=== PATIENT | male | born 1945 | race Caucasian/White ===

== ENCOUNTER 2017-04-23 13:50 | Inpatient (IN) | payer MEDICARE, MEDICAID ==
[~2017-04-23] VITALS: Ht 172.7 cm; Wt 94.1 kg
[2017-04-23] VITALS (17 sets, daily range): BP systolic 73–143; BP diastolic 29–83
[2017-04-23] MEDS ORDERED: Famotidine 20 MG/ 2ML VIAL IVP ONE (14:00)
--- NOTE | 2017-04-23 14:04 | Emergency Room Report ---
History of Present Illness General Chief Complaint: Gastrointestinal Bleed Source: EMS Present Illness HPI Patient is a 72-year-old male who presented after having increased hematemesis. Patient reported having increased epigastric pain. He was noted to be vomiting blood while at his dialysis unit. Patient is brought in by EMS after being noted be hypotensive. He was given a fluid challenge with some slight improvement in his blood pressure. Patient been vomiting bright red blood. Patient had prior history of end-stage renal disease and had undergone dialysis today. Allergies: Coded Allergies: No Known Allergies (Verified Allergy, Unknown, 02/08/07) Patient History Past Medical History: see triage record Reviewed Nursing Documentation: PMH: Agreed, PSxH: Agreed Nursing Documentation-PMH Past Medical History: No History, Except For Hx Cardiac Problems: Yes Hx Diabetes: Yes Hx Cancer: No - BPH, DVT Hx Neurological Problems: No - GOUT Hx Cerebrovascular Accident: No - GI BLEED Review of Systems All Other Systems: negative except mentioned in HPI Physical Exam Vital Signs Date Time Temp Pulse Resp B/P Pulse Ox O2 Delivery O2 Flow Rate FiO2 04/23/17 13:34 98.4 102 20 88/48 100 Room Air Sp02 EP Interpretation: reviewed, normal General Appearance: normal inspection, alert, mild distress Head: atraumatic ENT: normal ENT inspection, hearing grossly normal, normal voice Neck: normal inspection, full range of motion, supple, no bony tend Respiratory: normal inspection, lungs clear, normal breath sounds, no respiratory distress, no retraction, no wheezing Cardiovascular #1: regular rate, rhythm, no edema Gastrointestinal: normal inspection, normal bowel sounds, soft, no guarding, no hernia, tenderness - epigastric Genitourinary: no CVA tenderness Musculoskeletal: normal inspection, back normal, normal range of motion Neurologic: normal inspection, alert, oriented x3, responsive, medical technologist prn III-XII nml as tested, speech normal Psychiatric: normal inspection, judgement/insight normal, mood/affect normal Skin: normal color, no rash, pallor Procedures Intubation Intubation : Consent: Emergent Time of Intubation: 15:13 Tube Size (cm): 7.5 Medications: Etomidate, Rocuronium Breath Sounds after Intubation: equal Intubation Complications: no complications Post Intubation Xray: Yes Attempts: One Patient Tolerated: Well Complications: None Medical Decision Making Diagnostic Impression: Primary Impression: Gastrointestinal hemorrhage ER Course Patient presented for hematemesis. Differential diagnoses included was not limited to ulcer disease, variceal bleeding, coagulopathy, anemia among others.Because of complexity of patient's case laboratory testing and imaging studies were ordered.Laboratory testing showed markedly anemia. Patient typed and cross cross for 4 units of blood. Patient was given IV fluids. Dr. Back was contacted for GI consult. The patient started on a Sandostatin drip and consented for blood. Patient was intubated for airway protection after laryngoscopy x1 Labs Test 04/23/17 13:55 White Blood Count 5.9 K/UL (4.8-10.8) Red Blood Count 2.09 M/UL (4.70-6.10) Hemoglobin 5.8 G/DL (14.2-18.0) Hematocrit 19.2 % (42.0-52.0) Mean Corpuscular Volume 92 FL (80-99) Mean Corpuscular Hemoglobin 27.5 PG (27.0-31.0) Mean Corpuscular Hemoglobin Concent 30.0 G/DL (32.0-36.0) Red Cell Distribution Width 15.7 % (11.6-14.8) Platelet Count 145 K/UL (150-450) Mean Platelet Volume 5.3 FL (6.5-10.1) Neutrophils (%) (Auto) % (45.0-75.0) Lymphocytes (%) (Auto) % (20.0-45.0) Monocytes (%) (Auto) % (1.0-10.0) Eosinophils (%) (Auto) % (0.0-3.0) Basophils (%) (Auto) % (0.0-2.0) Prothrombin Time 10.7 SEC (9.30-11.50) Prothromb Time International Ratio 1.0 (0.9-1.1) Activated Partial Thromboplast Time 29 SEC (23-33) Sodium Level 139 mEQ/L (135-145) Potassium Level 3.6 mEQ/L (3.4-4.9) Chloride Level 99 mEQ/L (98-107) Carbon Dioxide Level 30 mEQ/L (20-30) Anion Gap 10 (5-15) Blood Urea Nitrogen 30 mg/dL (7-23) Creatinine 3.9 mg/dL (0.7-1.2) Estimat Glomerular Filtration Rate 15.4 mL/min (>60) Glucose Level 105 mg/dL (74-106) Calcium Level 8.0 mg/dL (8.6-10.2) Total Bilirubin 0.3 mg/dL (0.0-1.2) Aspartate Amino Transf (AST/SGOT) 10 U/L (5-40) Alanine Aminotransferase (ALT/SGPT) 5 U/L (3-41) Alkaline Phosphatase 118 U/L (40-129) Troponin I < 0.30 ng/mL (<=0.30) Total Protein 5.3 g/dL (6.6-8.7) Albumin 2.7 g/dL (3.5-5.2) Globulin 2.6 g/dL Albumin/Globulin Ratio 1.0 (1.0-2.7) Lipase 27 U/L (< 60) EKG Diagnostic Results Rate: normal - 99 Rhythm: NSR ST Segments: other - prolonged qt 505 Last Vital Signs Date Time Temp Pulse Resp B/P Pulse Ox O2 Delivery O2 Flow Rate FiO2 04/23/17 13:57 98.4 100 27 88/48 97 Room Air Status: unchanged Disposition: ADMITTED INPATIENT Condition: Critical Daniel De Leon Apr 23, 2017 14:04
[2017-04-23 14:32] LABS: MEAN CORPUSCULAR HEMOGLOBIN 27.5 PG (27.0-31.0); MEAN CORPUSCULAR VOLUME 92 FL (80-99); MEAN PLATELET VOLUME 5.3 FL (6.5-10.1); PLATELET COUNT 145 K/UL (150-450); RED BLOOD COUNT 2.09 M/UL (4.70-6.10); RED CELL DISTRIBUTION WIDTH 15.7 % (11.6-14.8); WHITE BLOOD COUNT 5.9 K/UL (4.8-10.8)
[2017-04-23 14:40] LABS: PROTHROMBIN TIME 10.7 SEC (9.30-11.50)
[2017-04-23 14:47] LABS: TROPONIN I < 0.30 ng/mL (<=0.30)
[2017-04-23 14:49] LABS: CREATININE 3.9 mg/dL (0.7-1.2); GLOMERULAR FILTRATION RATE 15.4 mL/min (>60); POTASSIUM 3.6 mEQ/L (3.4-4.9); TOTAL PROTEIN 5.3 g/dL (6.6-8.7)
[2017-04-23] MEDS ORDERED: SandoSTATIN 50mcg Inj IVP ONE (15:00)
[2017-04-23] MEDS ORDERED: Nitroglycerin Subl 0.4mg tab (Bottle Of 25) SL PRN (15:15)
[2017-04-23] MEDS ORDERED: Miralax 17gm pkt ORAL PRN (15:15)
[2017-04-23] MEDS ORDERED: Mylanta II UD 30ml ORAL PRN (15:15)
[2017-04-23] MEDS: Octreotide Acetate 500 MCG in Sodium Chloride 499 ML IV SCH (15:36)
[2017-04-23] MEDS ORDERED: Pantoprazole 80 MG in NS 250 ML IV ONE (16:00)
[2017-04-23] MEDS ORDERED: Phytonadione 10 MG in D5W 55 ML IVPB ONE (16:00)
[2017-04-23] MEDS ORDERED: Premarin Inj IV ONE (16:00)
[2017-04-23 16:10] LABS: EOSINOPHILS % (MANUAL) 1 % (0-3); LYMPHOCYTES % (MANUAL) 14 % (20-45); NEUTROPHILS % (MANUAL) 82 % (45-75); TOTAL CELLS COUNTED 100
[2017-04-23 16:12] LABS: BAND NEUTROPHILS % (MANUAL) 0 % (0-8); BASOPHILS % (MANUAL) 0 % (0-2); PLATELET ESTIMATE DECREASED; PLATELET MORPHOLOGY NORMAL
[2017-04-23 16:13] LABS: ANISOCYTOSIS 2+; HYPOCHROMASIA 2+; MICROCYTES 2+; POLYCHROMASIA 1+
[2017-04-23] MEDS ORDERED: ALLOPURINOL100 M1 ORAL (16:15)
[2017-04-23] MEDS ORDERED: triamcinolone cream (17:19)
[2017-04-23] MEDS ORDERED: AURYXIA210 MG PO (17:19)
[2017-04-23] MEDS ORDERED: HYDROXYZINE HCL10 M1 PO (17:19)
[2017-04-23] MEDS ORDERED: GABAPENTIN100 MG ORAL (17:19)
[2017-04-23] MEDS ORDERED: SIMETHICONE80 MG ORAL (17:19)
[2017-04-23] MEDS ORDERED: BENADRYL25 MG ORAL (17:19)
[2017-04-23] MEDS ORDERED: RENVELA0.8 GM ORAL (17:19)
[2017-04-23] MEDS ORDERED: BISACODYL5 MG ORAL (17:19)
[2017-04-23] MEDS ORDERED: MIRALAX17 G2 ORAL (17:19)
[2017-04-23] MEDS ORDERED: SENSIPAR30 MG ORAL (17:19)
[2017-04-23] MEDS ORDERED: combivent PO (17:19)
[2017-04-23] MEDS ORDERED: PANTOPRAZOLE SO40 MG ORAL (17:19)
[2017-04-23] MEDS ORDERED: LANTUS SOL100 UNIT/1 SUBQ (17:19)
[2017-04-23] MEDS ORDERED: ATORVASTATIN CA40 MG ORAL (17:19)
[2017-04-23] MEDS ORDERED: NASONEX17 GM NASAL (17:19)
[2017-04-23] MEDS ORDERED: PROSCAR5 MG ORAL (17:19)
[2017-04-23] MEDS ORDERED: METOLAZONE5 MG PO (17:19)
[2017-04-23] MEDS ORDERED: MIDODRINE HCL10 MG ORAL (17:19)
[2017-04-23] MEDS ORDERED: TAMSULOSIN HCL0.4 MG ORAL (17:19)
[2017-04-23] MEDS ORDERED: COLCRYS0.6 M1 PO (17:19)
[2017-04-23] MEDS ORDERED: DOK250 M1 PO (17:19)
[2017-04-23] MEDS ORDERED: HUMALOG KW200 UNIT/1 SQ (17:19)
[2017-04-23] MEDS ORDERED: CLOPIDOGREL75 MG ORAL (17:19)
[2017-04-23] MEDS ORDERED: TRIAZOLAM0.25 MG PO (17:19)
[2017-04-23] MEDS ORDERED: ASPIRIN EC81 MG ORAL (17:19)
[2017-04-23] MEDS ORDERED: NORCO 5-325 TA1 EACH ORAL (17:19)
[2017-04-23] MEDS ORDERED: PLAVIX75 MG ORAL (17:19)
[2017-04-23] MEDS ORDERED: KLONOPIN0.5 MG ORAL (17:19)
--- NOTE | 2017-04-23 18:28 | GI Initial Consult Note ---
Joellen Parker NSkylarPSkylar 04/23/17 1827: History of Present Illness General Date patient seen: Apr 23, 2017 Time patient seen: 18:20 Reason for Hospitalization: Gastrointestinal Bleed Referring physician: FORD VELAZCO Reason for Consultation: GI BLEED Present Illness HPI Patient is a 72-year-old male who presented after having increased hematemesis. Patient reported having increased epigastric pain. He was noted to be vomiting blood while at his dialysis unit. Patient is brought in by EMS after being noted be hypotensive. He was given a fluid challenge with some slight improvement in his blood pressure. Patient been vomiting bright red blood. Patient had prior history of end-stage renal disease and had undergone dialysis today. GI Consult. HPI as noted above. GI consulted for UGIB requiring blood transfusion in ER. Pt seen in ICU, alert with active bleeding noted. He presents today with anemia low Hgb 5.8 requiring 4 units of blood and hypoalbuminemia. Unknown history of endoscopic procedures. Unremarkable lipase. Home Meds Reported Medications Metolazone (METOLAZONE) 5 Mg Tablet, 10 MG PO Q non dialysis days, TAB 04/23/17 Triazolam* (HALCION*) 0.25 Mg Tablet, 0.25 MG PO DAILY, TAB 04/23/17 Insulin Glargine (LANTUS) 100 Unit/1 Ml Insuln.pen, 8 UNITS SUBQ every am, #1 EA 0 Refills 04/23/17 [triamcinolone cream] No Conflict Check 04/23/17 Hydroxyzine Hcl (HYDROXYZINE HCL) 10 Mg Tablet, 10 MG PO QHS, TAB 04/23/17 Tamsulosin Hcl (TAMSULOSIN HCL*) 0.4 Mg Cap.er.24h, 0.4 MG ORAL DAILY, CAP 04/23/17 Simethicone* (SIMETHICONE*) 80 Mg Tab.chew, 80 MG ORAL Q8H Y for GAS PAIN, #20 TAB 0 Refills 04/23/17 Insulin Lispro (Humalog Kwikpen) 200 Unit/1 Ml Insuln.pen, 2-10 UNIT SQ 4 times per day, EA 04/23/17 Cinacalcet* (SENSIPAR*) 30 Mg Tablet, 60 MG ORAL DAILY, TAB 04/23/17 Gabapentin* (GABAPENTIN*) 100 Mg Capsule, 100 MG ORAL QHS Y for For Pain, CAP 04/23/17 Sevelamer Carbonate* (RENVELA*) 0.8 Gm Powd.pack, 800 MG ORAL THREE TIMES A DAY , PACK 04/23/17 Finasteride* (PROSCAR*) 5 Mg Tablet, 5 MG ORAL DAILY, #30 TAB 0 Refills 04/23/17 Clopidogrel Bisulfate* (PLAVIX*) 75 Mg Tablet, 75 MG ORAL DAILY, TAB 04/23/17 Bisacodyl* (DULCOLAX*) 5 Mg Tablet.dr, 20 MG ORAL ONCE Y for Constipation, #4 TAB 0 Refills 04/23/17 Pantoprazole* (PANTOPRAZOLE*) 40 Mg Tablet.dr, 40 MG ORAL DAILY, TAB 04/23/17 Docusate Sodium (DOK) 250 Mg Capsule, 250 MG PO BID, CAP 04/23/17 Diphenhydramine Hcl* (BENADRYL*) 25 Mg Capsule, 50 MG ORAL Q6H Y for insoma, CAP 04/23/17 Colchicine (COLCRYS) 0.6 Mg Tablet, 0.3 MG PO DAILY, TAB 04/23/17 [combivent] No Conflict Check, 2 PUFFS PO Q6HR Y for Shortness of Breath 04/23/17 Ferric Citrate (Auryxia) 210 Mg Tablet, 1 GM PO THREE TIMES A DAY, TAB 04/23/17 Clopidogrel* (CLOPIDOGREL*) 75 Mg Tablet, 75 MG ORAL DAILY, TAB 04/23/17 Hydrocodone Bit/Acetaminophen 5-325* (NORCO 5-325*) 1 Each Tablet, 1 TAB ORAL Q6H Y for For Pain, #10 TAB 0 Refills 04/23/17 Clonazepam* (KLONOPIN*) 0.5 Mg Tablet, 0.25 MG ORAL BID, #15 TAB 0 Refills 04/23/17 Mometasone Furoate (NASONEX) 17 Gm [place].pump, 2 SPRAYS NASAL DAILY, GM 0 Refills 04/23/17 Atorvastatin Calcium* (ATORVASTATIN CALCIUM*) 40 Mg Tablet, 80 MG ORAL BEDTIME, TAB 04/23/17 Polyethylene Glycol 3350* (MIRALAX*) 17 Gm Powd.pack, 17 GM ORAL DAILY, PACKET 04/23/17 Aspirin Ec* (ASPIRIN EC*) 81 Mg Tablet.dr, 81 MG ORAL DAILY, TAB 04/23/17 Midodrine* (PROAMATINE*) 10 Mg Tablet, 10 MG ORAL 30 min before dialys, TAB 04/23/17 Allopurinol* (ALLOPURINOL*) 100 Mg Tablet, 100 MG ORAL DAILY, TAB 04/23/17 Med list reviewed/reconciled: Yes Allergies: Coded Allergies: No Known Allergies (Verified , 02/08/07) Patient History Limited by: medical condition History Provided By: Medical Record PMH Narrative Past Medical History: No History, Except For Hx Cardiac Problems: Yes Hx Diabetes: Yes Hx Cancer: No - BPH, DVT Hx Neurological Problems: No - GOUT Hx Cerebrovascular Accident: No - GI BLEED Social History: Reports: alcohol use - unknown, Denies: drug use, other, smoking Review of Systems All Other Systems: limited Physical Exam Vital Signs Date Time Temp Pulse Resp B/P Pulse Ox O2 Delivery O2 Flow Rate FiO2 04/23/17 13:34 98.4 102 20 88/48 100 Room Air 04/23/17 15:15 50 Sp02 EP Interpretation: reviewed Labs Laboratory Tests Test 04/23/17 13:55 White Blood Count 5.9 K/UL (4.8-10.8) Red Blood Count 2.09 M/UL (4.70-6.10) L Hemoglobin 5.8 G/DL (14.2-18.0) *L Hematocrit 19.2 % (42.0-52.0) L Mean Corpuscular Volume 92 FL (80-99) Mean Corpuscular Hemoglobin 27.5 PG (27.0-31.0) Mean Corpuscular Hemoglobin Concent 30.0 G/DL (32.0-36.0) L Red Cell Distribution Width 15.7 % (11.6-14.8) H Platelet Count 145 K/UL (150-450) L Mean Platelet Volume 5.3 FL (6.5-10.1) L Neutrophils (%) (Auto) % (45.0-75.0) Lymphocytes (%) (Auto) % (20.0-45.0) Monocytes (%) (Auto) % (1.0-10.0) Eosinophils (%) (Auto) % (0.0-3.0) Basophils (%) (Auto) % (0.0-2.0) Differential Total Cells Counted 100 Neutrophils % (Manual) 82 % (45-75) H Lymphocytes % (Manual) 14 % (20-45) L Monocytes % (Manual) 3 % (1-10) Eosinophils % (Manual) 1 % (0-3) Basophils % (Manual) 0 % (0-2) Band Neutrophils 0 % (0-8) Platelet Estimate Decreased L Platelet Morphology Normal Polychromasia 1+ Hypochromasia 2+ Anisocytosis 2+ Microcytosis 2+ Prothrombin Time 10.7 SEC (9.30-11.50) Prothromb Time International Ratio 1.0 (0.9-1.1) Activated Partial Thromboplast Time 29 SEC (23-33) Sodium Level 139 mEQ/L (135-145) Potassium Level 3.6 mEQ/L (3.4-4.9) Chloride Level 99 mEQ/L (98-107) Carbon Dioxide Level 30 mEQ/L (20-30) Anion Gap 10 (5-15) Blood Urea Nitrogen 30 mg/dL (7-23) H Creatinine 3.9 mg/dL (0.7-1.2) H Estimat Glomerular Filtration Rate 15.4 mL/min (>60) Glucose Level 105 mg/dL (74-106) Calcium Level 8.0 mg/dL (8.6-10.2) L Total Bilirubin 0.3 mg/dL (0.0-1.2) Aspartate Amino Transf (AST/SGOT) 10 U/L (5-40) Alanine Aminotransferase (ALT/SGPT) 5 U/L (3-41) Alkaline Phosphatase 118 U/L (40-129) Troponin I < 0.30 ng/mL (<=0.30) Total Protein 5.3 g/dL (6.6-8.7) L Albumin 2.7 g/dL (3.5-5.2) L Globulin 2.6 g/dL Albumin/Globulin Ratio 1.0 (1.0-2.7) Lipase 27 U/L (< 60) General Appearance: well appearing, no apparent distress, alert Head: normocephalic EENT: PERRL/EOMI, normal ENT inspection Neck: supple Respiratory: normal breath sounds, other - intubated Cardiovascular: normal rate Gastrointestinal: soft Rectal: deferred Lymphatic: normal inspection, no adenopathy Current Medications Current Medications Medications (Trade) Dose Ordered Sig/[place] Route PRN Reason Start Time Stop Time Status Last Admin Dose Admin Acetaminophen (Tylenol) 650 mg Q4H PRN ORAL fever 04/23/17 15:15 05/23/17 15:14 Al Hydroxide/Mg Hydroxide (Mylanta II) 30 ml Q6H PRN ORAL dyspepsia 04/23/17 15:15 05/23/17 15:14 Dextrose STAT PRN IV Hypoglycemia 04/23/17 15:15 05/23/17 15:14 Dextrose/Sodium Chloride 1,000 ml @ 100 mls/hr Q10H IV 04/23/17 15:01 05/23/17 15:00 Diphenhydramine HCl (Benadryl) 25 mg Q6H PRN ORAL Itching/Pruritis 04/23/17 15:15 05/23/17 15:14 Dopamine HCl/ Dextrose 250 ml @ 0 mls/hr Q24H IV 04/23/17 15:15 05/23/17 15:14 Lorazepam (Ativan 2mg/ml 1ml) 2 mg Q2H PRN IV For Anxiety 04/23/17 16:45 04/30/17 16:44 Morphine Sulfate (Morphine Sulfate) 2 mg Q4H PRN IVP severe Pain (Pain Scale 7-10) 04/23/17 15:15 04/30/17 15:14 Nitroglycerin (Ntg) 0.4 mg Q5M X 3 DOSES PRN SL Prn Chest Pain 04/23/17 15:15 05/23/17 15:14 Octreotide Acetate 500 mcg/ Sodium Chloride 500 ml @ 50 mls/hr Q10H IV 04/23/17 15:00 05/23/17 14:59 04/23/17 15:36 Ondansetron HCl (Zofran) 4 mg Q6H PRN IVP Nausea & Vomiting 04/23/17 15:15 05/23/17 15:14 Pantoprazole/ Sodium Chloride (Protonix/Sodium Chloride) 250 ml @ 25 mls/hr Q10H ONCE IV 04/23/17 16:00 04/24/17 01:59 Polyethylene Glycol (Miralax) 17 gm HSPRN PRN ORAL Constipation 04/23/17 15:15 05/23/17 15:14 Propofol (Diprivan) 100 ml @ 0 mls/hr Q24H IV 04/23/17 15:15 04/25/17 15:14 GI: Plan Problems: (1) Gastrointestinal hemorrhage Plan EGD scheduled tomorrow. - strict NPO + IVFs begin ppi gtt monitor H&H, transfuse prn Hgb <7.0. fu labs Discussed with Dr. Sher. Thank you for referring this patient. [email or web address] 04/25/17 0749: History of Present Illness General Reason for Hospitalization: Gastrointestinal Bleed Present Illness Home Meds Reported Medications Metolazone (METOLAZONE) 5 Mg Tablet, 10 MG PO Q non dialysis days, TAB 04/23/17 Triazolam* (HALCION*) 0.25 Mg Tablet, 0.25 MG PO DAILY, TAB 04/23/17 Insulin Glargine (LANTUS) 100 Unit/1 Ml Insuln.pen, 8 UNITS SUBQ every am, #1 EA 0 Refills 04/23/17 [triamcinolone cream] No Conflict Check 04/23/17 Hydroxyzine Hcl (HYDROXYZINE HCL) 10 Mg Tablet, 10 MG PO QHS, TAB 04/23/17 Tamsulosin Hcl (TAMSULOSIN HCL*) 0.4 Mg Cap.er.24h, 0.4 MG ORAL DAILY, CAP 04/23/17 Simethicone* (SIMETHICONE*) 80 Mg Tab.chew, 80 MG ORAL Q8H Y for GAS PAIN, #20 TAB 0 Refills 04/23/17 Insulin Lispro (Humalog Kwikpen) 200 Unit/1 Ml Insuln.pen, 2-10 UNIT SQ 4 times per day, EA 04/23/17 Cinacalcet* (SENSIPAR*) 30 Mg Tablet, 60 MG ORAL DAILY, TAB 04/23/17 Gabapentin* (GABAPENTIN*) 100 Mg Capsule, 100 MG ORAL QHS Y for For Pain, CAP 04/23/17 Sevelamer Carbonate* (RENVELA*) 0.8 Gm Powd.pack, 800 MG ORAL THREE TIMES A DAY , PACK 04/23/17 Finasteride* (PROSCAR*) 5 Mg Tablet, 5 MG ORAL DAILY, #30 TAB 0 Refills 04/23/17 Clopidogrel Bisulfate* (PLAVIX*) 75 Mg Tablet, 75 MG ORAL DAILY, TAB 04/23/17 Bisacodyl* (DULCOLAX*) 5 Mg Tablet.dr, 20 MG ORAL ONCE Y for Constipation, #4 TAB 0 Refills 04/23/17 Pantoprazole* (PANTOPRAZOLE*) 40 Mg Tablet.dr, 40 MG ORAL DAILY, TAB 04/23/17 Docusate Sodium (DOK) 250 Mg Capsule, 250 MG PO BID, CAP 04/23/17 Diphenhydramine Hcl* (BENADRYL*) 25 Mg Capsule, 50 MG ORAL Q6H Y for insoma, CAP 04/23/17 Colchicine (COLCRYS) 0.6 Mg Tablet, 0.3 MG PO DAILY, TAB 04/23/17 [combivent] No Conflict Check, 2 PUFFS PO Q6HR Y for Shortness of Breath 04/23/17 Ferric Citrate (Auryxia) 210 Mg Tablet, 1 GM PO THREE TIMES A DAY, TAB 04/23/17 Clopidogrel* (CLOPIDOGREL*) 75 Mg Tablet, 75 MG ORAL DAILY, TAB 04/23/17 Hydrocodone Bit/Acetaminophen 5-325* (NORCO 5-325*) 1 Each Tablet, 1 TAB ORAL Q6H Y for For Pain, #10 TAB 0 Refills 04/23/17 Clonazepam* (KLONOPIN*) 0.5 Mg Tablet, 0.25 MG ORAL BID, #15 TAB 0 Refills 04/23/17 Mometasone Furoate (NASONEX) 17 Gm [place].pump, 2 SPRAYS NASAL DAILY, GM 0 Refills 04/23/17 Atorvastatin Calcium* (ATORVASTATIN CALCIUM*) 40 Mg Tablet, 80 MG ORAL BEDTIME, TAB 04/23/17 Polyethylene Glycol 3350* (MIRALAX*) 17 Gm Powd.pack, 17 GM ORAL DAILY, PACKET 04/23/17 Aspirin Ec* (ASPIRIN EC*) 81 Mg Tablet.dr, 81 MG ORAL DAILY, TAB 04/23/17 Midodrine* (PROAMATINE*) 10 Mg Tablet, 10 MG ORAL 30 min before dialys, TAB 04/23/17 Allopurinol* (ALLOPURINOL*) 100 Mg Tablet, 100 MG ORAL DAILY, TAB 04/23/17 Allergies: Coded Allergies: No Known Allergies (Verified , 02/08/07) GI: Plan Plan The patient was seen and examined at bedside and all new and available data was reviewed in the patients chart. I agree with the above findings, impression and plan. (Patient seen earlier today. Signature stamp does not reflect patient encounter time.). -Jina Payton MDh Luis Escamilla Apr 23, 2017 18:27 MADYSON SHER Apr 25, 2017 07:49
--- NOTE | 2017-04-23 18:49 | History and Physical ---
History of Present Illness General Date patient seen: Apr 23, 2017 Reason for Hospitalization: Gastrointestinal Bleed Present Illness HPI 72-year-old male with hx of ESRF, DM, Gout, BPH, COPD who presented after having hematemesis, epigastric pain, vomiting blood while at his dialysis unit. Patient is brought in by EMS after being noted be hypotensive. He was given a fluid challenge with some slight improvement in his blood pressure. Patient been vomiting bright red blood. He was in respiratory failure in ER and was intubated and cross match was done. He is transferring to ICU. Pt is currently sedated and can't give any history. Allergies: Coded Allergies: No Known Allergies (Verified , 02/08/07) Medication History Scheduled Allopurinol* (Allopurinol*), 100 MG ORAL DAILY, (Reported) Aspirin Ec* (Aspirin Ec*), 81 MG ORAL DAILY, (Reported) Atorvastatin Calcium* (Atorvastatin Calcium*), 80 MG ORAL BEDTIME, (Reported) Cinacalcet* (Sensipar*), 60 MG ORAL DAILY, (Reported) Clonazepam* (Klonopin*), 0.25 MG ORAL BID, (Reported) Clopidogrel Bisulfate* (Plavix*), 75 MG ORAL DAILY, (Reported) Clopidogrel* (Clopidogrel*), 75 MG ORAL DAILY, (Reported) Colchicine (Colcrys), 0.3 MG PO DAILY, (Reported) Docusate Sodium (Dok), 250 MG PO BID, (Reported) Ferric Citrate (Auryxia), 1 GM PO THREE TIMES A DAY, (Reported) Finasteride* (Proscar*), 5 MG ORAL DAILY, (Reported) Hydroxyzine Hcl (Hydroxyzine Hcl), 10 MG PO QHS, (Reported) Insulin Glargine (Lantus), 8 UNITS SUBQ every am, (Reported) Insulin Lispro (Humalog Kwikpen), 2-10 UNIT SQ 4 times per day, (Reported) Metolazone (Metolazone), 10 MG PO Q non dialysis days, (Reported) Midodrine* (Proamatine*), 10 MG ORAL 30 min before dialys, (Reported) Mometasone Furoate (Nasonex), 2 SPRAYS NASAL DAILY, (Reported) Pantoprazole* (Pantoprazole*), 40 MG ORAL DAILY, (Reported) Polyethylene Glycol 3350* (Miralax*), 17 GM ORAL DAILY, (Reported) Sevelamer Carbonate* (Renvela*), 800 MG ORAL THREE TIMES A DAY, (Reported) Tamsulosin Hcl (Tamsulosin Hcl*), 0.4 MG ORAL DAILY, (Reported) Triazolam* (Halcion*), 0.25 MG PO DAILY, (Reported) Scheduled PRN Bisacodyl* (Dulcolax*), 20 MG ORAL ONCE PRN for Constipation, (Reported) Diphenhydramine Hcl* (Benadryl*), 50 MG ORAL Q6H PRN for insoma, (Reported) Gabapentin* (Gabapentin*), 100 MG ORAL QHS PRN for For Pain, (Reported) Hydrocodone Bit/Acetaminophen 5-325* ([place] 5-325*), 1 TAB ORAL Q6H PRN for For Pain, (Reported) Simethicone* (Simethicone*), 80 MG ORAL Q8H PRN for GAS PAIN, (Reported) [combivent], 2 PUFFS PO Q6HR PRN for Shortness of Breath, (Reported) Miscellaneous Medications [triamcinolone cream], (Reported) Patient History Healthcare decision maker Resuscitation status Full Code Advanced Directive on File No Past Medical/Surgical History Past Medical/Surgical History: (1) Gout (2) Diabetes mellitus (3) Benign prostate hyperplasia (4) COPD (chronic obstructive pulmonary disease) (5) ESRF (end stage renal failure) Review of Systems All Other Systems: negative except mentioned in HPI Physical Exam General Appearance: WD/WN Lines, tubes and drains: peripheral HEENT: normocephalic, atraumatic Neck: non-tender, normal alignment Respiratory/Chest: chest wall non-tender, lungs clear Cardiovascular/Chest: normal peripheral pulses, normal rate Abdomen: normal bowel sounds, non tender Genitourinary/Rectal: normal genital exam, normal rectal exam Extremities: normal range of motion, non-tender Skin Exam: normal pigmentation 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: 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 II-XII grossly normal Last 24 Hour Vital Signs Date Time Temp Pulse Resp B/P Pulse Ox O2 Delivery O2 Flow Rate FiO2 04/23/17 18:00 88 18 89/48 100 Mechanical Ventilator 50 04/23/17 17:29 89 30 50 04/23/17 17:00 102 19 109/46 100 Mechanical Ventilator 50 04/23/17 16:05 98 28 100/61 100 Mechanical Ventilator 04/23/17 16:00 97 04/23/17 16:00 50 04/23/17 16:00 97.5 94 19 129/83 100 Mechanical Ventilator 50 04/23/17 15:15 88 20 Mechanical Ventilator 50 04/23/17 15:15 88 20 50 04/23/17 13:57 98.4 100 27 88/48 97 Room Air 04/23/17 13:34 98.4 102 20 88/48 100 Room Air Laboratory Tests Test 04/23/17 13:55 White Blood Count 5.9 K/UL (4.8-10.8) Red Blood Count 2.09 M/UL (4.70-6.10) L Hemoglobin 5.8 G/DL (14.2-18.0) *L Hematocrit 19.2 % (42.0-52.0) L Mean Corpuscular Volume 92 FL (80-99) Mean Corpuscular Hemoglobin 27.5 PG (27.0-31.0) Mean Corpuscular Hemoglobin Concent 30.0 G/DL (32.0-36.0) L Red Cell Distribution Width 15.7 % (11.6-14.8) H Platelet Count 145 K/UL (150-450) L Mean Platelet Volume 5.3 FL (6.5-10.1) L Neutrophils (%) (Auto) % (45.0-75.0) Lymphocytes (%) (Auto) % (20.0-45.0) Monocytes (%) (Auto) % (1.0-10.0) Eosinophils (%) (Auto) % (0.0-3.0) Basophils (%) (Auto) % (0.0-2.0) Differential Total Cells Counted 100 Neutrophils % (Manual) 82 % (45-75) H Lymphocytes % (Manual) 14 % (20-45) L Monocytes % (Manual) 3 % (1-10) Eosinophils % (Manual) 1 % (0-3) Basophils % (Manual) 0 % (0-2) Band Neutrophils 0 % (0-8) Platelet Estimate Decreased L Platelet Morphology Normal Polychromasia 1+ Hypochromasia 2+ Anisocytosis 2+ Microcytosis 2+ Prothrombin Time 10.7 SEC (9.30-11.50) Prothromb Time International Ratio 1.0 (0.9-1.1) Activated Partial Thromboplast Time 29 SEC (23-33) Sodium Level 139 mEQ/L (135-145) Potassium Level 3.6 mEQ/L (3.4-4.9) Chloride Level 99 mEQ/L (98-107) Carbon Dioxide Level 30 mEQ/L (20-30) Anion Gap 10 (5-15) Blood Urea Nitrogen 30 mg/dL (7-23) H Creatinine 3.9 mg/dL (0.7-1.2) H Estimat Glomerular Filtration Rate 15.4 mL/min (>60) Glucose Level 105 mg/dL (74-106) Calcium Level 8.0 mg/dL (8.6-10.2) L Total Bilirubin 0.3 mg/dL (0.0-1.2) Aspartate Amino Transf (AST/SGOT) 10 U/L (5-40) Alanine Aminotransferase (ALT/SGPT) 5 U/L (3-41) Alkaline Phosphatase 118 U/L (40-129) Troponin I < 0.30 ng/mL (<=0.30) Total Protein 5.3 g/dL (6.6-8.7) L Albumin 2.7 g/dL (3.5-5.2) L Globulin 2.6 g/dL Albumin/Globulin Ratio 1.0 (1.0-2.7) Lipase 27 U/L (< 60) Height (Feet): 5 Height (Inches): 10.00 Weight (Pounds): 180 Medications Current Medications Medications (Trade) Dose Ordered Sig/[place] Route PRN Reason Start Time Stop Time Status Last Admin Dose Admin Acetaminophen (Tylenol) 650 mg Q4H PRN ORAL fever 04/23/17 15:15 05/23/17 15:14 Al Hydroxide/Mg Hydroxide (Mylanta II) 30 ml Q6H PRN ORAL dyspepsia 04/23/17 15:15 05/23/17 15:14 Dextrose STAT PRN IV Hypoglycemia 04/23/17 15:15 05/23/17 15:14 Dextrose/Sodium Chloride 1,000 ml @ 100 mls/hr Q10H IV 04/23/17 15:01 05/23/17 15:00 Diphenhydramine HCl (Benadryl) 25 mg Q6H PRN ORAL Itching/Pruritis 04/23/17 15:15 05/23/17 15:14 Dopamine HCl/ Dextrose 250 ml @ 0 mls/hr Q24H IV 04/23/17 15:15 05/23/17 15:14 Lorazepam (Ativan 2mg/ml 1ml) 2 mg Q2H PRN IV For Anxiety 04/23/17 16:45 04/30/17 16:44 Morphine Sulfate (Morphine Sulfate) 2 mg Q4H PRN IVP severe Pain (Pain Scale 7-10) 04/23/17 15:15 04/30/17 15:14 Nitroglycerin (Ntg) 0.4 mg Q5M X 3 DOSES PRN SL Prn Chest Pain 04/23/17 15:15 05/23/17 15:14 Octreotide Acetate 500 mcg/ Sodium Chloride 500 ml @ 50 mls/hr Q10H IV 04/23/17 15:00 05/23/17 14:59 04/23/17 15:36 Ondansetron HCl (Zofran) 4 mg Q6H PRN IVP Nausea & Vomiting 04/23/17 15:15 05/23/17 15:14 Pantoprazole/ Sodium Chloride (Protonix/Sodium Chloride) 250 ml @ 25 mls/hr Q10H ONCE IV 04/23/17 16:00 04/24/17 01:59 04/23/17 17:00 Polyethylene Glycol (Miralax) 17 gm HSPRN PRN ORAL Constipation 04/23/17 15:15 05/23/17 15:14 Propofol (Diprivan) 100 ml @ 0 mls/hr Q24H IV 04/23/17 15:15 04/25/17 15:14 Assessment/Plan Problem List: (1) Hemorrhagic shock SNOMED: 051741 (2) Acute respiratory failure ICD Codes: J96.00 - Acute respiratory failure, unspecified whether with hypoxia or hypercapnia SNOMED: 84250856 (3) Aspiration pneumonia ICD Codes: J69.0 - Pneumonitis due to inhalation of food and vomit SNOMED: 941851447 (4) ESRF (end stage renal failure) ICD Codes: N18.6 - End stage renal disease SNOMED: 22481068 (5) Gout ICD Codes: M10.9 - Gout, unspecified SNOMED: 05855769 (6) Diabetes mellitus ICD Codes: E11.9 - Type 2 diabetes mellitus without complications SNOMED: 18964842 (7) Gastrointestinal hemorrhage ICD Codes: K92.2 - Gastrointestinal hemorrhage, unspecified SNOMED: 35801303 (8) COPD (chronic obstructive pulmonary disease) ICD Codes: J44.9 - Chronic obstructive pulmonary disease, unspecified SNOMED: 01971127 Respiratory: adjust tidal volume, monitor respiratory rate, adjust FIO2, CXR Cardiac: continue pressors Renal: F/U I&O, keep IV fluid, check electrolytes Infectious Disease: check cultures Gastrointestinal: continue feedings/current rate Endocrine: monitor blood sugar, check TSH Neurologic: PRN Ativan Affect: PRN ativan Prophylaxis: Protonix, SCDs Disposition: keep in ICU Notes Reviewed: GI Discussed with: nurses, consultants, bottle caser FORD FANG Apr 23, 2017 18:49
[2017-04-23] MEDS: LORazepam Inj 2mg/ml 1ml IV PRN (19:24)
[2017-04-23] MEDS: D5NS 1,000 ML IV SCH (19:27)
[2017-04-23] MEDS ORDERED: Pantoprazole Inj IVP SCH (21:00)
[2017-04-23 21:39] LABS: MEAN CORPUSCULAR HEMOGLOBIN 29.6 PG (27.0-31.0); MEAN CORPUSCULAR HGB CONC 32.9 G/DL (32.0-36.0); MEAN CORPUSCULAR VOLUME 90 FL (80-99); MEAN PLATELET VOLUME 4.7 FL (6.5-10.1); PLATELET COUNT 127 K/UL (150-450); RED BLOOD COUNT 2.17 M/UL (4.70-6.10); RED CELL DISTRIBUTION WIDTH 14.4 % (11.6-14.8); WHITE BLOOD COUNT 5.3 K/UL (4.8-10.8)
[2017-04-23] MEDS: DOPamine 400mg/250ml 250 ML IV SCH (22:40)
[2017-04-23 23:11] LABS: ANISOCYTOSIS 2+; BASOPHILS % (MANUAL) 1 % (0-2); EOSINOPHILS % (MANUAL) 2 % (0-3); HYPOCHROMASIA 2+; LYMPHOCYTES % (MANUAL) 20 % (20-45); MICROCYTES 2+; NEUTROPHILS % (MANUAL) 72 % (45-75); POLYCHROMASIA 1+; TOTAL CELLS COUNTED 100
[2017-04-23 23:12] LABS: BAND NEUTROPHILS % (MANUAL) 0 % (0-8); PLATELET ESTIMATE DECREASED; PLATELET MORPHOLOGY NORMAL
[2017-04-23] MEDS: Morphine Sulfate 2mg/ml Inj IVP PRN (23:31)
[2017-04-24] VITALS (41 sets, daily range): BP systolic 72–125; BP diastolic 39–66
[2017-04-24] MEDS ORDERED: Levophed 4mg/4mL Inj IV ONE (00:09)
[2017-04-24] MEDS: Octreotide Acetate 500 MCG in Sodium Chloride 499 ML IV SCH ×3 (00:16→10:52)
--- NOTE | 2017-04-24 01:02 | Wound Care Consultation ---
Wound Assessment Wound Assessment #1: Wound Present on Admission: Yes New Wound: No Status Change of Wound: No Wound Location Body Site Modif: mid Wound Location Body Site: sacral - , left and right buttocks Wound Type: rash Yang Test: Does not Yang Wound Length: 9.0 Wound Width: 9.0 Percent of Wound [place]/Red: 100 Wound Drainage Amount: None Wound Drainage Odor: None/Absent Tissue Surrounding Wound: Erythemic Wound General Appearance: Reddened Wound Assessment #2: Wound Present on Admission: Yes New Wound: No Status Change of Wound: No Wound Location Body Site Modif: left, right, lower Wound Location Body Site: leg Wound Type: other - dryness with flaky skin Wound Drainage Amount: None Wound Drainage Odor: None/Absent Tissue Surrounding Wound: Intact Wound General Appearance: Asymptomatic Wound Comment #1 Sacral, Left and right buttocks rash non Blanchable redness. #2 Let and right lower legs with dry flaky skin Recommendation -Local wound care per protocol Rash on perineal area with Lotrimin cream -Local wound care per protocol for dryness on both lower leg with A&D ointment -Keep clean and dry -Turn and reposition -Optimize nutrition -Offload both heels -Heel protector on both heels -Low air loss SPR mattress -Assess and f/u accordingly for any changes JONI CHENG RN Apr 24, 2017 01:02
[2017-04-24] MEDS: LORazepam Inj 2mg/ml 1ml IV PRN ×4 (04:14→22:51)
[2017-04-24] MEDS: Morphine Sulfate 2mg/ml Inj IVP PRN (05:33)
[2017-04-24 05:40] LABS: MEAN CORPUSCULAR HEMOGLOBIN 31.2 PG (27.0-31.0); MEAN CORPUSCULAR HGB CONC 33.9 G/DL (32.0-36.0); MEAN CORPUSCULAR VOLUME 92 FL (80-99); MEAN PLATELET VOLUME 5.3 FL (6.5-10.1); PLATELET COUNT 148 K/UL (150-450); RED CELL DISTRIBUTION WIDTH 14.5 % (11.6-14.8); WHITE BLOOD COUNT 8.2 K/UL (4.8-10.8)
[2017-04-24 05:51] LABS: PROTHROMBIN TIME 10.8 SEC (9.30-11.50)
[2017-04-24 06:13] LABS: CALCIUM 7.9 mg/dL (8.6-10.2); CREATININE 4.5 mg/dL (0.7-1.2); MAGNESIUM 2.1 mg/dL (1.7-2.5); PHOSPHORUS 4.6 mg/dL (2.5-4.8); POTASSIUM 3.9 mEQ/L (3.4-4.9); TOTAL PROTEIN 4.6 g/dL (6.6-8.7)
[2017-04-24] MEDS: D5NS 1,000 ML IV SCH ×3 (06:36→12:56)
--- NOTE | 2017-04-24 06:53 | Emergency Room Report ---
History of Present Illness General Chief Complaint: Gastrointestinal Bleed Source: Medical Record Present Illness Allergies: Coded Allergies: No Known Allergies (Verified , 02/08/07) Nursing Documentation-PMH Past Medical History: No History, Except For Hx Cardiac Problems: Yes Hx Diabetes: Yes Hx Cancer: No - BPH, DVT Hx Neurological Problems: No - GOUT Hx Cerebrovascular Accident: No - GI BLEED Physical Exam Vital Signs Date Time Temp Pulse Resp B/P Pulse Ox O2 Delivery O2 Flow Rate FiO2 04/23/17 13:34 98.4 102 20 88/48 100 Room Air 04/23/17 15:15 50 Procedures Central Line Central Line : Consent: Emergent Central Line Lumen: triple Maximal Sterile Barrier Tech: yes cap, yes mask, yes sterile gown, yes sterile gloves, yes large sterile sheet, yes hand hygiene, yes chlorhexidine prep Central Line Postion: femoral (R) Anesthesia: Lidocaine Complications: none Central Line Post Position: sutured, good blood return Attempts: One Patient Tolerated: Well Complications: None Medical Decision Making Diagnostic Impression: Primary Impression: Gastrointestinal hemorrhage ER Course patient received multiple units of blood, is currently on low dose levophed but remains hypotensive. R femoral central line placed without complication. Last Vital Signs Date Time Temp Pulse Resp B/P Pulse Ox O2 Delivery O2 Flow Rate FiO2 04/24/17 06:30 87 27 118/61 100 Mechanical Ventilator 50 04/24/17 04:30 98.7 Status: improved Disposition: ADMITTED INPATIENT Condition: Critical Referrals: NOT CHOSEN WILLY/,REFERRING (PCP) TIGRE QUEVEDO M.D. Apr 24, 2017 06:53
[2017-04-24] MEDS: Pantoprazole 80 MG in NS 250 ML IV SCH ×3 (07:44→23:01)
[2017-04-24 07:52] LABS: BAND NEUTROPHILS % (MANUAL) 0 % (0-8); BASOPHILS % (MANUAL) 0 % (0-2); EOSINOPHILS % (MANUAL) 3 % (0-3); HYPOCHROMASIA 3+; LYMPHOCYTES % (MANUAL) 22 % (20-45); NEUTROPHILS % (MANUAL) 71 % (45-75); PLATELET ESTIMATE DECREASED; SPHEROCYTES 2+; TOTAL CELLS COUNTED 100
[2017-04-24 07:53] LABS: ANISOCYTOSIS 1+; PLATELET MORPHOLOGY NORMAL
[2017-04-24] MEDS: Vitamin A&D Oint 2oz Tube TOPIC SCH ×2 (08:50→21:20)
--- NOTE | 2017-04-24 09:31 | Pulmonolgy Critical Care Note ---
Critical Care - Asmt/Plan Problems: (1) Acute respiratory failure (2) Hemorrhagic shock (3) Aspiration pneumonia (4) ESRF (end stage renal failure) (5) Benign prostate hyperplasia (6) Gout (7) Diabetes mellitus (8) COPD (chronic obstructive pulmonary disease) Respiratory: monitor respiratory rate, adjust FIO2, CXR Cardiac: continue pressors Renal: F/U I&O, keep IV fluid, check electrolytes Infectious Disease: check cultures, continue antibiotics Gastrointestinal: hold feedings Endocrine: monitor blood sugar, continue sliding scale insulin Hematologic: transfuse if hgb<8.5 Neurologic: PRN Ativan, PRN Morphine, keep patient comfortable Affect: PRN ativan Prophylaxis: Protonix Disposition: keep in ICU Discussed with: nurses, consultants, caser inhealth program manager - Objective Last 24 Hour Vital Signs Date Time Temp Pulse Resp B/P Pulse Ox O2 Delivery O2 Flow Rate FiO2 04/24/17 09:00 78 26 116/65 100 Mechanical Ventilator 50 04/24/17 08:30 79 26 117/64 100 Mechanical Ventilator 50 04/24/17 08:00 98.6 81 27 115/59 100 Mechanical Ventilator 50 04/24/17 07:45 50 04/24/17 07:30 86 26 114/62 100 Mechanical Ventilator 50 04/24/17 07:26 83 31 50 04/24/17 07:00 85 27 113/66 100 Mechanical Ventilator 50 04/24/17 06:30 87 27 118/61 100 Mechanical Ventilator 50 04/24/17 06:00 86 26 115/62 100 Mechanical Ventilator 50 04/24/17 06:00 115/62 04/24/17 05:30 88 23 109/61 100 Mechanical Ventilator 50 04/24/17 05:00 108/63 04/24/17 05:00 70 17 108/63 100 Mechanical Ventilator 50 04/24/17 04:58 68 16 50 04/24/17 04:30 98.7 65 17 94/52 100 Mechanical Ventilator 50 04/24/17 04:00 50 04/24/17 04:00 94/52 04/24/17 04:00 78 22 100/54 100 Mechanical Ventilator 50 04/24/17 04:00 65 04/24/17 03:30 72 18 84/48 100 Mechanical Ventilator 50 04/24/17 03:00 72 22 84/48 100 Mechanical Ventilator 50 7/18/17 03:00 83/45 7/18/17 02:56 89 21 50 7/18/17 02:30 87 22 83/45 100 Mechanical Ventilator 50 7/18/17 02:00 79/45 7/18/17 02:00 83 21 81/51 100 Mechanical Ventilator 50 7/18/17 01:30 101 22 91/48 100 Mechanical Ventilator 50 7/18/17 01:00 108 21 125/64 100 Mechanical Ventilator 50 7/18/17 01:00 125/64 7/18/17 00:54 119 22 50 7/18/17 00:30 87 20 95/47 100 Mechanical Ventilator 50 7/18/17 00:13 77/43 7/18/17 00:00 85 7/18/17 00:00 98.8 85 18 75/43 100 Mechanical Ventilator 50 7/18/17 00:00 50 7/17/17 23:45 91 20 108/51 100 Mechanical Ventilator 50 7/17/17 23:30 100 20 124/61 100 Mechanical Ventilator 50 7/17/17 23:15 93 20 108/51 100 Mechanical Ventilator 50 7/17/17 23:02 117 23 50 7/17/17 23:00 99 20 117/54 100 Mechanical Ventilator 50 7/17/17 22:45 123 20 124/61 100 Mechanical Ventilator 50 7/17/17 22:40 81/45 7/17/17 22:30 121 20 117/54 100 Mechanical Ventilator 50 7/17/17 22:15 98 20 73/44 100 Mechanical Ventilator 50 7/17/17 22:00 98 20 81/49 100 Mechanical Ventilator 50 7/17/17 21:07 91 22 50 7/17/17 21:00 90 20 88/49 100 Mechanical Ventilator 50 7/17/17 20:00 98.6 88 16 116/29 100 Mechanical Ventilator 50 7/17/17 20:00 50 7/17/17 20:00 88 7/17/17 19:00 89 18 96/51 100 Mechanical Ventilator 50 7/17/17 18:51 90 34 50 7/17/17 18:00 88 18 89/48 100 Mechanical Ventilator 50 7/17/17 17:29 89 30 50 7/17/17 17:00 102 19 109/46 100 Mechanical Ventilator 50 7/17/17 16:05 98 28 100/61 100 Mechanical Ventilator 7/17/17 16:00 97 04/23/17 16:00 97.5 98 29 100/61 100 Mechanical Ventilator 50 04/23/17 16:00 50 04/23/17 16:00 97.5 94 19 129/83 100 Mechanical Ventilator 50 04/23/17 15:30 113 20 143/75 100 Mechanical Ventilator 50 04/23/17 15:15 88 20 Mechanical Ventilator 50 04/23/17 15:15 88 20 50 04/23/17 15:00 99 14 87/44 95 Room Air 04/23/17 13:57 98.4 100 27 88/48 97 Room Air 04/23/17 13:34 98.4 102 20 88/48 100 Room Air Status: awake Condition: critical HEENT: atraumatic, normocephalic Neck: full ROM Lungs: clear Heart: HR/BP stable, HR/BP unstable Abdomen: non-tender Extremities: no C/C/E, edema Decubiti: location Critical Care - Subjective ROS Limited/Unobtainable: Yes ICU Day: 2 Intubation Day: 2 Condition: critical EKG Rhythm: Sinus Rhythm FI02: 50 Vent Support Breath Rate: 16 Vent Support Mode: AC Vent Tidal Volume: 500 Sputum Amount: Small PEEP: 5.0 PIP: 20 Fluids: D5 NS 100 cc/hour Drips: dopamin I&O: Intake and Output 04/23/17 04/24/17 19:00 07:00 Intake Total 450 ml 3537.50 ml Output Total 300 ml 100 ml Balance 150 ml 3437.50 ml Intake Oral 0 ml 0 ml IV Total 200 ml 2937.50 ml Blood Product 250 ml 600 ml Output Urine Total 0 ml Emesis 300 ml 100 ml CXR: RLL infiltrate/ atelectasis ET-Tube: 7.5 ET Position: 24 Labs: Laboratory Tests Test 04/23/17 13:55 04/23/17 21:15 04/24/17 04:45 White Blood Count 5.9 K/UL (4.8-10.8) 5.3 K/UL (4.8-10.8) 8.2 K/UL (4.8-10.8) # Red Blood Count 2.09 M/UL (4.70-6.10) L 2.17 M/UL (4.70-6.10) L 2.40 M/UL (4.70-6.10) L Hemoglobin 5.8 G/DL (14.2-18.0) *L 6.4 G/DL (14.2-18.0) *L 7.5 G/DL (14.2-18.0) L Hematocrit 19.2 % (42.0-52.0) L 19.5 % (42.0-52.0) L 22.0 % (42.0-52.0) L Mean Corpuscular Volume 92 FL (80-99) 90 FL (80-99) 92 FL (80-99) Mean Corpuscular Hemoglobin 27.5 PG (27.0-31.0) 29.6 PG (27.0-31.0) 31.2 PG (27.0-31.0) H Mean Corpuscular Hemoglobin Concent 30.0 G/DL (32.0-36.0) L 32.9 G/DL (32.0-36.0) 33.9 G/DL (32.0-36.0) Red Cell Distribution Width 15.7 % (11.6-14.8) H 14.4 % (11.6-14.8) 14.5 % (11.6-14.8) Platelet Count 145 K/UL (150-450) L 127 K/UL (150-450) L 148 K/UL (150-450) L Mean Platelet Volume 5.3 FL (6.5-10.1) L 4.7 FL (6.5-10.1) L 5.3 FL (6.5-10.1) L Neutrophils (%) (Auto) % (45.0-75.0) % (45.0-75.0) % (45.0-75.0) Lymphocytes (%) (Auto) % (20.0-45.0) % (20.0-45.0) % (20.0-45.0) Monocytes (%) (Auto) % (1.0-10.0) % (1.0-10.0) % (1.0-10.0) Eosinophils (%) (Auto) % (0.0-3.0) % (0.0-3.0) % (0.0-3.0) Basophils (%) (Auto) % (0.0-2.0) % (0.0-2.0) % (0.0-2.0) Differential Total Cells Counted 100 100 100 Neutrophils % (Manual) 82 % (45-75) H 72 % (45-75) 71 % (45-75) Lymphocytes % (Manual) 14 % (20-45) L 20 % (20-45) 22 % (20-45) Monocytes % (Manual) 3 % (1-10) 5 % (1-10) 4 % (1-10) Eosinophils % (Manual) 1 % (0-3) 2 % (0-3) 3 % (0-3) Basophils % (Manual) 0 % (0-2) 1 % (0-2) 0 % (0-2) Band Neutrophils 0 % (0-8) 0 % (0-8) 0 % (0-8) Platelet Estimate Decreased L Decreased L Decreased L Platelet Morphology Normal Normal Normal Polychromasia 1+ 1+ Hypochromasia 2+ 2+ 3+ Anisocytosis 2+ 2+ 1+ Microcytosis 2+ 2+ Prothrombin Time 10.7 SEC (9.30-11.50) 10.8 SEC (9.30-11.50) Prothromb Time International Ratio 1.0 (0.9-1.1) 1.0 (0.9-1.1) Activated Partial Thromboplast Time 29 SEC (23-33) 32 SEC (23-33) Sodium Level 139 mEQ/L (135-145) 141 mEQ/L (135-145) Potassium Level 3.6 mEQ/L (3.4-4.9) 3.9 mEQ/L (3.4-4.9) Chloride Level 99 mEQ/L (98-107) 102 mEQ/L (98-107) Carbon Dioxide Level 30 mEQ/L (20-30) 25 mEQ/L (20-30) Anion Gap 10 (5-15) 14 (5-15) Blood Urea Nitrogen 30 mg/dL (7-23) H 39 mg/dL (7-23) H Creatinine 3.9 mg/dL (0.7-1.2) H 4.5 mg/dL (0.7-1.2) H Estimat Glomerular Filtration Rate 15.4 mL/min (>60) 13.0 mL/min (>60) Glucose Level 105 mg/dL (74-106) 196 mg/dL (74-106) H Calcium Level 8.0 mg/dL (8.6-10.2) L 7.9 mg/dL (8.6-10.2) L Total Bilirubin 0.3 mg/dL (0.0-1.2) 0.6 mg/dL (0.0-1.2) Aspartate Amino Transf (AST/SGOT) 10 U/L (5-40) 8 U/L (5-40) Alanine Aminotransferase (ALT/SGPT) 5 U/L (3-41) 5 U/L (3-41) Alkaline Phosphatase 118 U/L (40-129) 93 U/L (40-129) Troponin I < 0.30 ng/mL (<=0.30) Total Protein 5.3 g/dL (6.6-8.7) L 4.6 g/dL (6.6-8.7) L Albumin 2.7 g/dL (3.5-5.2) L 2.4 g/dL (3.5-5.2) L Globulin 2.6 g/dL 2.2 g/dL Albumin/Globulin Ratio 1.0 (1.0-2.7) 1.0 (1.0-2.7) Lipase 27 U/L (< 60) Spherocytes 2+ Phosphorus Level 4.6 mg/dL (2.5-4.8) Magnesium Level 2.1 mg/dL (1.7-2.5) Amylase Level 34 U/L (10-110) FORD FANG Apr 24, 2017 09:31
[2017-04-24] MEDS ORDERED: Premarin Inj IV ONE (09:45)
[2017-04-24 09:48] LABS: ABG BASE EXCESS 0.7; ABG PCO2 40.3 mmHg (35.0-45.0)
[2017-04-24] MEDS ORDERED: ESTROGENS CONJUGATED IV ONE (11:00)
[2017-04-24] MEDS ORDERED: D5W IV ONE (11:00)
[2017-04-24 12:17] LABS: OTHERS PATHOLOGIST COMMENT
--- NOTE | 2017-04-24 12:20 | Consultation ---
Consult Note Consult Note asked to eval for dialysis management Patient is a 72-year-old male who presented after having increased hematemesis. Patient reported having increased epigastric pain. He was noted to be vomiting blood while at his dialysis unit. Patient is brought in by EMS after being noted be hypotensive. He was given a fluid challenge with some slight improvement in his blood pressure. Patient been vomiting bright red blood. Patient had prior history of end-stage renal disease and had undergone dialysis today. Past Medical History: ESRD and s/p failed kidney transplant CAD BPH DM DVT h/o GOUT GI BLEED h/o Cataract surgery admitted with GI bleed- Currently in ICU , on Vent- been transfused , on Drips Has right arm fistula no history can be obtained from patient Assessment/Plan ESRD Resp Failure acute- Low BP, Shock Acute GI bleed Plan; Hemodynamic support- Per GI HD as needed monitor renal parameters and H&H Per orders discussed with JT BURCH Apr 24, 2017 12:20
--- NOTE | 2017-04-24 12:54 | Diagnostic Imaging Report ---
Indication: Dyspnea Comparison: 02/15/2007 A single view chest radiograph was obtained. Findings: Endotracheal tube is in good position several centimeters above the dany. Confluent dense opacification of the lower aspect of the right hemithorax noted. Heart is probably enlarged slightly. Bones are osteopenic. The left lung appears relatively clear. Surgical clips are noted in the upper abdomen. There is a right subclavian stent extending into the SVC. Impression: Dense right basilar opacification. Considerations include elevation of the right hemidiaphragm versus subpulmonic effusion with atelectasis or consolidative airspace disease within the right lower lobe. Cardiomegaly Endotracheal tube in good position Prior abdominal surgery
--- NOTE | 2017-04-24 13:32 | Pre-Procedure Note/Attestation ---
Pre-Procedure Note/Attestation Complete Prior to Procedure Planned Procedure: not applicable Procedure Narrative: egd Indications for Procedure Pre-Operative Diagnosis: gib Attestation I attest that I discussed the nature of the procedure; its benefits; risks and complications; and alternatives (and the risks and benefits of such alternatives ), prior to the procedure, with the patient (or the patient's legal enrollment eligibility representative). I attest that, if there was a reasonable possibility of needing a blood transfusion, the patient (or the patient's legal enrollment eligibility representative) was given the [facility] standardized written summary, pursuant to the Rudy Octavia Blood Safety Act ([place] Health and Safety Code # 1645, as amended). I attest that I re-evaluated the patient just prior to the surgery and that there has been no change in the patient's H&P, except as documented below: MADYSON SHER Apr 24, 2017 13:32
--- NOTE | 2017-04-24 13:33 | Diagnostic Imaging Report ---
Indication:pleural effusion Technique: Grayscale and duplex Doppler imaging of the chest performed. Comparison: None Findings: There is a moderate size right pleural effusion. The effusion appears complex with septations present. There is no pleural effusion on the left. Impression: Complex right pleural effusion
--- NOTE | 2017-04-24 13:43 | Consultation ---
Consult Note Consult Note ID DIC # [id number] MOHINDER BRADY M.D. Apr 24, 2017 13:43
[2017-04-24] MEDS ORDERED: NS 550ML IV ONE (13:50)
[2017-04-24] MEDS ORDERED: Lidocaine 1% MPF 10mg/ml 5ml ONE (14:00)
[2017-04-24] MEDS ORDERED: Propofol 10mg/ml 20ml IV ONE (14:00)
--- NOTE | 2017-04-24 14:09 | Endoscopy Procedure Note ---
Endoscopy Procedure Note Indication for Procedure: gib Procedures Performed: EGD Operative Findings/Diagnosis: gastric ulcer Specimen: yes Pt Tolerated Procedure Well: Yes Estimated Blood Loss: none Anesthesiologist: nunu Anesthesia: MAC Implant(s) used?: No 50 yrs or older w/o bx or poly: Not Applicable 10yrs. F/U not recommended: Not Applicable MADYSON SHER Apr 24, 2017 14:09
[2017-04-24] MEDS: DOPamine 400mg/250ml 250 ML IV SCH (15:15)
[2017-04-24] MEDS ORDERED: Vancomycin 1500mg IVPB ONE (16:30)
[2017-04-24] MEDS: Piperacillin/Tazobactam 2.25 GM in D5W 55 ML IVPB SCH ×2 (17:36→22:56)
[2017-04-24 19:09] LABS: BASOPHILS % (AUTO) 0.7 % (0.0-2.0); EOSINOPHILS % (AUTO) 2.5 % (0.0-3.0); LYMPHOCYTES % (AUTO) 15.2 % (20.0-45.0); MEAN CORPUSCULAR HEMOGLOBIN 30.1 PG (27.0-31.0); MEAN CORPUSCULAR HGB CONC 33.9 G/DL (32.0-36.0); MEAN CORPUSCULAR VOLUME 89 FL (80-99); MEAN PLATELET VOLUME 4.8 FL (6.5-10.1); MONOCYTES % (AUTO) 7.1 % (1.0-10.0); NEUTROPHILS % (AUTO) 74.6 % (45.0-75.0); PLATELET COUNT 134 K/UL (150-450); RED BLOOD COUNT 2.89 M/UL (4.70-6.10); RED CELL DISTRIBUTION WIDTH 14.7 % (11.6-14.8); WHITE BLOOD COUNT 8.3 K/UL (4.8-10.8)
[2017-04-25] VITALS (26 sets, daily range): BP systolic 72–115; BP diastolic 44–71
[2017-04-25] MEDS: LORazepam Inj 2mg/ml 1ml IV PRN ×3 (02:36→14:36)
[2017-04-25 05:48] LABS: BASOPHILS % (AUTO) 0.3 % (0.0-2.0); EOSINOPHILS % (AUTO) 4.8 % (0.0-3.0); LYMPHOCYTES % (AUTO) 11.3 % (20.0-45.0); MEAN CORPUSCULAR HEMOGLOBIN 30.3 PG (27.0-31.0); MEAN CORPUSCULAR HGB CONC 33.8 G/DL (32.0-36.0); MEAN CORPUSCULAR VOLUME 89 FL (80-99); MEAN PLATELET VOLUME 5.3 FL (6.5-10.1); NEUTROPHILS % (AUTO) 78.5 % (45.0-75.0); PLATELET COUNT 114 K/UL (150-450); RED BLOOD COUNT 2.72 M/UL (4.70-6.10); RED CELL DISTRIBUTION WIDTH 15.1 % (11.6-14.8)
[2017-04-25 06:12] LABS: ALBUMIN/GLOBULIN RATIO 0.8 (1.0-2.7); CALCIUM 8.6 mg/dL (8.6-10.2); CREATININE 5.1 mg/dL (0.7-1.2); GLOMERULAR FILTRATION RATE 11.3 mL/min (>60); PHOSPHORUS 5.1 mg/dL (2.5-4.8); POTASSIUM 4.2 mEQ/L (3.4-4.9); TOTAL PROTEIN 5.3 g/dL (6.6-8.7)
[2017-04-25] MEDS: Piperacillin/Tazobactam 2.25 GM in D5W 55 ML IVPB SCH ×3 (06:21→21:36)
[2017-04-25 06:57] LABS: CHOLESTEROL 96 mg/dL (< 200); CRP QUANT 4.1 mg/dL (< 0.5); HEMOLYSIS 2; LDL CHOLESTEROL (CALC.) 55 mg/dL (60-99); URIC ACID 5.8 mg/dL (3.0-7.5)
[2017-04-25 06:59] LABS: THYROID STIMULATING HORMONE 0.756 uIU/mL (0.300-4.500)
[2017-04-25 07:36] LABS: ABG ALLEN TEST POSITIVE; ABG BASE EXCESS -2.7; ABG PCO2 31.4 mmHg (35.0-45.0)
--- NOTE | 2017-04-25 07:48 | Diagnostic Imaging Report ---
APPROVED REPORT CPT Code: 19325 Present Symptoms Lower Extremity Pain: Bilateral Lower Extremity Edema: Bilateral Shortness of breath Comments: Hx gout, diabetes, cardiac disease. RIGHT LEG: Venous imaging reveals recanalized chronic thrombus in the superficial and popliteal femoral veins. The remainder of the deep venous system is within normal limits. There is no evidence of thrombus in the common femoral or calf veins. The greater saphenous vein is also within normal limits. Doppler indicates normal spontaneous flow within these segments. LEFT LEG: Venous imaging reveals recanalized chronic thrombus in the superficial femoral and popliteal veins. Collateral vein noted anterior to the superficial femoral artery. The remainder of the deep venous system is within normal limits. There is no evidence of thrombus in the common femoral, or calf veins. The greater saphenous vein is also within normal limits. Doppler indicates normal spontaneous flow within these segments. There is no evidence of acute deep vein thrombosis. There is no evidence of acute deep vein thrombosis.
[2017-04-25] MEDS: D5NS 1,000 ML IV SCH (09:09)
[2017-04-25] MEDS: Vitamin A&D Oint 2oz Tube TOPIC SCH ×2 (09:09→21:03)
[2017-04-25] MEDS ORDERED: NS 275ml ONE ×4 (10:16→10:47)
[2017-04-25] MEDS ORDERED: Tubing Blood Filter IV ONE ×2 (10:39→10:47)
[2017-04-25] MEDS ORDERED: D5NS 1000ml IV ONE ×2 (10:39→10:47)
[2017-04-25] MEDS ORDERED: D5W 275ml ONE (10:39)
--- NOTE | 2017-04-25 10:45 | Pulmonolgy Critical Care Note ---
Critical Care - Asmt/Plan Problems: (1) Acute respiratory failure (2) Hemorrhagic shock (3) Aspiration pneumonia (4) ESRF (end stage renal failure) (5) Benign prostate hyperplasia (6) Gout (7) Diabetes mellitus (8) COPD (chronic obstructive pulmonary disease) Assessment/Plan: s/ banding Respiratory: monitor respiratory rate, adjust FIO2, CXR, weaning trial Cardiac: continue to monitor HR/BP Renal: F/U I&O, keep IV fluid, check electrolytes Infectious Disease: check cultures, continue antibiotics Gastrointestinal: hold feedings Endocrine: monitor blood sugar, check HgA1C Hematologic: monitor H/H, transfuse if hgb<8.5 Neurologic: PRN Ativan, PRN Morphine Affect: PRN ativan Prophylaxis: Protonix, SCDs 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, 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, 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, consultants, case consultantmanager physical - Objective Last 24 Hour Vital Signs Date Time Temp Pulse Resp B/P Pulse Ox O2 Delivery O2 Flow Rate FiO2 04/25/17 10:00 77 18 100/70 99 Mechanical Ventilator 50 04/25/17 09:00 77 19 101/61 100 Mechanical Ventilator 50 04/25/17 08:48 61 16 50 04/25/17 08:00 50 04/25/17 08:00 97.8 62 18 83/48 100 Mechanical Ventilator 50 04/25/17 07:07 67 16 50 04/25/17 07:00 75 20 102/60 100 Mechanical Ventilator 50 04/25/17 06:00 71 17 101/61 100 Mechanical Ventilator 50 04/25/17 05:00 76 16 107/65 100 Mechanical Ventilator 50 04/25/17 04:52 73 20 50 04/25/17 04:00 65 04/25/17 04:00 50 04/25/17 04:00 98.3 76 17 112/57 100 Mechanical Ventilator 50 04/25/17 03:30 80 24 50 04/25/17 03:00 78 18 99/61 100 Mechanical Ventilator 50 04/25/17 02:00 71 18 98/55 100 Mechanical Ventilator 50 04/25/17 01:30 74 21 50 04/25/17 01:00 74 18 90/52 100 Mechanical Ventilator 50 04/25/17 00:00 50 04/25/17 00:00 70 04/25/17 00:00 98.4 82 19 95/65 100 Mechanical Ventilator 50 7/18/17 23:30 83 23 50 7/18/17 23:15 105/60 7/18/17 23:00 82 19 108/65 100 Mechanical Ventilator 50 7/18/17 22:00 78 16 100/56 100 Mechanical Ventilator 50 7/18/17 21:11 72 16 50 7/18/17 21:00 75 16 90/48 100 Mechanical Ventilator 50 7/18/17 20:00 98.0 76 16 104/60 100 Mechanical Ventilator 50 7/18/17 20:00 50 7/18/17 20:00 82 7/18/17 19:17 71 17 50 7/18/17 19:00 75 18 97/48 100 Mechanical Ventilator 50 7/18/17 18:00 74 18 117/62 100 Mechanical Ventilator 50 7/18/17 18:00 117/72 7/18/17 17:30 74 18 105/63 100 Mechanical Ventilator 50 7/18/17 17:00 73 18 105/61 100 Mechanical Ventilator 50 7/18/17 17:00 108/58 7/18/17 16:44 71 19 50 7/18/17 16:30 71 22 109/63 100 Mechanical Ventilator 50 7/18/17 16:00 50 7/18/17 16:00 70 7/18/17 16:00 97.9 69 22 118/62 100 Mechanical Ventilator 50 7/18/17 16:00 118/62 7/18/17 15:30 73 22 119/62 100 Mechanical Ventilator 50 7/18/17 15:15 117/61 7/18/17 15:00 107/58 7/18/17 15:00 70 22 117/61 100 Mechanical Ventilator 50 7/18/17 14:44 62 16 50 7/18/17 14:30 70 22 122/63 100 Mechanical Ventilator 50 7/18/17 14:00 103/58 7/18/17 14:00 68 22 117/64 100 Mechanical Ventilator 50 7/18/17 13:30 62 16 99/58 100 Mechanical Ventilator 50 7/18/17 13:00 61 22 109/56 100 Mechanical Ventilator 50 7/18/17 13:00 94/54 7/18/17 12:43 68 19 50 7/18/17 12:30 66 22 110/59 100 Mechanical Ventilator 50 7/18/17 12:00 58 7/18/17 12:00 50 04/24/17 12:00 71/44 04/24/17 12:00 97.9 59 27 100/62 100 Mechanical Ventilator 50 04/24/17 11:30 72 22 72/39 100 Mechanical Ventilator 50 04/24/17 11:10 76 19 50 04/24/17 11:00 74 22 103/53 100 Mechanical Ventilator 50 04/24/17 11:00 103/53 04/24/17 11:00 50 Status: awake Condition: critical HEENT: atraumatic Neck: full ROM Lungs: clear Heart: HR/BP stable Abdomen: soft, non-tender, active bowel sounds, feeding tube Extremities: no C/C/E, edema Micro: Microbiology Date/Time Source Procedure Growth Status 04/24/17 13:43 Sputum Gram Stain Pending Resulted 04/24/17 13:43 Sputum Culture - Preliminary Gram Negative Bacillus 1 Resulted 04/23/17 16:06 Nasal Nares MRSA Culture - Final NO METHICILLIN RESISTANT STAPH AUREUS... Complete 04/23/17 16:06 Rectum VRE Culture - Final Enterococcus Faecalis - Vre Complete Critical Care - Subjective ROS Limited/Unobtainable: Yes ICU Day: 3 Intubation Day: 3 Condition: critical EKG Rhythm: Sinus Rhythm FI02: 50 Vent Support Breath Rate: 16 Vent Support Mode: AC Vent Tidal Volume: 700 Sputum Amount: Small PEEP: 5.0 PIP: 43 I&O: Intake and Output 04/24/17 04/25/17 19:00 07:00 Intake Total 2088.75 ml 535 ml Balance 2088.75 ml 535 ml Intake Oral 0 ml 0 ml IV Total 1568.75 ml 535 ml Blood Product 520 ml # Bowel Movements 2 CXR: unchanged ET-Tube: 7.5 ET Position: 25 Labs: Laboratory Tests Test 04/24/17 18:30 04/25/17 04:35 04/25/17 07:30 White Blood Count 8.3 K/UL (4.8-10.8) 6.0 K/UL (4.8-10.8) Red Blood Count 2.89 M/UL (4.70-6.10) L 2.72 M/UL (4.70-6.10) L Hemoglobin 8.7 G/DL (14.2-18.0) L 8.2 G/DL (14.2-18.0) L Hematocrit 25.7 % (42.0-52.0) L 24.3 % (42.0-52.0) L Mean Corpuscular Volume 89 FL (80-99) 89 FL (80-99) Mean Corpuscular Hemoglobin 30.1 PG (27.0-31.0) 30.3 PG (27.0-31.0) Mean Corpuscular Hemoglobin Concent 33.9 G/DL (32.0-36.0) 33.8 G/DL (32.0-36.0) Red Cell Distribution Width 14.7 % (11.6-14.8) 15.1 % (11.6-14.8) H Platelet Count 134 K/UL (150-450) L 114 K/UL (150-450) L Mean Platelet Volume 4.8 FL (6.5-10.1) L 5.3 FL (6.5-10.1) L Neutrophils (%) (Auto) 74.6 % (45.0-75.0) 78.5 % (45.0-75.0) H Lymphocytes (%) (Auto) 15.2 % (20.0-45.0) L 11.3 % (20.0-45.0) L Monocytes (%) (Auto) 7.1 % (1.0-10.0) 5.0 % (1.0-10.0) Eosinophils (%) (Auto) 2.5 % (0.0-3.0) 4.8 % (0.0-3.0) H Basophils (%) (Auto) 0.7 % (0.0-2.0) 0.3 % (0.0-2.0) Sodium Level 141 mEQ/L (135-145) Potassium Level 4.2 mEQ/L (3.4-4.9) Chloride Level 101 mEQ/L (98-107) Carbon Dioxide Level 21 mEQ/L (20-30) Anion Gap 19 (5-15) H Blood Urea Nitrogen 63 mg/dL (7-23) H Creatinine 5.1 mg/dL (0.7-1.2) H Estimat Glomerular Filtration Rate 11.3 mL/min (>60) Glucose Level 136 mg/dL (74-106) H Hemoglobin A1c 4.8 % (< 6.0) Lactic Acid Level 0.70 mmol/L (0.66-2.22) Uric Acid 5.8 mg/dL (3.0-7.5) Calcium Level 8.6 mg/dL (8.6-10.2) Phosphorus Level 5.1 mg/dL (2.5-4.8) H Magnesium Level 2.0 mg/dL (1.7-2.5) Total Bilirubin 0.6 mg/dL (0.0-1.2) Gamma Glutamyl Transpeptidase 46 U/L (8-61) Aspartate Amino Transf (AST/SGOT) 9 U/L (5-40) Alanine Aminotransferase (ALT/SGPT) 5 U/L (3-41) Alkaline Phosphatase 164 U/L (40-129) H Total Creatine Kinase 43 U/L (38-174) C-Reactive Protein, Quantitative 4.1 mg/dL (< 0.5) H Pro-B-Type Natriuretic Peptide 95043 pg/mL (0-125) H Total Protein 5.3 g/dL (6.6-8.7) L Albumin 2.5 g/dL (3.5-5.2) L Globulin 2.8 g/dL Albumin/Globulin Ratio 0.8 (1.0-2.7) L Triglycerides Level 83 mg/dL (< 150) Cholesterol Level 96 mg/dL (< 200) LDL Cholesterol 55 mg/dL (60-99) L HDL Cholesterol 24 mg/dL (> 60) Cholesterol/HDL Ratio 4.0 (3.3-4.4) Vitamin B12 Level 384 pg/mL (211-946) Folate Pending Thyroid Stimulating Hormone (TSH) 0.756 uIU/mL (0.300-4.500) Arterial Blood pH 7.440 (7.350-7.450) Arterial Blood Partial Pressure CO2 31.4 mmHg (35.0-45.0) L Arterial Blood Partial Pressure O2 73.9 mmHg (75.0-100.0) L Arterial Blood HCO3 20.9 mmol/L (22.0-26.0) L Arterial Blood Oxygen Saturation 93.9 % (92.0-98.0) Arterial Blood Base Excess -2.7 Flex Test Positive FORD FANG Apr 25, 2017 10:45
[2017-04-25] MEDS ORDERED: Tubing IV Secondary IV ONE (10:47)
--- NOTE | 2017-04-25 12:09 | General Progress Note ---
Assessment/Plan Status: stable Assessment/Plan ESRD Resp Failure acute- Low BP, Shock Acute GI bleed Plan; Hemodynamic support- Per GI HD as needed, scheduled for 04/26 monitor renal parameters and H&H Per orders discussed with RN Subjective ROS Limited/Unobtainable: Yes Allergies: Coded Allergies: No Known Allergies (Verified , 02/08/07) Objective Last 24 Hour Vital Signs Date Time Temp Pulse Resp B/P Pulse Ox O2 Delivery O2 Flow Rate FiO2 04/25/17 11:11 62 16 50 04/25/17 11:08 100 04/25/17 11:00 63 18 81/53 99 Mechanical Ventilator 40 04/25/17 10:53 67 16 50 04/25/17 10:00 77 18 100/70 99 Mechanical Ventilator 50 04/25/17 09:00 77 19 101/61 100 Mechanical Ventilator 50 04/25/17 08:48 61 16 50 04/25/17 08:00 50 04/25/17 08:00 73 04/25/17 08:00 97.8 62 18 83/48 100 Mechanical Ventilator 50 04/25/17 07:07 67 16 50 04/25/17 07:00 75 20 102/60 100 Mechanical Ventilator 50 04/25/17 06:00 71 17 101/61 100 Mechanical Ventilator 50 04/25/17 05:00 76 16 107/65 100 Mechanical Ventilator 50 04/25/17 04:52 73 20 50 04/25/17 04:00 65 04/25/17 04:00 50 04/25/17 04:00 98.3 76 17 112/57 100 Mechanical Ventilator 50 04/25/17 03:30 80 24 50 04/25/17 03:00 78 18 99/61 100 Mechanical Ventilator 50 04/25/17 02:00 71 18 98/55 100 Mechanical Ventilator 50 04/25/17 01:30 74 21 50 04/25/17 01:00 74 18 90/52 100 Mechanical Ventilator 50 04/25/17 00:00 50 04/25/17 00:00 70 04/25/17 00:00 98.4 82 19 95/65 100 Mechanical Ventilator 50 04/24/17 23:30 83 23 50 04/24/17 23:15 105/60 04/24/17 23:00 82 19 108/65 100 Mechanical Ventilator 50 04/24/17 22:00 78 16 100/56 100 Mechanical Ventilator 50 7/18/17 21:11 72 16 50 7/18/17 21:00 75 16 90/48 100 Mechanical Ventilator 50 7/18/17 20:00 98.0 76 16 104/60 100 Mechanical Ventilator 50 7/18/17 20:00 50 7/18/17 20:00 82 7/18/17 19:17 71 17 50 7/18/17 19:00 75 18 97/48 100 Mechanical Ventilator 50 7/18/17 18:00 74 18 117/62 100 Mechanical Ventilator 50 7/18/17 18:00 117/72 7/18/17 17:30 74 18 105/63 100 Mechanical Ventilator 50 7/18/17 17:00 73 18 105/61 100 Mechanical Ventilator 50 7/18/17 17:00 108/58 7/18/17 16:44 71 19 50 7/18/17 16:30 71 22 109/63 100 Mechanical Ventilator 50 7/18/17 16:00 50 7/18/17 16:00 70 7/18/17 16:00 97.9 69 22 118/62 100 Mechanical Ventilator 50 7/18/17 16:00 118/62 7/18/17 15:30 73 22 119/62 100 Mechanical Ventilator 50 7/18/17 15:15 117/61 7/18/17 15:00 107/58 7/18/17 15:00 70 22 117/61 100 Mechanical Ventilator 50 7/18/17 14:44 62 16 50 7/18/17 14:30 70 22 122/63 100 Mechanical Ventilator 50 7/18/17 14:00 103/58 7/18/17 14:00 68 22 117/64 100 Mechanical Ventilator 50 7/18/17 13:30 62 16 99/58 100 Mechanical Ventilator 50 7/18/17 13:00 61 22 109/56 100 Mechanical Ventilator 50 7/18/17 13:00 94/54 718/17 12:43 68 19 50 7/18/17 12:30 66 22 110/59 100 Mechanical Ventilator 50 Intake and Output 04/24/17 04/25/17 19:00 07:00 Intake Total 2088.75 ml 535 ml Balance 2088.75 ml 535 ml Intake Oral 0 ml 0 ml IV Total 1568.75 ml 535 ml Blood Product 520 ml # Bowel Movements 2 Laboratory Tests 04/24/17 18:30: White Blood Count 8.3, Red Blood Count 2.89L, Hemoglobin 8.7L, Hematocrit 25.7L , Mean Corpuscular Volume 89, Mean Corpuscular Hemoglobin 30.1, Mean Corpuscular Hemoglobin Concent 33.9, Red Cell Distribution Width 14.7, Platelet Count 134L, Mean Platelet Volume 4.8L, Neutrophils (%) (Auto) 74.6, Lymphocytes (%) (Auto) 15.2L, Monocytes (%) (Auto) 7.1, Eosinophils (%) (Auto) 2.5, Basophils (%) (Auto) 0.7 04/25/17 04:35: White Blood Count 6.0, Red Blood Count 2.72L, Hemoglobin 8.2L, Hematocrit 24.3L , Mean Corpuscular Volume 89, Mean Corpuscular Hemoglobin 30.3, Mean Corpuscular Hemoglobin Concent 33.8, Red Cell Distribution Width 15.1H, Platelet Count 114L, Mean Platelet Volume 5.3L, Neutrophils (%) (Auto) 78.5H, Lymphocytes (%) (Auto) 11.3L, Monocytes (%) (Auto) 5.0, Eosinophils (%) (Auto) 4.8H, Basophils (%) (Auto) 0.3, Sodium Level 141, Potassium Level 4.2, Chloride Level 101, Carbon Dioxide Level 21, Anion Gap 19H, Blood Urea Nitrogen 63H, Creatinine 5.1H, Estimat Glomerular Filtration Rate 11.3, Glucose Level 136H, Hemoglobin A1c 4.8, Lactic Acid Level 0.70, Uric Acid 5.8, Calcium Level 8.6, Phosphorus Level 5.1H, Magnesium Level 2.0, Total Bilirubin 0.6, Gamma Glutamyl Transpeptidase 46, Aspartate Amino Transf (AST/SGOT) 9, Alanine Aminotransferase (ALT/SGPT) 5, Alkaline Phosphatase 164H, Total Creatine Kinase 43, C-Reactive Protein, Quantitative 4.1H, Pro-B-Type Natriuretic Peptide 19371C , Total Protein 5.3L, Albumin 2.5L, Globulin 2.8, Albumin/Globulin Ratio 0.8L, Triglycerides Level 83, Cholesterol Level 96, LDL Cholesterol 55L, HDL Cholesterol 24, Cholesterol/HDL Ratio 4.0, Vitamin B12 Level 384, Folate [ Pending], Thyroid Stimulating Hormone (TSH) 0.756 04/25/17 07:30: Arterial Blood pH 7.440, Arterial Blood Partial Pressure CO2 31.4L, Arterial Blood Partial Pressure O2 73.9L, Arterial Blood HCO3 20.9L, Arterial Blood Oxygen Saturation 93.9, Arterial Blood Base Excess -2.7, Flex Test Positive Height (Feet): 5 Height (Inches): 10.00 Weight (Pounds): 202 General Appearance: other - on vent Neck: limited range of motion Cardiovascular: normal rate Respiratory/Chest: decreased breath sounds Abdomen: distended JT MILLS Apr 25, 2017 12:09
[2017-04-25] MEDS: Pantoprazole 80 MG in NS 250 ML IV SCH ×3 (12:34→20:56)
--- NOTE | 2017-04-25 12:45 | Procedure Note ---
DATE OF PROCEDURE: 04/24/2017 SURGEON: Cruzito Back M.D. PROCEDURE: Upper endoscopy with biopsy. ANESTHESIOLOGIST: Dr. Silva. INSTRUMENT: Olympus adult flexible upper endoscope. INDICATION: Upper gastrointestinal bleeding. REASON FOR PROCEDURE: The procedure, risks, benefits, and possible consequences, including hemorrhage, aspiration, perforation and infection, and alternative treatments, were explained to the patient/legal guardian by Dr. Cruzito Back and the patient/legal guardian understood and accepted these risks. DESCRIPTION OF PROCEDURE: After informed consent was obtained and the patient was adequately sedated, the Olympus upper endoscope was advanced from mouth into the stomach. The patient had partial antrectomy with possible Billroth II anastomosis. There was a big anastomotic ulceration. There was some blood clots in the stomach, which was easily flushed. There was not active bleeding at this time. There was no visible vessel. No adherent clot. There was some inflammatory changes around the edges of the ulcer and oozing blood, but nothing actively bleeding at this time requiring hemostasis. Random biopsy from the body was obtained to rule out H. pylori infection. At this time, the scope was retrieved and procedure was terminated. SUMMARY OF FINDINGS: Billroth II anastomosis with a large ulceration at the anastomotic area without any adherent clot or visible vessel. RECOMMENDATIONS: 1. Follow biopsy results. 2. Continue keeping the patient NPO. 3. Continue on Protonix. 4. Monitor hemoglobin and hematocrit and transfuse to keep hemoglobin above 7. We will follow. I want to thank, Dr. Augustine, for this kind referral. Cruzito Back M.D. DR: MUSA JOB#: [id number] CC: Cruzito Back M.D.; Fax#: [phone]
--- NOTE | 2017-04-25 12:45 | Consultation ---
DATE OF CONSULTATION: INFECTIOUS DISEASE CONSULTATION CONSULTING PHYSICIAN: Remigio Bragg M.D. REFERRING PHYSICIAN: Pedro Augustine M.D. REASON FOR CONSULTATION: Evaluation of the patient for septic shock and antibiotic management. HISTORY OF PRESENT ILLNESS: The patient is a 72-year-old male with multiple medical problems as listed below who was [facility] after the patient had hematemesis, was found to be hypotensive, requiring pressors and was transferred to ICU. The patient also required blood transfusion and the patient is scheduled for having upper endoscopy. The patient has been started on IV antibiotics. Infectious Disease consultation has been requested for further evaluation of the patient's antibiotic management. PAST MEDICAL HISTORY: 1. History of gout. 2. History of GI bleed in the past. 3. History of diabetes. 4. History of BPH. 5. History of DVT. 6. History of end-stage renal disease on hemodialysis. MEDICATIONS: The patient is currently off of antibiotics. ALLERGIES: No known drug allergies. REVIEW OF SYSTEMS: Unobtainable. PHYSICAL EXAMINATION: VITAL SIGNS: Temperature 97.9 degrees, blood pressure 100/68, pulse 69, and respiratory rate 18. HEENT: Mild pale conjunctivae. No icterus. NECK: No lymphadenopathy. CHEST: Coarse breath sounds. HEART: S1 and S2. ABDOMEN: Soft. EXTREMITIES: No cyanosis. NEUROLOGIC: Obtunded. LABORATORY AND DIAGNOSTIC DATA: White blood cell 8.2, hemoglobin 7.5 and platelet 148,000. Urinalysis unremarkable. BUN 39 and creatinine 4.5. ALT, AST and alkaline phosphatase unremarkable. Ultrasound of the chest shows right pleural effusion . Chest x-ray showed dense right basilar opacification. ASSESSMENT: The patient is a 72-year-old male with multiple medical problems who has 1. Possible aspiration pneumonia. 2. Loculated pleural effusion, possible empyema. 3. Hypotension, most likely due to hypovolemic shock, however, underlying sepsis is the consideration. 4. Rule out bacteremia. PLAN: 1. We will start the patient on IV vancomycin and Zosyn. 2. Monitor CBC. 3. Monitor BMP. 4. We will send blood and sputum culture. 5. We will follow Pulmonary recommendation regarding respiratory failure and need for drainage of the pleural effusion. 6. Monitor chest x-ray. 7. We will follow EGD report. 8. Based on the patient's clinical course and labs, we will do further recommendation. Thank you, Dr. Augustine, for allowing me to participate in the care of this patient. I will follow this patient with you during this hospitalization. Remigio Bragg M.D. DR: CATHY JOB#: [id number] CC:
--- NOTE | 2017-04-25 13:19 | GI Progress Note ---
Assessment/Plan Problems: (1) Hemorrhagic shock SNOMED: 813864 (2) Diabetes mellitus ICD Codes: E11.9 - Type 2 diabetes mellitus without complications SNOMED: 25419342 (3) Gastrointestinal hemorrhage ICD Codes: K92.2 - Gastrointestinal hemorrhage, unspecified SNOMED: 10169419 (4) Sepsis ICD Codes: A41.9 - Sepsis, unspecified organism SNOMED: 17739106 (5) Acute respiratory failure ICD Codes: J96.00 - Acute respiratory failure, unspecified whether with hypoxia or hypercapnia SNOMED: 63572900 Status: unchanged Status Narrative Discussed with Dr. Back. Assessment/Plan SUMMARY OF FINDINGS: Billroth II anastomosis with a large ulceration at the anastomotic area without any adherent clot or visible vessel. RECOMMENDATIONS: 1. Follow biopsy results. 2. Continue keeping the patient NPO. 3. Continue on Protonix. 4. Monitor hemoglobin and hematocrit and transfuse to keep hemoglobin above 7. We will follow. Subjective Subjective limited Objective Last 24 Hour Vital Signs Date Time Temp Pulse Resp B/P Pulse Ox O2 Delivery O2 Flow Rate FiO2 04/25/17 12:38 92/51 04/25/17 12:34 59 16 40 04/25/17 12:30 97.9 61 16 72/44 100 Mechanical Ventilator 50 04/25/17 11:11 62 16 50 04/25/17 11:08 100 04/25/17 11:00 63 18 81/53 99 Mechanical Ventilator 40 04/25/17 10:53 67 16 50 04/25/17 10:00 77 18 100/70 99 Mechanical Ventilator 50 04/25/17 09:00 77 19 101/61 100 Mechanical Ventilator 50 04/25/17 08:48 61 16 50 04/25/17 08:00 50 04/25/17 08:00 73 04/25/17 08:00 97.8 62 18 83/48 100 Mechanical Ventilator 50 04/25/17 07:07 67 16 50 04/25/17 07:00 75 20 102/60 100 Mechanical Ventilator 50 04/25/17 06:00 71 17 101/61 100 Mechanical Ventilator 50 04/25/17 05:00 76 16 107/65 100 Mechanical Ventilator 50 04/25/17 04:52 73 20 50 04/25/17 04:00 65 04/25/17 04:00 50 04/25/17 04:00 98.3 76 17 112/57 100 Mechanical Ventilator 50 7/19/17 03:30 80 24 50 7/19/17 03:00 78 18 99/61 100 Mechanical Ventilator 50 7/19/17 02:00 71 18 98/55 100 Mechanical Ventilator 50 7/19/17 01:30 74 21 50 7/19/17 01:00 74 18 90/52 100 Mechanical Ventilator 50 7/19/17 00:00 50 7/19/17 00:00 70 7/19/17 00:00 98.4 82 19 95/65 100 Mechanical Ventilator 50 7/18/17 23:30 83 23 50 7/18/17 23:15 105/60 7/18/17 23:00 82 19 108/65 100 Mechanical Ventilator 50 7/18/17 22:00 78 16 100/56 100 Mechanical Ventilator 50 7/18/17 21:11 72 16 50 7/18/17 21:00 75 16 90/48 100 Mechanical Ventilator 50 7/18/17 20:00 98.0 76 16 104/60 100 Mechanical Ventilator 50 7/18/17 20:00 50 7/18/17 20:00 82 7/18/17 19:17 71 17 50 7/18/17 19:00 75 18 97/48 100 Mechanical Ventilator 50 7/18/17 18:00 74 18 117/62 100 Mechanical Ventilator 50 7/18/17 18:00 117/72 7/18/17 17:30 74 18 105/63 100 Mechanical Ventilator 50 7/18/17 17:00 73 18 105/61 100 Mechanical Ventilator 50 7/18/17 17:00 108/58 7/18/17 16:44 71 19 50 7/18/17 16:30 71 22 109/63 100 Mechanical Ventilator 50 7/18/17 16:00 50 7/18/17 16:00 70 7/18/17 16:00 97.9 69 22 118/62 100 Mechanical Ventilator 50 7/18/17 16:00 118/62 7/18/17 15:30 73 22 119/62 100 Mechanical Ventilator 50 7/18/17 15:15 117/61 7/18/17 15:00 107/58 7/18/17 15:00 70 22 117/61 100 Mechanical Ventilator 50 7/18/17 14:44 62 16 50 7/18/17 14:30 70 22 122/63 100 Mechanical Ventilator 50 04/24/17 14:00 103/58 04/24/17 14:00 68 22 117/64 100 Mechanical Ventilator 50 04/24/17 13:30 62 16 99/58 100 Mechanical Ventilator 50 Intake and Output 04/24/17 04/25/17 19:00 07:00 Intake Total 2088.75 ml 535 ml Balance 2088.75 ml 535 ml Intake Oral 0 ml 0 ml IV Total 1568.75 ml 535 ml Blood Product 520 ml # Bowel Movements 2 Laboratory Tests Test 04/24/17 18:30 04/25/17 04:35 04/25/17 07:30 White Blood Count 8.3 K/UL (4.8-10.8) 6.0 K/UL (4.8-10.8) Red Blood Count 2.89 M/UL (4.70-6.10) L 2.72 M/UL (4.70-6.10) L Hemoglobin 8.7 G/DL (14.2-18.0) L 8.2 G/DL (14.2-18.0) L Hematocrit 25.7 % (42.0-52.0) L 24.3 % (42.0-52.0) L Mean Corpuscular Volume 89 FL (80-99) 89 FL (80-99) Mean Corpuscular Hemoglobin 30.1 PG (27.0-31.0) 30.3 PG (27.0-31.0) Mean Corpuscular Hemoglobin Concent 33.9 G/DL (32.0-36.0) 33.8 G/DL (32.0-36.0) Red Cell Distribution Width 14.7 % (11.6-14.8) 15.1 % (11.6-14.8) H Platelet Count 134 K/UL (150-450) L 114 K/UL (150-450) L Mean Platelet Volume 4.8 FL (6.5-10.1) L 5.3 FL (6.5-10.1) L Neutrophils (%) (Auto) 74.6 % (45.0-75.0) 78.5 % (45.0-75.0) H Lymphocytes (%) (Auto) 15.2 % (20.0-45.0) L 11.3 % (20.0-45.0) L Monocytes (%) (Auto) 7.1 % (1.0-10.0) 5.0 % (1.0-10.0) Eosinophils (%) (Auto) 2.5 % (0.0-3.0) 4.8 % (0.0-3.0) H Basophils (%) (Auto) 0.7 % (0.0-2.0) 0.3 % (0.0-2.0) Sodium Level 141 mEQ/L (135-145) Potassium Level 4.2 mEQ/L (3.4-4.9) Chloride Level 101 mEQ/L (98-107) Carbon Dioxide Level 21 mEQ/L (20-30) Anion Gap 19 (5-15) H Blood Urea Nitrogen 63 mg/dL (7-23) H Creatinine 5.1 mg/dL (0.7-1.2) H Estimat Glomerular Filtration Rate 11.3 mL/min (>60) Glucose Level 136 mg/dL (74-106) H Hemoglobin A1c 4.8 % (< 6.0) Lactic Acid Level 0.70 mmol/L (0.66-2.22) Uric Acid 5.8 mg/dL (3.0-7.5) Calcium Level 8.6 mg/dL (8.6-10.2) Phosphorus Level 5.1 mg/dL (2.5-4.8) H Magnesium Level 2.0 mg/dL (1.7-2.5) Total Bilirubin 0.6 mg/dL (0.0-1.2) Gamma Glutamyl Transpeptidase 46 U/L (8-61) Aspartate Amino Transf (AST/SGOT) 9 U/L (5-40) Alanine Aminotransferase (ALT/SGPT) 5 U/L (3-41) Alkaline Phosphatase 164 U/L (40-129) H Total Creatine Kinase 43 U/L (38-174) C-Reactive Protein, Quantitative 4.1 mg/dL (< 0.5) H Pro-B-Type Natriuretic Peptide 55011 pg/mL (0-125) H Total Protein 5.3 g/dL (6.6-8.7) L Albumin 2.5 g/dL (3.5-5.2) L Globulin 2.8 g/dL Albumin/Globulin Ratio 0.8 (1.0-2.7) L Triglycerides Level 83 mg/dL (< 150) Cholesterol Level 96 mg/dL (< 200) LDL Cholesterol 55 mg/dL (60-99) L HDL Cholesterol 24 mg/dL (> 60) Cholesterol/HDL Ratio 4.0 (3.3-4.4) Vitamin B12 Level 384 pg/mL (211-946) Folate Pending Thyroid Stimulating Hormone (TSH) 0.756 uIU/mL (0.300-4.500) Arterial Blood pH 7.440 (7.350-7.450) Arterial Blood Partial Pressure CO2 31.4 mmHg (35.0-45.0) L Arterial Blood Partial Pressure O2 73.9 mmHg (75.0-100.0) L Arterial Blood HCO3 20.9 mmol/L (22.0-26.0) L Arterial Blood Oxygen Saturation 93.9 % (92.0-98.0) Arterial Blood Base Excess -2.7 Flex Test Positive Microbiology Date/Time Source Procedure Growth Status 04/24/17 13:43 Sputum Gram Stain Pending Resulted 04/24/17 13:43 Sputum Culture - Preliminary Gram Negative Bacillus 1 Resulted Height (Feet): 5 Height (Inches): 10.00 Weight (Pounds): 202 General Appearance: no apparent distress, alert Cardiovascular: normal rate Respiratory/Chest: other - [facility] Joellen Ruth N.PSkylar Apr 25, 2017 13:18
--- NOTE | 2017-04-25 13:32 | Diagnostic Imaging Report ---
Indication: DYSPNEA Technique: One view of the chest Comparison: 04/24/2017 Findings: There is persistent elevation right hemidiaphragm. There is extensive right lung consolidation and atelectasis. The left lung and pleural space remain clear. Endotracheal tube remains. Right subclavian venous stent remains. Right arm venous stent is again demonstrated. Findings are unchanged Impression: Unchanged, over one day, findings as above.
[2017-04-25] MEDS: DOPamine 400mg/250ml 250 ML IV SCH (15:15)
--- NOTE | 2017-04-25 16:50 | Cardiology Report ---
APPROVED REPORT EKG Measurement Heart [id number] [place] 140P77 [id number] Sinus tachycardia with premature atrial complexes Left axis deviation Abnormal ECG
--- NOTE | 2017-04-25 17:53 | Infectious Diseases Prog Note ---
Assessment/Plan Assessment/Plan A: MENT: The patient is a 72-year-old male with m Possible aspiration pneumonia. Scx: GNR Chest x-ray showed dense right basilar opacification Loculated pleural effusion, possible empyema US : complex right pleural effusion Hypotension, most likely due to hypovolemic shock, however, underlying sepsis is the consideration Rule out bacteremia. GI Bleed : EGD : Billroth II anastomosis with a large ulceration at the anastomotic area without any adherent clot or visible vessel.04/24 History of gout History of GI bleed in the past History of diabetes History of BPH History of DVT History of end-stage renal disease on hemodialysis PLAN: Cont patient on IV vancomycin and Zosyn s# 2 Monitor CBC. Monitor BMP. monitor blood and sputum culture. will follow Pulmonary recommendation regarding respiratory failure and need for drainage of the pleural effusion. Monitor chest x-ray. Subjective Allergies: Coded Allergies: No Known Allergies (Verified , 02/08/07) Objective Vital Signs Last 24 Hour Vital Signs Date Time Temp Pulse Resp B/P Pulse Ox O2 Delivery O2 Flow Rate FiO2 04/25/17 17:00 67 17 79/56 100 Mechanical Ventilator 50 04/25/17 16:46 67 18 40 04/25/17 16:00 62 04/25/17 16:00 97.7 62 16 92/58 100 Mechanical Ventilator 50 04/25/17 15:00 63 17 77/47 100 Mechanical Ventilator 50 04/25/17 14:48 69 14 40 04/25/17 14:00 64 16 104/60 Mechanical Ventilator 100 04/25/17 13:00 59 16 115/66 100 Mechanical Ventilator 40 04/25/17 12:38 92/51 04/25/17 12:34 59 16 40 04/25/17 12:30 97.9 61 16 72/44 100 Mechanical Ventilator 50 04/25/17 12:00 97.9 61 16 72/44 100 Mechanical Ventilator 50 04/25/17 12:00 61 04/25/17 11:11 62 16 50 04/25/17 11:08 100 04/25/17 11:00 63 18 81/53 99 Mechanical Ventilator 40 04/25/17 11:00 50 04/25/17 10:53 67 16 50 04/25/17 10:00 77 18 100/70 99 Mechanical Ventilator 50 04/25/17 09:00 77 19 101/61 100 Mechanical Ventilator 50 04/25/17 08:48 61 16 50 719/17 08:00 50 17 08:00 73 7 08:00 97.8 62 18 83/48 100 Mechanical Ventilator 50 17 07:07 67 16 50 719/17 07:00 75 20 102/60 100 Mechanical Ventilator 50 04/25/17 06:00 71 17 101/61 100 Mechanical Ventilator 50 04/25/17 05:00 76 16 107/65 100 Mechanical Ventilator 50 04/25/17 04:52 73 20 50 7 04:00 65 04/25/17 04:00 50 04/25/17 04:00 98.3 76 17 112/57 100 Mechanical Ventilator 50 04/25/17 03:30 80 24 50 04/25/17 03:00 78 18 99/61 100 Mechanical Ventilator 50 04/25/17 02:00 71 18 98/55 100 Mechanical Ventilator 50 04/25/17 01:30 74 21 50 04/25/17 01:00 74 18 90/52 100 Mechanical Ventilator 50 04/25/17 00:00 50 04/25/17 00:00 70 04/25/17 00:00 98.4 82 19 95/65 100 Mechanical Ventilator 50 17 23:30 83 23 50 718/17 23:15 105/60 17 23:00 82 19 108/65 100 Mechanical Ventilator 50 1817 22:00 78 16 100/56 100 Mechanical Ventilator 50 17 21:11 72 16 50 718/17 21:00 75 16 90/48 100 Mechanical Ventilator 50 17 20:00 98.0 76 16 104/60 100 Mechanical Ventilator 50 18/17 20:00 50 718/17 20:00 82 718/17 19:17 71 17 50 718/17 19:00 75 18 97/48 100 Mechanical Ventilator 50 04/24/17 18:00 74 18 117/62 100 Mechanical Ventilator 50 04/24/17 18:00 117/72 Height (Feet): 5 Height (Inches): 10.00 Weight (Pounds): 202 Microbiology Date/Time Source Procedure Growth Status 04/24/17 13:43 Sputum Gram Stain - Final Resulted 04/24/17 13:43 Sputum Culture - Preliminary Gram Negative Bacillus 1 Resulted 04/23/17 16:06 Nasal Nares MRSA Culture - Final NO METHICILLIN RESISTANT STAPH AUREUS... Complete 04/23/17 16:06 Rectum VRE Culture - Final Enterococcus Faecalis - Vre Complete Laboratory Tests Test 04/24/17 18:30 04/25/17 04:35 04/25/17 07:30 White Blood Count 8.3 K/UL (4.8-10.8) 6.0 K/UL (4.8-10.8) Red Blood Count 2.89 M/UL (4.70-6.10) L 2.72 M/UL (4.70-6.10) L Hemoglobin 8.7 G/DL (14.2-18.0) L 8.2 G/DL (14.2-18.0) L Hematocrit 25.7 % (42.0-52.0) L 24.3 % (42.0-52.0) L Mean Corpuscular Volume 89 FL (80-99) 89 FL (80-99) Mean Corpuscular Hemoglobin 30.1 PG (27.0-31.0) 30.3 PG (27.0-31.0) Mean Corpuscular Hemoglobin Concent 33.9 G/DL (32.0-36.0) 33.8 G/DL (32.0-36.0) Red Cell Distribution Width 14.7 % (11.6-14.8) 15.1 % (11.6-14.8) H Platelet Count 134 K/UL (150-450) L 114 K/UL (150-450) L Mean Platelet Volume 4.8 FL (6.5-10.1) L 5.3 FL (6.5-10.1) L Neutrophils (%) (Auto) 74.6 % (45.0-75.0) 78.5 % (45.0-75.0) H Lymphocytes (%) (Auto) 15.2 % (20.0-45.0) L 11.3 % (20.0-45.0) L Monocytes (%) (Auto) 7.1 % (1.0-10.0) 5.0 % (1.0-10.0) Eosinophils (%) (Auto) 2.5 % (0.0-3.0) 4.8 % (0.0-3.0) H Basophils (%) (Auto) 0.7 % (0.0-2.0) 0.3 % (0.0-2.0) Sodium Level 141 mEQ/L (135-145) Potassium Level 4.2 mEQ/L (3.4-4.9) Chloride Level 101 mEQ/L (98-107) Carbon Dioxide Level 21 mEQ/L (20-30) Anion Gap 19 (5-15) H Blood Urea Nitrogen 63 mg/dL (7-23) H Creatinine 5.1 mg/dL (0.7-1.2) H Estimat Glomerular Filtration Rate 11.3 mL/min (>60) Glucose Level 136 mg/dL (74-106) H Hemoglobin A1c 4.8 % (< 6.0) Lactic Acid Level 0.70 mmol/L (0.66-2.22) Uric Acid 5.8 mg/dL (3.0-7.5) Calcium Level 8.6 mg/dL (8.6-10.2) Phosphorus Level 5.1 mg/dL (2.5-4.8) H Magnesium Level 2.0 mg/dL (1.7-2.5) Total Bilirubin 0.6 mg/dL (0.0-1.2) Gamma Glutamyl Transpeptidase 46 U/L (8-61) Aspartate Amino Transf (AST/SGOT) 9 U/L (5-40) Alanine Aminotransferase (ALT/SGPT) 5 U/L (3-41) Alkaline Phosphatase 164 U/L (40-129) H Total Creatine Kinase 43 U/L (38-174) C-Reactive Protein, Quantitative 4.1 mg/dL (< 0.5) H Pro-B-Type Natriuretic Peptide 21974 pg/mL (0-125) H Total Protein 5.3 g/dL (6.6-8.7) L Albumin 2.5 g/dL (3.5-5.2) L Globulin 2.8 g/dL Albumin/Globulin Ratio 0.8 (1.0-2.7) L Triglycerides Level 83 mg/dL (< 150) Cholesterol Level 96 mg/dL (< 200) LDL Cholesterol 55 mg/dL (60-99) L HDL Cholesterol 24 mg/dL (> 60) Cholesterol/HDL Ratio 4.0 (3.3-4.4) Vitamin B12 Level 384 pg/mL (211-946) Folate Pending Thyroid Stimulating Hormone (TSH) 0.756 uIU/mL (0.300-4.500) Arterial Blood pH 7.440 (7.350-7.450) Arterial Blood Partial Pressure CO2 31.4 mmHg (35.0-45.0) L Arterial Blood Partial Pressure O2 73.9 mmHg (75.0-100.0) L Arterial Blood HCO3 20.9 mmol/L (22.0-26.0) L Arterial Blood Oxygen Saturation 93.9 % (92.0-98.0) Arterial Blood Base Excess -2.7 Flex Test Positive Current Medications Medications (Trade) Dose Ordered Sig/[place] Route PRN Reason Start Time Stop Time Status Last Admin Dose Admin Acetaminophen (Tylenol) 650 mg Q4H PRN ORAL fever 04/23/17 15:15 05/23/17 15:14 Clotrimazole (Lotrimin) 1 applic EVERY 12 HOURS TOPIC 04/24/17 09:00 05/24/17 08:59 04/25/17 09:09 Dextrose STAT PRN IV Hypoglycemia 04/23/17 15:15 05/23/17 15:14 Dextrose/Sodium Chloride (D5ns) 1,000 ml @ 50 mls/hr Q20H IV 04/24/17 13:00 05/24/17 12:59 04/25/17 09:09 Diphenhydramine HCl (Benadryl) 25 mg Q6H PRN ORAL Itching/Pruritis 04/23/17 15:15 05/23/17 15:14 Dopamine HCl/ Dextrose (DOPamine 400mg/ 250ml) 250 ml @ 0 mls/hr Q24H IV 04/23/17 15:15 05/23/17 15:14 04/23/17 22:40 Lorazepam 2 mg 2 mg Q2H PRN IV For Anxiety 04/23/17 16:45 04/30/17 16:44 04/25/17 14:36 Morphine Sulfate (Morphine Sulfate) 2 mg Q4H PRN IVP severe Pain (Pain Scale 7-10) 04/23/17 15:15 04/30/17 15:14 04/24/17 05:33 Nitroglycerin (Ntg) 0.4 mg Q5M X 3 DOSES PRN SL Prn Chest Pain 04/23/17 15:15 05/23/17 15:14 Norepinephrine Bitartrate/ Dextrose (Levophed/D5W) 250 ml @ 0 mls/hr Q24H IV 04/23/17 23:15 05/23/17 23:14 04/24/17 00:13 Ondansetron HCl (Zofran) 4 mg Q6H PRN IVP Nausea & Vomiting 04/23/17 15:15 05/23/17 15:14 Pantoprazole 80 mg/Sodium Chloride 250 ml @ 25 mls/hr Q10H IV 04/24/17 08:30 05/24/17 08:29 04/25/17 12:34 Piperacillin Sod/ Tazobactam Sod/ Dextrose (Zosyn/D5W) 55 ml @ 110 mls/hr Q8HR IVPB 04/24/17 15:30 04/29/17 15:29 04/25/17 14:35 Polyethylene Glycol (Miralax) 17 gm HSPRN PRN ORAL Constipation 04/23/17 15:15 05/23/17 15:14 Vancomycin HCl 1 ea 1 ea DAILY PRN MISC Per rx protocol 04/24/17 13:45 05/24/17 13:44 Vitamin A/Vitamin D 1 applic 1 applic EVERY 12 HOURS TOPIC 04/24/17 09:00 05/24/17 08:59 04/25/17 09:09 MOHINDER BRADY M.D. Apr 25, 2017 17:53
[2017-04-25] MEDS: Lidocaine 1% Plain 30 ml INJ SCH (19:30)
[2017-04-25] MEDS: Heparin 2000 units/Ns 1000ml INJ SCH (19:30)
[2017-04-25] MEDS: Morphine Sulfate 2mg/ml Inj IVP PRN (21:36)
[2017-04-26] VITALS (36 sets, daily range): BP systolic 80–134; BP diastolic 43–71
[2017-04-26] MEDS: LORazepam Inj 2mg/ml 1ml IV PRN (01:34)
[2017-04-26] MEDS: D5NS 1,000 ML IV SCH (04:19)
[2017-04-26] MEDS: Heparin 2000 units/Ns 1000ml INJ SCH (07:36)
[2017-04-26] MEDS: DOPamine 400mg/250ml 250 ML IV SCH (07:37)
[2017-04-26] MEDS: Lidocaine 1% Plain 30 ml INJ SCH (07:37)
[2017-04-26] MEDS: Piperacillin/Tazobactam 2.25 GM in D5W 55 ML IVPB SCH ×3 (07:40→22:03)
[2017-04-26] MEDS: Pantoprazole 80 MG in NS 250 ML IV SCH ×2 (07:41→20:45)
[2017-04-26] MEDS: Vitamin A&D Oint 2oz Tube TOPIC SCH ×2 (08:36→20:47)
[2017-04-26] MEDS ORDERED: Dyna-Hex 2% Top Sol 8oz TOPIC SCH (09:00)
[2017-04-26 09:29] LABS: ABG BASE EXCESS -4.9
[2017-04-26 09:30] LABS: BASOPHILS % (AUTO) 0.5 % (0.0-2.0); EOSINOPHILS % (AUTO) 8.5 % (0.0-3.0); LYMPHOCYTES % (AUTO) 12.8 % (20.0-45.0); MEAN CORPUSCULAR HEMOGLOBIN 28.7 PG (27.0-31.0); MEAN CORPUSCULAR HGB CONC 31.7 G/DL (32.0-36.0); MEAN CORPUSCULAR VOLUME 91 FL (80-99); MEAN PLATELET VOLUME 5.1 FL (6.5-10.1); MONOCYTES % (AUTO) 5.3 % (1.0-10.0); PLATELET COUNT 112 K/UL (150-450); RED BLOOD COUNT 2.97 M/UL (4.70-6.10); RED CELL DISTRIBUTION WIDTH 15.2 % (11.6-14.8); WHITE BLOOD COUNT 5.3 K/UL (4.8-10.8)
[2017-04-26 09:33] LABS: PROTHROMBIN TIME 10.4 SEC (9.30-11.50)
[2017-04-26 09:34] LABS: POTASSIUM 4.3 mEQ/L (3.4-4.9)
[2017-04-26 09:35] LABS: CALCIUM 8.2 mg/dL (8.6-10.2); GLOMERULAR FILTRATION RATE 9.3 mL/min (>60); MAGNESIUM 2.2 mg/dL (1.7-2.5); PHOSPHORUS 6.5 mg/dL (2.5-4.8)
[2017-04-26 09:36] LABS: CRP QUANT 3.9 mg/dL (< 0.5); URIC ACID 7.1 mg/dL (3.0-7.5)
--- NOTE | 2017-04-26 10:15 | Diagnostic Imaging Report ---
Indication: DYSPNEA Technique: One view of the chest Comparison: 04/25/2017 Findings: There is persistent opacification of most of the right hemithorax. There is extensive consolidation of the residual aerated on the right. The left lung and pleural space remain clear. Endotracheal tube remains. Right subclavian venous stent and right arm venous stent are again demonstrated Impression: Persistent opacification of most of the right hemithorax. Likely combination of volume loss, pleural fluid, and dense consolidation. There is also considerable consolidation of the residual aerated right lung. Findings are unchanged over one day Other stable findings as described
--- NOTE | 2017-04-26 10:29 | Pulmonolgy Critical Care Note ---
Critical Care - Asmt/Plan Problems: (1) Acute respiratory failure (2) Hemorrhagic shock (3) Aspiration pneumonia (4) ESRF (end stage renal failure) (5) Benign prostate hyperplasia (6) Gout (7) Diabetes mellitus (8) COPD (chronic obstructive pulmonary disease) Assessment/Plan: s/ banding Respiratory: monitor respiratory rate, adjust FIO2 Cardiac: continue to monitor HR/BP Renal: F/U I&O, keep IV fluid, check electrolytes Infectious Disease: check cultures Gastrointestinal: hold feedings, abdominal imaging Endocrine: monitor blood sugar Hematologic: monitor H/H Neurologic: PRN Ativan Affect: PRN ativan Prophylaxis: Protonix Time Spent (Minutes): 40 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, 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, 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 Critical Care - Objective Last 24 Hour Vital Signs Date Time Temp Pulse Resp B/P Pulse Ox O2 Delivery O2 Flow Rate FiO2 04/26/17 10:06 86/45 04/26/17 08:32 100 04/26/17 08:32 57 13 40 04/26/17 07:37 109/61 04/26/17 07:37 109/61 04/26/17 07:09 68 21 40 04/26/17 07:00 70 18 109/61 100 Mechanical Ventilator 50 04/26/17 06:00 59 18 100/50 100 Mechanical Ventilator 50 04/26/17 05:26 76 25 40 04/26/17 05:00 69 18 95/50 100 Mechanical Ventilator 50 04/26/17 04:00 98.0 64 18 115/62 100 Mechanical Ventilator 50 04/26/17 04:00 64 04/26/17 04:00 40 04/26/17 03:21 67 26 40 04/26/17 03:00 63 16 107/68 100 Mechanical Ventilator 50 04/26/17 02:00 63 16 107/68 100 Mechanical Ventilator 50 04/26/17 01:10 66 22 40 04/26/17 01:00 70 16 100/52 100 Mechanical Ventilator 50 04/26/17 00:00 97.8 68 16 90/52 100 Mechanical Ventilator 50 04/26/17 00:00 67 04/26/17 00:00 40 04/25/17 23:29 70 35 40 04/25/17 23:15 100/67 04/25/17 23:00 66 16 89/52 100 Mechanical Ventilator 50 04/25/17 22:00 65 16 97/67 100 Mechanical Ventilator 50 04/25/17 21:29 65 12 40 04/25/17 21:00 66 18 81/46 100 Mechanical Ventilator 50 04/25/17 20:09 64 18 86/52 100 Mechanical Ventilator 50 04/25/17 20:00 72 04/25/17 20:00 97.5 69 22 99/71 100 Mechanical Ventilator 40 04/25/17 20:00 40 04/25/17 18:59 64 12 40 04/25/17 18:00 64 18 86/52 100 Mechanical Ventilator 50 04/25/17 18:00 69 17 86/52 100 Mechanical Ventilator 50 04/25/17 17:00 67 17 79/56 100 Mechanical Ventilator 50 04/25/17 16:46 67 18 40 04/25/17 16:00 62 04/25/17 16:00 97.7 62 16 92/58 100 Mechanical Ventilator 50 04/25/17 15:00 63 17 77/47 100 Mechanical Ventilator 50 04/25/17 14:48 69 14 40 04/25/17 14:00 64 16 104/60 Mechanical Ventilator 100 04/25/17 13:00 59 16 115/66 100 Mechanical Ventilator 40 04/25/17 12:38 92/51 04/25/17 12:34 59 16 40 04/25/17 12:30 97.9 61 16 72/44 100 Mechanical Ventilator 50 04/25/17 12:00 97.9 61 16 72/44 100 Mechanical Ventilator 50 04/25/17 12:00 61 04/25/17 11:11 62 16 50 04/25/17 11:08 100 04/25/17 11:00 63 18 81/53 99 Mechanical Ventilator 40 04/25/17 11:00 50 04/25/17 10:53 67 16 50 Status: awake Condition: critical HEENT: atraumatic Lungs: chest wall tender Heart: HR/BP stable, HR/BP unstable Abdomen: soft, non-tender, active bowel sounds Extremities: no C/C/E, edema Decubiti: location Micro: Microbiology Date/Time Source Procedure Growth Status 04/24/17 15:50 Blood Blood Culture - Preliminary NO GROWTH AFTER 24 HOURS Resulted 04/24/17 15:50 Blood Blood Culture - Preliminary NO GROWTH AFTER 24 HOURS Resulted 04/24/17 13:43 Sputum Gram Stain - Final Complete 04/24/17 13:43 Sputum Culture - Final Serratia Marcescens Complete 04/23/17 16:06 Nasal Nares MRSA Culture - Final NO METHICILLIN RESISTANT STAPH AUREUS... Complete 04/23/17 16:06 Rectum VRE Culture - Final Enterococcus Faecalis - Vre Complete Critical Care - Subjective ROS Limited/Unobtainable: No ICU Day: 3 Condition: critical EKG Rhythm: Sinus Rhythm FI02: 40 Vent Support Breath Rate: 12 Vent Support Mode: IMV/SIMV Vent Tidal Volume: 700 Sputum Amount: Scant PEEP: 5.0 PIP: 38 I&O: Intake and Output 04/25/17 04/26/17 19:00 07:00 Intake Total 1430 ml 775 ml Output Total 0 ml 0 ml Balance 1430 ml 775 ml Intake Oral 0 ml 0 ml IV Total 830 ml 775 ml Other 600 ml Output Urine Total 0 ml 0 ml # Bowel Movements 1 2 CXR: extensive R effusion , loculated ET-Tube: 7.5 ET Position: 25 Labs: Laboratory Tests Test 04/26/17 09:00 04/26/17 09:18 White Blood Count 5.3 K/UL (4.8-10.8) Red Blood Count 2.97 M/UL (4.70-6.10) L Hemoglobin 8.5 G/DL (14.2-18.0) L Hematocrit 26.9 % (42.0-52.0) L Mean Corpuscular Volume 91 FL (80-99) Mean Corpuscular Hemoglobin 28.7 PG (27.0-31.0) Mean Corpuscular Hemoglobin Concent 31.7 G/DL (32.0-36.0) L Red Cell Distribution Width 15.2 % (11.6-14.8) H Platelet Count 112 K/UL (150-450) L Mean Platelet Volume 5.1 FL (6.5-10.1) L Neutrophils (%) (Auto) 73.0 % (45.0-75.0) Lymphocytes (%) (Auto) 12.8 % (20.0-45.0) L Monocytes (%) (Auto) 5.3 % (1.0-10.0) Eosinophils (%) (Auto) 8.5 % (0.0-3.0) H Basophils (%) (Auto) 0.5 % (0.0-2.0) Prothrombin Time 10.4 SEC (9.30-11.50) Prothromb Time International Ratio 1.0 (0.9-1.1) Activated Partial Thromboplast Time 29 SEC (23-33) Sodium Level 141 mEQ/L (135-145) Potassium Level 4.3 mEQ/L (3.4-4.9) Chloride Level 106 mEQ/L (98-107) Carbon Dioxide Level 21 mEQ/L (20-30) Anion Gap 14 (5-15) Blood Urea Nitrogen 74 mg/dL (7-23) H Creatinine 6.0 mg/dL (0.7-1.2) H Estimat Glomerular Filtration Rate 9.3 mL/min (>60) Glucose Level 127 mg/dL (74-106) H Uric Acid 7.1 mg/dL (3.0-7.5) Calcium Level 8.2 mg/dL (8.6-10.2) L Phosphorus Level 6.5 mg/dL (2.5-4.8) H Magnesium Level 2.2 mg/dL (1.7-2.5) Total Bilirubin 0.5 mg/dL (0.0-1.2) Aspartate Amino Transf (AST/SGOT) 11 U/L (5-40) Alanine Aminotransferase (ALT/SGPT) 5 U/L (3-41) Alkaline Phosphatase 185 U/L (40-129) H C-Reactive Protein, Quantitative 3.9 mg/dL (< 0.5) H Pro-B-Type Natriuretic Peptide 87393 pg/mL (0-125) H Total Protein 5.0 g/dL (6.6-8.7) L Albumin 2.5 g/dL (3.5-5.2) L Globulin 2.5 g/dL Albumin/Globulin Ratio 1.0 (1.0-2.7) Arterial Blood pH 7.400 (7.350-7.450) Arterial Blood Partial Pressure CO2 32.0 mmHg (35.0-45.0) L Arterial Blood Partial Pressure O2 149.0 mmHg (75.0-100.0) H Arterial Blood HCO3 19.2 mmol/L (22.0-26.0) L Arterial Blood Oxygen Saturation 98.0 % (92.0-98.0) Arterial Blood Base Excess -4.9 Flex Test FORD FANG Apr 26, 2017 10:29
[2017-04-26] MEDS ORDERED: D5NS 1000ml IV ONE (11:34)
[2017-04-26] MEDS ORDERED: NS 275ml ONE (11:34)
--- NOTE | 2017-04-26 12:34 | Infectious Diseases Prog Note ---
Assessment/Plan Assessment/Plan A: The patient is a 72-year-old male with m Possible aspiration pneumonia. Scx: serratia Chest x-ray : opacification of most of the right hemithorax. Loculated pleural effusion, possible empyema US : complex right pleural effusion Hypotension, most likely due to hypovolemic shock, however, underlying sepsis is the consideration Rule out bacteremia. GI Bleed : EGD : Billroth II anastomosis with a large ulceration at the anastomotic area without any adherent clot or visible vessel.04/24 History of gout History of GI bleed in the past History of diabetes History of BPH History of DVT History of end-stage renal disease on hemodialysis PLAN: Cont patient on IV vancomycin and Zosyn s# 3 Monitor CBC. Monitor BMP. monitor blood and sputum culture. will follow Pulmonary recommendation regarding respiratory failure and need for drainage of the pleural effusion. Monitor chest x-ray ThSx possible VATS pressors tapering Subjective Allergies: Coded Allergies: No Known Allergies (Verified , 02/08/07) Subjective on vent Objective Vital Signs Last 24 Hour Vital Signs Date Time Temp Pulse Resp B/P Pulse Ox O2 Delivery O2 Flow Rate FiO2 04/26/17 12:00 98.0 68 20 133/71 100 Mechanical Ventilator 50 04/26/17 12:00 115/61 04/26/17 12:00 40 04/26/17 12:00 68 04/26/17 11:00 91/45 04/26/17 10:45 67 20 115/50 100 Mechanical Ventilator 50 04/26/17 10:30 71 20 120/61 100 Mechanical Ventilator 50 04/26/17 10:15 61 20 117/65 100 Mechanical Ventilator 50 04/26/17 10:06 86/45 04/26/17 10:00 64 19 99/49 100 Mechanical Ventilator 50 04/26/17 09:00 59 20 89/46 100 Mechanical Ventilator 50 04/26/17 08:32 100 04/26/17 08:32 57 13 40 04/26/17 08:00 64 04/26/17 08:00 98.1 67 18 109/61 100 Mechanical Ventilator 50 04/26/17 07:37 109/61 04/26/17 07:37 109/61 04/26/17 07:09 68 21 40 04/26/17 07:00 70 18 109/61 100 Mechanical Ventilator 50 04/26/17 06:00 59 18 100/50 100 Mechanical Ventilator 50 720/17 05:26 76 25 40 7/20/17 05:00 69 18 95/50 100 Mechanical Ventilator 50 720/17 04:00 98.0 64 18 115/62 100 Mechanical Ventilator 50 720/17 04:00 64 7/20/17 04:00 40 720/17 03:21 67 26 40 720/17 03:00 63 16 107/68 100 Mechanical Ventilator 50 717 02:00 63 16 107/68 100 Mechanical Ventilator 50 720/17 01:10 66 22 40 7/20/17 01:00 70 16 100/52 100 Mechanical Ventilator 50 720/17 00:00 97.8 68 16 90/52 100 Mechanical Ventilator 50 7 00:00 67 04/26/17 00:00 40 17 23:29 70 35 40 7/17 23:15 100/67 717 23:00 66 16 89/52 100 Mechanical Ventilator 50 04/25/17 22:00 65 16 97/67 100 Mechanical Ventilator 50 7/17 21:29 65 12 40 7/17 21:00 66 18 81/46 100 Mechanical Ventilator 50 7/17 20:09 64 18 86/52 100 Mechanical Ventilator 50 7/17 20:00 72 7/17 20:00 97.5 69 22 99/71 100 Mechanical Ventilator 40 719/17 20:00 40 7/17 18:59 64 12 40 7/17 18:00 64 18 86/52 100 Mechanical Ventilator 50 717 18:00 69 17 86/52 100 Mechanical Ventilator 50 7/17 17:00 67 17 79/56 100 Mechanical Ventilator 50 7/17 16:46 67 18 40 7/19/17 16:00 62 7/17 16:00 97.7 62 16 92/58 100 Mechanical Ventilator 50 7/17 15:00 63 17 77/47 100 Mechanical Ventilator 50 7/17 14:48 69 14 40 7/19/17 14:00 64 16 104/60 Mechanical Ventilator 100 7/17 13:00 59 16 115/66 100 Mechanical Ventilator 40 717 12:38 92/51 7//17 12:34 59 16 40 Height (Feet): 5 Height (Inches): 10.00 Weight (Pounds): 200 HEENT: anicteric Respiratory/Chest: no accessory muscle use Cardiovascular: regularly irregular, no gallop/murmur Abdomen: non distended Microbiology Date/Time Source Procedure Growth Status 04/24/17 15:50 Blood Blood Culture - Preliminary NO GROWTH AFTER 24 HOURS Resulted 04/24/17 15:50 Blood Blood Culture - Preliminary NO GROWTH AFTER 24 HOURS Resulted 04/24/17 13:43 Sputum Gram Stain - Final Complete 04/24/17 13:43 Sputum Culture - Final Serratia Marcescens Complete 04/23/17 16:06 Nasal Nares MRSA Culture - Final NO METHICILLIN RESISTANT STAPH AUREUS... Complete 04/23/17 16:06 Rectum VRE Culture - Final Enterococcus Faecalis - Vre Complete Laboratory Tests Test 04/26/17 09:00 04/26/17 09:18 White Blood Count 5.3 K/UL (4.8-10.8) Red Blood Count 2.97 M/UL (4.70-6.10) L Hemoglobin 8.5 G/DL (14.2-18.0) L Hematocrit 26.9 % (42.0-52.0) L Mean Corpuscular Volume 91 FL (80-99) Mean Corpuscular Hemoglobin 28.7 PG (27.0-31.0) Mean Corpuscular Hemoglobin Concent 31.7 G/DL (32.0-36.0) L Red Cell Distribution Width 15.2 % (11.6-14.8) H Platelet Count 112 K/UL (150-450) L Mean Platelet Volume 5.1 FL (6.5-10.1) L Neutrophils (%) (Auto) 73.0 % (45.0-75.0) Lymphocytes (%) (Auto) 12.8 % (20.0-45.0) L Monocytes (%) (Auto) 5.3 % (1.0-10.0) Eosinophils (%) (Auto) 8.5 % (0.0-3.0) H Basophils (%) (Auto) 0.5 % (0.0-2.0) Prothrombin Time 10.4 SEC (9.30-11.50) Prothromb Time International Ratio 1.0 (0.9-1.1) Activated Partial Thromboplast Time 29 SEC (23-33) Sodium Level 141 mEQ/L (135-145) Potassium Level 4.3 mEQ/L (3.4-4.9) Chloride Level 106 mEQ/L (98-107) Carbon Dioxide Level 21 mEQ/L (20-30) Anion Gap 14 (5-15) Blood Urea Nitrogen 74 mg/dL (7-23) H Creatinine 6.0 mg/dL (0.7-1.2) H Estimat Glomerular Filtration Rate 9.3 mL/min (>60) Glucose Level 127 mg/dL (74-106) H Uric Acid 7.1 mg/dL (3.0-7.5) Calcium Level 8.2 mg/dL (8.6-10.2) L Phosphorus Level 6.5 mg/dL (2.5-4.8) H Magnesium Level 2.2 mg/dL (1.7-2.5) Total Bilirubin 0.5 mg/dL (0.0-1.2) Aspartate Amino Transf (AST/SGOT) 11 U/L (5-40) Alanine Aminotransferase (ALT/SGPT) 5 U/L (3-41) Alkaline Phosphatase 185 U/L (40-129) H C-Reactive Protein, Quantitative 3.9 mg/dL (< 0.5) H Pro-B-Type Natriuretic Peptide 97591 pg/mL (0-125) H Total Protein 5.0 g/dL (6.6-8.7) L Albumin 2.5 g/dL (3.5-5.2) L Globulin 2.5 g/dL Albumin/Globulin Ratio 1.0 (1.0-2.7) Arterial Blood pH 7.400 (7.350-7.450) Arterial Blood Partial Pressure CO2 32.0 mmHg (35.0-45.0) L Arterial Blood Partial Pressure O2 149.0 mmHg (75.0-100.0) H Arterial Blood HCO3 19.2 mmol/L (22.0-26.0) L Arterial Blood Oxygen Saturation 98.0 % (92.0-98.0) Arterial Blood Base Excess -4.9 Flex Test Current Medications Medications (Trade) Dose Ordered Sig/[place] Route PRN Reason Start Time Stop Time Status Last Admin Dose Admin Acetaminophen (Tylenol) 650 mg Q4H PRN ORAL fever 04/23/17 15:15 05/23/17 15:14 Chlorhexidine Gluconate (Basilia-Hex 2%) 1 applic QHS TOPIC 04/26/17 21:00 05/26/17 20:59 Clotrimazole (Lotrimin) 1 applic EVERY 12 HOURS TOPIC 04/24/17 09:00 05/24/17 08:59 04/26/17 08:36 Dextrose STAT PRN IV Hypoglycemia 04/23/17 15:15 05/23/17 15:14 Dextrose/Sodium Chloride (D5ns) 1,000 ml @ 50 mls/hr Q20H IV 04/24/17 13:00 05/24/17 12:59 04/26/17 04:19 Diphenhydramine HCl (Benadryl) 25 mg Q6H PRN ORAL Itching/Pruritis 04/23/17 15:15 05/23/17 15:14 Dopamine HCl/ Dextrose (DOPamine 400mg/ 250ml) 250 ml @ 0 mls/hr Q24H IV 04/23/17 15:15 05/23/17 15:14 04/23/17 22:40 Heparin Sodium/ Sodium Chloride (Heparin 2000 units/Ns 1000ml premix) 2,000 unit ONCE INJ 04/25/17 19:30 04/26/17 23:59 Lidocaine HCl (Xylocaine 1% 30ml) 30 ml ONCE INJ 04/25/17 19:30 04/26/17 23:59 Lorazepam 2 mg 2 mg Q2H PRN IV For Anxiety 04/23/17 16:45 04/30/17 16:44 04/26/17 01:34 Morphine Sulfate (Morphine Sulfate) 2 mg Q4H PRN IVP severe Pain (Pain Scale 7-10) 04/23/17 15:15 04/30/17 15:14 04/25/17 21:36 Nitroglycerin (Ntg) 0.4 mg Q5M X 3 DOSES PRN SL Prn Chest Pain 04/23/17 15:15 05/23/17 15:14 Norepinephrine Bitartrate/ Dextrose (Levophed/D5W) 250 ml @ 0 mls/hr Q24H IV 04/23/17 23:15 05/23/17 23:14 04/26/17 10:06 Ondansetron HCl (Zofran) 4 mg Q6H PRN IVP Nausea & Vomiting 04/23/17 15:15 05/23/17 15:14 Pantoprazole 80 mg/Sodium Chloride 250 ml @ 25 mls/hr Q10H IV 04/24/17 08:30 05/24/17 08:29 04/26/17 07:41 Piperacillin Sod/ Tazobactam Sod/ Dextrose (Zosyn/D5W) 55 ml @ 110 mls/hr Q8HR IVPB 04/24/17 15:30 04/29/17 15:29 04/26/17 07:40 Polyethylene Glycol (Miralax) 17 gm HSPRN PRN ORAL Constipation 04/23/17 15:15 05/23/17 15:14 Vancomycin HCl 1 ea 1 ea DAILY PRN MISC Per rx protocol 04/24/17 13:45 05/24/17 13:44 Vitamin A/Vitamin D 1 applic 1 applic EVERY 12 HOURS TOPIC 04/24/17 09:00 05/24/17 08:59 04/26/17 08:36 MOHINDER BRADY M.D. Apr 26, 2017 12:34
--- NOTE | 2017-04-26 15:28 | GI Progress Note ---
Assessment/Plan Problems: (1) Hemorrhagic shock SNOMED: 202735 (2) Diabetes mellitus ICD Codes: E11.9 - Type 2 diabetes mellitus without complications SNOMED: 35982233 (3) Gastrointestinal hemorrhage ICD Codes: K92.2 - Gastrointestinal hemorrhage, unspecified SNOMED: 32028681 (4) Sepsis ICD Codes: A41.9 - Sepsis, unspecified organism SNOMED: 93559265 (5) Acute respiratory failure ICD Codes: J96.00 - Acute respiratory failure, unspecified whether with hypoxia or hypercapnia SNOMED: 95363343 Status: stable Status Narrative Discussed with Dr. Back. Assessment/Plan SUMMARY OF FINDINGS: Billroth II anastomosis with a large ulceration at the anastomotic area without any adherent clot or visible vessel. RECOMMENDATIONS: 1. Follow biopsy results. 2. Start TFs per dietary 3. Continue on Protonix. 4. Monitor hemoglobin and hematocrit and transfuse to keep hemoglobin above 7. We will follow. This patient is cleared from GI for scheduled VATS. Subjective Subjective limited Objective Last 24 Hour Vital Signs Date Time Temp Pulse Resp B/P Pulse Ox O2 Delivery O2 Flow Rate FiO2 04/26/17 15:00 61 20 131/61 100 Mechanical Ventilator 50 04/26/17 14:00 63 20 134/61 100 Mechanical Ventilator 50 04/26/17 13:00 85/48 04/26/17 13:00 57 20 123/52 100 Mechanical Ventilator 50 04/26/17 13:00 59 19 40 04/26/17 12:45 60 20 95/48 100 Mechanical Ventilator 50 04/26/17 12:30 58 20 85/45 100 Mechanical Ventilator 50 04/26/17 12:15 57 20 88/48 100 Mechanical Ventilator 50 04/26/17 12:00 98.0 68 20 133/71 100 Mechanical Ventilator 50 04/26/17 12:00 115/61 04/26/17 12:00 40 04/26/17 12:00 68 04/26/17 11:55 Mechanical Ventilator 40 04/26/17 11:17 84 12 40 04/26/17 11:00 61 20 115/50 100 Mechanical Ventilator 50 04/26/17 11:00 91/45 04/26/17 10:45 67 20 115/50 100 Mechanical Ventilator 50 04/26/17 10:30 71 20 120/61 100 Mechanical Ventilator 50 7/20/17 10:15 61 20 117/65 100 Mechanical Ventilator 50 7/20/ 10:06 86/45 7/20/ 10:00 64 19 99/49 100 Mechanical Ventilator 50 720/ 09:00 59 20 89/46 100 Mechanical Ventilator 50 720/ 08:32 100 7/20/17 08:32 57 13 40 7/20/17 08:00 64 7/20 08:00 98.1 67 18 109/61 100 Mechanical Ventilator 50 720 07:37 109/61 720 07:37 109/61 720/ 07:09 68 21 40 7/20/ 07:00 70 18 109/61 100 Mechanical Ventilator 50 720/ 06:00 59 18 100/50 100 Mechanical Ventilator 50 7 05:26 76 25 40 720/ 05:00 69 18 95/50 100 Mechanical Ventilator 50 720/ 04:00 98.0 64 18 115/62 100 Mechanical Ventilator 50 7 04:00 64 04/26/17 04:00 40 04/26/17 03:21 67 26 40 720/ 03:00 63 16 107/68 100 Mechanical Ventilator 50 7 02:00 63 16 107/68 100 Mechanical Ventilator 50 04/26/17 01:10 66 22 40 720/ 01:00 70 16 100/52 100 Mechanical Ventilator 50 720/17 00:00 97.8 68 16 90/52 100 Mechanical Ventilator 50 720/17 00:00 67 04/26/17 00:00 40 7/ 23:29 70 35 40 7/ 23:15 100/67 7/17 23:00 66 16 89/52 100 Mechanical Ventilator 50 7/17 22:00 65 16 97/67 100 Mechanical Ventilator 50 7/17 21:29 65 12 40 7/19/17 21:00 66 18 81/46 100 Mechanical Ventilator 50 7/17 20:09 64 18 86/52 100 Mechanical Ventilator 50 7/19/17 20:00 72 7/19/17 20:00 97.5 69 22 99/71 100 Mechanical Ventilator 40 7/19/17 20:00 40 7/17 18:59 64 12 40 7// 18:00 64 18 86/52 100 Mechanical Ventilator 50 04/25/17 18:00 69 17 86/52 100 Mechanical Ventilator 50 04/25/17 17:00 67 17 79/56 100 Mechanical Ventilator 50 04/25/17 16:46 67 18 40 04/25/17 16:00 62 04/25/17 16:00 97.7 62 16 92/58 100 Mechanical Ventilator 50 Intake and Output 04/25/17 04/26/17 19:00 07:00 Intake Total 1430 ml 775 ml Output Total 0 ml 0 ml Balance 1430 ml 775 ml Intake Oral 0 ml 0 ml IV Total 830 ml 775 ml Other 600 ml Output Urine Total 0 ml 0 ml # Bowel Movements 1 2 Laboratory Tests Test 04/26/17 09:00 04/26/17 09:18 White Blood Count 5.3 K/UL (4.8-10.8) Red Blood Count 2.97 M/UL (4.70-6.10) L Hemoglobin 8.5 G/DL (14.2-18.0) L Hematocrit 26.9 % (42.0-52.0) L Mean Corpuscular Volume 91 FL (80-99) Mean Corpuscular Hemoglobin 28.7 PG (27.0-31.0) Mean Corpuscular Hemoglobin Concent 31.7 G/DL (32.0-36.0) L Red Cell Distribution Width 15.2 % (11.6-14.8) H Platelet Count 112 K/UL (150-450) L Mean Platelet Volume 5.1 FL (6.5-10.1) L Neutrophils (%) (Auto) 73.0 % (45.0-75.0) Lymphocytes (%) (Auto) 12.8 % (20.0-45.0) L Monocytes (%) (Auto) 5.3 % (1.0-10.0) Eosinophils (%) (Auto) 8.5 % (0.0-3.0) H Basophils (%) (Auto) 0.5 % (0.0-2.0) Prothrombin Time 10.4 SEC (9.30-11.50) Prothromb Time International Ratio 1.0 (0.9-1.1) Activated Partial Thromboplast Time 29 SEC (23-33) Sodium Level 141 mEQ/L (135-145) Potassium Level 4.3 mEQ/L (3.4-4.9) Chloride Level 106 mEQ/L (98-107) Carbon Dioxide Level 21 mEQ/L (20-30) Anion Gap 14 (5-15) Blood Urea Nitrogen 74 mg/dL (7-23) H Creatinine 6.0 mg/dL (0.7-1.2) H Estimat Glomerular Filtration Rate 9.3 mL/min (>60) Glucose Level 127 mg/dL (74-106) H Uric Acid 7.1 mg/dL (3.0-7.5) Calcium Level 8.2 mg/dL (8.6-10.2) L Phosphorus Level 6.5 mg/dL (2.5-4.8) H Magnesium Level 2.2 mg/dL (1.7-2.5) Total Bilirubin 0.5 mg/dL (0.0-1.2) Aspartate Amino Transf (AST/SGOT) 11 U/L (5-40) Alanine Aminotransferase (ALT/SGPT) 5 U/L (3-41) Alkaline Phosphatase 185 U/L (40-129) H C-Reactive Protein, Quantitative 3.9 mg/dL (< 0.5) H Pro-B-Type Natriuretic Peptide 15232 pg/mL (0-125) H Total Protein 5.0 g/dL (6.6-8.7) L Albumin 2.5 g/dL (3.5-5.2) L Globulin 2.5 g/dL Albumin/Globulin Ratio 1.0 (1.0-2.7) Arterial Blood pH 7.400 (7.350-7.450) Arterial Blood Partial Pressure CO2 32.0 mmHg (35.0-45.0) L Arterial Blood Partial Pressure O2 149.0 mmHg (75.0-100.0) H Arterial Blood HCO3 19.2 mmol/L (22.0-26.0) L Arterial Blood Oxygen Saturation 98.0 % (92.0-98.0) Arterial Blood Base Excess -4.9 Flex Test Height (Feet): 5 Height (Inches): 10.00 Weight (Pounds): 200 General Appearance: no apparent distress, alert Cardiovascular: normal rate Respiratory/Chest: other - mech vent Abdominal Exam: soft Joellen Parker N.P. Apr 26, 2017 15:28
--- NOTE | 2017-04-26 16:07 | General Progress Note ---
Assessment/Plan Status: stable - from renal stand Assessment/Plan ESRD Resp Failure acute- Low BP, Shock Acute GI bleed Plan; Hemodynamic support- Per GI HD as needed, scheduled for 04/26- currently in process monitor renal parameters and H&H Per orders DC IV discussed with RN Subjective ROS Limited/Unobtainable: No Allergies: Coded Allergies: No Known Allergies (Verified , 02/08/07) Objective Last 24 Hour Vital Signs Date Time Temp Pulse Resp B/P Pulse Ox O2 Delivery O2 Flow Rate FiO2 04/26/17 15:00 61 20 131/61 100 Mechanical Ventilator 50 04/26/17 14:00 63 20 134/61 100 Mechanical Ventilator 50 04/26/17 13:00 85/48 04/26/17 13:00 57 20 123/52 100 Mechanical Ventilator 50 04/26/17 13:00 59 19 40 04/26/17 12:45 60 20 95/48 100 Mechanical Ventilator 50 04/26/17 12:30 58 20 85/45 100 Mechanical Ventilator 50 04/26/17 12:15 57 20 88/48 100 Mechanical Ventilator 50 04/26/17 12:00 98.0 68 20 133/71 100 Mechanical Ventilator 50 04/26/17 12:00 115/61 04/26/17 12:00 40 04/26/17 12:00 68 04/26/17 11:55 Mechanical Ventilator 40 04/26/17 11:17 84 12 40 04/26/17 11:00 61 20 115/50 100 Mechanical Ventilator 50 04/26/17 11:00 91/45 04/26/17 10:45 67 20 115/50 100 Mechanical Ventilator 50 04/26/17 10:30 71 20 120/61 100 Mechanical Ventilator 50 04/26/17 10:15 61 20 117/65 100 Mechanical Ventilator 50 04/26/17 10:06 86/45 04/26/17 10:00 64 19 99/49 100 Mechanical Ventilator 50 04/26/17 09:00 59 20 89/46 100 Mechanical Ventilator 50 04/26/17 08:32 100 04/26/17 08:32 57 13 40 04/26/17 08:00 64 04/26/17 08:00 98.1 67 18 109/61 100 Mechanical Ventilator 50 04/26/17 07:37 109/61 04/26/17 07:37 109/61 04/26/17 07:09 68 21 40 04/26/17 07:00 70 18 109/61 100 Mechanical Ventilator 50 04/26/17 06:00 59 18 100/50 100 Mechanical Ventilator 50 04/26/17 05:26 76 25 40 7 05:00 69 18 95/50 100 Mechanical Ventilator 50 04/26/17 04:00 98.0 64 18 115/62 100 Mechanical Ventilator 50 04/26/17 04:00 64 04/26/17 04:00 40 04/26/17 03:21 67 26 40 04/26/17 03:00 63 16 107/68 100 Mechanical Ventilator 50 04/26/17 02:00 63 16 107/68 100 Mechanical Ventilator 50 04/26/17 01:10 66 22 40 04/26/17 01:00 70 16 100/52 100 Mechanical Ventilator 50 04/26/17 00:00 97.8 68 16 90/52 100 Mechanical Ventilator 50 04/26/17 00:00 67 04/26/17 00:00 40 04/25/17 23:29 70 35 40 04/25/17 23:15 100/67 04/25/17 23:00 66 16 89/52 100 Mechanical Ventilator 50 04/25/17 22:00 65 16 97/67 100 Mechanical Ventilator 50 04/25/17 21:29 65 12 40 04/25/17 21:00 66 18 81/46 100 Mechanical Ventilator 50 04/25/17 20:09 64 18 86/52 100 Mechanical Ventilator 50 04/25/17 20:00 72 04/25/17 20:00 97.5 69 22 99/71 100 Mechanical Ventilator 40 04/25/17 20:00 40 04/25/17 18:59 64 12 40 04/25/17 18:00 64 18 86/52 100 Mechanical Ventilator 50 04/25/17 18:00 69 17 86/52 100 Mechanical Ventilator 50 04/25/17 17:00 67 17 79/56 100 Mechanical Ventilator 50 04/25/17 16:46 67 18 40 Intake and Output 04/25/17 04/26/17 19:00 07:00 Intake Total 1430 ml 775 ml Output Total 0 ml 0 ml Balance 1430 ml 775 ml Intake Oral 0 ml 0 ml IV Total 830 ml 775 ml Other 600 ml Output Urine Total 0 ml 0 ml # Bowel Movements 1 2 Laboratory Tests 04/26/17 09:00: White Blood Count 5.3, Red Blood Count 2.97L, Hemoglobin 8.5L, Hematocrit 26.9L , Mean Corpuscular Volume 91, Mean Corpuscular Hemoglobin 28.7, Mean Corpuscular Hemoglobin Concent 31.7L, Red Cell Distribution Width 15.2H, Platelet Count 112L, Mean Platelet Volume 5.1L, Neutrophils (%) (Auto) 73.0, Lymphocytes (%) (Auto) 12.8L, Monocytes (%) (Auto) 5.3, Eosinophils (%) (Auto) 8.5H, Basophils (%) (Auto) 0.5, Prothrombin Time 10.4, Prothromb Time International Ratio 1.0, Activated Partial Thromboplast Time 29, Sodium Level 141, Potassium Level 4.3, Chloride Level 106, Carbon Dioxide Level 21, Anion Gap 14, Blood Urea Nitrogen 74H, Creatinine 6.0H, Estimat Glomerular Filtration Rate 9.3, Glucose Level 127H, Uric Acid 7.1, Calcium Level 8.2L, Phosphorus Level 6.5H, Magnesium Level 2.2, Total Bilirubin 0.5, Aspartate Amino Transf ( AST/SGOT) 11, Alanine Aminotransferase (ALT/SGPT) 5, Alkaline Phosphatase 185H, C-Reactive Protein, Quantitative 3.9H, Pro-B-Type Natriuretic Peptide 25138C, Total Protein 5.0L, Albumin 2.5L, Globulin 2.5, Albumin/Globulin Ratio 1.0 04/26/17 09:18: Arterial Blood pH 7.400, Arterial Blood Partial Pressure CO2 32.0L, Arterial Blood Partial Pressure O2 149.0H, Arterial Blood HCO3 19.2L, Arterial Blood Oxygen Saturation 98.0, Arterial Blood Base Excess -4.9, Flex Test Height (Feet): 5 Height (Inches): 10.00 Weight (Pounds): 200 General Appearance: no apparent distress Objective PE not changed JT MILLS Apr 26, 2017 16:07
--- NOTE | 2017-04-26 16:46 | Diagnostic Imaging Report ---
Indication: Needs central IV access Technique: Procedure performed at bedside. Procedural timeout performed. Ultrasound confirms patent compressible right internal jugular vein. Total sterile technique, including sterile probe cover and sterile gel, sterile gloves, hand hygiene, hat, mask, sterile gown, large sterile drape, and preparation with 2% chlorhexidine utilized.Local anesthesia with 1% lidocaine. Under real-time ultrasound guidance, puncture right internal jugular vein using 18-gauge needle, passage 0.035 guidewire, over which was passed serial dilators and then a right transjugular central venous catheter. Completion chest radiograph obtained, demonstrating catheter tip position at the mid superior vena cava. Impression: Successful placement of right jugular central venous catheter, as described.
[2017-04-26] MEDS ORDERED: Vancomycin 1250mg/D5W 250ml IVPB ONE (20:00)
[2017-04-26] MEDS: Dyna-Hex 2% Top Sol 8oz TOPIC SCH (20:48)
[2017-04-26 21:09] LABS: MEAN CORPUSCULAR HEMOGLOBIN 29.9 PG (27.0-31.0); MEAN CORPUSCULAR HGB CONC 33.3 G/DL (32.0-36.0); MEAN CORPUSCULAR VOLUME 90 FL (80-99); MEAN PLATELET VOLUME 4.7 FL (6.5-10.1); PLATELET COUNT 90 K/UL (150-450); RED BLOOD COUNT 2.81 M/UL (4.70-6.10); RED CELL DISTRIBUTION WIDTH 14.7 % (11.6-14.8); WHITE BLOOD COUNT 5.7 K/UL (4.8-10.8)
[2017-04-26 21:19] LABS: BASOPHILS % (AUTO) 0.4 % (0.0-2.0); EOSINOPHILS % (AUTO) 6.3 % (0.0-3.0); LYMPHOCYTES % (AUTO) 13.3 % (20.0-45.0); MONOCYTES % (AUTO) 7.9 % (1.0-10.0); NEUTROPHILS % (AUTO) 72.1 % (45.0-75.0)
[2017-04-26] MEDS ORDERED: Zemuron 50mg/5ml Inj IV ONE (22:43)
[2017-04-26] MEDS ORDERED: Etomidate 40mg/20ml Inj IV ONE (22:43)
[2017-04-27] VITALS (48 sets, daily range): BP systolic 89–133; BP diastolic 48–67
[2017-04-27 05:10] LABS: BASOPHILS % (AUTO) 0.3 % (0.0-2.0); EOSINOPHILS % (AUTO) 8.5 % (0.0-3.0); LYMPHOCYTES % (AUTO) 13.3 % (20.0-45.0); MEAN CORPUSCULAR HEMOGLOBIN 30.6 PG (27.0-31.0); MEAN CORPUSCULAR HGB CONC 33.9 G/DL (32.0-36.0); MEAN CORPUSCULAR VOLUME 90 FL (80-99); MEAN PLATELET VOLUME 5.2 FL (6.5-10.1); MONOCYTES % (AUTO) 7.3 % (1.0-10.0); NEUTROPHILS % (AUTO) 70.6 % (45.0-75.0); PLATELET COUNT 123 K/UL (150-450); RED BLOOD COUNT 2.95 M/UL (4.70-6.10); RED CELL DISTRIBUTION WIDTH 15.3 % (11.6-14.8)
[2017-04-27] MEDS: Piperacillin/Tazobactam 2.25 GM in D5W 55 ML IVPB SCH ×3 (05:58→22:02)
[2017-04-27] MEDS: Pantoprazole 80 MG in NS 250 ML IV SCH ×2 (05:59→15:59)
[2017-04-27 06:10] LABS: CRP QUANT 4.8 mg/dL (< 0.5); URIC ACID 5.2 mg/dL (3.0-7.5)
[2017-04-27 06:34] LABS: ALBUMIN/GLOBULIN RATIO 1.1 (1.0-2.7); CREATININE 4.7 mg/dL (0.7-1.2); GLOMERULAR FILTRATION RATE 12.4 mL/min (>60); PHOSPHORUS 5.2 mg/dL (2.5-4.8); POTASSIUM 3.8 mEQ/L (3.4-4.9); TOTAL PROTEIN 4.5 g/dL (6.6-8.7)
[2017-04-27 08:45] LABS: ABG ALLEN TEST POSITIVE; ABG BASE EXCESS 2.5; ABG PCO2 39.1 mmHg (35.0-45.0)
[2017-04-27] MEDS: Vitamin A&D Oint 2oz Tube TOPIC SCH ×2 (09:10→20:56)
--- NOTE | 2017-04-27 11:09 | Pulmonolgy Critical Care Note ---
Critical Care - Asmt/Plan Problems: (1) Acute respiratory failure (2) Hemorrhagic shock (3) Aspiration pneumonia (4) ESRF (end stage renal failure) (5) Benign prostate hyperplasia (6) Gout (7) Diabetes mellitus (8) COPD (chronic obstructive pulmonary disease) Assessment/Plan: s/ banding Respiratory: monitor respiratory rate, other - will have thoracoscopy on sunday Cardiac: continue pressors Renal: F/U I&O, keep IV fluid, increase IV fluid Infectious Disease: check cultures, continue antibiotics Gastrointestinal: continue feedings/current rate, hold feedings Endocrine: monitor blood sugar, continue sliding scale insulin Hematologic: monitor H/H, transfuse if hgb<8.5 Neurologic: PRN Ativan, keep patient comfortable Time Spent (Minutes): 40 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, 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, 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, consultants, case management assistantassociate program manager - Objective Last 24 Hour Vital Signs Date Time Temp Pulse Resp B/P Pulse Ox O2 Delivery O2 Flow Rate FiO2 04/27/17 10:30 57 15 108/56 100 Mechanical Ventilator 40 04/27/17 10:00 57 16 120/53 100 Mechanical Ventilator 40 04/27/17 09:30 56 16 120/60 100 Mechanical Ventilator 40 04/27/17 09:20 40 04/27/17 09:15 57 13 30 04/27/17 09:15 100 04/27/17 09:00 58 14 106/56 100 Mechanical Ventilator 40 04/27/17 09:00 40 04/27/17 08:30 58 14 106/56 100 Mechanical Ventilator 40 04/27/17 08:00 40 04/27/17 08:00 57 04/27/17 08:00 98.0 58 13 109/67 100 Mechanical Ventilator 40 04/27/17 07:30 61 16 115/58 100 Mechanical Ventilator 40 04/27/17 07:00 111/60 04/27/17 07:00 58 13 111/60 100 Mechanical Ventilator 40 04/27/17 06:33 61 18 50 04/27/17 06:30 59 12 89/52 100 Mechanical Ventilator 40 04/27/17 06:00 59 12 106/57 100 Mechanical Ventilator 40 04/27/17 05:59 90/49 04/27/17 05:30 58 14 93/52 100 Mechanical Ventilator 40 04/27/17 05:22 55 13 50 04/27/17 05:00 59 19 93/52 100 Mechanical Ventilator 40 04/27/17 05:00 93/52 04/27/17 04:30 58 19 102/60 100 Mechanical Ventilator 40 04/27/17 04:00 60 04/27/17 04:00 98.2 59 14 102/60 100 Mechanical Ventilator 40 04/27/17 04:00 40 04/27/17 04:00 102/60 04/27/17 03:30 62 19 109/58 100 Mechanical Ventilator 40 04/27/17 03:28 62 12 50 04/27/17 03:00 96/53 04/27/17 03:00 59 12 96/53 100 Mechanical Ventilator 40 04/27/17 02:30 58 12 90/49 100 Mechanical Ventilator 40 04/27/17 02:00 58 12 96/51 100 Mechanical Ventilator 40 04/27/17 02:00 96/51 04/27/17 01:30 63 16 109/57 100 Mechanical Ventilator 40 04/27/17 01:00 64 18 112/55 100 Mechanical Ventilator 40 04/27/17 01:00 109/57 04/27/17 00:38 56 12 50 04/27/17 00:30 58 12 90/51 100 Mechanical Ventilator 40 04/27/17 00:00 109/57 04/27/17 00:00 59 04/27/17 00:00 98.5 59 12 90/48 100 Mechanical Ventilator 40 04/27/17 00:00 40 04/26/17 23:30 58 12 91/51 100 Mechanical Ventilator 40 04/26/17 23:10 67 21 50 04/26/17 23:00 100/56 04/26/17 23:00 64 17 100/56 100 Mechanical Ventilator 40 04/26/17 22:30 58 12 95/56 100 Mechanical Ventilator 40 04/26/17 22:00 58 12 98/52 100 Mechanical Ventilator 40 04/26/17 22:00 90/51 04/26/17 21:45 57 12 92/52 100 Mechanical Ventilator 40 04/26/17 21:30 60 13 90/51 100 Mechanical Ventilator 40 04/26/17 21:28 64 14 50 04/26/17 21:15 59 13 90/51 100 Mechanical Ventilator 40 04/26/17 21:00 61 12 121/60 100 Mechanical Ventilator 40 04/26/17 20:45 61 12 80/46 100 Mechanical Ventilator 40 7 20:45 79/46 717 20:00 98.7 62 16 86/45 100 Mechanical Ventilator 40 04/26/17 20:00 62 7/ 20:00 40 7 19:00 62 14 50 717 19:00 64 19 100/43 100 Mechanical Ventilator 50 04/26/17 18:55 101/43 7 18:00 120/51 7 18:00 72 19 129/59 100 Mechanical Ventilator 50 04/26/17 17:00 71 20 121/61 100 Mechanical Ventilator 50 04/26/17 16:50 64 16 40 7 16:00 40 04/26/17 16:00 98.3 102 20 128/62 100 Mechanical Ventilator 50 04/26/17 16:00 99/45 7 16:00 65 04/26/17 15:41 65 21 40 04/26/17 15:00 104/53 04/26/17 15:00 61 20 131/61 100 Mechanical Ventilator 50 04/26/17 15:00 Mechanical Ventilator 40 04/26/17 14:00 63 20 134/61 100 Mechanical Ventilator 50 04/26/17 14:00 101/61 04/26/17 13:00 85/48 04/26/17 13:00 57 20 123/52 100 Mechanical Ventilator 50 04/26/17 13:00 59 19 40 04/26/17 12:45 60 20 95/48 100 Mechanical Ventilator 50 04/26/17 12:30 58 20 85/45 100 Mechanical Ventilator 50 04/26/17 12:15 57 20 88/48 100 Mechanical Ventilator 50 04/26/17 12:00 98.0 68 20 133/71 100 Mechanical Ventilator 50 04/26/17 12:00 115/61 7 12:00 40 04/26/17 12:00 68 04/26/17 11:55 Mechanical Ventilator 40 04/26/17 11:17 84 12 40 Status: awake Condition: critical HEENT: atraumatic Neck: full ROM Lungs: clear Heart: HR/BP stable Abdomen: soft, non-tender, active bowel sounds Extremities: no C/C/E, edema Decubiti: location Micro: Microbiology Date/Time Source Procedure Growth Status 7/18/17 15:50 Blood Blood Culture - Preliminary NO GROWTH AFTER 48 HOURS Resulted 04/24/17 15:50 Blood Blood Culture - Preliminary NO GROWTH AFTER 48 HOURS Resulted 04/24/17 13:43 Sputum Gram Stain - Final Complete 04/24/17 13:43 Sputum Culture - Final Serratia Marcescens Complete Critical Care - Subjective ROS Limited/Unobtainable: Yes - 4 ICU Day: 4 Intubation Day: 4 EKG Rhythm: Sinus Bradycardia FI02: 40 Vent Support Breath Rate: 6 Vent Support Mode: IMV/SIMV Vent Tidal Volume: 700 Sputum Amount: Scant PEEP: 5.0 PIP: 38 Tube Feeding Amount: 35 I&O: Intake and Output 04/26/17 04/27/17 19:00 07:00 Intake Total 918.70 ml 822.50 ml Output Total 1130 ml 100 ml Balance -211.30 ml 722.50 ml Intake Oral 0 ml 0 ml Free Water 60 ml 60 ml IV Total 858.70 ml 472.50 ml Tube Feeding 290 ml Output Urine Total 0 ml 0 ml Stool Total 100 ml Peritoneal Dialysis UF 1130 ml # Bowel Movements 3 1 CXR: unchanged ET-Tube: 7.5 ET Position: 24 Labs: Laboratory Tests Test 04/26/17 17:50 04/26/17 20:53 04/27/17 04:30 04/27/17 08:30 Random Vancomycin Level 9.7 ug/mL White Blood Count 5.7 K/UL (4.8-10.8) 7.0 K/UL (4.8-10.8) Red Blood Count 2.81 M/UL (4.70-6.10) L 2.95 M/UL (4.70-6.10) L Hemoglobin 8.4 G/DL (14.2-18.0) L 9.0 G/DL (14.2-18.0) L Hematocrit 25.2 % (42.0-52.0) L 26.7 % (42.0-52.0) L Mean Corpuscular Volume 90 FL (80-99) 90 FL (80-99) Mean Corpuscular Hemoglobin 29.9 PG (27.0-31.0) 30.6 PG (27.0-31.0) Mean Corpuscular Hemoglobin Concent 33.3 G/DL (32.0-36.0) 33.9 G/DL (32.0-36.0) Red Cell Distribution Width 14.7 % (11.6-14.8) 15.3 % (11.6-14.8) H Platelet Count 90 K/UL (150-450) L 123 K/UL (150-450) L Mean Platelet Volume 4.7 FL (6.5-10.1) L 5.2 FL (6.5-10.1) L Neutrophils (%) (Auto) 72.1 % (45.0-75.0) 70.6 % (45.0-75.0) Lymphocytes (%) (Auto) 13.3 % (20.0-45.0) L 13.3 % (20.0-45.0) L Monocytes (%) (Auto) 7.9 % (1.0-10.0) 7.3 % (1.0-10.0) Eosinophils (%) (Auto) 6.3 % (0.0-3.0) H 8.5 % (0.0-3.0) H Basophils (%) (Auto) 0.4 % (0.0-2.0) 0.3 % (0.0-2.0) Sodium Level 137 mEQ/L (135-145) Potassium Level 3.8 mEQ/L (3.4-4.9) Chloride Level 99 mEQ/L (98-107) Carbon Dioxide Level 26 mEQ/L (20-30) Anion Gap 12 (5-15) Blood Urea Nitrogen 51 mg/dL (7-23) H Creatinine 4.7 mg/dL (0.7-1.2) H Estimat Glomerular Filtration Rate 12.4 mL/min (>60) Glucose Level 149 mg/dL (74-106) H Uric Acid 5.2 mg/dL (3.0-7.5) Calcium Level 8.0 mg/dL (8.6-10.2) L Phosphorus Level 5.2 mg/dL (2.5-4.8) H Magnesium Level 2.0 mg/dL (1.7-2.5) Total Bilirubin 0.5 mg/dL (0.0-1.2) Aspartate Amino Transf (AST/SGOT) 9 U/L (5-40) Alanine Aminotransferase (ALT/SGPT) 5 U/L (3-41) Alkaline Phosphatase 182 U/L (40-129) H C-Reactive Protein, Quantitative 4.8 mg/dL (< 0.5) H Pro-B-Type Natriuretic Peptide 86109 pg/mL (0-125) H Total Protein 4.5 g/dL (6.6-8.7) L Albumin 2.4 g/dL (3.5-5.2) L Globulin 2.1 g/dL Albumin/Globulin Ratio 1.1 (1.0-2.7) Arterial Blood pH 7.451 (7.350-7.450) Arterial Blood Partial Pressure CO2 39.1 mmHg (35.0-45.0) Arterial Blood Partial Pressure O2 152.5 mmHg (75.0-100.0) H Arterial Blood HCO3 26.6 mmol/L (22.0-26.0) H Arterial Blood Oxygen Saturation 98.0 % (92.0-98.0) Arterial Blood Base Excess 2.5 Flex Test Positive FORD FANG Apr 27, 2017 11:09
--- NOTE | 2017-04-27 11:53 | GI Progress Note ---
Assessment/Plan Problems: (1) Hemorrhagic shock SNOMED: 097037 (2) Diabetes mellitus ICD Codes: E11.9 - Type 2 diabetes mellitus without complications SNOMED: 76388446 (3) Gastrointestinal hemorrhage ICD Codes: K92.2 - Gastrointestinal hemorrhage, unspecified SNOMED: 84095118 (4) Sepsis ICD Codes: A41.9 - Sepsis, unspecified organism SNOMED: 07932453 (5) Acute respiratory failure ICD Codes: J96.00 - Acute respiratory failure, unspecified whether with hypoxia or hypercapnia SNOMED: 04648508 Status: unchanged Status Narrative Discussed with Dr. Back. Assessment/Plan SUMMARY OF FINDINGS: Billroth II anastomosis with a large ulceration at the anastomotic area without any adherent clot or visible vessel. RECOMMENDATIONS: 1. Follow biopsy results. 2. Start TFs per dietary 3. Continue on Protonix. 4. Monitor hemoglobin and hematocrit and transfuse to keep hemoglobin above 7. We will follow. This patient is cleared from GI for scheduled VATS Sunday. Subjective Subjective limited Objective Last 24 Hour Vital Signs Date Time Temp Pulse Resp B/P Pulse Ox O2 Delivery O2 Flow Rate FiO2 04/27/17 11:30 53 15 108/55 100 Mechanical Ventilator 40 04/27/17 11:10 58 15 30 04/27/17 11:00 56 15 103/56 100 Mechanical Ventilator 40 04/27/17 10:30 57 15 108/56 100 Mechanical Ventilator 40 04/27/17 10:00 57 16 120/53 100 Mechanical Ventilator 40 04/27/17 09:30 56 16 120/60 100 Mechanical Ventilator 40 04/27/17 09:20 40 04/27/17 09:15 57 13 30 04/27/17 09:15 100 04/27/17 09:00 58 14 106/56 100 Mechanical Ventilator 40 04/27/17 09:00 40 04/27/17 08:30 58 14 106/56 100 Mechanical Ventilator 40 04/27/17 08:00 40 04/27/17 08:00 57 04/27/17 08:00 98.0 58 13 109/67 100 Mechanical Ventilator 40 04/27/17 07:30 61 16 115/58 100 Mechanical Ventilator 40 04/27/17 07:00 111/60 04/27/17 07:00 58 13 111/60 100 Mechanical Ventilator 40 04/27/17 06:33 61 18 50 04/27/17 06:30 59 12 89/52 100 Mechanical Ventilator 40 04/27/17 06:00 59 12 106/57 100 Mechanical Ventilator 40 04/27/17 05:59 90/49 04/27/17 05:30 58 14 93/52 100 Mechanical Ventilator 40 04/27/17 05:22 55 13 50 04/27/17 05:00 59 19 93/52 100 Mechanical Ventilator 40 04/27/17 05:00 93/52 04/27/17 04:30 58 19 102/60 100 Mechanical Ventilator 40 04/27/17 04:00 60 04/27/17 04:00 98.2 59 14 102/60 100 Mechanical Ventilator 40 04/27/17 04:00 40 04/27/17 04:00 102/60 04/27/17 03:30 62 19 109/58 100 Mechanical Ventilator 40 04/27/17 03:28 62 12 50 04/27/17 03:00 96/53 04/27/17 03:00 59 12 96/53 100 Mechanical Ventilator 40 04/27/17 02:30 58 12 90/49 100 Mechanical Ventilator 40 04/27/17 02:00 58 12 96/51 100 Mechanical Ventilator 40 04/27/17 02:00 96/51 04/27/17 01:30 63 16 109/57 100 Mechanical Ventilator 40 04/27/17 01:00 64 18 112/55 100 Mechanical Ventilator 40 04/27/17 01:00 109/57 04/27/17 00:38 56 12 50 04/27/17 00:30 58 12 90/51 100 Mechanical Ventilator 40 04/27/17 00:00 109/57 04/27/17 00:00 59 04/27/17 00:00 98.5 59 12 90/48 100 Mechanical Ventilator 40 04/27/17 00:00 40 04/26/17 23:30 58 12 91/51 100 Mechanical Ventilator 40 04/26/17 23:10 67 21 50 04/26/17 23:00 100/56 04/26/17 23:00 64 17 100/56 100 Mechanical Ventilator 40 04/26/17 22:30 58 12 95/56 100 Mechanical Ventilator 40 04/26/17 22:00 58 12 98/52 100 Mechanical Ventilator 40 04/26/17 22:00 90/51 04/26/17 21:45 57 12 92/52 100 Mechanical Ventilator 40 7/20/17 21:30 60 13 90/51 100 Mechanical Ventilator 40 7/20/17 21:28 64 14 50 7/20/17 21:15 59 13 90/51 100 Mechanical Ventilator 40 7/20/17 21:00 61 12 121/60 100 Mechanical Ventilator 40 7/20/17 20:45 61 12 80/46 100 Mechanical Ventilator 40 7/20/17 20:45 79/46 7/20/17 20:00 98.7 62 16 86/45 100 Mechanical Ventilator 40 7/20/17 20:00 62 7/20/17 20:00 40 7/20/17 19:00 62 14 50 7/20/17 19:00 64 19 100/43 100 Mechanical Ventilator 50 7/20/17 18:55 101/43 7/20/17 18:00 120/51 7/20/17 18:00 72 19 129/59 100 Mechanical Ventilator 50 7/20/17 17:00 71 20 121/61 100 Mechanical Ventilator 50 7/20/17 16:50 64 16 40 7/20/17 16:00 40 7/20/17 16:00 98.3 102 20 128/62 100 Mechanical Ventilator 50 7/20/17 16:00 99/45 7/20/17 16:00 65 7/20/17 15:41 65 21 40 7/20/17 15:00 104/53 7/20/17 15:00 61 20 131/61 100 Mechanical Ventilator 50 7/20/17 15:00 Mechanical Ventilator 40 7/20/17 14:00 63 20 134/61 100 Mechanical Ventilator 50 7/20/17 14:00 101/61 7/20/17 13:00 85/48 7/20/17 13:00 57 20 123/52 100 Mechanical Ventilator 50 7/20/17 13:00 59 19 40 7/20/17 12:45 60 20 95/48 100 Mechanical Ventilator 50 7/20/17 12:30 58 20 85/45 100 Mechanical Ventilator 50 7/20/17 12:15 57 20 88/48 100 Mechanical Ventilator 50 7/20/17 12:00 98.0 68 20 133/71 100 Mechanical Ventilator 50 7/20/17 12:00 115/61 7/20/17 12:00 40 7/20/17 12:00 68 7/20/17 11:55 Mechanical Ventilator 40 Intake and Output 04/26/17 04/27/17 19:00 07:00 Intake Total 918.70 ml 822.50 ml Output Total 1130 ml 100 ml Balance -211.30 ml 722.50 ml Intake Oral 0 ml 0 ml Free Water 60 ml 60 ml IV Total 858.70 ml 472.50 ml Tube Feeding 290 ml Output Urine Total 0 ml 0 ml Stool Total 100 ml Peritoneal Dialysis UF 1130 ml # Bowel Movements 3 1 Laboratory Tests Test 04/26/17 17:50 04/26/17 20:53 04/27/17 04:30 04/27/17 08:30 Random Vancomycin Level 9.7 ug/mL White Blood Count 5.7 K/UL (4.8-10.8) 7.0 K/UL (4.8-10.8) Red Blood Count 2.81 M/UL (4.70-6.10) L 2.95 M/UL (4.70-6.10) L Hemoglobin 8.4 G/DL (14.2-18.0) L 9.0 G/DL (14.2-18.0) L Hematocrit 25.2 % (42.0-52.0) L 26.7 % (42.0-52.0) L Mean Corpuscular Volume 90 FL (80-99) 90 FL (80-99) Mean Corpuscular Hemoglobin 29.9 PG (27.0-31.0) 30.6 PG (27.0-31.0) Mean Corpuscular Hemoglobin Concent 33.3 G/DL (32.0-36.0) 33.9 G/DL (32.0-36.0) Red Cell Distribution Width 14.7 % (11.6-14.8) 15.3 % (11.6-14.8) H Platelet Count 90 K/UL (150-450) L 123 K/UL (150-450) L Mean Platelet Volume 4.7 FL (6.5-10.1) L 5.2 FL (6.5-10.1) L Neutrophils (%) (Auto) 72.1 % (45.0-75.0) 70.6 % (45.0-75.0) Lymphocytes (%) (Auto) 13.3 % (20.0-45.0) L 13.3 % (20.0-45.0) L Monocytes (%) (Auto) 7.9 % (1.0-10.0) 7.3 % (1.0-10.0) Eosinophils (%) (Auto) 6.3 % (0.0-3.0) H 8.5 % (0.0-3.0) H Basophils (%) (Auto) 0.4 % (0.0-2.0) 0.3 % (0.0-2.0) Sodium Level 137 mEQ/L (135-145) Potassium Level 3.8 mEQ/L (3.4-4.9) Chloride Level 99 mEQ/L (98-107) Carbon Dioxide Level 26 mEQ/L (20-30) Anion Gap 12 (5-15) Blood Urea Nitrogen 51 mg/dL (7-23) H Creatinine 4.7 mg/dL (0.7-1.2) H Estimat Glomerular Filtration Rate 12.4 mL/min (>60) Glucose Level 149 mg/dL (74-106) H Uric Acid 5.2 mg/dL (3.0-7.5) Calcium Level 8.0 mg/dL (8.6-10.2) L Phosphorus Level 5.2 mg/dL (2.5-4.8) H Magnesium Level 2.0 mg/dL (1.7-2.5) Total Bilirubin 0.5 mg/dL (0.0-1.2) Aspartate Amino Transf (AST/SGOT) 9 U/L (5-40) Alanine Aminotransferase (ALT/SGPT) 5 U/L (3-41) Alkaline Phosphatase 182 U/L (40-129) H C-Reactive Protein, Quantitative 4.8 mg/dL (< 0.5) H Pro-B-Type Natriuretic Peptide 25542 pg/mL (0-125) H Total Protein 4.5 g/dL (6.6-8.7) L Albumin 2.4 g/dL (3.5-5.2) L Globulin 2.1 g/dL Albumin/Globulin Ratio 1.1 (1.0-2.7) Arterial Blood pH 7.451 (7.350-7.450) Arterial Blood Partial Pressure CO2 39.1 mmHg (35.0-45.0) Arterial Blood Partial Pressure O2 152.5 mmHg (75.0-100.0) H Arterial Blood HCO3 26.6 mmol/L (22.0-26.0) H Arterial Blood Oxygen Saturation 98.0 % (92.0-98.0) Arterial Blood Base Excess 2.5 Flex Test Positive Height (Feet): 5 Height (Inches): 10.00 Weight (Pounds): 200 General Appearance: no apparent distress Cardiovascular: normal rate Abdominal Exam: other - FRANKYT Joellen Parker NVanessa Apr 27, 2017 11:53
--- NOTE | 2017-04-27 12:10 | Diagnostic Imaging Report ---
Indication: Chest pain Technique: Continuous helical transaxial imaging of the chest was obtained from the thoracic inlet to the upper abdomen. No intravenous contrast was administered. Coronal 2-D reformats were also obtained. Total Dose length Product (DLP): [address] Dose Index Volume (CTDIvol): 28 mGy Comparison: none Findings: There is an endotracheal tube present. This terminates above the dany. There is a moderate size right basilar pleural effusion. The effusion is probably complex given there is some thickening of the pleura. There is a moderate consolidation involving the right lower lobe and a portion of the right upper lobe middle lobe. Overall there is volume loss indicating there is a component of atelectasis. The heart and mediastinum slightly shifted toward the right. There is a small left pleural effusion noted. Aorta is moderately calcified as are coronary arteries. The heart is enlarged. There is an NG tube which is in good position. Extensive vascular calcifications involving the splenic artery are also demonstrated as well as portions of the celiac artery. There is extensive artifact obscuring portions of the lower chest and abdomen. There is chest wall edema noted. There is a right subclavian venous stent extending into the SVC. There is a right jugular catheter noted. The tip is in the SVC in good position. Note that part of the catheter traverses the stent. Highly recommend that at the time of catheter removal, this procedure be done under fluoroscopy as there is a risk of dislodging the stent. Impression: Right jugular catheter traversing a right subclavian vein/SVC stent. Highly recommend that when the catheter is removed, the procedure be done under fluoroscopy so that the stent is not dislodged. Complex right basal pleural effusion moderate in size. Associated atelectasis of portions of the right lung. Superimposed pneumonia not excluded. Small left pleural effusion Extensive atherosclerotic vascular disease Endotracheal tube and NG tube in good position. Chest wall edema nonspecific The CT scanner at [facility] is accredited by the [employer] and the scans are performed using dose optimization techniques as appropriate to a performed exam including Automatic Exposure control.
--- NOTE | 2017-04-27 12:38 | Diagnostic Imaging Report ---
Indication: Nasogastric tube Comparison: None Single view of the abdomen obtained . The film is incomplete and only shows the left side of the upper abdomen NG tube is in good position within the stomach. Surgical clips noted in the abdomen. IVC filter noted. Impression: Limited study showing good position of NG tube
--- NOTE | 2017-04-27 14:36 | General Progress Note ---
Assessment/Plan Status: stable - from renal stand, other - remains intubated Status Narrative stable from renal stand Assessment/Plan ESRD Resp Failure acute- Low BP, Shock Acute GI bleed Plan; Hemodynamic support- Per GI HD scheduled for 04/26- and again 04/28 and 04/30 monitor renal parameters and H&H Per orders DC IV Due VATs on Sunday discussed with RN Subjective ROS Limited/Unobtainable: Yes Allergies: Coded Allergies: No Known Allergies (Verified , 02/08/07) Objective Last 24 Hour Vital Signs Date Time Temp Pulse Resp B/P Pulse Ox O2 Delivery O2 Flow Rate FiO2 04/27/17 13:30 56 12 95/56 100 Mechanical Ventilator 40 04/27/17 13:00 54 12 109/62 100 Mechanical Ventilator 40 04/27/17 12:32 63 14 30 04/27/17 12:30 57 15 117/61 100 Mechanical Ventilator 40 04/27/17 12:00 55 04/27/17 12:00 97.9 53 15 113/58 100 Mechanical Ventilator 40 04/27/17 11:30 53 15 108/55 100 Mechanical Ventilator 40 04/27/17 11:10 58 15 30 04/27/17 11:00 56 15 103/56 100 Mechanical Ventilator 40 04/27/17 10:30 57 15 108/56 100 Mechanical Ventilator 40 04/27/17 10:00 57 16 120/53 100 Mechanical Ventilator 40 04/27/17 09:30 56 16 120/60 100 Mechanical Ventilator 40 04/27/17 09:20 40 04/27/17 09:15 57 13 30 04/27/17 09:15 100 04/27/17 09:00 58 14 106/56 100 Mechanical Ventilator 40 04/27/17 09:00 40 04/27/17 08:30 58 14 106/56 100 Mechanical Ventilator 40 04/27/17 08:00 40 04/27/17 08:00 57 04/27/17 08:00 98.0 58 13 109/67 100 Mechanical Ventilator 40 04/27/17 07:30 61 16 115/58 100 Mechanical Ventilator 40 04/27/17 07:00 111/60 04/27/17 07:00 58 13 111/60 100 Mechanical Ventilator 40 04/27/17 06:33 61 18 50 04/27/17 06:30 59 12 89/52 100 Mechanical Ventilator 40 04/27/17 06:00 59 12 106/57 100 Mechanical Ventilator 40 04/27/17 05:59 90/49 04/27/17 05:30 58 14 93/52 100 Mechanical Ventilator 40 04/27/17 05:22 55 13 50 04/27/17 05:00 59 19 93/52 100 Mechanical Ventilator 40 04/27/17 05:00 93/52 04/27/17 04:30 58 19 102/60 100 Mechanical Ventilator 40 04/27/17 04:00 60 04/27/17 04:00 98.2 59 14 102/60 100 Mechanical Ventilator 40 04/27/17 04:00 40 04/27/17 04:00 102/60 04/27/17 03:30 62 19 109/58 100 Mechanical Ventilator 40 04/27/17 03:28 62 12 50 04/27/17 03:00 96/53 04/27/17 03:00 59 12 96/53 100 Mechanical Ventilator 40 04/27/17 02:30 58 12 90/49 100 Mechanical Ventilator 40 04/27/17 02:00 58 12 96/51 100 Mechanical Ventilator 40 04/27/17 02:00 96/51 04/27/17 01:30 63 16 109/57 100 Mechanical Ventilator 40 04/27/17 01:00 64 18 112/55 100 Mechanical Ventilator 40 04/27/17 01:00 109/57 04/27/17 00:38 56 12 50 04/27/17 00:30 58 12 90/51 100 Mechanical Ventilator 40 04/27/17 00:00 109/57 04/27/17 00:00 59 04/27/17 00:00 98.5 59 12 90/48 100 Mechanical Ventilator 40 04/27/17 00:00 40 04/26/17 23:30 58 12 91/51 100 Mechanical Ventilator 40 04/26/17 23:10 67 21 50 04/26/17 23:00 100/56 04/26/17 23:00 64 17 100/56 100 Mechanical Ventilator 40 04/26/17 22:30 58 12 95/56 100 Mechanical Ventilator 40 04/26/17 22:00 58 12 98/52 100 Mechanical Ventilator 40 04/26/17 22:00 90/51 04/26/17 21:45 57 12 92/52 100 Mechanical Ventilator 40 04/26/17 21:30 60 13 90/51 100 Mechanical Ventilator 40 04/26/17 21:28 64 14 50 04/26/17 21:15 59 13 90/51 100 Mechanical Ventilator 40 04/26/17 21:00 61 12 121/60 100 Mechanical Ventilator 40 04/26/17 20:45 61 12 80/46 100 Mechanical Ventilator 40 04/26/17 20:45 79/46 04/26/17 20:00 98.7 62 16 86/45 100 Mechanical Ventilator 40 04/26/17 20:00 62 04/26/17 20:00 40 04/26/17 19:00 62 14 50 04/26/17 19:00 64 19 100/43 100 Mechanical Ventilator 50 04/26/17 18:55 101/43 04/26/17 18:00 120/51 04/26/17 18:00 72 19 129/59 100 Mechanical Ventilator 50 04/26/17 17:00 71 20 121/61 100 Mechanical Ventilator 50 04/26/17 16:50 64 16 40 04/26/17 16:00 40 04/26/17 16:00 98.3 102 20 128/62 100 Mechanical Ventilator 50 04/26/17 16:00 99/45 04/26/17 16:00 65 04/26/17 15:41 65 21 40 04/26/17 15:00 104/53 04/26/17 15:00 61 20 131/61 100 Mechanical Ventilator 50 04/26/17 15:00 Mechanical Ventilator 40 Intake and Output 04/26/17 04/27/17 19:00 07:00 Intake Total 918.70 ml 822.50 ml Output Total 1130 ml 100 ml Balance -211.30 ml 722.50 ml Intake Oral 0 ml 0 ml Free Water 60 ml 60 ml IV Total 858.70 ml 472.50 ml Tube Feeding 290 ml Output Urine Total 0 ml 0 ml Stool Total 100 ml Peritoneal Dialysis UF 1130 ml # Bowel Movements 3 1 Laboratory Tests 04/26/17 17:50: Random Vancomycin Level 9.7 04/26/17 20:53: White Blood Count 5.7, Red Blood Count 2.81L, Hemoglobin 8.4L, Hematocrit 25.2L , Mean Corpuscular Volume 90, Mean Corpuscular Hemoglobin 29.9, Mean Corpuscular Hemoglobin Concent 33.3, Red Cell Distribution Width 14.7, Platelet Count 90L, Mean Platelet Volume 4.7L, Neutrophils (%) (Auto) 72.1, Lymphocytes ( %) (Auto) 13.3L, Monocytes (%) (Auto) 7.9, Eosinophils (%) (Auto) 6.3H, Basophils (%) (Auto) 0.4 04/27/17 04:30: White Blood Count 7.0, Red Blood Count 2.95L, Hemoglobin 9.0L, Hematocrit 26.7L , Mean Corpuscular Volume 90, Mean Corpuscular Hemoglobin 30.6, Mean Corpuscular Hemoglobin Concent 33.9, Red Cell Distribution Width 15.3H, Platelet Count 123L, Mean Platelet Volume 5.2L, Neutrophils (%) (Auto) 70.6, Lymphocytes (%) (Auto) 13.3L, Monocytes (%) (Auto) 7.3, Eosinophils (%) (Auto) 8.5H, Basophils (%) (Auto) 0.3, Sodium Level 137, Potassium Level 3.8, Chloride Level 99, Carbon Dioxide Level 26, Anion Gap 12, Blood Urea Nitrogen 51H, Creatinine 4.7H, Estimat Glomerular Filtration Rate 12.4, Glucose Level 149H, Uric Acid 5.2, Calcium Level 8.0L, Phosphorus Level 5.2H, Magnesium Level 2.0, Total Bilirubin 0.5, Aspartate Amino Transf (AST/SGOT) 9, Alanine Aminotransferase (ALT/SGPT) 5, Alkaline Phosphatase 182H, C-Reactive Protein, Quantitative 4.8H, Pro-B-Type Natriuretic Peptide 46497H, Total Protein 4.5L, Albumin 2.4L, Globulin 2.1, Albumin/Globulin Ratio 1.1 04/27/17 08:30: Arterial Blood pH 7.451H, Arterial Blood Partial Pressure CO2 39.1, Arterial Blood Partial Pressure O2 152.5H, Arterial Blood HCO3 26.6H, Arterial Blood Oxygen Saturation 98.0, Arterial Blood Base Excess 2.5, Flex Test Positive Height (Feet): 5 Height (Inches): 10.00 Weight (Pounds): 200 General Appearance: no apparent distress EENT: other - intubated Objective PE not changed JT MILLS Apr 27, 2017 14:36
[2017-04-27] MEDS: DOPamine 400mg/250ml 250 ML IV SCH (16:01)
[2017-04-27] MEDS: Morphine Sulfate 2mg/ml Inj IVP PRN ×2 (19:47→23:48)
[2017-04-27] MEDS: Dyna-Hex 2% Top Sol 8oz TOPIC SCH (20:56)
[2017-04-27] MEDS ORDERED: NS 275ml ONE (22:52)
[2017-04-27] MEDS ORDERED: Tubing IV Secondary IV ONE (22:52)
[2017-04-28] VITALS (48 sets, daily range): BP systolic 92–122; BP diastolic 46–65
[2017-04-28] MEDS: Pantoprazole 80 MG in NS 250 ML IV SCH (01:00)
[2017-04-28] MEDS: Morphine Sulfate 2mg/ml Inj IVP PRN ×3 (05:10→21:41)
[2017-04-28] MEDS: Piperacillin/Tazobactam 2.25 GM in D5W 55 ML IVPB SCH ×3 (05:57→21:42)
[2017-04-28 06:44] LABS: BASOPHILS % (AUTO) 0.6 % (0.0-2.0); EOSINOPHILS % (AUTO) 8.6 % (0.0-3.0); LYMPHOCYTES % (AUTO) 15.6 % (20.0-45.0); MEAN CORPUSCULAR HEMOGLOBIN 29.9 PG (27.0-31.0); MEAN CORPUSCULAR HGB CONC 33.1 G/DL (32.0-36.0); MEAN CORPUSCULAR VOLUME 90 FL (80-99); MEAN PLATELET VOLUME 6.2 FL (6.5-10.1); MONOCYTES % (AUTO) 8.4 % (1.0-10.0); NEUTROPHILS % (AUTO) 66.8 % (45.0-75.0); PLATELET COUNT 103 K/UL (150-450); RED CELL DISTRIBUTION WIDTH 15.6 % (11.6-14.8); WHITE BLOOD COUNT 6.6 K/UL (4.8-10.8)
[2017-04-28 06:55] LABS: ALBUMIN/GLOBULIN RATIO 0.7 (1.0-2.7); CALCIUM 8.4 mg/dL (8.6-10.2); CREATININE 5.5 mg/dL (0.7-1.2); GLOMERULAR FILTRATION RATE 10.3 mL/min (>60); MAGNESIUM 2.4 mg/dL (1.7-2.5); PHOSPHORUS 5.6 mg/dL (2.5-4.8); POTASSIUM 4.3 mEQ/L (3.4-4.9); TOTAL PROTEIN 5.2 g/dL (6.6-8.7)
--- NOTE | 2017-04-28 08:55 | General Progress Note ---
Assessment/Plan Problem List: (1) History of [place] II operation ICD Codes: Z98.0 - Intestinal bypass and anastomosis status SNOMED: 376060439 (2) Respiratory failure ICD Codes: J96.90 - Respiratory failure, unspecified, unspecified whether with hypoxia or hypercapnia SNOMED: 478853127 (3) ESRF (end stage renal failure) ICD Codes: N18.6 - End stage renal disease SNOMED: 09935019 (4) Diabetes mellitus ICD Codes: E11.9 - Type 2 diabetes mellitus without complications SNOMED: 87944933 (5) Gastrointestinal hemorrhage ICD Codes: K92.2 - Gastrointestinal hemorrhage, unspecified SNOMED: 15564825 (6) anastemosis ulcer Assessment/Plan stable H&H change protonix to BID NGTF pend VAST on Sunday Subjective ROS Limited/Unobtainable: No Allergies: Coded Allergies: No Known Allergies (Verified , 02/08/07) Objective Last 24 Hour Vital Signs Date Time Temp Pulse Resp B/P Pulse Ox O2 Delivery O2 Flow Rate FiO2 04/28/17 08:30 63 14 105/56 100 Mechanical Ventilator 40 04/28/17 08:00 72 04/28/17 08:00 97.9 64 12 103/57 100 Mechanical Ventilator 40 04/28/17 08:00 103/57 04/28/17 08:00 40 04/28/17 07:30 74 14 104/57 100 Mechanical Ventilator 40 04/28/17 07:26 67 12 40 04/28/17 07:00 108/58 04/28/17 07:00 69 12 108/58 100 Mechanical Ventilator 40 04/28/17 06:30 67 12 111/60 100 Mechanical Ventilator 40 04/28/17 06:00 68 12 103/59 100 Mechanical Ventilator 40 04/28/17 05:57 103/59 04/28/17 05:34 72 18 40 04/28/17 05:30 70 13 103/59 100 Mechanical Ventilator 40 04/28/17 05:00 71 13 120/65 100 Mechanical Ventilator 40 04/28/17 05:00 120/65 04/28/17 04:30 68 13 110/53 100 Mechanical Ventilator 40 04/28/17 04:00 40 04/28/17 04:00 64 04/28/17 04:00 97.8 64 13 100/53 100 Mechanical Ventilator 40 04/28/17 04:00 100/53 04/28/17 03:30 64 13 100/53 100 Mechanical Ventilator 40 04/28/17 03:00 66 14 95/46 100 Mechanical Ventilator 40 04/28/17 03:00 95/46 04/28/17 02:59 67 12 40 04/28/17 02:30 68 12 108/52 100 Mechanical Ventilator 40 04/28/17 02:00 106/54 04/28/17 02:00 66 14 106/54 100 Mechanical Ventilator 40 04/28/17 01:30 67 13 104/51 100 Mechanical Ventilator 40 04/28/17 01:06 67 15 40 04/28/17 01:00 67 13 103/55 100 Mechanical Ventilator 40 04/28/17 01:00 103/55 04/28/17 00:30 68 13 103/55 100 Mechanical Ventilator 40 04/28/17 00:00 68 04/28/17 00:00 92/52 04/28/17 00:00 97.5 66 12 92/52 100 Mechanical Ventilator 40 04/28/17 00:00 40 04/27/17 23:30 68 13 95/53 100 Mechanical Ventilator 40 04/27/17 23:15 92/50 04/27/17 23:04 68 13 40 04/27/17 23:00 69 13 92/50 100 Mechanical Ventilator 40 04/27/17 23:00 92/50 04/27/17 22:30 69 13 95/59 100 Mechanical Ventilator 40 04/27/17 22:00 69 14 99/55 100 Mechanical Ventilator 40 04/27/17 22:00 95/59 04/27/17 21:30 69 12 98/60 100 Mechanical Ventilator 40 04/27/17 21:00 97/53 04/27/17 21:00 67 12 97/53 100 Mechanical Ventilator 40 04/27/17 20:52 65 15 40 04/27/17 20:30 69 14 96/53 100 Mechanical Ventilator 40 04/27/17 20:00 40 04/27/17 20:00 90/51 04/27/17 20:00 97.8 69 12 90/51 100 Mechanical Ventilator 40 04/27/17 20:00 70 04/27/17 19:30 72 14 93/52 100 Mechanical Ventilator 40 04/27/17 19:00 93/52 04/27/17 19:00 70 14 92/51 100 Mechanical Ventilator 40 04/27/17 18:52 68 13 40 04/27/17 18:30 70 14 100/51 100 Mechanical Ventilator 40 04/27/17 18:00 71 14 97/52 100 Mechanical Ventilator 40 04/27/17 18:00 102/51 04/27/17 17:30 72 14 102/51 100 Mechanical Ventilator 40 04/27/17 17:00 81 14 128/61 100 Mechanical Ventilator 40 04/27/17 17:00 128/61 04/27/17 16:34 68 17 30 04/27/17 16:30 89 15 133/57 100 Mechanical Ventilator 40 04/27/17 16:01 108/57 04/27/17 16:00 84 04/27/17 16:00 98.0 64 14 93/49 100 Mechanical Ventilator 40 04/27/17 16:00 40 04/27/17 15:30 54 12 104/60 100 Mechanical Ventilator 40 04/27/17 15:07 58 15 30 04/27/17 15:00 58 12 104/60 100 Mechanical Ventilator 40 04/27/17 15:00 104/60 04/27/17 14:30 53 12 97/53 100 Mechanical Ventilator 40 04/27/17 14:00 55 12 98/54 100 Mechanical Ventilator 40 04/27/17 14:00 98/54 04/27/17 13:30 56 12 95/56 100 Mechanical Ventilator 40 04/27/17 13:00 54 12 109/62 100 Mechanical Ventilator 40 04/27/17 13:00 97/52 04/27/17 12:32 63 14 30 04/27/17 12:30 57 15 117/61 100 Mechanical Ventilator 40 04/27/17 12:00 40 04/27/17 12:00 55 04/27/17 12:00 113/58 04/27/17 12:00 97.9 53 15 113/58 100 Mechanical Ventilator 40 04/27/17 11:30 53 15 108/55 100 Mechanical Ventilator 40 04/27/17 11:10 58 15 30 04/27/17 11:00 56 15 103/56 100 Mechanical Ventilator 40 04/27/17 11:00 106/53 04/27/17 10:30 57 15 108/56 100 Mechanical Ventilator 40 04/27/17 10:00 57 16 120/53 100 Mechanical Ventilator 40 04/27/17 10:00 104/53 04/27/17 09:30 56 16 120/60 100 Mechanical Ventilator 40 04/27/17 09:20 40 04/27/17 09:15 57 13 30 04/27/17 09:15 100 04/27/17 09:00 58 14 106/56 100 Mechanical Ventilator 40 04/27/17 09:00 40 04/27/17 09:00 120/60 Intake and Output 04/27/17 04/28/17 19:00 07:00 Intake Total 1126.179 ml 1120.220 ml Output Total 0 ml Balance 1126.179 ml 1120.220 ml Free Water 120 ml 60 ml IV Total 506.179 ml 520.220 ml Tube Feeding 500 ml 540 ml Output Urine Total 0 ml # Bowel Movements 3 Laboratory Tests 04/28/17 04:25: White Blood Count 6.6, Red Blood Count 3.10L, Hemoglobin 9.3L, Hematocrit 28.0L , Mean Corpuscular Volume 90, Mean Corpuscular Hemoglobin 29.9, Mean Corpuscular Hemoglobin Concent 33.1, Red Cell Distribution Width 15.6H, Platelet Count 103L, Mean Platelet Volume 6.2L, Neutrophils (%) (Auto) 66.8, Lymphocytes (%) (Auto) 15.6L, Monocytes (%) (Auto) 8.4, Eosinophils (%) (Auto) 8.6H, Basophils (%) (Auto) 0.6, Sodium Level 140, Potassium Level 4.3, Chloride Level 100, Carbon Dioxide Level 25, Anion Gap 15, Blood Urea Nitrogen 64H, Creatinine 5.5H, Estimat Glomerular Filtration Rate 10.3, Glucose Level 134H, Calcium Level 8.4L, Phosphorus Level 5.6H, Magnesium Level 2.4, Total Bilirubin 0.5, Aspartate Amino Transf (AST/SGOT) 9, Alanine Aminotransferase (ALT/SGPT) 5 , Alkaline Phosphatase 184H, Total Protein 5.2L, Albumin 2.3L, Globulin 2.9, Albumin/Globulin Ratio 0.7L Height (Feet): 5 Height (Inches): 10.00 Weight (Pounds): 200 General Appearance: lethargic EENT: normal ENT inspection Neck: supple Cardiovascular: normal rate Respiratory/Chest: decreased breath sounds Abdomen: normal bowel sounds, non tender, soft Extremities: non-tender VOSOGHI,MADYSON Apr 28, 2017 08:55
--- NOTE | 2017-04-28 09:25 | Diagnostic Imaging Report ---
Indication: DYSPNEA Technique: XRAY CHEST 1 V. Comparison: 04/27/2017 Findings: The cardiomediastinal silhouette is unchanged. No new infiltrates are identified. Opacification of the right mid and lower lung is again identified. Endotracheal tube and right jugular catheters remain in place. Impression: No significant change from prior examination.
[2017-04-28 09:34] LABS: ABG ALLEN TEST POSITIVE; ABG BASE EXCESS 0.2
[2017-04-28] MEDS: Vitamin A&D Oint 2oz Tube TOPIC SCH ×2 (09:50→20:52)
[2017-04-28] MEDS: Pantoprazole Inj IVP SCH ×2 (09:50→20:52)
--- NOTE | 2017-04-28 11:57 | Nephrology Progress Note ---
Assessment/Plan Problem List: (1) ESRF (end stage renal failure) (2) Aspiration pneumonia (3) Sepsis (4) Respiratory failure (5) Diabetes mellitus (6) Gout Plan HD today with more UF Vats on Sunday Discussed with RN and family Subjective Subjective Pt was seen in ICU Intubated Awake and alert Objective Objective Last 24 Hour Vital Signs Date Time Temp Pulse Resp B/P Pulse Ox O2 Delivery O2 Flow Rate FiO2 04/28/17 11:00 88 13 108/53 100 Mechanical Ventilator 40 04/28/17 10:43 66 13 40 04/28/17 10:30 66 13 104/57 100 Mechanical Ventilator 40 04/28/17 10:00 68 13 101/55 100 Mechanical Ventilator 40 04/28/17 09:30 69 13 100/58 100 Mechanical Ventilator 40 04/28/17 09:09 63 12 40 04/28/17 09:00 69 14 100/55 100 Mechanical Ventilator 40 04/28/17 08:30 63 14 105/56 100 Mechanical Ventilator 40 04/28/17 08:00 72 04/28/17 08:00 97.9 64 12 103/57 100 Mechanical Ventilator 40 04/28/17 08:00 103/57 04/28/17 08:00 40 04/28/17 07:30 74 14 104/57 100 Mechanical Ventilator 40 04/28/17 07:26 67 12 40 04/28/17 07:00 108/58 04/28/17 07:00 69 12 108/58 100 Mechanical Ventilator 40 04/28/17 06:30 67 12 111/60 100 Mechanical Ventilator 40 04/28/17 06:00 68 12 103/59 100 Mechanical Ventilator 40 04/28/17 05:57 103/59 04/28/17 05:34 72 18 40 04/28/17 05:30 70 13 103/59 100 Mechanical Ventilator 40 04/28/17 05:00 71 13 120/65 100 Mechanical Ventilator 40 04/28/17 05:00 120/65 04/28/17 04:30 68 13 110/53 100 Mechanical Ventilator 40 04/28/17 04:00 40 04/28/17 04:00 64 04/28/17 04:00 97.8 64 13 100/53 100 Mechanical Ventilator 40 04/28/17 04:00 100/53 04/28/17 03:30 64 13 100/53 100 Mechanical Ventilator 40 04/28/17 03:00 66 14 95/46 100 Mechanical Ventilator 40 04/28/17 03:00 95/46 04/28/17 02:59 67 12 40 04/28/17 02:30 68 12 108/52 100 Mechanical Ventilator 40 04/28/17 02:00 106/54 04/28/17 02:00 66 14 106/54 100 Mechanical Ventilator 40 04/28/17 01:30 67 13 104/51 100 Mechanical Ventilator 40 04/28/17 01:06 67 15 40 04/28/17 01:00 67 13 103/55 100 Mechanical Ventilator 40 04/28/17 01:00 103/55 04/28/17 00:30 68 13 103/55 100 Mechanical Ventilator 40 04/28/17 00:00 68 04/28/17 00:00 92/52 04/28/17 00:00 97.5 66 12 92/52 100 Mechanical Ventilator 40 04/28/17 00:00 40 04/27/17 23:30 68 13 95/53 100 Mechanical Ventilator 40 04/27/17 23:15 92/50 04/27/17 23:04 68 13 40 04/27/17 23:00 69 13 92/50 100 Mechanical Ventilator 40 04/27/17 23:00 92/50 04/27/17 22:30 69 13 95/59 100 Mechanical Ventilator 40 04/27/17 22:00 69 14 99/55 100 Mechanical Ventilator 40 04/27/17 22:00 95/59 04/27/17 21:30 69 12 98/60 100 Mechanical Ventilator 40 04/27/17 21:00 97/53 04/27/17 21:00 67 12 97/53 100 Mechanical Ventilator 40 04/27/17 20:52 65 15 40 04/27/17 20:30 69 14 96/53 100 Mechanical Ventilator 40 04/27/17 20:00 40 04/27/17 20:00 90/51 04/27/17 20:00 97.8 69 12 90/51 100 Mechanical Ventilator 40 04/27/17 20:00 70 04/27/17 19:30 72 14 93/52 100 Mechanical Ventilator 40 04/27/17 19:00 93/52 04/27/17 19:00 70 14 92/51 100 Mechanical Ventilator 40 04/27/17 18:52 68 13 40 04/27/17 18:30 70 14 100/51 100 Mechanical Ventilator 40 04/27/17 18:00 71 14 97/52 100 Mechanical Ventilator 40 04/27/17 18:00 102/51 04/27/17 17:30 72 14 102/51 100 Mechanical Ventilator 40 04/27/17 17:00 81 14 128/61 100 Mechanical Ventilator 40 04/27/17 17:00 128/61 04/27/17 16:34 68 17 30 04/27/17 16:30 89 15 133/57 100 Mechanical Ventilator 40 04/27/17 16:01 108/57 04/27/17 16:00 84 04/27/17 16:00 98.0 64 14 93/49 100 Mechanical Ventilator 40 04/27/17 16:00 40 04/27/17 15:30 54 12 104/60 100 Mechanical Ventilator 40 04/27/17 15:07 58 15 30 04/27/17 15:00 58 12 104/60 100 Mechanical Ventilator 40 04/27/17 15:00 104/60 04/27/17 14:30 53 12 97/53 100 Mechanical Ventilator 40 04/27/17 14:00 55 12 98/54 100 Mechanical Ventilator 40 04/27/17 14:00 98/54 04/27/17 13:30 56 12 95/56 100 Mechanical Ventilator 40 04/27/17 13:00 54 12 109/62 100 Mechanical Ventilator 40 04/27/17 13:00 97/52 04/27/17 12:32 63 14 30 04/27/17 12:30 57 15 117/61 100 Mechanical Ventilator 40 04/27/17 12:00 40 04/27/17 12:00 55 04/27/17 12:00 113/58 04/27/17 12:00 97.9 53 15 113/58 100 Mechanical Ventilator 40 Intake and Output 04/27/17 04/28/17 19:00 07:00 Intake Total 1126.179 ml 1120.220 ml Output Total 0 ml Balance 1126.179 ml 1120.220 ml Free Water 120 ml 60 ml IV Total 506.179 ml 520.220 ml Tube Feeding 500 ml 540 ml Output Urine Total 0 ml # Bowel Movements 3 Laboratory Tests 04/28/17 04:25: White Blood Count 6.6, Red Blood Count 3.10L, Hemoglobin 9.3L, Hematocrit 28.0L , Mean Corpuscular Volume 90, Mean Corpuscular Hemoglobin 29.9, Mean Corpuscular Hemoglobin Concent 33.1, Red Cell Distribution Width 15.6H, Platelet Count 103L, Mean Platelet Volume 6.2L, Neutrophils (%) (Auto) 66.8, Lymphocytes (%) (Auto) 15.6L, Monocytes (%) (Auto) 8.4, Eosinophils (%) (Auto) 8.6H, Basophils (%) (Auto) 0.6, Sodium Level 140, Potassium Level 4.3, Chloride Level 100, Carbon Dioxide Level 25, Anion Gap 15, Blood Urea Nitrogen 64H, Creatinine 5.5H, Estimat Glomerular Filtration Rate 10.3, Glucose Level 134H, Calcium Level 8.4L, Phosphorus Level 5.6H, Magnesium Level 2.4, Total Bilirubin 0.5, Aspartate Amino Transf (AST/SGOT) 9, Alanine Aminotransferase (ALT/SGPT) 5 , Alkaline Phosphatase 184H, Total Protein 5.2L, Albumin 2.3L, Globulin 2.9, Albumin/Globulin Ratio 0.7L 04/28/17 09:09: Arterial Blood pH 7.430, Arterial Blood Partial Pressure CO2 38.0, Arterial Blood Partial Pressure O2 148.0H, Arterial Blood HCO3 24.4, Arterial Blood Oxygen Saturation 98.0, Arterial Blood Base Excess 0.2, Flex Test Positive Height (Feet): 5 Height (Inches): 10.00 Weight (Pounds): 200 Cardiovascular: normal rate Respiratory/Chest: rhonchi - bilaterally Extremities: moderate edema HANG HODGE Apr 28, 2017 11:57
[2017-04-28] MEDS ORDERED: Simethicone Drops 80mg/1.2ml ORAL PRN (12:30)
[2017-04-28] MEDS: DOPamine 400mg/250ml 250 ML IV SCH (15:04)
--- NOTE | 2017-04-28 16:02 | Pulmonolgy Critical Care Note ---
Critical Care - Asmt/Plan Problems: (1) Acute respiratory failure (2) Hemorrhagic shock (3) Aspiration pneumonia (4) ESRF (end stage renal failure) (5) Benign prostate hyperplasia (6) Gout (7) Diabetes mellitus (8) COPD (chronic obstructive pulmonary disease) Assessment/Plan: s/ banding Respiratory: adjust tidal volume, monitor respiratory rate Cardiac: start pressors Renal: F/U I&O, check electrolytes Infectious Disease: continue antibiotics Gastrointestinal: continue feedings/current rate Endocrine: monitor blood sugar, check HgA1C, continue sliding scale insulin Hematologic: transfuse if hgb<8.5 Neurologic: PRN Ativan, keep patient comfortable Prophylaxis: Protonix, Heparin Notes Reviewed: cardio, 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, consultants, 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 - Objective Last 24 Hour Vital Signs Date Time Temp Pulse Resp B/P Pulse Ox O2 Delivery O2 Flow Rate FiO2 04/28/17 15:30 69 16 114/60 100 Mechanical Ventilator 40 04/28/17 15:04 110/60 04/28/17 15:00 70 16 110/60 100 Mechanical Ventilator 40 04/28/17 15:00 114/60 04/28/17 14:58 75 19 40 04/28/17 14:30 77 16 109/59 100 Mechanical Ventilator 40 04/28/17 14:24 97.8 04/28/17 14:00 111/58 04/28/17 14:00 72 16 104/62 100 Mechanical Ventilator 40 04/28/17 13:30 70 15 106/57 100 Mechanical Ventilator 40 04/28/17 13:00 71 17 107/57 100 Mechanical Ventilator 40 04/28/17 13:00 107/57 04/28/17 12:46 66 14 40 04/28/17 12:38 66 14 40 04/28/17 12:30 69 17 108/61 100 Mechanical Ventilator 40 04/28/17 12:00 40 04/28/17 12:00 119/58 04/28/17 12:00 71 04/28/17 12:00 97.8 71 14 119/58 100 Mechanical Ventilator 40 04/28/17 11:30 71 17 116/65 100 Mechanical Ventilator 40 04/28/17 11:00 88 13 108/53 100 Mechanical Ventilator 40 04/28/17 10:43 66 13 40 04/28/17 10:30 66 13 104/57 100 Mechanical Ventilator 40 04/28/17 10:00 104/57 04/28/17 10:00 68 13 101/55 100 Mechanical Ventilator 40 04/28/17 09:30 69 13 100/58 100 Mechanical Ventilator 40 04/28/17 09:09 63 12 40 04/28/17 09:00 69 14 100/55 100 Mechanical Ventilator 40 04/28/17 09:00 100/58 04/28/17 08:30 63 14 105/56 100 Mechanical Ventilator 40 04/28/17 08:00 72 04/28/17 08:00 97.9 64 12 103/57 100 Mechanical Ventilator 40 04/28/17 08:00 103/57 04/28/17 08:00 40 04/28/17 07:30 74 14 104/57 100 Mechanical Ventilator 40 04/28/17 07:26 67 12 40 04/28/17 07:00 108/58 04/28/17 07:00 69 12 108/58 100 Mechanical Ventilator 40 04/28/17 06:30 67 12 111/60 100 Mechanical Ventilator 40 04/28/17 06:00 68 12 103/59 100 Mechanical Ventilator 40 04/28/17 05:57 103/59 04/28/17 05:34 72 18 40 04/28/17 05:30 70 13 103/59 100 Mechanical Ventilator 40 04/28/17 05:00 71 13 120/65 100 Mechanical Ventilator 40 04/28/17 05:00 120/65 04/28/17 04:30 68 13 110/53 100 Mechanical Ventilator 40 04/28/17 04:00 40 04/28/17 04:00 64 04/28/17 04:00 97.8 64 13 100/53 100 Mechanical Ventilator 40 04/28/17 04:00 100/53 04/28/17 03:30 64 13 100/53 100 Mechanical Ventilator 40 04/28/17 03:00 66 14 95/46 100 Mechanical Ventilator 40 04/28/17 03:00 95/46 04/28/17 02:59 67 12 40 04/28/17 02:30 68 12 108/52 100 Mechanical Ventilator 40 04/28/17 02:00 106/54 04/28/17 02:00 66 14 106/54 100 Mechanical Ventilator 40 04/28/17 01:30 67 13 104/51 100 Mechanical Ventilator 40 04/28/17 01:06 67 15 40 7/22/17 01:00 67 13 103/55 100 Mechanical Ventilator 40 04/28/17 01:00 103/55 04/28/17 00:30 68 13 103/55 100 Mechanical Ventilator 40 04/28/17 00:00 68 04/28/17 00:00 92/52 04/28/17 00:00 97.5 66 12 92/52 100 Mechanical Ventilator 40 04/28/17 00:00 40 04/27/17 23:30 68 13 95/53 100 Mechanical Ventilator 40 04/27/17 23:15 92/50 04/27/17 23:04 68 13 40 04/27/17 23:00 69 13 92/50 100 Mechanical Ventilator 40 04/27/17 23:00 92/50 04/27/17 22:30 69 13 95/59 100 Mechanical Ventilator 40 04/27/17 22:00 69 14 99/55 100 Mechanical Ventilator 40 04/27/17 22:00 95/59 04/27/17 21:30 69 12 98/60 100 Mechanical Ventilator 40 04/27/17 21:00 97/53 04/27/17 21:00 67 12 97/53 100 Mechanical Ventilator 40 04/27/17 20:52 65 15 40 04/27/17 20:30 69 14 96/53 100 Mechanical Ventilator 40 04/27/17 20:00 40 04/27/17 20:00 90/51 04/27/17 20:00 97.8 69 12 90/51 100 Mechanical Ventilator 40 04/27/17 20:00 70 04/27/17 19:30 72 14 93/52 100 Mechanical Ventilator 40 04/27/17 19:00 93/52 04/27/17 19:00 70 14 92/51 100 Mechanical Ventilator 40 04/27/17 18:52 68 13 40 04/27/17 18:30 70 14 100/51 100 Mechanical Ventilator 40 04/27/17 18:00 71 14 97/52 100 Mechanical Ventilator 40 04/27/17 18:00 102/51 04/27/17 17:30 72 14 102/51 100 Mechanical Ventilator 40 04/27/17 17:00 81 14 128/61 100 Mechanical Ventilator 40 04/27/17 17:00 128/61 04/27/17 16:34 68 17 30 04/27/17 16:30 89 15 133/57 100 Mechanical Ventilator 40 04/27/17 16:01 108/57 Status: sedated Condition: grave HEENT: atraumatic Lungs: clear, chest wall tender Heart: HR/BP stable Abdomen: soft, active bowel sounds Extremities: no C/C/E Decubiti: location Critical Care - Subjective ROS Limited/Unobtainable: No Condition: critical EKG Rhythm: Sinus Rhythm FI02: 40 Vent Support Breath Rate: 12 Vent Support Mode: AC Vent Tidal Volume: 700 Sputum Amount: Scant PEEP: 5.0 PIP: 27 Tube Feeding Amount: 45 I&O: Intake and Output 04/27/17 04/28/17 19:00 07:00 Intake Total 1126.179 ml 1120.220 ml Output Total 0 ml Balance 1126.179 ml 1120.220 ml Free Water 120 ml 60 ml IV Total 506.179 ml 520.220 ml Tube Feeding 500 ml 540 ml Output Urine Total 0 ml # Bowel Movements 3 CXR: no new changes, ET in good position ET-Tube: 7.5 ET Position: 25 Labs: Laboratory Tests Test 04/28/17 04:25 04/28/17 09:09 White Blood Count 6.6 K/UL (4.8-10.8) Red Blood Count 3.10 M/UL (4.70-6.10) L Hemoglobin 9.3 G/DL (14.2-18.0) L Hematocrit 28.0 % (42.0-52.0) L Mean Corpuscular Volume 90 FL (80-99) Mean Corpuscular Hemoglobin 29.9 PG (27.0-31.0) Mean Corpuscular Hemoglobin Concent 33.1 G/DL (32.0-36.0) Red Cell Distribution Width 15.6 % (11.6-14.8) H Platelet Count 103 K/UL (150-450) L Mean Platelet Volume 6.2 FL (6.5-10.1) L Neutrophils (%) (Auto) 66.8 % (45.0-75.0) Lymphocytes (%) (Auto) 15.6 % (20.0-45.0) L Monocytes (%) (Auto) 8.4 % (1.0-10.0) Eosinophils (%) (Auto) 8.6 % (0.0-3.0) H Basophils (%) (Auto) 0.6 % (0.0-2.0) Sodium Level 140 mEQ/L (135-145) Potassium Level 4.3 mEQ/L (3.4-4.9) Chloride Level 100 mEQ/L (98-107) Carbon Dioxide Level 25 mEQ/L (20-30) Anion Gap 15 (5-15) Blood Urea Nitrogen 64 mg/dL (7-23) H Creatinine 5.5 mg/dL (0.7-1.2) H Estimat Glomerular Filtration Rate 10.3 mL/min (>60) Glucose Level 134 mg/dL (74-106) H Calcium Level 8.4 mg/dL (8.6-10.2) L Phosphorus Level 5.6 mg/dL (2.5-4.8) H Magnesium Level 2.4 mg/dL (1.7-2.5) Total Bilirubin 0.5 mg/dL (0.0-1.2) Aspartate Amino Transf (AST/SGOT) 9 U/L (5-40) Alanine Aminotransferase (ALT/SGPT) 5 U/L (3-41) Alkaline Phosphatase 184 U/L (40-129) H Total Protein 5.2 g/dL (6.6-8.7) L Albumin 2.3 g/dL (3.5-5.2) L Globulin 2.9 g/dL Albumin/Globulin Ratio 0.7 (1.0-2.7) L Arterial Blood pH 7.430 (7.350-7.450) Arterial Blood Partial Pressure CO2 38.0 mmHg (35.0-45.0) Arterial Blood Partial Pressure O2 148.0 mmHg (75.0-100.0) H Arterial Blood HCO3 24.4 mmol/L (22.0-26.0) Arterial Blood Oxygen Saturation 98.0 % (92.0-98.0) Arterial Blood Base Excess 0.2 Flex Test Positive FORD FANG Apr 28, 2017 16:02
[2017-04-28] MEDS ORDERED: NS 275ml ONE (16:24)
--- NOTE | 2017-04-28 17:05 | Infectious Diseases Prog Note ---
Assessment/Plan Assessment/Plan A: The patient is a 72-year-old male with m Possible aspiration pneumonia. Scx: serratia Chest x-ray : opacification of most of the right hemithorax. Loculated pleural effusion, possible empyema US : complex right pleural effusion Hypotension, most likely due to hypovolemic shock, however, underlying sepsis is the consideration Rule out bacteremia. GI Bleed : EGD : Billroth II anastomosis with a large ulceration at the anastomotic area without any adherent clot or visible vessel.04/24 History of gout History of GI bleed in the past History of diabetes History of BPH History of DVT History of end-stage renal disease on hemodialysis PLAN: Cont patient on IV vancomycin and Zosyn s# 5 Monitor CBC. Monitor BMP. monitor blood and sputum culture. will follow Pulmonary recommendation regarding respiratory failure and need for drainage of the pleural effusion. Monitor chest x-ray VATS on Sunday pressors tapering on HD Subjective Allergies: Coded Allergies: No Known Allergies (Verified , 02/08/07) Subjective on vent Objective Vital Signs Last 24 Hour Vital Signs Date Time Temp Pulse Resp B/P Pulse Ox O2 Delivery O2 Flow Rate FiO2 04/28/17 15:30 69 16 114/60 100 Mechanical Ventilator 40 04/28/17 15:04 110/60 04/28/17 15:00 70 16 110/60 100 Mechanical Ventilator 40 04/28/17 15:00 114/60 04/28/17 14:58 75 19 40 04/28/17 14:30 77 16 109/59 100 Mechanical Ventilator 40 04/28/17 14:24 97.8 04/28/17 14:00 111/58 04/28/17 14:00 72 16 104/62 100 Mechanical Ventilator 40 04/28/17 13:30 70 15 106/57 100 Mechanical Ventilator 40 04/28/17 13:00 71 17 107/57 100 Mechanical Ventilator 40 04/28/17 13:00 107/57 04/28/17 12:46 66 14 40 04/28/17 12:38 66 14 40 04/28/17 12:30 69 17 108/61 100 Mechanical Ventilator 40 04/28/17 12:00 40 04/28/17 12:00 119/58 04/28/17 12:00 71 04/28/17 12:00 97.8 71 14 119/58 100 Mechanical Ventilator 40 04/28/17 11:30 71 17 116/65 100 Mechanical Ventilator 40 04/28/17 11:00 88 13 108/53 100 Mechanical Ventilator 40 04/28/17 10:43 66 13 40 04/28/17 10:30 66 13 104/57 100 Mechanical Ventilator 40 04/28/17 10:00 104/57 04/28/17 10:00 68 13 101/55 100 Mechanical Ventilator 40 04/28/17 09:30 69 13 100/58 100 Mechanical Ventilator 40 04/28/17 09:09 63 12 40 04/28/17 09:00 69 14 100/55 100 Mechanical Ventilator 40 04/28/17 09:00 100/58 04/28/17 08:30 63 14 105/56 100 Mechanical Ventilator 40 04/28/17 08:00 72 04/28/17 08:00 97.9 64 12 103/57 100 Mechanical Ventilator 40 04/28/17 08:00 103/57 04/28/17 08:00 40 04/28/17 07:30 74 14 104/57 100 Mechanical Ventilator 40 04/28/17 07:26 67 12 40 04/28/17 07:00 108/58 04/28/17 07:00 69 12 108/58 100 Mechanical Ventilator 40 04/28/17 06:30 67 12 111/60 100 Mechanical Ventilator 40 04/28/17 06:00 68 12 103/59 100 Mechanical Ventilator 40 04/28/17 05:57 103/59 04/28/17 05:34 72 18 40 04/28/17 05:30 70 13 103/59 100 Mechanical Ventilator 40 04/28/17 05:00 71 13 120/65 100 Mechanical Ventilator 40 04/28/17 05:00 120/65 04/28/17 04:30 68 13 110/53 100 Mechanical Ventilator 40 04/28/17 04:00 40 04/28/17 04:00 64 04/28/17 04:00 97.8 64 13 100/53 100 Mechanical Ventilator 40 04/28/17 04:00 100/53 04/28/17 03:30 64 13 100/53 100 Mechanical Ventilator 40 04/28/17 03:00 66 14 95/46 100 Mechanical Ventilator 40 04/28/17 03:00 95/46 04/28/17 02:59 67 12 40 04/28/17 02:30 68 12 108/52 100 Mechanical Ventilator 40 04/28/17 02:00 106/54 04/28/17 02:00 66 14 106/54 100 Mechanical Ventilator 40 04/28/17 01:30 67 13 104/51 100 Mechanical Ventilator 40 04/28/17 01:06 67 15 40 04/28/17 01:00 67 13 103/55 100 Mechanical Ventilator 40 04/28/17 01:00 103/55 04/28/17 00:30 68 13 103/55 100 Mechanical Ventilator 40 04/28/17 00:00 68 04/28/17 00:00 92/52 04/28/17 00:00 97.5 66 12 92/52 100 Mechanical Ventilator 40 04/28/17 00:00 40 04/27/17 23:30 68 13 95/53 100 Mechanical Ventilator 40 04/27/17 23:15 92/50 04/27/17 23:04 68 13 40 04/27/17 23:00 69 13 92/50 100 Mechanical Ventilator 40 04/27/17 23:00 92/50 04/27/17 22:30 69 13 95/59 100 Mechanical Ventilator 40 04/27/17 22:00 69 14 99/55 100 Mechanical Ventilator 40 04/27/17 22:00 95/59 04/27/17 21:30 69 12 98/60 100 Mechanical Ventilator 40 04/27/17 21:00 97/53 04/27/17 21:00 67 12 97/53 100 Mechanical Ventilator 40 04/27/17 20:52 65 15 40 04/27/17 20:30 69 14 96/53 100 Mechanical Ventilator 40 04/27/17 20:00 40 04/27/17 20:00 90/51 04/27/17 20:00 97.8 69 12 90/51 100 Mechanical Ventilator 40 04/27/17 20:00 70 04/27/ 19:30 72 14 93/52 100 Mechanical Ventilator 40 04/27/17 19:00 93/52 04/27/17 19:00 70 14 92/51 100 Mechanical Ventilator 40 04/27/17 18:52 68 13 40 04/27/17 18:30 70 14 100/51 100 Mechanical Ventilator 40 04/27/17 18:00 71 14 97/52 100 Mechanical Ventilator 40 04/27/17 18:00 102/51 04/27/17 17:30 72 14 102/51 100 Mechanical Ventilator 40 Height (Feet): 5 Height (Inches): 10.00 Weight (Pounds): 200 HEENT: mucous membranes moist Respiratory/Chest: no accessory muscle use Cardiovascular: regular rhythm Abdomen: no organomegaly Laboratory Tests Test 04/28/17 04:25 04/28/17 09:09 White Blood Count 6.6 K/UL (4.8-10.8) Red Blood Count 3.10 M/UL (4.70-6.10) L Hemoglobin 9.3 G/DL (14.2-18.0) L Hematocrit 28.0 % (42.0-52.0) L Mean Corpuscular Volume 90 FL (80-99) Mean Corpuscular Hemoglobin 29.9 PG (27.0-31.0) Mean Corpuscular Hemoglobin Concent 33.1 G/DL (32.0-36.0) Red Cell Distribution Width 15.6 % (11.6-14.8) H Platelet Count 103 K/UL (150-450) L Mean Platelet Volume 6.2 FL (6.5-10.1) L Neutrophils (%) (Auto) 66.8 % (45.0-75.0) Lymphocytes (%) (Auto) 15.6 % (20.0-45.0) L Monocytes (%) (Auto) 8.4 % (1.0-10.0) Eosinophils (%) (Auto) 8.6 % (0.0-3.0) H Basophils (%) (Auto) 0.6 % (0.0-2.0) Sodium Level 140 mEQ/L (135-145) Potassium Level 4.3 mEQ/L (3.4-4.9) Chloride Level 100 mEQ/L (98-107) Carbon Dioxide Level 25 mEQ/L (20-30) Anion Gap 15 (5-15) Blood Urea Nitrogen 64 mg/dL (7-23) H Creatinine 5.5 mg/dL (0.7-1.2) H Estimat Glomerular Filtration Rate 10.3 mL/min (>60) Glucose Level 134 mg/dL (74-106) H Calcium Level 8.4 mg/dL (8.6-10.2) L Phosphorus Level 5.6 mg/dL (2.5-4.8) H Magnesium Level 2.4 mg/dL (1.7-2.5) Total Bilirubin 0.5 mg/dL (0.0-1.2) Aspartate Amino Transf (AST/SGOT) 9 U/L (5-40) Alanine Aminotransferase (ALT/SGPT) 5 U/L (3-41) Alkaline Phosphatase 184 U/L (40-129) H Total Protein 5.2 g/dL (6.6-8.7) L Albumin 2.3 g/dL (3.5-5.2) L Globulin 2.9 g/dL Albumin/Globulin Ratio 0.7 (1.0-2.7) L Arterial Blood pH 7.430 (7.350-7.450) Arterial Blood Partial Pressure CO2 38.0 mmHg (35.0-45.0) Arterial Blood Partial Pressure O2 148.0 mmHg (75.0-100.0) H Arterial Blood HCO3 24.4 mmol/L (22.0-26.0) Arterial Blood Oxygen Saturation 98.0 % (92.0-98.0) Arterial Blood Base Excess 0.2 Flex Test Positive Current Medications Medications (Trade) Dose Ordered Sig/[place] Route PRN Reason Start Time Stop Time Status Last Admin Dose Admin Acetaminophen (Tylenol) 650 mg Q4H PRN ORAL fever 04/23/17 15:15 05/23/17 15:14 Chlorhexidine Gluconate (Basilia-Hex 2%) 1 applic QHS TOPIC 04/26/17 21:00 05/26/17 20:59 04/27/17 20:56 Clotrimazole (Lotrimin) 1 applic EVERY 12 HOURS TOPIC 04/24/17 09:00 05/24/17 08:59 04/28/17 09:50 Dextrose STAT PRN IV Hypoglycemia 04/23/17 15:15 05/23/17 15:14 Diphenhydramine HCl (Benadryl) 25 mg Q6H PRN ORAL Itching/Pruritis 04/23/17 15:15 05/23/17 15:14 04/27/17 20:56 Dopamine HCl/ Dextrose (DOPamine 400mg/ 250ml) 250 ml @ 0 mls/hr Q24H IV 04/23/17 15:15 05/23/17 15:14 04/28/17 15:04 Lorazepam 2 mg 2 mg Q2H PRN IV For Anxiety 04/23/17 16:45 04/30/17 16:44 04/26/17 01:34 Morphine Sulfate (Morphine Sulfate) 2 mg Q4H PRN IVP severe Pain (Pain Scale 7-10) 04/23/17 15:15 04/30/17 15:14 04/28/17 13:54 Nitroglycerin (Ntg) 0.4 mg Q5M X 3 DOSES PRN SL Prn Chest Pain 04/23/17 15:15 05/23/17 15:14 Norepinephrine Bitartrate/ Dextrose (Levophed/D5W) 250 ml @ 0 mls/hr Q24H IV 04/23/17 23:15 05/23/17 23:14 04/26/17 20:45 Ondansetron HCl (Zofran) 4 mg Q6H PRN IVP Nausea & Vomiting 04/23/17 15:15 05/23/17 15:14 Pantoprazole (Protonix) 40 mg EVERY 12 HOURS IVP 04/28/17 09:00 05/28/17 08:59 04/28/17 09:50 Piperacillin Sod/ Tazobactam Sod/ Dextrose (Zosyn/D5W) 55 ml @ 110 mls/hr Q8HR IVPB 04/24/17 15:30 04/29/17 23:59 04/28/17 15:04 Polyethylene Glycol (Miralax) 17 gm HSPRN PRN ORAL Constipation 04/23/17 15:15 05/23/17 15:14 Simethicone (Mylicon) 80 mg EVERY 6 HOURS PRN GT bloated, gas,abdominal discomt 04/28/17 13:15 05/28/17 13:14 Vancomycin HCl 1 ea 1 ea DAILY PRN MISC Per rx protocol 04/24/17 13:45 05/24/17 13:44 Vitamin A/Vitamin D (A & D Oint) 1 applic EVERY 12 HOURS TOPIC 04/24/17 09:00 05/24/17 08:59 04/28/17 09:50 MOHINDER BRADY M.D. Apr 28, 2017 17:05
[2017-04-28] MEDS: Dyna-Hex 2% Top Sol 8oz TOPIC SCH (20:51)
[2017-04-29] VITALS (33 sets, daily range): BP systolic 79–131; BP diastolic 41–72
[2017-04-29] MEDS: Morphine Sulfate 2mg/ml Inj IVP PRN ×2 (04:04→19:36)
[2017-04-29 05:02] LABS: MEAN CORPUSCULAR HEMOGLOBIN 28.9 PG (27.0-31.0); MEAN CORPUSCULAR HGB CONC 32.6 G/DL (32.0-36.0); MEAN CORPUSCULAR VOLUME 88 FL (80-99); MEAN PLATELET VOLUME 5.3 FL (6.5-10.1); PLATELET COUNT 88 K/UL (150-450); RED CELL DISTRIBUTION WIDTH 15.1 % (11.6-14.8); WHITE BLOOD COUNT 7.1 K/UL (4.8-10.8)
[2017-04-29 05:25] LABS: MAGNESIUM 2.2 mg/dL (1.7-2.5); PHOSPHORUS 4.2 mg/dL (2.5-4.8)
[2017-04-29 05:26] LABS: ALBUMIN/GLOBULIN RATIO 0.8 (1.0-2.7); CALCIUM 8.6 mg/dL (8.6-10.2); GLOMERULAR FILTRATION RATE 9.3 mL/min (>60); POTASSIUM 3.7 mEQ/L (3.4-4.9); TOTAL PROTEIN 5.3 g/dL (6.6-8.7)
[2017-04-29] MEDS: Piperacillin/Tazobactam 2.25 GM in D5W 55 ML IVPB SCH ×3 (05:31→22:28)
[2017-04-29] MEDS: LORazepam Inj 2mg/ml 1ml IV PRN (07:20)
[2017-04-29] MEDS: Pantoprazole Inj IVP SCH ×2 (08:14→21:12)
[2017-04-29] MEDS: Vitamin A&D Oint 2oz Tube TOPIC SCH ×2 (08:15→21:12)
--- NOTE | 2017-04-29 08:53 | Infectious Diseases Prog Note ---
Assessment/Plan Assessment/Plan A; Sepsis Pneumonia GI bleeding ESRD on HD DM Respiratory failure Anemia Pleural effusion P: Cont patient on IV vancomycin and Zosyn day # 6 will have VATS tomorrow Subjective ROS Limited/Unobtainable: Yes Neurologic: Reports: confusion, other - on restraint Allergies: Coded Allergies: No Known Allergies (Verified , 02/08/07) Objective Vital Signs Last 24 Hour Vital Signs Date Time Temp Pulse Resp B/P Pulse Ox O2 Delivery O2 Flow Rate FiO2 04/29/17 08:00 70 16 116/65 100 Mechanical Ventilator 40 04/29/17 08:00 40 04/29/17 07:29 93 16 40 04/29/17 07:00 87 16 98/64 100 Mechanical Ventilator 40 04/29/17 06:00 69 16 101/67 100 Mechanical Ventilator 40 04/29/17 05:30 69 16 112/57 100 Mechanical Ventilator 40 04/29/17 05:19 67 16 40 04/29/17 05:00 71 16 120/61 100 Mechanical Ventilator 40 04/29/17 04:30 66 16 110/57 100 Mechanical Ventilator 40 04/29/17 04:00 40 04/29/17 04:00 76 04/29/17 04:00 98.3 67 16 120/62 100 Mechanical Ventilator 40 04/29/17 03:30 73 17 121/62 100 Mechanical Ventilator 40 04/29/17 03:08 75 17 40 04/29/17 03:00 74 17 116/63 100 Mechanical Ventilator 40 04/29/17 02:30 75 18 119/72 100 Mechanical Ventilator 40 04/29/17 02:00 72 17 111/60 100 Mechanical Ventilator 40 04/29/17 01:30 71 17 120/69 100 Mechanical Ventilator 40 04/29/17 01:25 75 25 40 04/29/17 01:00 73 18 126/71 100 Mechanical Ventilator 40 04/29/17 00:30 74 18 120/67 100 Mechanical Ventilator 40 04/29/17 00:00 65 18 117/62 100 Mechanical Ventilator 40 04/29/17 00:00 40 04/29/17 00:00 68 04/28/17 23:30 67 17 114/60 100 Mechanical Ventilator 40 04/28/17 23:24 72 17 40 04/28/17 23:15 113/59 04/28/17 23:00 97.9 67 16 113/59 100 Mechanical Ventilator 40 04/28/17 22:30 69 17 112/54 100 Mechanical Ventilator 40 04/28/17 22:00 68 16 112/54 100 Mechanical Ventilator 40 04/28/17 21:30 70 16 106/52 100 Mechanical Ventilator 40 04/28/17 21:00 69 16 105/56 100 Mechanical Ventilator 40 04/28/17 20:30 69 16 114/59 100 Mechanical Ventilator 40 04/28/17 20:00 40 04/28/17 20:00 67 04/28/17 20:00 68 16 109/57 100 Mechanical Ventilator 40 04/28/17 19:30 98.1 69 16 108/63 100 Mechanical Ventilator 40 04/28/17 19:29 70 18 40 04/28/17 19:13 71 16 40 04/28/17 19:00 69 14 103/48 100 Mechanical Ventilator 40 04/28/17 18:30 72 14 112/54 100 Mechanical Ventilator 40 04/28/17 18:00 72 14 112/52 100 Mechanical Ventilator 40 04/28/17 17:30 71 14 112/53 100 Mechanical Ventilator 40 04/28/17 17:00 72 14 122/63 100 Mechanical Ventilator 40 04/28/17 16:54 70 12 Mechanical Ventilator 40 04/28/17 16:54 70 12 40 04/28/17 16:30 72 12 115/64 100 Mechanical Ventilator 40 04/28/17 16:00 97.9 72 15 119/63 100 Mechanical Ventilator 40 04/28/17 16:00 72 04/28/17 16:00 40 04/28/17 15:30 69 16 114/60 100 Mechanical Ventilator 40 04/28/17 15:04 110/60 04/28/17 15:00 70 16 110/60 100 Mechanical Ventilator 40 04/28/17 15:00 114/60 04/28/17 14:58 75 19 40 04/28/17 14:30 77 16 109/59 100 Mechanical Ventilator 40 04/28/17 14:24 97.8 04/28/17 14:00 111/58 04/28/17 14:00 72 16 104/62 100 Mechanical Ventilator 40 04/28/17 13:30 70 15 106/57 100 Mechanical Ventilator 40 04/28/17 13:00 71 17 107/57 100 Mechanical Ventilator 40 04/28/17 13:00 107/57 04/28/17 12:46 66 14 40 04/28/17 12:38 66 14 40 04/28/17 12:30 69 17 108/61 100 Mechanical Ventilator 40 04/28/17 12:00 40 04/28/17 12:00 119/58 04/28/17 12:00 71 04/28/17 12:00 97.8 71 14 119/58 100 Mechanical Ventilator 40 04/28/17 11:30 71 17 116/65 100 Mechanical Ventilator 40 04/28/17 11:00 88 13 108/53 100 Mechanical Ventilator 40 04/28/17 10:43 66 13 40 04/28/17 10:30 66 13 104/57 100 Mechanical Ventilator 40 04/28/17 10:00 104/57 04/28/17 10:00 68 13 101/55 100 Mechanical Ventilator 40 04/28/17 09:30 69 13 100/58 100 Mechanical Ventilator 40 04/28/17 09:09 63 12 40 04/28/17 09:00 69 14 100/55 100 Mechanical Ventilator 40 04/28/17 09:00 100/58 Height (Feet): 5 Height (Inches): 10.00 Weight (Pounds): 202 HEENT: other - orally intubated Respiratory/Chest: lungs clear, other - on ventilator Cardiovascular: normal rate, other - RIJ central line Abdomen: other - tube feeding Extremities: other - non pitting edema Skin: other Neurologic/Psychiatric: alert, responsive, disoriented Laboratory Tests Test 04/28/17 09:09 04/29/17 04:00 Arterial Blood pH 7.430 (7.350-7.450) Arterial Blood Partial Pressure CO2 38.0 mmHg (35.0-45.0) Arterial Blood Partial Pressure O2 148.0 mmHg (75.0-100.0) H Arterial Blood HCO3 24.4 mmol/L (22.0-26.0) Arterial Blood Oxygen Saturation 98.0 % (92.0-98.0) Arterial Blood Base Excess 0.2 Flex Test Positive White Blood Count 7.1 K/UL (4.8-10.8) Red Blood Count 3.10 M/UL (4.70-6.10) L Hemoglobin 9.0 G/DL (14.2-18.0) L Hematocrit 27.4 % (42.0-52.0) L Mean Corpuscular Volume 88 FL (80-99) Mean Corpuscular Hemoglobin 28.9 PG (27.0-31.0) Mean Corpuscular Hemoglobin Concent 32.6 G/DL (32.0-36.0) Red Cell Distribution Width 15.1 % (11.6-14.8) H Platelet Count 88 K/UL (150-450) L Mean Platelet Volume 5.3 FL (6.5-10.1) L Neutrophils (%) (Auto) % (45.0-75.0) Lymphocytes (%) (Auto) % (20.0-45.0) Monocytes (%) (Auto) % (1.0-10.0) Eosinophils (%) (Auto) % (0.0-3.0) Basophils (%) (Auto) % (0.0-2.0) Sodium Level 137 mEQ/L (135-145) Potassium Level 3.7 mEQ/L (3.4-4.9) Chloride Level 99 mEQ/L (98-107) Carbon Dioxide Level 25 mEQ/L (20-30) Anion Gap 13 (5-15) Blood Urea Nitrogen 72 mg/dL (7-23) H Creatinine 6.0 mg/dL (0.7-1.2) H Estimat Glomerular Filtration Rate 9.3 mL/min (>60) Glucose Level 140 mg/dL (74-106) H Calcium Level 8.6 mg/dL (8.6-10.2) Phosphorus Level 4.2 mg/dL (2.5-4.8) Magnesium Level 2.2 mg/dL (1.7-2.5) Total Bilirubin 0.5 mg/dL (0.0-1.2) Aspartate Amino Transf (AST/SGOT) 10 U/L (5-40) Alanine Aminotransferase (ALT/SGPT) 5 U/L (3-41) Alkaline Phosphatase 186 U/L (40-129) H Total Protein 5.3 g/dL (6.6-8.7) L Albumin 2.4 g/dL (3.5-5.2) L Globulin 2.9 g/dL Albumin/Globulin Ratio 0.8 (1.0-2.7) L Random Vancomycin Level 18.0 ug/mL Current Medications Medications (Trade) Dose Ordered Sig/[place] Route PRN Reason Start Time Stop Time Status Last Admin Dose Admin Acetaminophen (Tylenol) 650 mg Q4H PRN ORAL fever 04/23/17 15:15 05/23/17 15:14 Chlorhexidine Gluconate (Basilia-Hex 2%) 1 applic QHS TOPIC 04/26/17 21:00 05/26/17 20:59 04/28/17 20:51 Clotrimazole (Lotrimin) 1 applic EVERY 12 HOURS TOPIC 04/24/17 09:00 05/24/17 08:59 04/29/17 08:15 Dextrose STAT PRN IV Hypoglycemia 04/23/17 15:15 05/23/17 15:14 Diphenhydramine HCl (Benadryl) 25 mg Q6H PRN ORAL Itching/Pruritis 04/23/17 15:15 05/23/17 15:14 04/27/17 20:56 Dopamine HCl/ Dextrose (DOPamine 400mg/ 250ml) 250 ml @ 0 mls/hr Q24H IV 04/23/17 15:15 05/23/17 15:14 04/28/17 15:04 Lorazepam 2 mg 2 mg Q2H PRN IV For Anxiety 04/23/17 16:45 04/30/17 16:44 04/29/17 07:20 Morphine Sulfate (Morphine Sulfate) 2 mg Q4H PRN IVP severe Pain (Pain Scale 7-10) 04/23/17 15:15 04/30/17 15:14 04/29/17 04:04 Nitroglycerin (Ntg) 0.4 mg Q5M X 3 DOSES PRN SL Prn Chest Pain 04/23/17 15:15 05/23/17 15:14 Norepinephrine Bitartrate/ Dextrose (Levophed/D5W) 250 ml @ 0 mls/hr Q24H IV 04/23/17 23:15 05/23/17 23:14 04/26/17 20:45 Ondansetron HCl (Zofran) 4 mg Q6H PRN IVP Nausea & Vomiting 04/23/17 15:15 05/23/17 15:14 Pantoprazole (Protonix) 40 mg EVERY 12 HOURS IVP 04/28/17 09:00 05/28/17 08:59 04/29/17 08:14 Piperacillin Sod/ Tazobactam Sod/ Dextrose (Zosyn/D5W) 55 ml @ 110 mls/hr Q8HR IVPB 04/24/17 15:30 04/29/17 23:59 04/29/17 05:31 Polyethylene Glycol (Miralax) 17 gm HSPRN PRN ORAL Constipation 04/23/17 15:15 05/23/17 15:14 04/29/17 00:32 Simethicone (Mylicon) 80 mg EVERY 6 HOURS PRN GT bloated, gas,abdominal discomt 04/28/17 13:15 05/28/17 13:14 Vancomycin HCl 1 ea 1 ea DAILY PRN MISC Per rx protocol 04/24/17 13:45 05/24/17 13:44 Vitamin A/Vitamin D (A & D Oint) 1 applic EVERY 12 HOURS TOPIC 04/24/17 09:00 05/24/17 08:59 04/29/17 08:15 GHANSHYAM HODGE Apr 29, 2017 08:53
[2017-04-29 09:00] LABS: ABG BASE EXCESS 0; ABG PCO2 33.9 mmHg (35.0-45.0)
[2017-04-29 09:01] LABS: ABG ALLEN TEST POSITIVE
--- NOTE | 2017-04-29 09:23 | Diagnostic Imaging Report ---
Indication: DYSPNEA Technique: XRAY CHEST 1 V. Comparison: 04/28/2017 Findings: The cardiomediastinal silhouette is unchanged. Opacification of the right mid and lower lung is unchanged. Endotracheal tube and right jugular catheter remain in place. Impression: Table tubes. Opacified right mid and lower lung unchanged. No significant change from prior examination.
--- NOTE | 2017-04-29 10:34 | General Progress Note ---
Assessment/Plan Problem List: (1) History of [place] II operation ICD Codes: Z98.0 - Intestinal bypass and anastomosis status SNOMED: 604302151 (2) Respiratory failure ICD Codes: J96.90 - Respiratory failure, unspecified, unspecified whether with hypoxia or hypercapnia SNOMED: 248619358 (3) ESRF (end stage renal failure) ICD Codes: N18.6 - End stage renal disease SNOMED: 04224179 (4) Diabetes mellitus ICD Codes: E11.9 - Type 2 diabetes mellitus without complications SNOMED: 60297070 (5) Gastrointestinal hemorrhage ICD Codes: K92.2 - Gastrointestinal hemorrhage, unspecified SNOMED: 56385567 (6) anastemosis ulcer Assessment/Plan stable H&H on protonix NGT came out pend VAST on Sunday Subjective ROS Limited/Unobtainable: No Allergies: Coded Allergies: No Known Allergies (Verified , 02/08/07) Objective Last 24 Hour Vital Signs Date Time Temp Pulse Resp B/P Pulse Ox O2 Delivery O2 Flow Rate FiO2 04/29/17 09:25 64 16 40 04/29/17 09:00 64 16 107/61 100 Mechanical Ventilator 40 04/29/17 08:00 97.9 70 16 116/65 100 Mechanical Ventilator 40 04/29/17 08:00 40 04/29/17 08:00 71 04/29/17 07:29 93 16 40 04/29/17 07:00 87 16 98/64 100 Mechanical Ventilator 40 04/29/17 06:00 69 16 101/67 100 Mechanical Ventilator 40 04/29/17 05:30 69 16 112/57 100 Mechanical Ventilator 40 04/29/17 05:19 67 16 40 04/29/17 05:00 71 16 120/61 100 Mechanical Ventilator 40 04/29/17 04:30 66 16 110/57 100 Mechanical Ventilator 40 04/29/17 04:00 40 04/29/17 04:00 76 04/29/17 04:00 98.3 67 16 120/62 100 Mechanical Ventilator 40 04/29/17 03:30 73 17 121/62 100 Mechanical Ventilator 40 04/29/17 03:08 75 17 40 04/29/17 03:00 74 17 116/63 100 Mechanical Ventilator 40 04/29/17 02:30 75 18 119/72 100 Mechanical Ventilator 40 04/29/17 02:00 72 17 111/60 100 Mechanical Ventilator 40 04/29/17 01:30 71 17 120/69 100 Mechanical Ventilator 40 04/29/17 01:25 75 25 40 04/29/17 01:00 73 18 126/71 100 Mechanical Ventilator 40 04/29/17 00:30 74 18 120/67 100 Mechanical Ventilator 40 04/29/17 00:00 65 18 117/62 100 Mechanical Ventilator 40 04/29/17 00:00 40 04/29/17 00:00 68 04/28/17 23:30 67 17 114/60 100 Mechanical Ventilator 40 04/28/17 23:24 72 17 40 04/28/17 23:15 113/59 04/28/17 23:00 97.9 67 16 113/59 100 Mechanical Ventilator 40 04/28/17 22:30 69 17 112/54 100 Mechanical Ventilator 40 04/28/17 22:00 68 16 112/54 100 Mechanical Ventilator 40 04/28/17 21:30 70 16 106/52 100 Mechanical Ventilator 40 04/28/17 21:00 69 16 105/56 100 Mechanical Ventilator 40 04/28/17 20:30 69 16 114/59 100 Mechanical Ventilator 40 04/28/17 20:00 40 04/28/17 20:00 67 04/28/17 20:00 68 16 109/57 100 Mechanical Ventilator 40 04/28/17 19:30 98.1 69 16 108/63 100 Mechanical Ventilator 40 04/28/17 19:29 70 18 40 04/28/17 19:13 71 16 40 04/28/17 19:00 69 14 103/48 100 Mechanical Ventilator 40 04/28/17 18:30 72 14 112/54 100 Mechanical Ventilator 40 04/28/17 18:00 72 14 112/52 100 Mechanical Ventilator 40 04/28/17 17:30 71 14 112/53 100 Mechanical Ventilator 40 17 17:00 72 14 122/63 100 Mechanical Ventilator 40 17 16:54 70 12 Mechanical Ventilator 40 04/28/17 16:54 70 12 40 17 16:30 72 12 115/64 100 Mechanical Ventilator 40 04/28/17 16:00 97.9 72 15 119/63 100 Mechanical Ventilator 40 04/28/17 16:00 72 04/28/17 16:00 40 04/28/17 15:30 69 16 114/60 100 Mechanical Ventilator 40 04/28/17 15:04 110/60 04/28/17 15:00 70 16 110/60 100 Mechanical Ventilator 40 04/28/17 15:00 114/60 04/28/17 14:58 75 19 40 04/28/17 14:30 77 16 109/59 100 Mechanical Ventilator 40 04/28/17 14:24 97.8 04/28/17 14:00 111/58 04/28/17 14:00 72 16 104/62 100 Mechanical Ventilator 40 04/28/17 13:30 70 15 106/57 100 Mechanical Ventilator 40 04/28/17 13:00 71 17 107/57 100 Mechanical Ventilator 40 04/28/17 13:00 107/57 04/28/17 12:46 66 14 40 04/28/17 12:38 66 14 40 04/28/17 12:30 69 17 108/61 100 Mechanical Ventilator 40 04/28/17 12:00 40 04/28/17 12:00 119/58 04/28/17 12:00 71 04/28/17 12:00 97.8 71 14 119/58 100 Mechanical Ventilator 40 04/28/17 11:30 71 17 116/65 100 Mechanical Ventilator 40 04/28/17 11:00 88 13 108/53 100 Mechanical Ventilator 40 04/28/17 10:43 66 13 40 Intake and Output 04/28/17 04/29/17 19:00 07:00 Intake Total 758.480 ml 742.665 ml Output Total 100 ml 350 ml Balance 658.480 ml 392.665 ml Free Water 120 ml IV Total 98.480 ml 82.665 ml Tube Feeding 540 ml 540 ml Other 120 ml Output Urine Total 100 ml 350 ml # Voids 1 1 Laboratory Tests 04/29/17 04:00: White Blood Count 7.1, Red Blood Count 3.10L, Hemoglobin 9.0L, Hematocrit 27.4L , Mean Corpuscular Volume 88, Mean Corpuscular Hemoglobin 28.9, Mean Corpuscular Hemoglobin Concent 32.6, Red Cell Distribution Width 15.1H, Platelet Count 88L, Mean Platelet Volume 5.3L, Neutrophils (%) (Auto) , Lymphocytes (%) (Auto) , Monocytes (%) (Auto) , Eosinophils (%) (Auto) , Basophils (%) (Auto) , Sodium Level 137, Potassium Level 3.7, Chloride Level 99 , Carbon Dioxide Level 25, Anion Gap 13, Blood Urea Nitrogen 72H, Creatinine 6.0H, Estimat Glomerular Filtration Rate 9.3, Glucose Level 140H, Calcium Level 8.6, Phosphorus Level 4.2, Magnesium Level 2.2, Total Bilirubin 0.5, Aspartate Amino Transf (AST/SGOT) 10, Alanine Aminotransferase (ALT/SGPT) 5, Alkaline Phosphatase 186H, Total Protein 5.3L, Albumin 2.4L, Globulin 2.9, Albumin/ Globulin Ratio 0.8L, Random Vancomycin Level 18.0 04/29/17 08:48: Arterial Blood pH 7.460H, Arterial Blood Partial Pressure CO2 33.9L, Arterial Blood Partial Pressure O2 145.6H, Arterial Blood HCO3 23.6, Arterial Blood Oxygen Saturation 98.5H, Arterial Blood Base Excess 0, Flex Test Positive Height (Feet): 5 Height (Inches): 10.00 Weight (Pounds): 202 General Appearance: no apparent distress EENT: normal ENT inspection Neck: supple Cardiovascular: normal rate Respiratory/Chest: decreased breath sounds Abdomen: normal bowel sounds, non tender, soft Extremities: non-tender MADYSON SHER Apr 29, 2017 10:34
[2017-04-29] MEDS ORDERED: NS 275ml ONE (11:10)
--- NOTE | 2017-04-29 11:17 | Nephrology Progress Note ---
Assessment/Plan Problem List: (1) ESRF (end stage renal failure) (2) Aspiration pneumonia (3) Sepsis (4) Respiratory failure (5) Diabetes mellitus (6) Gout Plan HD on 05/01 Vats on Sunday Discussed with RN Vent support Subjective Subjective Pt was seen in ICU Intubated resting Objective Objective Last 24 Hour Vital Signs Date Time Temp Pulse Resp B/P Pulse Ox O2 Delivery O2 Flow Rate FiO2 04/29/17 11:00 63 16 119/70 100 Mechanical Ventilator 40 04/29/17 10:47 58 16 40 04/29/17 10:00 58 16 124/70 100 Mechanical Ventilator 40 04/29/17 09:25 64 16 40 04/29/17 09:00 64 16 107/61 100 Mechanical Ventilator 40 04/29/17 08:00 97.9 70 16 116/65 100 Mechanical Ventilator 40 04/29/17 08:00 40 04/29/17 08:00 71 04/29/17 07:29 93 16 40 04/29/17 07:00 87 16 98/64 100 Mechanical Ventilator 40 04/29/17 06:00 69 16 101/67 100 Mechanical Ventilator 40 04/29/17 05:30 69 16 112/57 100 Mechanical Ventilator 40 04/29/17 05:19 67 16 40 04/29/17 05:00 71 16 120/61 100 Mechanical Ventilator 40 04/29/17 04:30 66 16 110/57 100 Mechanical Ventilator 40 04/29/17 04:00 40 04/29/17 04:00 76 04/29/17 04:00 98.3 67 16 120/62 100 Mechanical Ventilator 40 04/29/17 03:30 73 17 121/62 100 Mechanical Ventilator 40 04/29/17 03:08 75 17 40 04/29/17 03:00 74 17 116/63 100 Mechanical Ventilator 40 04/29/17 02:30 75 18 119/72 100 Mechanical Ventilator 40 04/29/17 02:00 72 17 111/60 100 Mechanical Ventilator 40 04/29/17 01:30 71 17 120/69 100 Mechanical Ventilator 40 04/29/17 01:25 75 25 40 04/29/17 01:00 73 18 126/71 100 Mechanical Ventilator 40 04/29/17 00:30 74 18 120/67 100 Mechanical Ventilator 40 04/29/17 00:00 65 18 117/62 100 Mechanical Ventilator 40 04/29/17 00:00 40 04/29/17 00:00 68 04/28/17 23:30 67 17 114/60 100 Mechanical Ventilator 40 04/28/17 23:24 72 17 40 04/28/17 23:15 113/59 04/28/17 23:00 97.9 67 16 113/59 100 Mechanical Ventilator 40 04/28/17 22:30 69 17 112/54 100 Mechanical Ventilator 40 04/28/17 22:00 68 16 112/54 100 Mechanical Ventilator 40 04/28/17 21:30 70 16 106/52 100 Mechanical Ventilator 40 04/28/17 21:00 69 16 105/56 100 Mechanical Ventilator 40 04/28/17 20:30 69 16 114/59 100 Mechanical Ventilator 40 04/28/17 20:00 40 04/28/17 20:00 67 04/28/17 20:00 68 16 109/57 100 Mechanical Ventilator 40 04/28/17 19:30 98.1 69 16 108/63 100 Mechanical Ventilator 40 04/28/17 19:29 70 18 40 04/28/17 19:13 71 16 40 04/28/17 19:00 69 14 103/48 100 Mechanical Ventilator 40 04/28/17 18:30 72 14 112/54 100 Mechanical Ventilator 40 04/28/17 18:00 72 14 112/52 100 Mechanical Ventilator 40 04/28/17 17:30 71 14 112/53 100 Mechanical Ventilator 40 04/28/17 17:00 72 14 122/63 100 Mechanical Ventilator 40 04/28/17 16:54 70 12 Mechanical Ventilator 40 04/28/17 16:54 70 12 40 04/28/17 16:30 72 12 115/64 100 Mechanical Ventilator 40 04/28/17 16:00 97.9 72 15 119/63 100 Mechanical Ventilator 40 04/28/17 16:00 72 04/28/17 16:00 40 04/28/17 15:30 69 16 114/60 100 Mechanical Ventilator 40 04/28/17 15:04 110/60 04/28/17 15:00 70 16 110/60 100 Mechanical Ventilator 40 04/28/17 15:00 114/60 04/28/17 14:58 75 19 40 04/28/17 14:30 77 16 109/59 100 Mechanical Ventilator 40 04/28/17 14:24 97.8 04/28/17 14:00 111/58 04/28/17 14:00 72 16 104/62 100 Mechanical Ventilator 40 04/28/17 13:30 70 15 106/57 100 Mechanical Ventilator 40 04/28/17 13:00 71 17 107/57 100 Mechanical Ventilator 40 04/28/17 13:00 107/57 04/28/17 12:46 66 14 40 04/28/17 12:38 66 14 40 04/28/17 12:30 69 17 108/61 100 Mechanical Ventilator 40 04/28/17 12:00 40 04/28/17 12:00 119/58 04/28/17 12:00 71 04/28/17 12:00 97.8 71 14 119/58 100 Mechanical Ventilator 40 04/28/17 11:30 71 17 116/65 100 Mechanical Ventilator 40 Intake and Output 04/28/17 04/29/17 19:00 07:00 Intake Total 758.480 ml 742.665 ml Output Total 100 ml 350 ml Balance 658.480 ml 392.665 ml Free Water 120 ml IV Total 98.480 ml 82.665 ml Tube Feeding 540 ml 540 ml Other 120 ml Output Urine Total 100 ml 350 ml # Voids 1 1 Laboratory Tests 04/29/17 04:00: White Blood Count 7.1, Red Blood Count 3.10L, Hemoglobin 9.0L, Hematocrit 27.4L , Mean Corpuscular Volume 88, Mean Corpuscular Hemoglobin 28.9, Mean Corpuscular Hemoglobin Concent 32.6, Red Cell Distribution Width 15.1H, Platelet Count 88L, Mean Platelet Volume 5.3L, Neutrophils (%) (Auto) , Lymphocytes (%) (Auto) , Monocytes (%) (Auto) , Eosinophils (%) (Auto) , Basophils (%) (Auto) , Sodium Level 137, Potassium Level 3.7, Chloride Level 99 , Carbon Dioxide Level 25, Anion Gap 13, Blood Urea Nitrogen 72H, Creatinine 6.0H, Estimat Glomerular Filtration Rate 9.3, Glucose Level 140H, Calcium Level 8.6, Phosphorus Level 4.2, Magnesium Level 2.2, Total Bilirubin 0.5, Aspartate Amino Transf (AST/SGOT) 10, Alanine Aminotransferase (ALT/SGPT) 5, Alkaline Phosphatase 186H, Total Protein 5.3L, Albumin 2.4L, Globulin 2.9, Albumin/ Globulin Ratio 0.8L, Random Vancomycin Level 18.0 04/29/17 08:48: Arterial Blood pH 7.460H, Arterial Blood Partial Pressure CO2 33.9L, Arterial Blood Partial Pressure O2 145.6H, Arterial Blood HCO3 23.6, Arterial Blood Oxygen Saturation 98.5H, Arterial Blood Base Excess 0, Flex Test Positive Height (Feet): 5 Height (Inches): 10.00 Weight (Pounds): 202 Cardiovascular: normal rate Respiratory/Chest: rhonchi - bilaterally Extremities: trace edema HANG HODGE Apr 29, 2017 11:17
--- NOTE | 2017-04-29 12:17 | Pulmonolgy Critical Care Note ---
Critical Care - Asmt/Plan Problems: (1) Acute respiratory failure (2) Hemorrhagic shock (3) Aspiration pneumonia (4) ESRF (end stage renal failure) (5) Benign prostate hyperplasia (6) Gout (7) Diabetes mellitus (8) COPD (chronic obstructive pulmonary disease) Assessment/Plan: s/ banding Respiratory: monitor respiratory rate, adjust FIO2, CXR Cardiac: continue pressors Renal: F/U I&O, keep IV fluid, check electrolytes Infectious Disease: check cultures Gastrointestinal: continue feedings/current rate Endocrine: monitor blood sugar, continue sliding scale insulin Hematologic: monitor H/H, transfuse if hgb<8.5 Neurologic: PRN Ativan, PRN Morphine, keep patient comfortable Affect: PRN ativan Prophylaxis: Protonix Disposition: keep in ICU 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, 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 Discussed with: nurses, consultants, case technicianerp manager - Objective Last 24 Hour Vital Signs Date Time Temp Pulse Resp B/P Pulse Ox O2 Delivery O2 Flow Rate FiO2 04/29/17 12:00 40 04/29/17 11:00 63 16 119/70 100 Mechanical Ventilator 40 04/29/17 10:47 58 16 40 04/29/17 10:00 58 16 124/70 100 Mechanical Ventilator 40 04/29/17 09:25 64 16 40 04/29/17 09:00 64 16 107/61 100 Mechanical Ventilator 40 04/29/17 08:00 97.9 70 16 116/65 100 Mechanical Ventilator 40 04/29/17 08:00 40 04/29/17 08:00 71 04/29/17 07:29 93 16 40 04/29/17 07:00 87 16 98/64 100 Mechanical Ventilator 40 04/29/17 06:00 69 16 101/67 100 Mechanical Ventilator 40 04/29/17 05:30 69 16 112/57 100 Mechanical Ventilator 40 04/29/17 05:19 67 16 40 04/29/17 05:00 71 16 120/61 100 Mechanical Ventilator 40 04/29/17 04:30 66 16 110/57 100 Mechanical Ventilator 40 04/29/17 04:00 40 04/29/17 04:00 76 04/29/17 04:00 98.3 67 16 120/62 100 Mechanical Ventilator 40 04/29/17 03:30 73 17 121/62 100 Mechanical Ventilator 40 04/29/17 03:08 75 17 40 04/29/17 03:00 74 17 116/63 100 Mechanical Ventilator 40 7/17 02:30 75 18 119/72 100 Mechanical Ventilator 40 04/29/17 02:00 72 17 111/60 100 Mechanical Ventilator 40 17 01:30 71 17 120/69 100 Mechanical Ventilator 40 04/29/17 01:25 75 25 40 7/17 01:00 73 18 126/71 100 Mechanical Ventilator 40 04/29/17 00:30 74 18 120/67 100 Mechanical Ventilator 40 04/29/17 00:00 65 18 117/62 100 Mechanical Ventilator 40 04/29/17 00:00 40 04/29/17 00:00 68 04/28/17 23:30 67 17 114/60 100 Mechanical Ventilator 40 04/28/17 23:24 72 17 40 04/28/17 23:15 113/59 04/28/17 23:00 97.9 67 16 113/59 100 Mechanical Ventilator 40 17 22:30 69 17 112/54 100 Mechanical Ventilator 40 04/28/17 22:00 68 16 112/54 100 Mechanical Ventilator 40 04/28/17 21:30 70 16 106/52 100 Mechanical Ventilator 40 04/28/17 21:00 69 16 105/56 100 Mechanical Ventilator 40 04/28/17 20:30 69 16 114/59 100 Mechanical Ventilator 40 04/28/17 20:00 40 04/28/17 20:00 67 04/28/17 20:00 68 16 109/57 100 Mechanical Ventilator 40 04/28/17 19:30 98.1 69 16 108/63 100 Mechanical Ventilator 40 04/28/17 19:29 70 18 40 04/28/17 19:13 71 16 40 17 19:00 69 14 103/48 100 Mechanical Ventilator 40 17 18:30 72 14 112/54 100 Mechanical Ventilator 40 17 18:00 72 14 112/52 100 Mechanical Ventilator 40 17 17:30 71 14 112/53 100 Mechanical Ventilator 40 04/28/17 17:00 72 14 122/63 100 Mechanical Ventilator 40 04/28/17 16:54 70 12 Mechanical Ventilator 40 04/28/17 16:54 70 12 40 04/28/17 16:30 72 12 115/64 100 Mechanical Ventilator 40 7/22/17 16:00 97.9 72 15 119/63 100 Mechanical Ventilator 40 04/28/17 16:00 72 04/28/17 16:00 40 04/28/17 15:30 69 16 114/60 100 Mechanical Ventilator 40 04/28/17 15:04 110/60 04/28/17 15:00 70 16 110/60 100 Mechanical Ventilator 40 04/28/17 15:00 114/60 04/28/17 14:58 75 19 40 04/28/17 14:30 77 16 109/59 100 Mechanical Ventilator 40 04/28/17 14:24 97.8 04/28/17 14:00 111/58 04/28/17 14:00 72 16 104/62 100 Mechanical Ventilator 40 04/28/17 13:30 70 15 106/57 100 Mechanical Ventilator 40 04/28/17 13:00 71 17 107/57 100 Mechanical Ventilator 40 04/28/17 13:00 107/57 04/28/17 12:46 66 14 40 04/28/17 12:38 66 14 40 04/28/17 12:30 69 17 108/61 100 Mechanical Ventilator 40 Status: awake Condition: critical HEENT: atraumatic, normocephalic Lungs: clear Heart: HR/BP stable Abdomen: soft, active bowel sounds Extremities: no C/C/E Decubiti: location Critical Care - Subjective ROS Limited/Unobtainable: No ICU Day: 6 Intubation Day: 6 Condition: critical EKG Rhythm: Sinus Rhythm FI02: 40 Vent Support Breath Rate: 16 Vent Support Mode: AC Vent Tidal Volume: 700 Sputum Amount: Scant PEEP: 5.0 PIP: 33 Tube Feeding Amount: 45 I&O: Intake and Output 04/28/17 04/29/17 19:00 07:00 Intake Total 758.480 ml 742.665 ml Output Total 100 ml 350 ml Balance 658.480 ml 392.665 ml Free Water 120 ml IV Total 98.480 ml 82.665 ml Tube Feeding 540 ml 540 ml Other 120 ml Output Urine Total 100 ml 350 ml # Voids 1 1 CXR: ET ok, no change ET-Tube: 7.5 ET Position: 24 Labs: Laboratory Tests Test 04/29/17 04:00 04/29/17 08:48 White Blood Count 7.1 K/UL (4.8-10.8) Red Blood Count 3.10 M/UL (4.70-6.10) L Hemoglobin 9.0 G/DL (14.2-18.0) L Hematocrit 27.4 % (42.0-52.0) L Mean Corpuscular Volume 88 FL (80-99) Mean Corpuscular Hemoglobin 28.9 PG (27.0-31.0) Mean Corpuscular Hemoglobin Concent 32.6 G/DL (32.0-36.0) Red Cell Distribution Width 15.1 % (11.6-14.8) H Platelet Count 88 K/UL (150-450) L Mean Platelet Volume 5.3 FL (6.5-10.1) L Neutrophils (%) (Auto) % (45.0-75.0) Lymphocytes (%) (Auto) % (20.0-45.0) Monocytes (%) (Auto) % (1.0-10.0) Eosinophils (%) (Auto) % (0.0-3.0) Basophils (%) (Auto) % (0.0-2.0) Sodium Level 137 mEQ/L (135-145) Potassium Level 3.7 mEQ/L (3.4-4.9) Chloride Level 99 mEQ/L (98-107) Carbon Dioxide Level 25 mEQ/L (20-30) Anion Gap 13 (5-15) Blood Urea Nitrogen 72 mg/dL (7-23) H Creatinine 6.0 mg/dL (0.7-1.2) H Estimat Glomerular Filtration Rate 9.3 mL/min (>60) Glucose Level 140 mg/dL (74-106) H Calcium Level 8.6 mg/dL (8.6-10.2) Phosphorus Level 4.2 mg/dL (2.5-4.8) Magnesium Level 2.2 mg/dL (1.7-2.5) Total Bilirubin 0.5 mg/dL (0.0-1.2) Aspartate Amino Transf (AST/SGOT) 10 U/L (5-40) Alanine Aminotransferase (ALT/SGPT) 5 U/L (3-41) Alkaline Phosphatase 186 U/L (40-129) H Total Protein 5.3 g/dL (6.6-8.7) L Albumin 2.4 g/dL (3.5-5.2) L Globulin 2.9 g/dL Albumin/Globulin Ratio 0.8 (1.0-2.7) L Random Vancomycin Level 18.0 ug/mL Arterial Blood pH 7.460 (7.350-7.450) Arterial Blood Partial Pressure CO2 33.9 mmHg (35.0-45.0) L Arterial Blood Partial Pressure O2 145.6 mmHg (75.0-100.0) H Arterial Blood HCO3 23.6 mmol/L (22.0-26.0) Arterial Blood Oxygen Saturation 98.5 % (92.0-98.0) H Arterial Blood Base Excess 0 Flex Test Positive FORD FANG Apr 29, 2017 12:17
[2017-04-29] MEDS: DOPamine 400mg/250ml 250 ML IV SCH (16:33)
[2017-04-29 19:55] LABS: CALCIUM 8.1 mg/dL (8.6-10.2); CREATININE 3.9 mg/dL (0.7-1.2); GLOMERULAR FILTRATION RATE 15.4 mL/min (>60); POTASSIUM 3.3 mEQ/L (3.4-4.9)
[2017-04-29] MEDS ORDERED: Vancomycin 750mg/D5W 275ml IVPB ONE ×2 (20:00)
[2017-04-29] MEDS: Dyna-Hex 2% Top Sol 8oz TOPIC SCH (21:12)
[2017-04-29] MEDS: D5 1/2NS 1,000 ML IV SCH (23:51)
[2017-04-30] VITALS (43 sets, daily range): BP systolic 77–133; BP diastolic 45–88
[2017-04-30] MEDS: DOPamine 400mg/250ml 250 ML IV SCH (00:29)
[2017-04-30] MEDS: LORazepam Inj 2mg/ml 1ml IV PRN ×2 (00:59→14:28)
[2017-04-30 05:18] LABS: BASOPHILS % (AUTO) 0.6 % (0.0-2.0); EOSINOPHILS % (AUTO) 8.2 % (0.0-3.0); LYMPHOCYTES % (AUTO) 18.7 % (20.0-45.0); MEAN CORPUSCULAR HGB CONC 33.8 G/DL (32.0-36.0); MEAN CORPUSCULAR VOLUME 89 FL (80-99); MONOCYTES % (AUTO) 7.9 % (1.0-10.0); NEUTROPHILS % (AUTO) 64.7 % (45.0-75.0); PLATELET COUNT 102 K/UL (150-450); RED CELL DISTRIBUTION WIDTH 15.3 % (11.6-14.8); WHITE BLOOD COUNT 5.9 K/UL (4.8-10.8)
[2017-04-30 05:49] LABS: PROTHROMBIN TIME 10.4 SEC (9.30-11.50)
[2017-04-30 05:56] LABS: ALBUMIN/GLOBULIN RATIO 0.7 (1.0-2.7); CALCIUM 8.1 mg/dL (8.6-10.2); CREATININE 4.5 mg/dL (0.7-1.2); MAGNESIUM 2.1 mg/dL (1.7-2.5); PHOSPHORUS 3.2 mg/dL (2.5-4.8); POTASSIUM 3.3 mEQ/L (3.4-4.9); TOTAL PROTEIN 5.2 g/dL (6.6-8.7)
[2017-04-30] MEDS ORDERED: Amikacin Rx to dose MISC PRN (07:15)
[2017-04-30] MEDS: Vitamin A&D Oint 2oz Tube TOPIC SCH ×2 (08:19→21:00)
[2017-04-30] MEDS: Piperacillin/Tazobactam 2.25 GM in D5W 55 ML IVPB SCH ×3 (08:19→22:38)
[2017-04-30] MEDS: Pantoprazole Inj IVP SCH ×2 (08:20→22:37)
[2017-04-30] MEDS ORDERED: Cefepime 1gm vial ONE (08:42)
[2017-04-30] MEDS ORDERED: Lidocaine 1% 10mg/ml/Epi 0.005mg/ml 30ml vial INJ ONE (08:43)
[2017-04-30] MEDS ORDERED: Bupivacaine w/Epi 0.5% 30ml Vial INJ ONE (08:43)
[2017-04-30] MEDS ORDERED: Bacitracin 50000 Units Vial ONE ×2 (08:43→14:36)
--- NOTE | 2017-04-30 09:13 | Diagnostic Imaging Report ---
Indication: Dyspnea Comparison: 04/26/17 A single view chest radiograph was obtained. Findings: There is consolidation/atelectasis at the right lung base and perihilar region. Right basilar pleural effusion seen by CT is inapparent on the plain film. The heart is enlarged. Tubes and lines are satisfactory position and unchanged. Some degree of interstitial: Edema is not excluded. Impression: Dense right perihilar/basilar consolidation again noted. Mild interstitial edema could be present as well. No significant change.
[2017-04-30] MEDS ORDERED: Amikacin 500 MG in NS 55 ML IV ONE (09:30)
--- NOTE | 2017-04-30 10:36 | Pulmonolgy Critical Care Note ---
Critical Care - Asmt/Plan Problems: (1) Acute respiratory failure (2) Hemorrhagic shock (3) Aspiration pneumonia (4) ESRF (end stage renal failure) (5) Benign prostate hyperplasia (6) Gout (7) Diabetes mellitus (8) COPD (chronic obstructive pulmonary disease) Assessment/Plan: scheduled for thoracoscopy today. Respiratory: monitor respiratory rate Cardiac: continue pressors, continue to monitor HR/BP Renal: F/U I&O Infectious Disease: check cultures Gastrointestinal: continue feedings/current rate Endocrine: monitor blood sugar, check TSH, continue sliding scale insulin Hematologic: monitor H/H, transfuse if hgb<8.5 Neurologic: PRN Ativan, keep patient comfortable Prophylaxis: Protonix, Heparin Notes Reviewed: correspondence section supervisor, cardio, 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, case management specialistgeriatric case manager - Objective Last 24 Hour Vital Signs Date Time Temp Pulse Resp B/P Pulse Ox O2 Delivery O2 Flow Rate FiO2 04/30/17 10:00 72 16 133/64 100 Mechanical Ventilator 40 04/30/17 09:30 69 16 120/64 100 Mechanical Ventilator 40 04/30/17 09:02 67 16 40 04/30/17 09:00 69 16 113/55 100 Mechanical Ventilator 40 04/30/17 08:30 68 18 118/68 100 Mechanical Ventilator 40 04/30/17 08:00 40 04/30/17 08:00 69 04/30/17 08:00 97.3 79 20 115/66 100 Mechanical Ventilator 40 04/30/17 07:06 74 16 40 04/30/17 07:00 74 16 115/66 100 Mechanical Ventilator 40 04/30/17 06:30 70 16 119/61 100 Mechanical Ventilator 40 04/30/17 06:00 70 16 117/57 100 Mechanical Ventilator 40 04/30/17 05:30 72 16 117/61 100 Mechanical Ventilator 40 04/30/17 05:07 88 16 40 04/30/17 05:00 71 16 109/60 100 Mechanical Ventilator 40 04/30/17 04:30 71 16 114/56 100 Mechanical Ventilator 40 04/30/17 04:00 40 04/30/17 04:00 73 04/30/17 04:00 71 16 114/56 100 Mechanical Ventilator 40 04/30/17 03:30 77 16 120/70 100 Mechanical Ventilator 40 04/30/17 03:05 79 16 40 04/30/17 03:00 73 16 119/66 100 Mechanical Ventilator 40 04/30/17 02:30 75 16 119/56 100 Mechanical Ventilator 40 04/30/17 02:00 75 16 115/54 100 Mechanical Ventilator 40 04/30/17 01:30 74 16 115/57 100 Mechanical Ventilator 40 04/30/17 01:02 78 16 40 04/30/17 01:00 80 17 132/50 100 Mechanical Ventilator 40 04/30/17 00:30 65 17 108/61 100 Mechanical Ventilator 40 04/30/17 00:29 86/49 04/30/17 00:00 40 04/30/17 00:00 80 04/30/17 00:00 97.9 62 16 88/49 100 Mechanical Ventilator 40 04/29/17 23:11 99/49 04/29/17 23:00 62 16 93/45 100 Mechanical Ventilator 40 04/29/17 22:55 64 16 40 04/29/17 22:30 66 16 97/50 100 Mechanical Ventilator 40 04/29/17 22:00 66 16 99/49 100 Mechanical Ventilator 40 04/29/17 21:30 66 16 81/44 100 Mechanical Ventilator 40 04/29/17 21:00 63 16 113/52 100 Mechanical Ventilator 40 04/29/17 20:55 65 17 40 04/29/17 20:30 65 17 79/41 100 Mechanical Ventilator 40 04/29/17 20:00 67 04/29/17 20:00 40 04/29/17 20:00 98.3 60 16 85/46 100 Mechanical Ventilator 40 04/29/17 19:06 74 17 40 04/29/17 19:00 63 16 113/52 100 Mechanical Ventilator 40 04/29/17 18:35 Mechanical Ventilator 40 04/29/17 18:00 53 16 105/54 100 Mechanical Ventilator 40 17 17:13 67 16 40 17 17:00 63 16 84/48 100 Mechanical Ventilator 40 17 16:33 85/45 04/29/17 16:00 60 04/29/17 16:00 97.3 74 16 108/55 100 Mechanical Ventilator 40 17 16:00 40 17 15:22 58 16 40 17 15:00 63 16 91/50 100 Mechanical Ventilator 40 04/29/17 14:00 62 16 112/59 100 Mechanical Ventilator 40 04/29/17 13:23 69 17 40 04/29/17 13:00 60 16 100/52 100 Mechanical Ventilator 40 04/29/17 12:00 Mechanical Ventilator 40 04/29/17 12:00 40 04/29/17 12:00 61 04/29/17 12:00 97.4 57 16 131/67 100 Mechanical Ventilator 40 04/29/17 11:00 63 16 119/70 100 Mechanical Ventilator 40 04/29/17 10:47 58 16 40 Status: awake Condition: critical HEENT: atraumatic Neck: full ROM Heart: HR/BP stable Abdomen: soft, non-tender Extremities: no C/C/E, edema Decubiti: location Critical Care - Subjective ROS Limited/Unobtainable: Yes ICU Day: 7 Intubation Day: 7 Condition: critical FI02: 40 Vent Support Breath Rate: 16 Vent Support Mode: AC Vent Tidal Volume: 700 Sputum Amount: Small PEEP: 5.0 PIP: 26 Fluids: d5 1/2 NS Tube Feeding Amount: 0 I&O: Intake and Output 04/29/17 04/30/17 19:00 07:00 Intake Total 225 ml 1016.295 ml Output Total 6700 ml Balance -6475 ml 1016.295 ml IV Total 1016.295 ml Tube Feeding 225 ml 0 ml Hemodialysis UF 6700 ml # Bowel Movements 6 CXR: no change ET-Tube: 7.5 ET Position: 25 Labs: Laboratory Tests Test 04/29/17 19:24 04/30/17 05:00 Sodium Level 140 mEQ/L (135-145) 139 mEQ/L (135-145) Potassium Level 3.3 mEQ/L (3.4-4.9) L 3.3 mEQ/L (3.4-4.9) L Chloride Level 97 mEQ/L (98-107) L 96 mEQ/L (98-107) L Carbon Dioxide Level 30 mEQ/L (20-30) 28 mEQ/L (20-30) Anion Gap 13 (5-15) 15 (5-15) Blood Urea Nitrogen 41 mg/dL (7-23) #H 43 mg/dL (7-23) H Creatinine 3.9 mg/dL (0.7-1.2) H 4.5 mg/dL (0.7-1.2) H Estimat Glomerular Filtration Rate 15.4 mL/min (>60) 13.0 mL/min (>60) Glucose Level 93 mg/dL (74-106) 102 mg/dL (74-106) Calcium Level 8.1 mg/dL (8.6-10.2) L 8.1 mg/dL (8.6-10.2) L White Blood Count 5.9 K/UL (4.8-10.8) Red Blood Count 3.10 M/UL (4.70-6.10) L Hemoglobin 9.3 G/DL (14.2-18.0) L Hematocrit 27.5 % (42.0-52.0) L Mean Corpuscular Volume 89 FL (80-99) Mean Corpuscular Hemoglobin 30.0 PG (27.0-31.0) Mean Corpuscular Hemoglobin Concent 33.8 G/DL (32.0-36.0) Red Cell Distribution Width 15.3 % (11.6-14.8) H Platelet Count 102 K/UL (150-450) L Mean Platelet Volume 6.0 FL (6.5-10.1) L Neutrophils (%) (Auto) 64.7 % (45.0-75.0) Lymphocytes (%) (Auto) 18.7 % (20.0-45.0) L Monocytes (%) (Auto) 7.9 % (1.0-10.0) Eosinophils (%) (Auto) 8.2 % (0.0-3.0) H Basophils (%) (Auto) 0.6 % (0.0-2.0) Prothrombin Time 10.4 SEC (9.30-11.50) Prothromb Time International Ratio 1.0 (0.9-1.1) Activated Partial Thromboplast Time 32 SEC (23-33) Phosphorus Level 3.2 mg/dL (2.5-4.8) Magnesium Level 2.1 mg/dL (1.7-2.5) Total Bilirubin 0.6 mg/dL (0.0-1.2) Aspartate Amino Transf (AST/SGOT) 11 U/L (5-40) Alanine Aminotransferase (ALT/SGPT) 5 U/L (3-41) Alkaline Phosphatase 145 U/L (40-129) H Total Protein 5.2 g/dL (6.6-8.7) L Albumin 2.3 g/dL (3.5-5.2) L Globulin 2.9 g/dL Albumin/Globulin Ratio 0.7 (1.0-2.7) L FORD FANG Apr 30, 2017 10:36
--- NOTE | 2017-04-30 10:50 | Pre-Procedure Note/Attestation ---
Pre-Procedure Note/Attestation Complete Prior to Procedure Planned Procedure: right Procedure Narrative: R exploratory video-assisted thoracoscopic surgery Indications for Procedure Pre-Operative Diagnosis: Right loculated effusion Attestation I attest that I discussed the nature of the procedure; its benefits; risks and complications; and alternatives (and the risks and benefits of such alternatives ), prior to the procedure, with the patient (or the patient's legal personal financial representative). I attest that, if there was a reasonable possibility of needing a blood transfusion, the patient (or the patient's legal personal financial representative) was given the [facility] standardized written summary, pursuant to the Rudy Octavia Blood Safety Act ([place] Health and Safety Code # 1645, as amended). I attest that I re-evaluated the patient just prior to the surgery and that there has been no change in the patient's H&P, except as documented below: KATIE STEINER M.D. Apr 30, 2017 10:50
[2017-04-30] MEDS ORDERED: NS Irrig 1000ml ONE (11:00)
[2017-04-30] MEDS ORDERED: Propofol 10mg/ml 20ml IV ONE (11:00)
[2017-04-30] MEDS ORDERED: Zemuron 50mg/5ml Inj IV ONE (11:00)
[2017-04-30] MEDS ORDERED: LR 1000ml ONE (11:00)
[2017-04-30] MEDS ORDERED: Sterile Water Irrig 1000ml IRRIG ONE (11:00)
[2017-04-30] MEDS ORDERED: NS Irrig 1000ml IRRIG ONE (11:40)
--- NOTE | 2017-04-30 11:51 | Infectious Diseases Prog Note ---
Assessment/Plan Assessment/Plan A: The patient is a 72-year-old male with m Possible aspiration pneumonia. Scx: serratia Chest x-ray : opacification of most of the right hemithorax. Loculated pleural effusion, possible empyema US : complex right pleural effusion Hypotension, most likely due to hypovolemic shock, however, underlying sepsis is the consideration Rule out bacteremia. GI Bleed : EGD : Billroth II anastomosis with a large ulceration at the anastomotic area without any adherent clot or visible vessel.04/24 History of gout History of GI bleed in the past History of diabetes History of BPH History of DVT History of end-stage renal disease on hemodialysis PLAN: Cont patient on IV vancomycin and Zosyn s# 7 / , noted Amikacin d# 1 was added Monitor CBC. Monitor BMP. monitor blood and sputum culture. will follow Pulmonary recommendation regarding respiratory failure and need for drainage of the pleural effusion. Monitor chest x-ray VATS today pressors tapering on HD Subjective Constitutional: Denies: anorexia, chills, drenching sweats, fatigue, fever, no symptoms, other Allergies: Coded Allergies: No Known Allergies (Verified , 02/08/07) Subjective on vent Objective Vital Signs Last 24 Hour Vital Signs Date Time Temp Pulse Resp B/P Pulse Ox O2 Delivery O2 Flow Rate FiO2 04/30/17 11:00 73 18 132/62 100 Mechanical Ventilator 40 04/30/17 10:30 72 17 127/69 100 Mechanical Ventilator 40 04/30/17 10:00 72 16 133/64 100 Mechanical Ventilator 40 04/30/17 09:30 69 16 120/64 100 Mechanical Ventilator 40 04/30/17 09:02 67 16 40 04/30/17 09:00 69 16 113/55 100 Mechanical Ventilator 40 04/30/17 08:30 68 18 118/68 100 Mechanical Ventilator 40 04/30/17 08:00 40 04/30/17 08:00 69 04/30/17 08:00 97.3 79 20 115/66 100 Mechanical Ventilator 40 04/30/17 07:06 74 16 40 04/30/17 07:00 74 16 115/66 100 Mechanical Ventilator 40 04/30/17 06:30 70 16 119/61 100 Mechanical Ventilator 40 04/30/17 06:00 70 16 117/57 100 Mechanical Ventilator 40 04/30/17 05:30 72 16 117/61 100 Mechanical Ventilator 40 04/30/17 05:07 88 16 40 04/30/17 05:00 71 16 109/60 100 Mechanical Ventilator 40 04/30/17 04:30 71 16 114/56 100 Mechanical Ventilator 40 04/30/17 04:00 40 04/30/17 04:00 73 04/30/17 04:00 71 16 114/56 100 Mechanical Ventilator 40 04/30/17 03:30 77 16 120/70 100 Mechanical Ventilator 40 04/30/17 03:05 79 16 40 04/30/17 03:00 73 16 119/66 100 Mechanical Ventilator 40 04/30/17 02:30 75 16 119/56 100 Mechanical Ventilator 40 04/30/17 02:00 75 16 115/54 100 Mechanical Ventilator 40 04/30/17 01:30 74 16 115/57 100 Mechanical Ventilator 40 04/30/17 01:02 78 16 40 04/30/17 01:00 80 17 132/50 100 Mechanical Ventilator 40 04/30/17 00:30 65 17 108/61 100 Mechanical Ventilator 40 04/30/17 00:29 86/49 04/30/17 00:00 40 04/30/17 00:00 80 04/30/17 00:00 97.9 62 16 88/49 100 Mechanical Ventilator 40 04/29/17 23:11 99/49 04/29/17 23:00 62 16 93/45 100 Mechanical Ventilator 40 04/29/17 22:55 64 16 40 04/29/17 22:30 66 16 97/50 100 Mechanical Ventilator 40 04/29/17 22:00 66 16 99/49 100 Mechanical Ventilator 40 04/29/17 21:30 66 16 81/44 100 Mechanical Ventilator 40 04/29/17 21:00 63 16 113/52 100 Mechanical Ventilator 40 04/29/17 20:55 65 17 40 04/29/17 20:30 65 17 79/41 100 Mechanical Ventilator 40 04/29/17 20:00 67 04/29/17 20:00 40 04/29/17 20:00 98.3 60 16 85/46 100 Mechanical Ventilator 40 04/29/17 19:06 74 17 40 04/29/17 19:00 63 16 113/52 100 Mechanical Ventilator 40 04/29/17 18:35 Mechanical Ventilator 40 04/29/17 18:00 53 16 105/54 100 Mechanical Ventilator 40 04/29/17 17:13 67 16 40 04/29/17 17:00 63 16 84/48 100 Mechanical Ventilator 40 04/29/17 16:33 85/45 04/29/17 16:00 60 04/29/17 16:00 97.3 74 16 108/55 100 Mechanical Ventilator 40 04/29/17 16:00 40 04/29/17 15:22 58 16 40 04/29/17 15:00 63 16 91/50 100 Mechanical Ventilator 40 04/29/17 14:00 62 16 112/59 100 Mechanical Ventilator 40 04/29/17 13:23 69 17 40 04/29/17 13:00 60 16 100/52 100 Mechanical Ventilator 40 04/29/17 12:00 Mechanical Ventilator 40 04/29/17 12:00 40 04/29/17 12:00 61 04/29/17 12:00 97.4 57 16 131/67 100 Mechanical Ventilator 40 Height (Feet): 5 Height (Inches): 8.00 Weight (Pounds): 202 HEENT: anicteric Respiratory/Chest: no respiratory distress Cardiovascular: regularly irregular Abdomen: no organomegaly Laboratory Tests Test 04/29/17 19:24 04/30/17 05:00 Sodium Level 140 mEQ/L (135-145) 139 mEQ/L (135-145) Potassium Level 3.3 mEQ/L (3.4-4.9) L 3.3 mEQ/L (3.4-4.9) L Chloride Level 97 mEQ/L (98-107) L 96 mEQ/L (98-107) L Carbon Dioxide Level 30 mEQ/L (20-30) 28 mEQ/L (20-30) Anion Gap 13 (5-15) 15 (5-15) Blood Urea Nitrogen 41 mg/dL (7-23) #H 43 mg/dL (7-23) H Creatinine 3.9 mg/dL (0.7-1.2) H 4.5 mg/dL (0.7-1.2) H Estimat Glomerular Filtration Rate 15.4 mL/min (>60) 13.0 mL/min (>60) Glucose Level 93 mg/dL (74-106) 102 mg/dL (74-106) Calcium Level 8.1 mg/dL (8.6-10.2) L 8.1 mg/dL (8.6-10.2) L White Blood Count 5.9 K/UL (4.8-10.8) Red Blood Count 3.10 M/UL (4.70-6.10) L Hemoglobin 9.3 G/DL (14.2-18.0) L Hematocrit 27.5 % (42.0-52.0) L Mean Corpuscular Volume 89 FL (80-99) Mean Corpuscular Hemoglobin 30.0 PG (27.0-31.0) Mean Corpuscular Hemoglobin Concent 33.8 G/DL (32.0-36.0) Red Cell Distribution Width 15.3 % (11.6-14.8) H Platelet Count 102 K/UL (150-450) L Mean Platelet Volume 6.0 FL (6.5-10.1) L Neutrophils (%) (Auto) 64.7 % (45.0-75.0) Lymphocytes (%) (Auto) 18.7 % (20.0-45.0) L Monocytes (%) (Auto) 7.9 % (1.0-10.0) Eosinophils (%) (Auto) 8.2 % (0.0-3.0) H Basophils (%) (Auto) 0.6 % (0.0-2.0) Prothrombin Time 10.4 SEC (9.30-11.50) Prothromb Time International Ratio 1.0 (0.9-1.1) Activated Partial Thromboplast Time 32 SEC (23-33) Phosphorus Level 3.2 mg/dL (2.5-4.8) Magnesium Level 2.1 mg/dL (1.7-2.5) Total Bilirubin 0.6 mg/dL (0.0-1.2) Aspartate Amino Transf (AST/SGOT) 11 U/L (5-40) Alanine Aminotransferase (ALT/SGPT) 5 U/L (3-41) Alkaline Phosphatase 145 U/L (40-129) H Total Protein 5.2 g/dL (6.6-8.7) L Albumin 2.3 g/dL (3.5-5.2) L Globulin 2.9 g/dL Albumin/Globulin Ratio 0.7 (1.0-2.7) L Current Medications Medications (Trade) Dose Ordered Sig/[place] Route PRN Reason Start Time Stop Time Status Last Admin Dose Admin Acetaminophen (Tylenol) 650 mg Q4H PRN ORAL fever 04/23/17 15:15 05/23/17 15:14 Amikacin Protocol (Amikacin pharmacy to dose) 1 ea DAILY PRN MISC Per rx protocol 04/30/17 07:15 05/30/17 07:14 Chlorhexidine Gluconate (Basilia-Hex 2%) 1 applic QHS TOPIC 04/26/17 21:00 05/26/17 20:59 04/29/17 21:12 Clotrimazole (Lotrimin) 1 applic EVERY 12 HOURS TOPIC 04/24/17 09:00 05/24/17 08:59 04/30/17 08:20 Dextrose STAT PRN IV Hypoglycemia 04/23/17 15:15 05/23/17 15:14 Dextrose/Sodium Chloride 1,000 ml @ 50 mls/hr Q20H IV 04/30/17 00:00 05/30/17 00:00 04/29/17 23:51 Diphenhydramine HCl (Benadryl) 25 mg Q6H PRN ORAL Itching/Pruritis 04/23/17 15:15 05/23/17 15:14 04/27/17 20:56 Dopamine HCl/ Dextrose (DOPamine 400mg/ 250ml) 250 ml @ 0 mls/hr Q24H IV 04/23/17 15:15 05/23/17 15:14 04/30/17 00:29 Lorazepam 2 mg 2 mg Q2H PRN IV For Anxiety 04/23/17 16:45 04/30/17 16:44 04/30/17 00:59 Morphine Sulfate (Morphine Sulfate) 2 mg Q4H PRN IVP severe Pain (Pain Scale 7-10) 04/23/17 15:15 04/30/17 15:14 04/29/17 19:36 Nitroglycerin (Ntg) 0.4 mg Q5M X 3 DOSES PRN SL Prn Chest Pain 04/23/17 15:15 05/23/17 15:14 Norepinephrine Bitartrate/ Dextrose (Levophed/D5W) 250 ml @ 0 mls/hr Q24H IV 04/23/17 23:15 05/23/17 23:14 04/26/17 20:45 Ondansetron HCl (Zofran) 4 mg Q6H PRN IVP Nausea & Vomiting 04/23/17 15:15 05/23/17 15:14 Pantoprazole (Protonix) 40 mg EVERY 12 HOURS IVP 04/28/17 09:00 05/28/17 08:59 04/30/17 08:20 Piperacillin Sod/ Tazobactam Sod/ Dextrose (Zosyn/D5W) 55 ml @ 110 mls/hr Q8HR IVPB 04/29/17 22:00 05/06/17 21:59 04/30/17 08:19 Polyethylene Glycol (Miralax) 17 gm HSPRN PRN ORAL Constipation 04/23/17 15:15 05/23/17 15:14 04/29/17 00:32 Simethicone 80 mg 80 mg EVERY 6 HOURS PRN GT bloated, gas,abdominal discomt 04/28/17 13:15 05/28/17 13:14 Vancomycin HCl (Vanco rx to dose) 1 ea DAILY PRN MISC Per rx protocol 04/24/17 13:45 05/24/17 13:44 Vitamin A/Vitamin D (A & D Oint) 1 applic EVERY 12 HOURS TOPIC 04/24/17 09:00 05/24/17 08:59 04/30/17 08:19 MOHINDER BRADY M.D. Apr 30, 2017 11:51
--- NOTE | 2017-04-30 12:16 | Diagnostic Imaging Report ---
Indication: NGT Technique: Supine view of the abdomen Comparison: 04/26/2017 Findings: There is a nasogastric tube in place, tip projected at the level gastric body. Surgical clips are seen throughout the abdomen. Gas pattern is nonspecific. There is evidence elevated right hemidiaphragm, right pleural effusion, right basilar infiltrates, right sided central venous catheter, inferior vena cava filter. Findings are overall unchanged Impression: Satisfactory nasogastric intubation Other stable findings as noted This agrees with the preliminary interpretation provided overnight by [facility] teleradiology service.
--- NOTE | 2017-04-30 12:47 | Anethesia Preoperative Eval ---
Anesthesia Pre-op PMH/ROS General Date of Evaluation: Apr 30, 2017 Time of Evaluation: 10:00 ASA Score: ASA 4 Mallampati Score Class I : Soft palate, uvula, fauces, pillars visible Class II: Soft palate, uvula, fauces visible Class III: Soft palate, base of uvula visible Class IV: Only hard plate visible Surgeon: mihir Surgical Procedure: vats Anesthesia History: none Allergies: Coded Allergies: No Known Allergies (Verified , 02/08/07) Past Medical History Cardiovascular: Reports: HTN Gastrointestinal/Genitourinary: Reports: ESRD Endocrine: Reports: DM Anesthesia Pre-op Phys. Exam Physician Exam Last Vital Signs Date Time Temp Pulse Resp B/P Pulse Ox O2 Delivery O2 Flow Rate FiO2 04/30/17 11:00 73 18 132/62 100 Mechanical Ventilator 40 04/30/17 08:00 97.3 Anesthesia Pre-op A/P Labs Hematology Test 04/30/17 05:00 White Blood Count 5.9 K/UL (4.8-10.8) Red Blood Count 3.10 M/UL (4.70-6.10) L Hemoglobin 9.3 G/DL (14.2-18.0) L Hematocrit 27.5 % (42.0-52.0) L Mean Corpuscular Volume 89 FL (80-99) Mean Corpuscular Hemoglobin 30.0 PG (27.0-31.0) Mean Corpuscular Hemoglobin Concent 33.8 G/DL (32.0-36.0) Red Cell Distribution Width 15.3 % (11.6-14.8) H Platelet Count 102 K/UL (150-450) L Mean Platelet Volume 6.0 FL (6.5-10.1) L Neutrophils (%) (Auto) 64.7 % (45.0-75.0) Lymphocytes (%) (Auto) 18.7 % (20.0-45.0) L Monocytes (%) (Auto) 7.9 % (1.0-10.0) Eosinophils (%) (Auto) 8.2 % (0.0-3.0) H Basophils (%) (Auto) 0.6 % (0.0-2.0) Coagulation Test 04/30/17 05:00 Prothrombin Time 10.4 SEC (9.30-11.50) Prothromb Time International Ratio 1.0 (0.9-1.1) Activated Partial Thromboplast Time 32 SEC (23-33) Chemistry Test 04/29/17 19:24 04/30/17 05:00 Sodium Level 140 mEQ/L (135-145) 139 mEQ/L (135-145) Potassium Level 3.3 mEQ/L (3.4-4.9) L 3.3 mEQ/L (3.4-4.9) L Chloride Level 97 mEQ/L (98-107) L 96 mEQ/L (98-107) L Carbon Dioxide Level 30 mEQ/L (20-30) 28 mEQ/L (20-30) Anion Gap 13 (5-15) 15 (5-15) Blood Urea Nitrogen 41 mg/dL (-) #H 43 mg/dL (7-23) H Creatinine 3.9 mg/dL (0.7-1.2) H 4.5 mg/dL (0.7-1.2) H Estimat Glomerular Filtration Rate 15.4 mL/min (>60) 13.0 mL/min (>60) Glucose Level 93 mg/dL (74-106) 102 mg/dL (74-106) Calcium Level 8.1 mg/dL (8.6-10.2) L 8.1 mg/dL (8.6-10.2) L Phosphorus Level 3.2 mg/dL (2.5-4.8) Magnesium Level 2.1 mg/dL (1.7-2.5) Total Bilirubin 0.6 mg/dL (0.0-1.2) Aspartate Amino Transf (AST/SGOT) 11 U/L (5-40) Alanine Aminotransferase (ALT/SGPT) 5 U/L (3-41) Alkaline Phosphatase 145 U/L (40-129) H Total Protein 5.2 g/dL (6.6-8.7) L Albumin 2.3 g/dL (3.5-5.2) L Globulin 2.9 g/dL Albumin/Globulin Ratio 0.7 (1.0-2.7) L Eris Echevarria MD Apr 30, 2017 12:47
--- NOTE | 2017-04-30 12:49 | Immediate Post-Op Evaluation ---
Immediate Post-Op Evalulation Immediate Post-Op Evalulation Procedure: vats Date of Evaluation: Apr 30, 2017 Time of Evaluation: 12:48 Nausea: No Vomiting: No Patient Status: ventilated Hydration Status: adequate Given Within 1 Hr of Incision: Yes Eris Echevarria MD Apr 30, 2017 12:49
--- NOTE | 2017-04-30 12:54 | Brief Operative Note ---
Immediate Post Operative Note Operative Note Pre-op Diagnosis: Right loculated effusion Procedure: R VATS Post-op Diagnosis: same Post-op Diagnosis: same as pre-op Surgeon: Manjeet Anesthesiologist: Wale Specimen: yes Condition: stable Estimated Blood Loss: minimal Drains: other KATIE STEINER M.D. Apr 30, 2017 12:54
[2017-04-30] MEDS ORDERED: LORazepam Inj 2mg/ml 1ml IV PRN (13:00)
[2017-04-30] MEDS ORDERED: Hydromorphone 0.5mg/0.5ml inj IVP PRN (13:00)
[2017-04-30] MEDS ORDERED: fentaNYL 100 mcg/2 mL IV PRN (13:00)
[2017-04-30] MEDS ORDERED: Midazolam 2mg/2ml Inj IVP PRN (13:00)
--- NOTE | 2017-04-30 13:31 | GI Progress Note ---
Assessment/Plan Problems: (1) Hemorrhagic shock SNOMED: 766791 (2) Diabetes mellitus ICD Codes: E11.9 - Type 2 diabetes mellitus without complications SNOMED: 67010672 (3) Gastrointestinal hemorrhage ICD Codes: K92.2 - Gastrointestinal hemorrhage, unspecified SNOMED: 60056518 (4) Sepsis ICD Codes: A41.9 - Sepsis, unspecified organism SNOMED: 15967719 (5) Acute respiratory failure ICD Codes: J96.00 - Acute respiratory failure, unspecified whether with hypoxia or hypercapnia SNOMED: 63524684 Status: unchanged Status Narrative Discussed with Dr. Back. Assessment/Plan SUMMARY OF FINDINGS: Billroth II anastomosis with a large ulceration at the anastomotic area without any adherent clot or visible vessel. RECOMMENDATIONS: 1. Follow biopsy results. 2. Start TFs per dietary 3. Continue on Protonix. 4. Monitor hemoglobin and hematocrit and transfuse to keep hemoglobin above 7. We will follow. stable H&H on protonix NGT came out VATS today Subjective Subjective limited Objective Last 24 Hour Vital Signs Date Time Temp Pulse Resp B/P Pulse Ox O2 Delivery O2 Flow Rate FiO2 04/30/17 13:15 87 16 84/51 100 Mechanical Ventilator 40 04/30/17 13:00 91 16 89/58 100 Mechanical Ventilator 40 04/30/17 12:55 92 16 109/63 100 Mechanical Ventilator 40 04/30/17 12:50 97.0 85 16 122/88 100 Mechanical Ventilator 40 04/30/17 12:16 40 04/30/17 11:00 73 18 132/62 100 Mechanical Ventilator 40 04/30/17 10:30 72 17 127/69 100 Mechanical Ventilator 40 04/30/17 10:00 72 16 133/64 100 Mechanical Ventilator 40 04/30/17 09:30 69 16 120/64 100 Mechanical Ventilator 40 04/30/17 09:02 67 16 40 04/30/17 09:00 69 16 113/55 100 Mechanical Ventilator 40 04/30/17 08:30 68 18 118/68 100 Mechanical Ventilator 40 04/30/17 08:00 40 04/30/17 08:00 69 04/30/17 08:00 97.3 79 20 115/66 100 Mechanical Ventilator 40 04/30/17 07:06 74 16 40 04/30/17 07:00 74 16 115/66 100 Mechanical Ventilator 40 04/30/17 06:30 70 16 119/61 100 Mechanical Ventilator 40 04/30/17 06:00 70 16 117/57 100 Mechanical Ventilator 40 04/30/17 05:30 72 16 117/61 100 Mechanical Ventilator 40 04/30/17 05:07 88 16 40 04/30/17 05:00 71 16 109/60 100 Mechanical Ventilator 40 04/30/17 04:30 71 16 114/56 100 Mechanical Ventilator 40 04/30/17 04:00 40 04/30/17 04:00 73 04/30/17 04:00 71 16 114/56 100 Mechanical Ventilator 40 04/30/17 03:30 77 16 120/70 100 Mechanical Ventilator 40 04/30/17 03:05 79 16 40 04/30/17 03:00 73 16 119/66 100 Mechanical Ventilator 40 04/30/17 02:30 75 16 119/56 100 Mechanical Ventilator 40 04/30/17 02:00 75 16 115/54 100 Mechanical Ventilator 40 04/30/17 01:30 74 16 115/57 100 Mechanical Ventilator 40 04/30/17 01:02 78 16 40 04/30/17 01:00 80 17 132/50 100 Mechanical Ventilator 40 04/30/17 00:30 65 17 108/61 100 Mechanical Ventilator 40 04/30/17 00:29 86/49 04/30/17 00:00 40 04/30/17 00:00 80 04/30/17 00:00 97.9 62 16 88/49 100 Mechanical Ventilator 40 04/29/17 23:11 99/49 04/29/17 23:00 62 16 93/45 100 Mechanical Ventilator 40 04/29/17 22:55 64 16 40 04/29/17 22:30 66 16 97/50 100 Mechanical Ventilator 40 04/29/17 22:00 66 16 99/49 100 Mechanical Ventilator 40 04/29/17 21:30 66 16 81/44 100 Mechanical Ventilator 40 04/29/17 21:00 63 16 113/52 100 Mechanical Ventilator 40 04/29/17 20:55 65 17 40 04/29/17 20:30 65 17 79/41 100 Mechanical Ventilator 40 04/29/17 20:00 67 04/29/17 20:00 40 04/29/17 20:00 98.3 60 16 85/46 100 Mechanical Ventilator 40 04/29/17 19:06 74 17 40 04/29/17 19:00 63 16 113/52 100 Mechanical Ventilator 40 04/29/17 18:35 Mechanical Ventilator 40 04/29/17 18:00 53 16 105/54 100 Mechanical Ventilator 40 04/29/17 17:13 67 16 40 04/29/17 17:00 63 16 84/48 100 Mechanical Ventilator 40 04/29/17 16:33 85/45 04/29/17 16:00 60 04/29/17 16:00 97.3 74 16 108/55 100 Mechanical Ventilator 40 04/29/17 16:00 40 04/29/17 15:22 58 16 40 04/29/17 15:00 63 16 91/50 100 Mechanical Ventilator 40 04/29/17 14:00 62 16 112/59 100 Mechanical Ventilator 40 Intake and Output 04/29/17 04/30/17 19:00 07:00 Intake Total 225 ml 1016.295 ml Output Total 6700 ml Balance -6475 ml 1016.295 ml IV Total 1016.295 ml Tube Feeding 225 ml 0 ml Hemodialysis UF 6700 ml # Bowel Movements 6 Laboratory Tests Test 04/29/17 19:24 04/30/17 05:00 Sodium Level 140 mEQ/L (135-145) 139 mEQ/L (135-145) Potassium Level 3.3 mEQ/L (3.4-4.9) L 3.3 mEQ/L (3.4-4.9) L Chloride Level 97 mEQ/L (98-107) L 96 mEQ/L (98-107) L Carbon Dioxide Level 30 mEQ/L (20-30) 28 mEQ/L (20-30) Anion Gap 13 (5-15) 15 (5-15) Blood Urea Nitrogen 41 mg/dL (7-23) #H 43 mg/dL (7-23) H Creatinine 3.9 mg/dL (0.7-1.2) H 4.5 mg/dL (0.7-1.2) H Estimat Glomerular Filtration Rate 15.4 mL/min (>60) 13.0 mL/min (>60) Glucose Level 93 mg/dL (74-106) 102 mg/dL (74-106) Calcium Level 8.1 mg/dL (8.6-10.2) L 8.1 mg/dL (8.6-10.2) L White Blood Count 5.9 K/UL (4.8-10.8) Red Blood Count 3.10 M/UL (4.70-6.10) L Hemoglobin 9.3 G/DL (14.2-18.0) L Hematocrit 27.5 % (42.0-52.0) L Mean Corpuscular Volume 89 FL (80-99) Mean Corpuscular Hemoglobin 30.0 PG (27.0-31.0) Mean Corpuscular Hemoglobin Concent 33.8 G/DL (32.0-36.0) Red Cell Distribution Width 15.3 % (11.6-14.8) H Platelet Count 102 K/UL (150-450) L Mean Platelet Volume 6.0 FL (6.5-10.1) L Neutrophils (%) (Auto) 64.7 % (45.0-75.0) Lymphocytes (%) (Auto) 18.7 % (20.0-45.0) L Monocytes (%) (Auto) 7.9 % (1.0-10.0) Eosinophils (%) (Auto) 8.2 % (0.0-3.0) H Basophils (%) (Auto) 0.6 % (0.0-2.0) Prothrombin Time 10.4 SEC (9.30-11.50) Prothromb Time International Ratio 1.0 (0.9-1.1) Activated Partial Thromboplast Time 32 SEC (23-33) Phosphorus Level 3.2 mg/dL (2.5-4.8) Magnesium Level 2.1 mg/dL (1.7-2.5) Total Bilirubin 0.6 mg/dL (0.0-1.2) Aspartate Amino Transf (AST/SGOT) 11 U/L (5-40) Alanine Aminotransferase (ALT/SGPT) 5 U/L (3-41) Alkaline Phosphatase 145 U/L (40-129) H Total Protein 5.2 g/dL (6.6-8.7) L Albumin 2.3 g/dL (3.5-5.2) L Globulin 2.9 g/dL Albumin/Globulin Ratio 0.7 (1.0-2.7) L Height (Feet): 5 Height (Inches): 8.00 Weight (Pounds): 202 General Appearance: no apparent distress Cardiovascular: normal rate Respiratory/Chest: other - mech vent Abdominal Exam: other - OGT Joellen Parker N.P. Apr 30, 2017 13:31
--- NOTE | 2017-04-30 13:36 | Wound Care Consultation ---
Wound Assessment Wound Assessment #1: Wound Number: #1 Wound Present on Admission: Yes New Wound: No Status Change of Wound: No Wound Location Body Site Modif: mid Wound Location Body Site: sacral - left and right buttocks Wound Type: rash Yang Test: Does not Yang Wound Length: 9.0 Wound Width: 9.0 Percent of Wound Staley/Red: 100 - scattered noted good progress current wound care is effective , decrease in rash. friend of the court in color Wound Drainage Amount: None Wound Drainage Odor: None/Absent Tissue Surrounding Wound: Intact Wound General Appearance: Reddened - friend of the court in color Wound Assessment #2: Wound Number: #2 Wound Present on Admission: Yes New Wound: No Status Change of Wound: No Wound Location Body Site Modif: left, right, lower Wound Location Body Site: leg Wound Type: other - dry, flaky skin - noted good progress decrease in flaky skin noted. Yang Test: Does not Yang Wound Drainage Amount: None Wound Drainage Odor: None/Absent Tissue Surrounding Wound: Intact Wound General Appearance: Asymptomatic, Open to air, Clean/Dry Wound Assessment #3: Wound Number: #3 Wound Present on Admission: No New Wound: Yes Status Change of Wound: No Wound Location Body Site Modif: right Wound Location Body Site: other - cheek Wound Type: scab - superficial Yang Test: Does not Yang Wound Thickness: Partial Thickness Wound Length: 5.0 Wound Width: 2.0 Percent of Wound Staley/Red: 100 - resolving dry superficial scab noted to right cheek . Wound Drainage Amount: None Wound Drainage Odor: None/Absent Tissue Surrounding Wound: Intact Wound General Appearance: Asymptomatic, Open to air, Clean/Dry Wound Assessment #4: Wound Number: #4 Wound Present on Admission: Yes New Wound: No Status Change of Wound: No Wound Location Body Site Modif: left Wound Location Body Site: other - cheek Wound Type: scab Yang Test: Does not Yang Wound Thickness: Partial Thickness Wound Length: 4.0 Wound Width: 2.0 Percent of Wound Staley/Red: 50 - superficial dry scab Percent of Wound Black/Brown: 50 - superficial dry scab Wound Drainage Amount: None Wound Drainage Odor: None/Absent Tissue Surrounding Wound: Intact Wound General Appearance: Open to air, Clean/Dry Wound Comment #1 Sacral, Left and right buttocks rash non Blanchable redness.- noted good progress upon reassessment , current treatment effective skin remains intact. #2 Let and right lower legs with dry flaky skin- noted skin well moisturized , decrease in flaky dry skin. #3 Right cheek dry scab.- Keep clean and dry .open to air #4 Left cheek dry scab.- keep clean and dry. open to air Recommendation -Local wound care per protocol Rash on perineal area with Lotrimin cream -Local wound care per protocol for dryness on both lower leg with A&D ointment -Keep clean and dry -Turn and reposition -Optimize nutrition -Offload both heels -Heel protector on both heels -Low air loss SPR mattress -Assess and f/u with MD for any changes of condition noted to skin. TOBY NICHOLE Apr 30, 2017 13:36
[2017-04-30 13:55] LABS: BASOPHILS % (AUTO) 0.5 % (0.0-2.0); EOSINOPHILS % (AUTO) 6.4 % (0.0-3.0); LYMPHOCYTES % (AUTO) 19.5 % (20.0-45.0); MEAN CORPUSCULAR HEMOGLOBIN 29.6 PG (27.0-31.0); MEAN CORPUSCULAR HGB CONC 33.4 G/DL (32.0-36.0); MEAN CORPUSCULAR VOLUME 89 FL (80-99); MEAN PLATELET VOLUME 5.7 FL (6.5-10.1); MONOCYTES % (AUTO) 7.3 % (1.0-10.0); NEUTROPHILS % (AUTO) 66.2 % (45.0-75.0); PLATELET COUNT 142 K/UL (150-450); RED BLOOD COUNT 2.99 M/UL (4.70-6.10); WHITE BLOOD COUNT 8.9 K/UL (4.8-10.8)
[2017-04-30 14:04] LABS: CREATININE 4.8 mg/dL (0.7-1.2); GLOMERULAR FILTRATION RATE 12.1 mL/min (>60); POTASSIUM 3.4 mEQ/L (3.4-4.9)
[2017-04-30] MEDS ORDERED: D5 1/2NS w/KCl 20mEq 1,000 ML IV SCH (14:30)
--- NOTE | 2017-04-30 15:56 | Nephrology Progress Note ---
Assessment/Plan Problem List: (1) ESRF (end stage renal failure) Assessment: HD tomorrow (2) Aspiration pneumonia (3) Sepsis (4) Respiratory failure (5) Diabetes mellitus (6) Gout Plan HD on 05/01 follow lbs Discussed with RN Vent support Subjective Subjective Pt was seen in ICU Intubated S/P VATS Objective Objective Last 24 Hour Vital Signs Date Time Temp Pulse Resp B/P Pulse Ox O2 Delivery O2 Flow Rate FiO2 04/30/17 15:30 75 18 100/62 100 Mechanical Ventilator 40 04/30/17 15:28 78 21 40 04/30/17 15:00 97.2 67 16 98/57 100 Mechanical Ventilator 40 04/30/17 14:30 75 25 101/61 100 Mechanical Ventilator 40 04/30/17 14:30 77 04/30/17 14:00 97.3 72 20 93/66 100 Mechanical Ventilator 40 04/30/17 13:55 81 16 40 04/30/17 13:45 98.0 80 16 92/61 100 Mechanical Ventilator 40 04/30/17 13:45 40 04/30/17 13:30 85 18 87/54 100 Mechanical Ventilator 40 04/30/17 13:15 87 16 84/51 100 Mechanical Ventilator 40 04/30/17 13:00 91 16 89/58 100 Mechanical Ventilator 40 04/30/17 12:55 92 16 109/63 100 Mechanical Ventilator 40 04/30/17 12:50 97.0 85 16 122/88 100 Mechanical Ventilator 40 04/30/17 12:16 40 04/30/17 11:00 73 18 132/62 100 Mechanical Ventilator 40 04/30/17 10:30 72 17 127/69 100 Mechanical Ventilator 40 04/30/17 10:00 72 16 133/64 100 Mechanical Ventilator 40 04/30/17 09:30 69 16 120/64 100 Mechanical Ventilator 40 04/30/17 09:02 67 16 40 04/30/17 09:00 69 16 113/55 100 Mechanical Ventilator 40 04/30/17 08:30 68 18 118/68 100 Mechanical Ventilator 40 04/30/17 08:00 40 04/30/17 08:00 69 04/30/17 08:00 97.3 79 20 115/66 100 Mechanical Ventilator 40 04/30/17 07:06 74 16 40 04/30/17 07:00 74 16 115/66 100 Mechanical Ventilator 40 24/17 06:30 70 16 119/61 100 Mechanical Ventilator 40 724/17 06:00 70 16 117/57 100 Mechanical Ventilator 40 724/17 05:30 72 16 117/61 100 Mechanical Ventilator 40 724/17 05:07 88 16 40 724/17 05:00 71 16 109/60 100 Mechanical Ventilator 40 724/17 04:30 71 16 114/56 100 Mechanical Ventilator 40 717 04:00 40 04/30/17 04:00 73 724 04:00 71 16 114/56 100 Mechanical Ventilator 40 724/17 03:30 77 16 120/70 100 Mechanical Ventilator 40 7/ 03:05 79 16 40 04/30/17 03:00 73 16 119/66 100 Mechanical Ventilator 40 04/30/17 02:30 75 16 119/56 100 Mechanical Ventilator 40 24/ 02:00 75 16 115/54 100 Mechanical Ventilator 40 04/30/17 01:30 74 16 115/57 100 Mechanical Ventilator 40 04/30/17 01:02 78 16 40 04/30/17 01:00 80 17 132/50 100 Mechanical Ventilator 40 04/30/17 00:30 65 17 108/61 100 Mechanical Ventilator 40 04/30/17 00:29 86/49 04/30/17 00:00 40 04/30/17 00:00 80 04/30/17 00:00 97.9 62 16 88/49 100 Mechanical Ventilator 40 04/29/17 23:11 99/49 04/29/17 23:00 62 16 93/45 100 Mechanical Ventilator 40 04/29/17 22:55 64 16 40 7/ 22:30 66 16 97/50 100 Mechanical Ventilator 40 7 22:00 66 16 99/49 100 Mechanical Ventilator 40 7/17 21:30 66 16 81/44 100 Mechanical Ventilator 40 7/17 21:00 63 16 113/52 100 Mechanical Ventilator 40 7/17 20:55 65 17 40 7/17 20:30 65 17 79/41 100 Mechanical Ventilator 40 7/17 20:00 67 04/29/17 20:00 40 04/29/17 20:00 98.3 60 16 85/46 100 Mechanical Ventilator 40 04/29/17 19:06 74 17 40 04/29/17 19:00 63 16 113/52 100 Mechanical Ventilator 40 04/29/17 18:35 Mechanical Ventilator 40 04/29/17 18:00 53 16 105/54 100 Mechanical Ventilator 40 04/29/17 17:13 67 16 40 04/29/17 17:00 63 16 84/48 100 Mechanical Ventilator 40 04/29/17 16:33 85/45 04/29/17 16:00 60 04/29/17 16:00 97.3 74 16 108/55 100 Mechanical Ventilator 40 04/29/17 16:00 40 Intake and Output 04/29/17 04/30/17 19:00 07:00 Intake Total 225 ml 1016.295 ml Output Total 6700 ml Balance -6475 ml 1016.295 ml IV Total 1016.295 ml Tube Feeding 225 ml 0 ml Hemodialysis UF 6700 ml # Bowel Movements 6 Laboratory Tests 04/29/17 19:24: Sodium Level 140, Potassium Level 3.3L, Chloride Level 97L, Carbon Dioxide Level 30, Anion Gap 13, Blood Urea Nitrogen 41#H, Creatinine 3.9H, Estimat Glomerular Filtration Rate 15.4, Glucose Level 93, Calcium Level 8.1L 04/30/17 05:00: Sodium Level 139, Potassium Level 3.3L, Chloride Level 96L, Carbon Dioxide Level 28, Anion Gap 15, Blood Urea Nitrogen 43H, Creatinine 4.5H, Estimat Glomerular Filtration Rate 13.0, Glucose Level 102, Calcium Level 8.1L, White Blood Count 5.9, Red Blood Count 3.10L, Hemoglobin 9.3L, Hematocrit 27.5L, Mean Corpuscular Volume 89, Mean Corpuscular Hemoglobin 30.0, Mean Corpuscular Hemoglobin Concent 33.8, Red Cell Distribution Width 15.3H, Platelet Count 102L , Mean Platelet Volume 6.0L, Neutrophils (%) (Auto) 64.7, Lymphocytes (%) (Auto ) 18.7L, Monocytes (%) (Auto) 7.9, Eosinophils (%) (Auto) 8.2H, Basophils (%) ( Auto) 0.6, Prothrombin Time 10.4, Prothromb Time International Ratio 1.0, Activated Partial Thromboplast Time 32, Phosphorus Level 3.2, Magnesium Level 2.1, Total Bilirubin 0.6, Aspartate Amino Transf (AST/SGOT) 11, Alanine Aminotransferase (ALT/SGPT) 5, Alkaline Phosphatase 145H, Total Protein 5.2L, Albumin 2.3L, Globulin 2.9, Albumin/Globulin Ratio 0.7L 04/30/17 13:35: Sodium Level 137, Potassium Level 3.4, Chloride Level 94L, Carbon Dioxide Level 27, Anion Gap 16H, Blood Urea Nitrogen 46H, Creatinine 4.8H, Estimat Glomerular Filtration Rate 12.1, Glucose Level 124H, Calcium Level 8.0L, White Blood Count 8.9#, Red Blood Count 2.99L, Hemoglobin 8.9L, Hematocrit 26.5L, Mean Corpuscular Volume 89, Mean Corpuscular Hemoglobin 29.6, Mean Corpuscular Hemoglobin Concent 33.4, Red Cell Distribution Width 15.0H, Platelet Count 142L , Mean Platelet Volume 5.7L, Neutrophils (%) (Auto) 66.2, Lymphocytes (%) (Auto ) 19.5L, Monocytes (%) (Auto) 7.3, Eosinophils (%) (Auto) 6.4H, Basophils (%) ( Auto) 0.5 Height (Feet): 5 Height (Inches): 8.00 Weight (Pounds): 202 Cardiovascular: normal rate Respiratory/Chest: rhonchi - bilaterally Extremities: trace edema HANG HODGE Apr 30, 2017 15:56
[2017-04-30] MEDS ORDERED: D5 1/2NS 1000ml IV ONE (16:19)
[2017-04-30] MEDS ORDERED: Tubing IV Secondary IV ONE (16:19)
[2017-04-30] MEDS: D5 1/2NS 1,000 ML IV SCH (20:00)
[2017-04-30] MEDS: Morphine Sulfate 2mg/ml Inj IVP PRN (22:27)
[2017-04-30] MEDS: Dyna-Hex 2% Top Sol 8oz TOPIC SCH (22:38)
[2017-05-01] VITALS (23 sets, daily range): BP systolic 86–165; BP diastolic 43–84
[2017-05-01] MEDS ORDERED: Heparin Sod 1000 units/ml 10ml IV ONE (06:00)
[2017-05-01] MEDS: Piperacillin/Tazobactam 2.25 GM in D5W 55 ML IVPB SCH ×3 (06:05→22:12)
[2017-05-01 06:35] LABS: MEAN CORPUSCULAR HEMOGLOBIN 28.8 PG (27.0-31.0); MEAN CORPUSCULAR VOLUME 90 FL (80-99); PLATELET COUNT 171 K/UL (150-450); RED BLOOD COUNT 2.44 M/UL (4.70-6.10); RED CELL DISTRIBUTION WIDTH 15.8 % (11.6-14.8); WHITE BLOOD COUNT 8.9 K/UL (4.8-10.8)
[2017-05-01 07:25] LABS: CALCIUM 8.3 mg/dL (8.6-10.2); CREATININE 5.3 mg/dL (0.7-1.2); GLOMERULAR FILTRATION RATE 10.8 mL/min (>60); POTASSIUM 4.3 mEQ/L (3.4-4.9)
[2017-05-01 08:12] LABS: MAGNESIUM 2.2 mg/dL (1.7-2.5); PHOSPHORUS 4.6 mg/dL (2.5-4.8)
[2017-05-01] MEDS ORDERED: Amikacin 250 MG in NS 55 ML IV SCH (08:15)
[2017-05-01] MEDS: Vitamin A&D Oint 2oz Tube TOPIC SCH ×2 (09:06→21:30)
[2017-05-01] MEDS: Pantoprazole Inj IVP SCH ×2 (09:06→21:29)
[2017-05-01] MEDS: Morphine Sulfate 2mg/ml Inj IVP PRN ×3 (09:06→21:31)
--- NOTE | 2017-05-01 09:08 | Pulmonolgy Critical Care Note ---
Critical Care - Asmt/Plan Problems: (1) Acute respiratory failure (2) Hemorrhagic shock (3) Aspiration pneumonia (4) ESRF (end stage renal failure) (5) Benign prostate hyperplasia (6) Gout (7) Diabetes mellitus (8) COPD (chronic obstructive pulmonary disease) Respiratory: monitor respiratory rate, adjust FIO2, CXR, weaning trial Cardiac: continue to monitor HR/BP Renal: F/U I&O, keep IV fluid, check electrolytes Infectious Disease: check cultures, continue antibiotics Gastrointestinal: continue feedings/current rate Endocrine: monitor blood sugar, check TSH, check HgA1C, continue sliding scale insulin Hematologic: monitor H/H, transfuse if hgb<8.5 Neurologic: PRN Ativan, PRN Morphine, keep patient comfortable Affect: PRN ativan Disposition: keep in ICU Notes Reviewed: manager special events, cardio, 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, consultants, caseworkerlottery office manager - Objective Last 24 Hour Vital Signs Date Time Temp Pulse Resp B/P Pulse Ox O2 Delivery O2 Flow Rate FiO2 05/01/17 08:00 117/63 05/01/17 07:21 64 18 40 05/01/17 07:00 118/63 05/01/17 06:00 115/61 05/01/17 05:00 119/56 05/01/17 04:59 63 16 40 05/01/17 04:00 124/58 05/01/17 04:00 69 05/01/17 04:00 40 05/01/17 03:20 63 16 40 05/01/17 03:09 79/49 05/01/17 03:00 65 20 87/48 100 Mechanical Ventilator 40 05/01/17 02:00 68 20 88/51 100 Mechanical Ventilator 40 05/01/17 01:00 65 20 86/43 100 Mechanical Ventilator 40 05/01/17 00:49 66 16 40 05/01/17 00:00 69 05/01/17 00:00 97.8 62 18 90/45 100 Mechanical Ventilator 40 05/01/17 00:00 40 04/30/17 23:30 68 16 40 04/30/17 23:00 64 20 87/48 100 Mechanical Ventilator 40 04/30/17 22:00 68 19 96/55 100 Mechanical Ventilator 40 04/30/17 21:11 67 16 40 04/30/17 21:00 65 20 93/56 100 Mechanical Ventilator 40 7/24/17 20:00 98.0 69 18 82/49 100 Mechanical Ventilator 40 7/24/17 20:00 40 7/24/17 20:00 70 7/24/17 19:10 71 16 40 7/24/17 19:00 97.5 70 20 113/62 95 Mechanical Ventilator 40 7/24/17 18:30 97.5 69 20 107/57 100 Mechanical Ventilator 40 7/24/17 18:00 66 16 79/46 100 Mechanical Ventilator 40 724/17 17:30 69 18 77/45 100 Mechanical Ventilator 40 724/17 17:09 74 18 40 7/24/17 17:00 71 16 93/71 100 Mechanical Ventilator 40 7/24/17 16:30 97.3 66 16 103/54 100 Mechanical Ventilator 40 724/17 16:00 73 7/24/17 16:00 97.3 66 16 103/54 100 Mechanical Ventilator 40 724/17 16:00 40 04/30/17 15:30 75 18 100/62 100 Mechanical Ventilator 40 7/17 15:28 78 21 40 724/17 15:00 97.2 67 16 98/57 100 Mechanical Ventilator 40 724/17 14:30 75 25 101/61 100 Mechanical Ventilator 40 7/17 14:30 77 7/17 14:00 97.3 72 20 93/66 100 Mechanical Ventilator 40 724/17 13:55 81 16 40 7/24/17 13:45 98.0 80 16 92/61 100 Mechanical Ventilator 40 24/17 13:45 40 724/17 13:30 85 18 87/54 100 Mechanical Ventilator 40 724/17 13:15 87 16 84/51 100 Mechanical Ventilator 40 724/17 13:00 91 16 89/58 100 Mechanical Ventilator 40 724/17 12:55 92 16 109/63 100 Mechanical Ventilator 40 724/17 12:50 97.0 85 16 122/88 100 Mechanical Ventilator 40 7/24/17 12:16 40 7/24/17 11:00 73 18 132/62 100 Mechanical Ventilator 40 7/24/17 10:30 72 17 127/69 100 Mechanical Ventilator 40 724/17 10:00 72 16 133/64 100 Mechanical Ventilator 40 724/17 09:30 69 16 120/64 100 Mechanical Ventilator 40 Status: awake Condition: critical HEENT: atraumatic Lungs: clear Heart: HR/BP unstable Abdomen: soft, active bowel sounds, feeding tube Extremities: edema Decubiti: location Critical Care - Subjective ROS Limited/Unobtainable: Yes ICU Day: 8 Intubation Day: 8 Interval Events: had thoracoscopy yesterday, has trapped lung EKG Rhythm: Sinus Rhythm FI02: 40 Vent Support Breath Rate: 16 Vent Support Mode: AC Vent Tidal Volume: 700 Sputum Amount: None PEEP: 5.0 PIP: 22 Tube Feeding Amount: 40 I&O: Intake and Output 04/30/17 05/01/17 18:59 06:59 Intake Total 789.905 ml 1055 ml Output Total 560 ml Balance 229.905 ml 1055 ml IV Total 789.905 ml 645 ml Tube Feeding 410 ml Chest Tube Drainage Total 550 ml Estimated Blood Loss 10 ml # Voids 2 # Bowel Movements 1 CXR: right lung looks better ET-Tube: 7.5 ET Position: 23 Labs: Laboratory Tests Test 04/30/17 13:35 05/01/17 06:10 White Blood Count 8.9 K/UL (4.8-10.8) # 8.9 K/UL (4.8-10.8) Red Blood Count 2.99 M/UL (4.70-6.10) L 2.44 M/UL (4.70-6.10) L Hemoglobin 8.9 G/DL (14.2-18.0) L 7.0 G/DL (14.2-18.0) L Hematocrit 26.5 % (42.0-52.0) L 21.9 % (42.0-52.0) L Mean Corpuscular Volume 89 FL (80-99) 90 FL (80-99) Mean Corpuscular Hemoglobin 29.6 PG (27.0-31.0) 28.8 PG (27.0-31.0) Mean Corpuscular Hemoglobin Concent 33.4 G/DL (32.0-36.0) 32.0 G/DL (32.0-36.0) Red Cell Distribution Width 15.0 % (11.6-14.8) H 15.8 % (11.6-14.8) H Platelet Count 142 K/UL (150-450) L 171 K/UL (150-450) Mean Platelet Volume 5.7 FL (6.5-10.1) L 5.0 FL (6.5-10.1) L Neutrophils (%) (Auto) 66.2 % (45.0-75.0) % (45.0-75.0) Lymphocytes (%) (Auto) 19.5 % (20.0-45.0) L % (20.0-45.0) Monocytes (%) (Auto) 7.3 % (1.0-10.0) % (1.0-10.0) Eosinophils (%) (Auto) 6.4 % (0.0-3.0) H % (0.0-3.0) Basophils (%) (Auto) 0.5 % (0.0-2.0) % (0.0-2.0) Sodium Level 137 mEQ/L (135-145) 139 mEQ/L (135-145) Potassium Level 3.4 mEQ/L (3.4-4.9) 4.3 mEQ/L (3.4-4.9) Chloride Level 94 mEQ/L (98-107) L 99 mEQ/L (98-107) Carbon Dioxide Level 27 mEQ/L (20-30) 26 mEQ/L (20-30) Anion Gap 16 (5-15) H 14 (5-15) Blood Urea Nitrogen 46 mg/dL (7-23) H 48 mg/dL (7-23) H Creatinine 4.8 mg/dL (0.7-1.2) H 5.3 mg/dL (0.7-1.2) H Estimat Glomerular Filtration Rate 12.1 mL/min (>60) 10.8 mL/min (>60) Glucose Level 124 mg/dL (74-106) H 151 mg/dL (74-106) H Calcium Level 8.0 mg/dL (8.6-10.2) L 8.3 mg/dL (8.6-10.2) L Neutrophils % (Manual) Pending Lymphocytes % (Manual) Pending Platelet Estimate Pending Platelet Morphology Pending Phosphorus Level 4.6 mg/dL (2.5-4.8) Magnesium Level 2.2 mg/dL (1.7-2.5) FORD FANG May 01, 2017 09:08
--- NOTE | 2017-05-01 09:36 | Infectious Diseases Prog Note ---
Assessment/Plan Assessment/Plan A; Sepsis Pneumonia GI bleeding ESRD on HD DM Respiratory failure Anemia Pleural effusion s/p VATS P: Cont patient on IV vancomycin and Zosyn day # 8 May discontinue Amikacin Subjective Gastrointestinal/Abdominal: Reports: constipation, other - upper abdominal pain Allergies: Coded Allergies: No Known Allergies (Verified , 02/08/07) Objective Vital Signs Last 24 Hour Vital Signs Date Time Temp Pulse Resp B/P Pulse Ox O2 Delivery O2 Flow Rate FiO2 05/01/17 08:00 117/63 05/01/17 07:21 64 18 40 05/01/17 07:00 118/63 05/01/17 06:00 115/61 05/01/17 05:00 119/56 05/01/17 04:59 63 16 40 05/01/17 04:00 124/58 05/01/17 04:00 69 05/01/17 04:00 40 05/01/17 03:20 63 16 40 05/01/17 03:09 79/49 05/01/17 03:00 65 20 87/48 100 Mechanical Ventilator 40 05/01/17 02:00 68 20 88/51 100 Mechanical Ventilator 40 05/01/17 01:00 65 20 86/43 100 Mechanical Ventilator 40 05/01/17 00:49 66 16 40 05/01/17 00:00 69 05/01/17 00:00 97.8 62 18 90/45 100 Mechanical Ventilator 40 05/01/17 00:00 40 04/30/17 23:30 68 16 40 04/30/17 23:00 64 20 87/48 100 Mechanical Ventilator 40 04/30/17 22:00 68 19 96/55 100 Mechanical Ventilator 40 04/30/17 21:11 67 16 40 04/30/17 21:00 65 20 93/56 100 Mechanical Ventilator 40 04/30/17 20:00 98.0 69 18 82/49 100 Mechanical Ventilator 40 04/30/17 20:00 40 04/30/17 20:00 70 04/30/17 19:10 71 16 40 04/30/17 19:00 97.5 70 20 113/62 95 Mechanical Ventilator 40 04/30/17 18:30 97.5 69 20 107/57 100 Mechanical Ventilator 40 04/30/17 18:00 66 16 79/46 100 Mechanical Ventilator 40 04/30/17 17:30 69 18 77/45 100 Mechanical Ventilator 40 04/30/17 17:09 74 18 40 04/30/17 17:00 71 16 93/71 100 Mechanical Ventilator 40 04/30/17 16:30 97.3 66 16 103/54 100 Mechanical Ventilator 40 04/30/17 16:00 73 04/30/17 16:00 97.3 66 16 103/54 100 Mechanical Ventilator 40 04/30/17 16:00 40 04/30/17 15:30 75 18 100/62 100 Mechanical Ventilator 40 04/30/17 15:28 78 21 40 04/30/17 15:00 97.2 67 16 98/57 100 Mechanical Ventilator 40 04/30/17 14:30 75 25 101/61 100 Mechanical Ventilator 40 04/30/17 14:30 77 04/30/17 14:00 97.3 72 20 93/66 100 Mechanical Ventilator 40 04/30/17 13:55 81 16 40 04/30/17 13:45 98.0 80 16 92/61 100 Mechanical Ventilator 40 04/30/17 13:45 40 04/30/17 13:30 85 18 87/54 100 Mechanical Ventilator 40 04/30/17 13:15 87 16 84/51 100 Mechanical Ventilator 40 04/30/17 13:00 91 16 89/58 100 Mechanical Ventilator 40 04/30/17 12:55 92 16 109/63 100 Mechanical Ventilator 40 04/30/17 12:50 97.0 85 16 122/88 100 Mechanical Ventilator 40 04/30/17 12:16 40 04/30/17 11:00 73 18 132/62 100 Mechanical Ventilator 40 04/30/17 10:30 72 17 127/69 100 Mechanical Ventilator 40 04/30/17 10:00 72 16 133/64 100 Mechanical Ventilator 40 Height (Feet): 5 Height (Inches): 8.00 Weight (Pounds): 205 General Appearance: no acute distress HEENT: other - orally intubated Respiratory/Chest: lungs clear, other - R chest tube, on ventilator Cardiovascular: normal rate, other - IJ central line Abdomen: soft, non tender Extremities: other - trace edema of legs Neurologic/Psychiatric: alert, oriented x 3, responsive Laboratory Tests Test 04/30/17 13:35 05/01/17 06:10 White Blood Count 8.9 K/UL (4.8-10.8) # 8.9 K/UL (4.8-10.8) Red Blood Count 2.99 M/UL (4.70-6.10) L 2.44 M/UL (4.70-6.10) L Hemoglobin 8.9 G/DL (14.2-18.0) L 7.0 G/DL (14.2-18.0) L Hematocrit 26.5 % (42.0-52.0) L 21.9 % (42.0-52.0) L Mean Corpuscular Volume 89 FL (80-99) 90 FL (80-99) Mean Corpuscular Hemoglobin 29.6 PG (27.0-31.0) 28.8 PG (27.0-31.0) Mean Corpuscular Hemoglobin Concent 33.4 G/DL (32.0-36.0) 32.0 G/DL (32.0-36.0) Red Cell Distribution Width 15.0 % (11.6-14.8) H 15.8 % (11.6-14.8) H Platelet Count 142 K/UL (150-450) L 171 K/UL (150-450) Mean Platelet Volume 5.7 FL (6.5-10.1) L 5.0 FL (6.5-10.1) L Neutrophils (%) (Auto) 66.2 % (45.0-75.0) % (45.0-75.0) Lymphocytes (%) (Auto) 19.5 % (20.0-45.0) L % (20.0-45.0) Monocytes (%) (Auto) 7.3 % (1.0-10.0) % (1.0-10.0) Eosinophils (%) (Auto) 6.4 % (0.0-3.0) H % (0.0-3.0) Basophils (%) (Auto) 0.5 % (0.0-2.0) % (0.0-2.0) Sodium Level 137 mEQ/L (135-145) 139 mEQ/L (135-145) Potassium Level 3.4 mEQ/L (3.4-4.9) 4.3 mEQ/L (3.4-4.9) Chloride Level 94 mEQ/L (98-107) L 99 mEQ/L (98-107) Carbon Dioxide Level 27 mEQ/L (20-30) 26 mEQ/L (20-30) Anion Gap 16 (5-15) H 14 (5-15) Blood Urea Nitrogen 46 mg/dL (7-23) H 48 mg/dL (7-23) H Creatinine 4.8 mg/dL (0.7-1.2) H 5.3 mg/dL (0.7-1.2) H Estimat Glomerular Filtration Rate 12.1 mL/min (>60) 10.8 mL/min (>60) Glucose Level 124 mg/dL (74-106) H 151 mg/dL (74-106) H Calcium Level 8.0 mg/dL (8.6-10.2) L 8.3 mg/dL (8.6-10.2) L Neutrophils % (Manual) Pending Lymphocytes % (Manual) Pending Platelet Estimate Pending Platelet Morphology Pending Phosphorus Level 4.6 mg/dL (2.5-4.8) Magnesium Level 2.2 mg/dL (1.7-2.5) Current Medications Medications (Trade) Dose Ordered Sig/[place] Route PRN Reason Start Time Stop Time Status Last Admin Dose Admin Acetaminophen (Tylenol) 650 mg Q4H PRN ORAL fever 04/23/17 15:15 05/23/17 15:14 Amikacin Protocol (Amikacin pharmacy to dose) 1 ea DAILY PRN MISC Per rx protocol 04/30/17 07:15 05/30/17 07:14 Chlorhexidine Gluconate (Basilia-Hex 2%) 1 applic QHS TOPIC 04/26/17 21:00 05/26/17 20:59 04/30/17 22:38 Clotrimazole (Lotrimin) 1 applic EVERY 12 HOURS TOPIC 04/24/17 09:00 05/24/17 08:59 05/01/17 09:06 Dextrose STAT PRN IV Hypoglycemia 04/23/17 15:15 05/23/17 15:14 Diphenhydramine HCl (Benadryl) 25 mg Q6H PRN ORAL Itching/Pruritis 04/23/17 15:15 05/23/17 15:14 04/27/17 20:56 Morphine Sulfate 2 mg 2 mg Q4H PRN IVP pain scale 4-6 04/30/17 13:00 05/07/17 12:59 05/01/17 09:06 Nitroglycerin (Ntg) 0.4 mg Q5M X 3 DOSES PRN SL Prn Chest Pain 04/23/17 15:15 05/23/17 15:14 Norepinephrine Bitartrate/ Dextrose (Levophed/D5W) 250 ml @ 0 mls/hr Q24H IV 04/23/17 23:15 05/23/17 23:14 05/01/17 03:09 Ondansetron HCl (Zofran) 4 mg Q6H PRN IVP Nausea & Vomiting 04/23/17 15:15 05/23/17 15:14 05/01/17 09:06 Pantoprazole (Protonix) 40 mg EVERY 12 HOURS IVP 04/28/17 09:00 05/28/17 08:59 05/01/17 09:06 Piperacillin Sod/ Tazobactam Sod/ Dextrose (Zosyn/D5W) 55 ml @ 110 mls/hr Q8HR IVPB 04/29/17 22:00 05/06/17 21:59 05/01/17 06:05 Polyethylene Glycol (Miralax) 17 gm HSPRN PRN ORAL Constipation 04/23/17 15:15 05/23/17 15:14 04/29/17 00:32 Simethicone 80 mg 80 mg EVERY 6 HOURS PRN GT bloated, gas,abdominal discomt 04/28/17 13:15 05/28/17 13:14 Sodium Chloride (Sodium Chloride 1000ml bag) 1,000 ml @ 500 mls/hr Q2H PRN IVLG sbp<90 during hd 05/01/17 06:00 05/01/17 23:59 Vancomycin HCl (Vanco rx to dose) 1 ea DAILY PRN MISC Per rx protocol 04/24/17 13:45 05/24/17 13:44 Vitamin A/Vitamin D (A & D Oint) 1 applic EVERY 12 HOURS TOPIC 04/24/17 09:00 05/24/17 08:59 05/01/17 09:06 GHANSHYAM HODGE May 01, 2017 09:36
--- NOTE | 2017-05-01 10:13 | Diagnostic Imaging Report ---
Indication: POST-OP status post VATS, status post endotracheal tube placement Technique: One view of the chest Comparison: 04/29/2017 Findings: There is now a right lateral basilar pneumothorax. There is a chest tube in place. There is minimal subcutaneous emphysema just outside the chest wall. Previously demonstrated right basilar opacity is much smaller. There is residual masslike opacity in the right mid to lower lung, as well as persistent parenchymal opacity medial to this. Right jugular central venous catheter, right subclavian/innominate venous stent again noted. Left lung and pleural space are clear Impression: Right lateral basilar pneumothorax now occupying the space previously occupied by right basilar opacity. Presumably an extra-axial pneumothorax related to interim VATS and pleural fluid evacuation. Other stable findings, as described Satisfactory endotracheal intubation
[2017-05-01 10:50] LABS: EOSINOPHILS % (MANUAL) 4 % (0-3); LYMPHOCYTES % (MANUAL) 20 % (20-45); NEUTROPHILS % (MANUAL) 66 % (45-75); TOTAL CELLS COUNTED 100
[2017-05-01 10:53] LABS: BAND NEUTROPHILS % (MANUAL) 0 % (0-8); BASOPHILS % (MANUAL) 0 % (0-2); PLATELET ESTIMATE ADEQUATE; PLATELET MORPHOLOGY NORMAL
[2017-05-01 10:54] LABS: ANISOCYTOSIS 1+
--- NOTE | 2017-05-01 10:59 | 48 Hour Post Anesthesia Eval ---
Post Anesthesia Evaluation Procedure: vats Date of Evaluation: May 01, 2017 Time of Evaluation: 13:30 Blood Pressure Systolic: 118 0: 57 Pulse Rate: 84 Respiratory Rate: 20 O2 Sat by Pulse Oximetry: 97 Airway: other - Patient ventilated with plan to ween today Nausea: No Vomiting: No Pain Intensity: 4 Hydration Status: adequate Cardiopulmonary Status: Currently stable Mental Status/LOC: other - Remains intubated. Plan to ween today. Patient is alert and oriented and able to communicate well. Follow-up Care/Observations: As per surgery Post-Anesthesia Complications: No anesthetic complication Follow-up care needed: N/A NI PRADHAN M.D. May 01, 2017 10:59
[2017-05-01] MEDS: Simethicone 80mg tab GT PRN (14:00)
--- NOTE | 2017-05-01 15:35 | GI Progress Note ---
Assessment/Plan Problems: (1) Hemorrhagic shock SNOMED: 012560 (2) Diabetes mellitus ICD Codes: E11.9 - Type 2 diabetes mellitus without complications SNOMED: 71736576 (3) Gastrointestinal hemorrhage ICD Codes: K92.2 - Gastrointestinal hemorrhage, unspecified SNOMED: 87105066 (4) Sepsis ICD Codes: A41.9 - Sepsis, unspecified organism SNOMED: 48563950 (5) Acute respiratory failure ICD Codes: J96.00 - Acute respiratory failure, unspecified whether with hypoxia or hypercapnia SNOMED: 81714853 Status: unchanged Status Narrative Discussed with Dr. Back. Assessment/Plan SUMMARY OF FINDINGS: Billroth II anastomosis with a large ulceration at the anastomotic area without any adherent clot or visible vessel. RECOMMENDATIONS: 1. Follow biopsy results. >> negative for H. Pylori 2. Start TFs per dietary 3. Continue on Protonix. 4. Monitor hemoglobin and hematocrit and transfuse to keep hemoglobin above 7. We will follow. monitor H&H, transfuse prn PPI BID s/p VATS fu surgical recs Subjective Subjective limited Objective Last 24 Hour Vital Signs Date Time Temp Pulse Resp B/P Pulse Ox O2 Delivery O2 Flow Rate FiO2 05/01/17 14:00 63 20 118/58 100 Mechanical Ventilator 100 05/01/17 13:28 98.5 62 20 119/59 100 Mechanical Ventilator 100 05/01/17 13:00 65 20 114/56 100 Mechanical Ventilator 100 05/01/17 12:48 74 28 40 05/01/17 12:00 98.0 65 19 105/84 100 Mechanical Ventilator 100 05/01/17 12:00 100 05/01/17 12:00 68 05/01/17 11:02 68 19 40 05/01/17 11:00 71 20 116/56 100 Mechanical Ventilator 100 05/01/17 10:59 84 20 97 05/01/17 10:00 66 21 119/61 100 Mechanical Ventilator 100 05/01/17 09:15 63 19 40 05/01/17 09:00 118/57 05/01/17 09:00 66 22 114/63 100 Mechanical Ventilator 100 05/01/17 08:00 100 05/01/17 08:00 117/63 05/01/17 08:00 98.0 67 23 104/72 100 Mechanical Ventilator 100 05/01/17 08:00 66 05/01/17 07:21 64 18 40 05/01/17 07:00 66 24 99/51 100 Mechanical Ventilator 40 05/01/17 07:00 118/63 05/01/17 06:00 65 19 87/48 100 Mechanical Ventilator 40 05/01/17 06:00 115/61 05/01/17 05:00 119/56 05/01/17 04:59 63 16 40 05/01/17 04:00 124/58 05/01/17 04:00 69 05/01/17 04:00 40 05/01/17 03:20 63 16 40 05/01/17 03:09 79/49 05/01/17 03:00 65 20 87/48 100 Mechanical Ventilator 40 05/01/17 02:00 68 20 88/51 100 Mechanical Ventilator 40 05/01/17 01:00 65 20 86/43 100 Mechanical Ventilator 40 05/01/17 00:49 66 16 40 05/01/17 00:00 69 05/01/17 00:00 97.8 62 18 90/45 100 Mechanical Ventilator 40 05/01/17 00:00 40 04/30/17 23:30 68 16 40 04/30/17 23:00 64 20 87/48 100 Mechanical Ventilator 40 04/30/17 22:00 68 19 96/55 100 Mechanical Ventilator 40 04/30/17 21:11 67 16 40 04/30/17 21:00 65 20 93/56 100 Mechanical Ventilator 40 04/30/17 20:00 98.0 69 18 82/49 100 Mechanical Ventilator 40 04/30/17 20:00 40 04/30/17 20:00 70 04/30/17 19:10 71 16 40 04/30/17 19:00 97.5 70 20 113/62 95 Mechanical Ventilator 40 04/30/17 18:30 97.5 69 20 107/57 100 Mechanical Ventilator 40 04/30/17 18:00 66 16 79/46 100 Mechanical Ventilator 40 04/30/17 17:30 69 18 77/45 100 Mechanical Ventilator 40 04/30/17 17:09 74 18 40 04/30/17 17:00 71 16 93/71 100 Mechanical Ventilator 40 04/30/17 16:30 97.3 66 16 103/54 100 Mechanical Ventilator 40 04/30/17 16:00 73 04/30/17 16:00 97.3 66 16 103/54 100 Mechanical Ventilator 40 04/30/17 16:00 40 Intake and Output 04/30/17 05/01/17 19:00 07:00 Intake Total 621.72 ml 1140 ml Output Total 560 ml 250 ml Balance 61.72 ml 890 ml IV Total 596.72 ml 715 ml Tube Feeding 25 ml 425 ml Chest Tube Drainage Total 550 ml 250 ml Estimated Blood Loss 10 ml # Voids 2 # Bowel Movements 1 Laboratory Tests Test 05/01/17 06:10 White Blood Count 8.9 K/UL (4.8-10.8) Red Blood Count 2.44 M/UL (4.70-6.10) L Hemoglobin 7.0 G/DL (14.2-18.0) L Hematocrit 21.9 % (42.0-52.0) L Mean Corpuscular Volume 90 FL (80-99) Mean Corpuscular Hemoglobin 28.8 PG (27.0-31.0) Mean Corpuscular Hemoglobin Concent 32.0 G/DL (32.0-36.0) Red Cell Distribution Width 15.8 % (11.6-14.8) H Platelet Count 171 K/UL (150-450) Mean Platelet Volume 5.0 FL (6.5-10.1) L Neutrophils (%) (Auto) % (45.0-75.0) Lymphocytes (%) (Auto) % (20.0-45.0) Monocytes (%) (Auto) % (1.0-10.0) Eosinophils (%) (Auto) % (0.0-3.0) Basophils (%) (Auto) % (0.0-2.0) Differential Total Cells Counted 100 Neutrophils % (Manual) 66 % (45-75) Lymphocytes % (Manual) 20 % (20-45) Monocytes % (Manual) 10 % (1-10) Eosinophils % (Manual) 4 % (0-3) H Basophils % (Manual) 0 % (0-2) Band Neutrophils 0 % (0-8) Platelet Estimate Adequate Platelet Morphology Normal Anisocytosis 1+ Sodium Level 139 mEQ/L (135-145) Potassium Level 4.3 mEQ/L (3.4-4.9) Chloride Level 99 mEQ/L (98-107) Carbon Dioxide Level 26 mEQ/L (20-30) Anion Gap 14 (5-15) Blood Urea Nitrogen 48 mg/dL (7-23) H Creatinine 5.3 mg/dL (0.7-1.2) H Estimat Glomerular Filtration Rate 10.8 mL/min (>60) Glucose Level 151 mg/dL (74-106) H Calcium Level 8.3 mg/dL (8.6-10.2) L Phosphorus Level 4.6 mg/dL (2.5-4.8) Magnesium Level 2.2 mg/dL (1.7-2.5) Height (Feet): 5 Height (Inches): 8.00 Weight (Pounds): 205 General Appearance: no apparent distress Cardiovascular: normal rate Respiratory/Chest: normal breath sounds, other - mech vent Abdominal Exam: other - ogt Joellen Parker N.P. May 01, 2017 15:35
--- NOTE | 2017-05-01 16:19 | Nephrology Progress Note ---
Assessment/Plan Problem List: (1) ESRF (end stage renal failure) Assessment: HD tomorrow (2) Aspiration pneumonia (3) Sepsis (4) Respiratory failure (5) Diabetes mellitus (6) Gout Plan HDas tolerated follow lbs Discussed with RN Vent support Subjective Subjective Pt was seen in ICU Intubated S/P VATS Objective Objective Last 24 Hour Vital Signs Date Time Temp Pulse Resp B/P Pulse Ox O2 Delivery O2 Flow Rate FiO2 05/01/17 15:35 100 05/01/17 15:33 65 18 40 05/01/17 15:24 69 18 40 05/01/17 14:00 63 20 118/58 100 Mechanical Ventilator 100 05/01/17 13:28 98.5 62 20 119/59 100 Mechanical Ventilator 100 05/01/17 13:00 65 20 114/56 100 Mechanical Ventilator 100 05/01/17 12:48 74 28 40 05/01/17 12:00 98.0 65 19 105/84 100 Mechanical Ventilator 100 05/01/17 12:00 100 05/01/17 12:00 68 05/01/17 11:02 68 19 40 05/01/17 11:00 71 20 116/56 100 Mechanical Ventilator 100 05/01/17 10:59 84 20 97 05/01/17 10:00 66 21 119/61 100 Mechanical Ventilator 100 05/01/17 09:15 63 19 40 05/01/17 09:00 118/57 05/01/17 09:00 66 22 114/63 100 Mechanical Ventilator 100 05/01/17 08:00 100 05/01/17 08:00 117/63 05/01/17 08:00 98.0 67 23 104/72 100 Mechanical Ventilator 100 05/01/17 08:00 66 05/01/17 07:21 64 18 40 05/01/17 07:00 66 24 99/51 100 Mechanical Ventilator 40 05/01/17 07:00 118/63 05/01/17 06:00 65 19 87/48 100 Mechanical Ventilator 40 05/01/17 06:00 115/61 05/01/17 05:00 119/56 05/01/17 04:59 63 16 40 05/01/17 04:00 124/58 05/01/17 04:00 69 05/01/17 04:00 40 05/01/17 03:20 63 16 40 05/01/17 03:09 79/49 05/01/17 03:00 65 20 87/48 100 Mechanical Ventilator 40 05/01/17 02:00 68 20 88/51 100 Mechanical Ventilator 40 05/01/17 01:00 65 20 86/43 100 Mechanical Ventilator 40 05/01/17 00:49 66 16 40 05/01/17 00:00 69 05/01/17 00:00 97.8 62 18 90/45 100 Mechanical Ventilator 40 05/01/17 00:00 40 04/30/17 23:30 68 16 40 04/30/17 23:00 64 20 87/48 100 Mechanical Ventilator 40 04/30/17 22:00 68 19 96/55 100 Mechanical Ventilator 40 04/30/17 21:11 67 16 40 04/30/17 21:00 65 20 93/56 100 Mechanical Ventilator 40 04/30/17 20:00 98.0 69 18 82/49 100 Mechanical Ventilator 40 04/30/17 20:00 40 04/30/17 20:00 70 04/30/17 19:10 71 16 40 04/30/17 19:00 97.5 70 20 113/62 95 Mechanical Ventilator 40 04/30/17 18:30 97.5 69 20 107/57 100 Mechanical Ventilator 40 04/30/17 18:00 66 16 79/46 100 Mechanical Ventilator 40 04/30/17 17:30 69 18 77/45 100 Mechanical Ventilator 40 04/30/17 17:09 74 18 40 04/30/17 17:00 71 16 93/71 100 Mechanical Ventilator 40 04/30/17 16:30 97.3 66 16 103/54 100 Mechanical Ventilator 40 Intake and Output 04/30/17 05/01/17 19:00 07:00 Intake Total 621.72 ml 1140 ml Output Total 560 ml 250 ml Balance 61.72 ml 890 ml IV Total 596.72 ml 715 ml Tube Feeding 25 ml 425 ml Chest Tube Drainage Total 550 ml 250 ml Estimated Blood Loss 10 ml # Voids 2 # Bowel Movements 1 Laboratory Tests 05/01/17 06:10: White Blood Count 8.9, Red Blood Count 2.44L, Hemoglobin 7.0L, Hematocrit 21.9L , Mean Corpuscular Volume 90, Mean Corpuscular Hemoglobin 28.8, Mean Corpuscular Hemoglobin Concent 32.0, Red Cell Distribution Width 15.8H, Platelet Count 171, Mean Platelet Volume 5.0L, Neutrophils (%) (Auto) , Lymphocytes (%) (Auto) , Monocytes (%) (Auto) , Eosinophils (%) (Auto) , Basophils (%) (Auto) , Differential Total Cells Counted 100, Neutrophils % ( Manual) 66, Lymphocytes % (Manual) 20, Monocytes % (Manual) 10, Eosinophils % ( Manual) 4H, Basophils % (Manual) 0, Band Neutrophils 0, Platelet Estimate Adequate, Platelet Morphology Normal, Anisocytosis 1+, Sodium Level 139, Potassium Level 4.3, Chloride Level 99, Carbon Dioxide Level 26, Anion Gap 14, Blood Urea Nitrogen 48H, Creatinine 5.3H, Estimat Glomerular Filtration Rate 10.8, Glucose Level 151H, Calcium Level 8.3L, Phosphorus Level 4.6, Magnesium Level 2.2 Height (Feet): 5 Height (Inches): 8.00 Weight (Pounds): 205 Cardiovascular: normal rate Respiratory/Chest: rhonchi - bilaterally HANG HODGE May 01, 2017 16:19
[2017-05-01 18:30] LABS: BASOPHILS % (AUTO) 0.6 % (0.0-2.0); EOSINOPHILS % (AUTO) 7.7 % (0.0-3.0); LYMPHOCYTES % (AUTO) 18.6 % (20.0-45.0); MEAN CORPUSCULAR HEMOGLOBIN 30.7 PG (27.0-31.0); MEAN CORPUSCULAR HGB CONC 35.2 G/DL (32.0-36.0); MEAN CORPUSCULAR VOLUME 87 FL (80-99); MONOCYTES % (AUTO) 6.9 % (1.0-10.0); NEUTROPHILS % (AUTO) 66.2 % (45.0-75.0); PLATELET COUNT 144 K/UL (150-450); RED BLOOD COUNT 2.84 M/UL (4.70-6.10); RED CELL DISTRIBUTION WIDTH 15.4 % (11.6-14.8); WHITE BLOOD COUNT 9.1 K/UL (4.8-10.8)
[2017-05-01 19:04] LABS: ALBUMIN/GLOBULIN RATIO 0.9 (1.0-2.7); CALCIUM 8.4 mg/dL (8.6-10.2); CREATININE 5.6 mg/dL (0.7-1.2); GLOMERULAR FILTRATION RATE 10.1 mL/min (>60); POTASSIUM 3.7 mEQ/L (3.4-4.9); TOTAL PROTEIN 5.3 g/dL (6.6-8.7)
[2017-05-01] MEDS: Dyna-Hex 2% Top Sol 8oz TOPIC SCH (21:30)
[2017-05-02] VITALS (24 sets, daily range): BP systolic 92–126; BP diastolic 50–68
[2017-05-02] MEDS: Morphine Sulfate 2mg/ml Inj IVP PRN ×2 (01:45→14:25)
[2017-05-02] MEDS: Simethicone 80mg tab GT PRN (04:29)
[2017-05-02] MEDS: Piperacillin/Tazobactam 2.25 GM in D5W 55 ML IVPB SCH ×3 (05:52→22:04)
[2017-05-02 05:55] LABS: BASOPHILS % (AUTO) 0.4 % (0.0-2.0); EOSINOPHILS % (AUTO) 10.1 % (0.0-3.0); LYMPHOCYTES % (AUTO) 19.8 % (20.0-45.0); MEAN CORPUSCULAR HEMOGLOBIN 28.8 PG (27.0-31.0); MEAN CORPUSCULAR HGB CONC 32.5 G/DL (32.0-36.0); MEAN CORPUSCULAR VOLUME 89 FL (80-99); MEAN PLATELET VOLUME 5.1 FL (6.5-10.1); MONOCYTES % (AUTO) 8.4 % (1.0-10.0); NEUTROPHILS % (AUTO) 61.3 % (45.0-75.0); PLATELET COUNT 122 K/UL (150-450); RED BLOOD COUNT 2.81 M/UL (4.70-6.10); RED CELL DISTRIBUTION WIDTH 15.8 % (11.6-14.8); WHITE BLOOD COUNT 6.7 K/UL (4.8-10.8)
[2017-05-02 06:00] LABS: ALBUMIN/GLOBULIN RATIO 0.7 (1.0-2.7); CALCIUM 8.3 mg/dL (8.6-10.2); CREATININE 3.9 mg/dL (0.7-1.2); GLOMERULAR FILTRATION RATE 15.4 mL/min (>60); PHOSPHORUS 4.1 mg/dL (2.5-4.8); POTASSIUM 3.4 mEQ/L (3.4-4.9); TOTAL PROTEIN 5.2 g/dL (6.6-8.7)
--- NOTE | 2017-05-02 07:46 | Consultation ---
DATE OF CONSULTATION: 04/23/2017 SURGEON: Berlin Burroughs M.D., speciality in Thoracic Surgery. REFERRING PHYSICIAN: Pedro Augustine M.D. HISTORY OF PRESENT ILLNESS: The patient is a 72-year-old male, who was admitted to [facility] with hematemesis and hypotension. The patient was resuscitated and requiring mechanical ventilation. The patient since then has underwent an upper endoscopy, which demonstrated an upper gastrointestinal bleed with ulceration seen at the Billroth II anastomosis. Furthermore, chest x-ray demonstrated a loculated right pleural effusion. Thoracic surgery was then consulted for further evaluation. PAST MEDICAL HISTORY: Notable for 1. End-stage renal disease. 2. Diabetes. 3. Gout. 4. Benign prostatic hypertrophy. 5. Chronic obstructive pulmonary disease. 6. Upper gastrointestinal bleed. PAST SURGICAL HISTORY: Notable for a Billroth II gastrojejunostomy. MEDICATIONS: Reviewed. ALLERGIES: The patient has no known drug allergies. FAMILY HISTORY: Noncontributory. SOCIAL HISTORY: Noncontributory. PHYSICAL EXAMINATION: VITAL SIGNS: He is noted to be afebrile. His vitals were within normal limits. CARDIAC: Regular rate and rhythm. No gallops, murmur, or rubs. RESPIRATORY: Clear to auscultation on the left with decreased crackles on the right. ABDOMEN: Soft, nondistended, and nontender with normoactive bowel sounds. The surgical scar is well healed. EXTREMITIES: Showed no evidence of cyanosis or clubbing. LABORATORY AND DIAGNOSTIC DATA: Laboratory study performed on 04/26/2017 showed WBC of 5.3, hemoglobin 8.5, hematocrit 27, and platelet count of 112,000. Sodium is 141, potassium is 4.3, chloride 106, bicarbonate is 21, BUN 74, creatinine is 6.0, and glucose 127. PT is 10, PTT is 29, and INR is 1.0. Chest x-ray performed on 04/26/2017 demonstrated a loculated right-sided pleural effusion. ASSESSMENT AND PLAN: This is a 72-year-old male, who presented to [facility] with an upper gastrointestinal bleed as well as a loculated right pleural effusion. After reviewing his clinical database. I recommend he undergo a noncontrast chest CT scan for further evaluation. Likely, the patient will require a right video-assisted thoracoscopic surgery for the right-sided loculations. Further recommendation will be advised following after the chest CT scan. I want to thank you for referring this patient to my attention, if there are any questions in regard to this patient's clinical care, please do not hesitate to contact me. Hinojosa M.D. DR: BELEN JOB#: [id number] CC: RUSTY
--- NOTE | 2017-05-02 07:46 | Operative Note - Dictated ---
DATE OF OPERATION: 04/30/2017 PREOPERATIVE DIAGNOSIS: Loculated right pleural effusion. POSTOPERATIVE DIAGNOSIS: Loculated right pleural effusion. PROCEDURE PERFORMED: 1. Flexible bronchoscopy. 2. Right video-assisted thoracoscopic surgery. 3. Intrapleural pneumolysis. 4. Partial pleurectomy. 5. Decortication. 6. PleurX catheter placement. 7. Intercostal nerve block. SURGEON: Berlin Burroughs M.D. ANESTHESIA: Double-lumen general anesthesia. INDICATION FOR PROCEDURE: The patient is a 72-year-old male, who was admitted to [facility] with a loculated right pleural effusion and Thoracic surgery was then consulted for surgical care. The risks and benefits of the proposed operation were explained to the patient and his family. Details including, but not limited to, bleeding, infection, air leak, the need for blood transfusion, anesthetic complication, and less than 1%. In addition, alternative versus no treatment options were also discussed. The patient and his family fully understand the rationale behind the purpose of the operation while all questions were answered to their satisfaction. DESCRIPTION OF PROCEDURE: After obtaining the informed consent, the patient was then brought to the operative room and placed in supine position. Surgical time-out was performed. After induction of general anesthesia, a MICHELLE hose stockings were placed. The flexible bronchoscope was introduced through the endotracheal tube. The trachea and dany were inspected. The dany was in the midline and sharp. The right tracheobronchial tree down to the subsegmental level was grossly normal and no endobronchial lesions were seen. Similarly, the left mainstem bronchus was intubated and no obvious endobronchial lesions were visualized at the subsegmental level. A minimal amount of mucopurulent secretions were lavaged and suctioned clear. The bronchoscope was pulled back and removed. The patient tolerated the procedure well with oxygen saturation greater than 96% throughout the procedure. Next, the patient was then placed in a left lateral decubitus position and prepped and draped in the usual sterile fashion. The patient also received preoperative intravenous antibiotic. A 2 cm incision was made at the fifth intercostal space in the mid axillary line. Dissection was then carried down into the subcutaneous tissue. Entering the right hemithorax was uneventful. After placement of Yankauer suction, roughly 700 mL of serosanguineous effusion was evacuated. A nutrition representative section of this fluid was submitted for microbiology analysis and the remaining was submitted for cytology. After placement of Thoracoport and video camera into the right chest , we visualized there were numerous adhesions tethering the lung to the surrounding chest wall. These adhesions were taken down using a combination of sharp and blunt electrocauterization. Pleural exudates were harvested and submitted for microbiologic analyses. The parietal pleura appeared unusually thickened and a nutrition representative section of this parietal pleura was taken and delivered off the field for frozen section. Frozen section of the parietal pleura was deemed to be negative for malignancy. At this point, we visualized that the lung had a visceral peel tethering the lung to the superior anterior aspect of the chest wall. Decortication process was begun taking away the peel from the surrounding lung parenchyma. However, the lung was unable to be from the chest wall due to the dense adhesions. At this point, we then asked the anesthesiologist to apply positive ventilation. Under direct visualization, the right lung was appeared to be trapped. A decision was then proceed with a PleurX catheter placement due to an unusually large intrathoracic potential space in the posterolateral aspect of the hemothorax. As such, a PleurX catheter was then placed via a subcutaneous tunnel in the usual fashion. PleurX catheter was then laid over the right diaphragm. Right chest was irrigated with 6 liters of saline solution followed by 2 liters of Bacitracin containing saline solution. After suctioning, the lung was allowed to inflate and and pleurex was connected to a suction Pleur-evac. Intercostal nerve block with 0.25% Marcaine from the fourth to the sixth intercostal space was performed. The wound was then reapproximated with two layers of 3-0 Vicryl sutures and the skin was then reapproximated with 4-0 Monocryl. PleurX catheter was anchored at the skin level using 3-0 silk suture. A dry dressing was applied. The patient tolerated the procedure well without any complication. Needle and sponges were correct at the end of the operation. The patient remain intubated and was transported to the recovery room in a satisfactory condition. ESTIMATED BLOOD LOSS: Minimal. COMPLICATIONS: None. SPECIMEN SUBMITTED: 1. Right pleural effusion for microbiology analysis and cytology. 2. Pleural exudate for microbiology analysis. Hinojosa M.D. DR: BELEN JOB#: [id number] CC: RUSTY
--- NOTE | 2017-05-02 07:53 | Infectious Diseases Prog Note ---
Assessment/Plan Assessment/Plan A; Sepsis Pneumonia GI bleeding ESRD on HD DM Respiratory failure Anemia Pleural effusion s/p VATS Lung entrapment P: Cont patient on IV vancomycin and Zosyn day # 9 Case was D/W thoracic surgeon Subjective ROS Limited/Unobtainable: No Constitutional: Reports: no symptoms Respiratory: Reports: no symptoms, other - extubated, chest tube was removed Gastrointestinal/Abdominal: Reports: no symptoms Genitourinary: Reports: no symptoms Allergies: Coded Allergies: No Known Allergies (Verified , 02/08/07) Objective Vital Signs Last 24 Hour Vital Signs Date Time Temp Pulse Resp B/P Pulse Ox O2 Delivery O2 Flow Rate FiO2 05/02/17 07:00 78 18 103/57 100 Nasal Cannula 2.0 05/02/17 06:00 75 16 98/53 100 Nasal Cannula 2.0 05/02/17 05:00 76 14 97/52 100 Nasal Cannula 2.0 05/02/17 04:00 97.9 75 17 106/57 100 Nasal Cannula 2.0 05/02/17 04:00 75 05/02/17 04:00 106/57 05/02/17 03:00 72 14 102/53 100 Nasal Cannula 2.0 05/02/17 03:00 102/53 05/02/17 02:00 72 16 99/51 100 Nasal Cannula 2.0 05/02/17 02:00 99/51 05/02/17 01:17 100 Nasal Cannula 1.0 24 05/02/17 01:17 Nasal Cannula 1.0 24 05/02/17 01:00 74 16 96/50 100 Nasal Cannula 2.0 05/02/17 01:00 96/50 05/02/17 00:00 71 05/02/17 00:00 98.0 73 17 92/56 100 Nasal Cannula 2.0 05/02/17 00:00 92/56 05/01/17 23:15 105/53 05/01/17 23:00 78 16 105/53 100 Nasal Cannula 2.0 05/01/17 23:00 105/53 05/01/17 22:25 Nasal Cannula 05/01/17 22:00 72 18 96/50 100 Simple Mask 35 05/01/17 22:00 96/50 05/01/17 21:00 95/50 05/01/17 21:00 77 14 95/50 100 Simple Mask 35 05/01/17 20:00 97.8 70 16 92/50 100 Simple Mask 35 05/01/17 20:00 70 05/01/17 20:00 92/50 05/01/17 19:20 100 Simple Mask 3.0 32 05/01/17 19:20 Simple Mask 3.0 32 05/01/17 19:00 78 20 105/47 100 Mechanical Ventilator 100 05/01/17 18:58 Mechanical Ventilator 100 05/01/17 18:00 78 20 98/47 100 Mechanical Ventilator 100 05/01/17 17:32 72 33 35 05/01/17 17:00 65 20 150/61 100 Mechanical Ventilator 100 05/01/17 16:00 40 05/01/17 16:00 70 05/01/17 16:00 98.0 66 20 149/67 100 Mechanical Ventilator 100 05/01/17 15:35 100 05/01/17 15:33 65 18 40 05/01/17 15:24 69 18 40 05/01/17 15:00 65 20 165/78 100 Mechanical Ventilator 100 05/01/17 14:00 63 20 118/58 100 Mechanical Ventilator 100 05/01/17 13:28 98.5 62 20 119/59 100 Mechanical Ventilator 100 05/01/17 13:00 65 20 114/56 100 Mechanical Ventilator 100 05/01/17 12:48 74 28 40 05/01/17 12:00 98.0 65 19 105/84 100 Mechanical Ventilator 100 05/01/17 12:00 100 05/01/17 12:00 68 05/01/17 11:02 68 19 40 05/01/17 11:00 71 20 116/56 100 Mechanical Ventilator 100 05/01/17 10:59 84 20 97 05/01/17 10:00 66 21 119/61 100 Mechanical Ventilator 100 05/01/17 09:15 63 19 40 05/01/17 09:00 118/57 05/01/17 09:00 66 22 114/63 100 Mechanical Ventilator 100 05/01/17 08:00 100 05/01/17 08:00 117/63 05/01/17 08:00 98.0 67 23 104/72 100 Mechanical Ventilator 100 05/01/17 08:00 66 Height (Feet): 5 Height (Inches): 8.00 Weight (Pounds): 208 General Appearance: no acute distress HEENT: other - orogastric tube, RIJ line Respiratory/Chest: lungs clear Cardiovascular: normal rate Abdomen: soft, non tender Extremities: other - trace leg edema Neurologic/Psychiatric: alert, oriented x 3, responsive Laboratory Tests Test 05/01/17 18:20 05/02/17 04:00 White Blood Count 9.1 K/UL (4.8-10.8) 6.7 K/UL (4.8-10.8) Red Blood Count 2.84 M/UL (4.70-6.10) L 2.81 M/UL (4.70-6.10) L Hemoglobin 8.7 G/DL (14.2-18.0) L 8.1 G/DL (14.2-18.0) L Hematocrit 24.8 % (42.0-52.0) L 24.9 % (42.0-52.0) L Mean Corpuscular Volume 87 FL (80-99) 89 FL (80-99) Mean Corpuscular Hemoglobin 30.7 PG (27.0-31.0) 28.8 PG (27.0-31.0) Mean Corpuscular Hemoglobin Concent 35.2 G/DL (32.0-36.0) 32.5 G/DL (32.0-36.0) Red Cell Distribution Width 15.4 % (11.6-14.8) H 15.8 % (11.6-14.8) H Platelet Count 144 K/UL (150-450) L 122 K/UL (150-450) L Mean Platelet Volume 5.0 FL (6.5-10.1) L 5.1 FL (6.5-10.1) L Neutrophils (%) (Auto) 66.2 % (45.0-75.0) 61.3 % (45.0-75.0) Lymphocytes (%) (Auto) 18.6 % (20.0-45.0) L 19.8 % (20.0-45.0) L Monocytes (%) (Auto) 6.9 % (1.0-10.0) 8.4 % (1.0-10.0) Eosinophils (%) (Auto) 7.7 % (0.0-3.0) H 10.1 % (0.0-3.0) H Basophils (%) (Auto) 0.6 % (0.0-2.0) 0.4 % (0.0-2.0) Sodium Level 135 mEQ/L (135-145) 143 mEQ/L (135-145) Potassium Level 3.7 mEQ/L (3.4-4.9) 3.4 mEQ/L (3.4-4.9) Chloride Level 94 mEQ/L (98-107) L 100 mEQ/L (98-107) Carbon Dioxide Level 28 mEQ/L (20-30) 32 mEQ/L (20-30) H Anion Gap 13 (5-15) 11 (5-15) Blood Urea Nitrogen 50 mg/dL (7-23) H 32 mg/dL (7-23) H Creatinine 5.6 mg/dL (0.7-1.2) H 3.9 mg/dL (0.7-1.2) H Estimat Glomerular Filtration Rate 10.1 mL/min (>60) 15.4 mL/min (>60) Glucose Level 171 mg/dL (74-106) H 136 mg/dL (74-106) H Calcium Level 8.4 mg/dL (8.6-10.2) L 8.3 mg/dL (8.6-10.2) L Total Bilirubin 0.7 mg/dL (0.0-1.2) 0.6 mg/dL (0.0-1.2) Aspartate Amino Transf (AST/SGOT) 10 U/L (5-40) 11 U/L (5-40) Alanine Aminotransferase (ALT/SGPT) 5 U/L (3-41) 5 U/L (3-41) Alkaline Phosphatase 123 U/L (40-129) 135 U/L (40-129) H Total Protein 5.3 g/dL (6.6-8.7) L 5.2 g/dL (6.6-8.7) L Albumin 2.6 g/dL (3.5-5.2) L 2.3 g/dL (3.5-5.2) L Globulin 2.7 g/dL 2.9 g/dL Albumin/Globulin Ratio 0.9 (1.0-2.7) L 0.7 (1.0-2.7) L Phosphorus Level 4.1 mg/dL (2.5-4.8) Magnesium Level 2.0 mg/dL (1.7-2.5) Random Vancomycin Level 16.3 ug/mL Current Medications Medications (Trade) Dose Ordered Sig/Mariposa Route PRN Reason Start Time Stop Time Status Last Admin Dose Admin Acetaminophen (Tylenol) 650 mg Q4H PRN ORAL fever 04/23/17 15:15 05/23/17 15:14 Chlorhexidine Gluconate (Basilia-Hex 2%) 1 applic QHS TOPIC 04/26/17 21:00 05/26/17 20:59 05/01/17 21:30 Clotrimazole (Lotrimin) 1 applic EVERY 12 HOURS TOPIC 04/24/17 09:00 05/24/17 08:59 05/01/17 21:31 Dextrose STAT PRN IV Hypoglycemia 04/23/17 15:15 05/23/17 15:14 Diphenhydramine HCl (Benadryl) 25 mg Q6H PRN ORAL Itching/Pruritis 04/23/17 15:15 05/23/17 15:14 04/27/17 20:56 Morphine Sulfate (Morphine Sulfate) 2 mg Q4H PRN IVP pain scale 4-6 04/30/17 13:00 05/07/17 12:59 05/02/17 01:45 Nitroglycerin (Ntg) 0.4 mg Q5M X 3 DOSES PRN SL Prn Chest Pain 04/23/17 15:15 05/23/17 15:14 Norepinephrine Bitartrate/ Dextrose (Levophed/D5W) 250 ml @ 0 mls/hr Q24H IV 04/23/17 23:15 05/23/17 23:14 05/01/17 03:09 Ondansetron HCl (Zofran) 4 mg Q6H PRN IVP Nausea & Vomiting 04/23/17 15:15 05/23/17 15:14 05/01/17 09:06 Pantoprazole (Protonix) 40 mg EVERY 12 HOURS IVP 04/28/17 09:00 05/28/17 08:59 05/01/17 21:29 Piperacillin Sod/ Tazobactam Sod/ Dextrose (Zosyn/D5W) 55 ml @ 110 mls/hr Q8HR IVPB 04/29/17 22:00 05/06/17 21:59 05/02/17 05:52 Polyethylene Glycol (Miralax) 17 gm HSPRN PRN ORAL Constipation 04/23/17 15:15 05/23/17 15:14 04/29/17 00:32 Simethicone 80 mg 80 mg EVERY 6 HOURS PRN GT bloated, gas,abdominal discomt 04/28/17 13:15 05/28/17 13:14 05/02/17 04:29 Vancomycin HCl (Vanco rx to dose) 1 ea DAILY PRN MISC Per rx protocol 04/24/17 13:45 05/24/17 13:44 Vitamin A/Vitamin D (A & D Oint) 1 applic EVERY 12 HOURS TOPIC 04/24/17 09:00 05/24/17 08:59 05/01/17 21:30 GHANSHYAM HODGE May 02, 2017 07:53
[2017-05-02] MEDS: Vitamin A&D Oint 2oz Tube TOPIC SCH ×2 (08:31→21:00)
[2017-05-02] MEDS: Pantoprazole Inj IVP SCH ×2 (08:31→21:01)
[2017-05-02 09:44] LABS: ABG ALLEN TEST POSITIVE; ABG BASE EXCESS 6.9; ABG PCO2 48.5 mmHg (35.0-45.0)
--- NOTE | 2017-05-02 10:16 | Diagnostic Imaging Report ---
Indication: DYSPNEA Technique: One view of the chest Comparison: 04/30/17 Findings: There is suggestion of interim partial filling in of previously demonstrated right lateral basilar extraocular pneumothorax with fluid. Right chest tube remains. Stable right perihilar opacity, right upper lung volume loss. Questionably increased interstitial opacity at the left mid and lower lung. Right jugular central venous catheter, right subclavian/innominate venous stent, right apical pleural scarring again demonstrated. Interim removal of endotracheal tube. Interim placement of a nasogastric tube, tip of which projects at the level of the gastric fundus, proximal port just beyond the gastroesophageal junction. Impression: Questionable minimal left mid and lower lung mostly interstitial infiltrate, developing over 2 days Interim partial filling in with fluid of previously demonstrated right lateral basilar ex vacuo pneumothorax Interim endotracheal extubation. Interim placement of nasogastric tube, satisfactory Other findings as described
--- NOTE | 2017-05-02 11:07 | Pulmonolgy Critical Care Note ---
Critical Care - Asmt/Plan Problems: (1) Acute respiratory failure (2) Hemorrhagic shock (3) Aspiration pneumonia (4) ESRF (end stage renal failure) (5) Benign prostate hyperplasia (6) Gout (7) Diabetes mellitus (8) COPD (chronic obstructive pulmonary disease) Respiratory: monitor respiratory rate, CXR Cardiac: start pressors Renal: F/U I&O Infectious Disease: check cultures, continue antibiotics Gastrointestinal: continue feedings/current rate Endocrine: monitor blood sugar, check TSH, continue sliding scale insulin Hematologic: transfuse if hgb<8.5 Neurologic: PRN Ativan, PRN Morphine, keep patient comfortable Notes Reviewed: cardio, 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, consultants, hospice case managersocial media community manager - Objective Last 24 Hour Vital Signs Date Time Temp Pulse Resp B/P Pulse Ox O2 Delivery O2 Flow Rate FiO2 05/02/17 10:00 80 17 110/62 100 Nasal Cannula 2.0 05/02/17 09:00 74 17 109/58 100 Nasal Cannula 2.0 05/02/17 08:00 76 05/02/17 08:00 97.3 76 18 107/57 100 Nasal Cannula 2.0 05/02/17 07:26 Nasal Cannula 2.0 28 05/02/17 07:25 100 Nasal Cannula 2.0 28 05/02/17 07:00 78 18 103/57 100 Nasal Cannula 2.0 05/02/17 06:00 75 16 98/53 100 Nasal Cannula 2.0 05/02/17 05:00 76 14 97/52 100 Nasal Cannula 2.0 05/02/17 04:00 97.9 75 17 106/57 100 Nasal Cannula 2.0 05/02/17 04:00 75 05/02/17 04:00 106/57 05/02/17 03:00 72 14 102/53 100 Nasal Cannula 2.0 05/02/17 03:00 102/53 05/02/17 02:00 72 16 99/51 100 Nasal Cannula 2.0 05/02/17 02:00 99/51 05/02/17 01:17 100 Nasal Cannula 1.0 24 05/02/17 01:17 Nasal Cannula 1.0 24 05/02/17 01:00 74 16 96/50 100 Nasal Cannula 2.0 05/02/17 01:00 96/50 05/02/17 00:00 71 05/02/17 00:00 98.0 73 17 92/56 100 Nasal Cannula 2.0 05/02/17 00:00 92/56 05/01/17 23:15 105/53 05/01/17 23:00 78 16 105/53 100 Nasal Cannula 2.0 05/01/17 23:00 105/53 05/01/17 22:25 Nasal Cannula 05/01/17 22:00 72 18 96/50 100 Simple Mask 35 05/01/17 22:00 96/50 05/01/17 21:00 95/50 05/01/17 21:00 77 14 95/50 100 Simple Mask 35 05/01/17 20:00 97.8 70 16 92/50 100 Simple Mask 35 05/01/17 20:00 70 05/01/17 20:00 92/50 05/01/17 19:20 100 Simple Mask 3.0 32 05/01/17 19:20 Simple Mask 3.0 32 05/01/17 19:00 78 20 105/47 100 Mechanical Ventilator 100 05/01/17 18:58 Mechanical Ventilator 100 05/01/17 18:00 78 20 98/47 100 Mechanical Ventilator 100 05/01/17 17:32 72 33 35 05/01/17 17:00 65 20 150/61 100 Mechanical Ventilator 100 05/01/17 16:00 40 05/01/17 16:00 70 05/01/17 16:00 98.0 66 20 149/67 100 Mechanical Ventilator 100 05/01/17 15:35 100 05/01/17 15:33 65 18 40 05/01/17 15:24 69 18 40 05/01/17 15:00 65 20 165/78 100 Mechanical Ventilator 100 05/01/17 14:00 63 20 118/58 100 Mechanical Ventilator 100 05/01/17 13:28 98.5 62 20 119/59 100 Mechanical Ventilator 100 05/01/17 13:00 65 20 114/56 100 Mechanical Ventilator 100 05/01/17 12:48 74 28 40 05/01/17 12:00 98.0 65 19 105/84 100 Mechanical Ventilator 100 05/01/17 12:00 100 05/01/17 12:00 68 Status: awake Condition: critical, grave HEENT: atraumatic Neck: full ROM Lungs: rales, rhonchi Heart: HR/BP stable, HR/BP unstable, regular Abdomen: soft, non-tender Extremities: no C/C/E, edema Decubiti: location Micro: Microbiology Date/Time Source Procedure Growth Status 04/30/17 11:50 Other Gram Stain - Final Resulted 04/30/17 11:50 Other Aerobic Culture Pending Resulted Critical Care - Subjective ROS Limited/Unobtainable: Yes ICU Day: 9 Intubation Day: 9 Condition: critical EKG Rhythm: Sinus Rhythm FI02: 28 Vent Support Breath Rate: 16 Vent Support Mode: CPAP Vent Tidal Volume: 700 Sputum Amount: None PEEP: 0.0 PIP: 11 Tube Feeding Amount: 45 I&O: Intake and Output 05/01/17 05/02/17 19:00 07:00 Intake Total 915.00 ml 743.75 ml Output Total 3610 ml Balance 915.00 ml -2866.25 ml Free Water 240 ml 60 ml IV Total 190.00 ml 143.75 ml Tube Feeding 485 ml 540 ml Output Urine Total 50 ml Chest Tube Drainage Total 560 ml Hemodialysis UF 3000 ml # Bowel Movements 1 1 CXR: no change ET-Tube: 7.5 ET Position: 23 Labs: Laboratory Tests Test 05/01/17 18:20 05/02/17 04:00 05/02/17 09:05 White Blood Count 9.1 K/UL (4.8-10.8) 6.7 K/UL (4.8-10.8) Red Blood Count 2.84 M/UL (4.70-6.10) L 2.81 M/UL (4.70-6.10) L Hemoglobin 8.7 G/DL (14.2-18.0) L 8.1 G/DL (14.2-18.0) L Hematocrit 24.8 % (42.0-52.0) L 24.9 % (42.0-52.0) L Mean Corpuscular Volume 87 FL (80-99) 89 FL (80-99) Mean Corpuscular Hemoglobin 30.7 PG (27.0-31.0) 28.8 PG (27.0-31.0) Mean Corpuscular Hemoglobin Concent 35.2 G/DL (32.0-36.0) 32.5 G/DL (32.0-36.0) Red Cell Distribution Width 15.4 % (11.6-14.8) H 15.8 % (11.6-14.8) H Platelet Count 144 K/UL (150-450) L 122 K/UL (150-450) L Mean Platelet Volume 5.0 FL (6.5-10.1) L 5.1 FL (6.5-10.1) L Neutrophils (%) (Auto) 66.2 % (45.0-75.0) 61.3 % (45.0-75.0) Lymphocytes (%) (Auto) 18.6 % (20.0-45.0) L 19.8 % (20.0-45.0) L Monocytes (%) (Auto) 6.9 % (1.0-10.0) 8.4 % (1.0-10.0) Eosinophils (%) (Auto) 7.7 % (0.0-3.0) H 10.1 % (0.0-3.0) H Basophils (%) (Auto) 0.6 % (0.0-2.0) 0.4 % (0.0-2.0) Sodium Level 135 mEQ/L (135-145) 143 mEQ/L (135-145) Potassium Level 3.7 mEQ/L (3.4-4.9) 3.4 mEQ/L (3.4-4.9) Chloride Level 94 mEQ/L (98-107) L 100 mEQ/L (98-107) Carbon Dioxide Level 28 mEQ/L (20-30) 32 mEQ/L (20-30) H Anion Gap 13 (5-15) 11 (5-15) Blood Urea Nitrogen 50 mg/dL (7-23) H 32 mg/dL (7-23) H Creatinine 5.6 mg/dL (0.7-1.2) H 3.9 mg/dL (0.7-1.2) H Estimat Glomerular Filtration Rate 10.1 mL/min (>60) 15.4 mL/min (>60) Glucose Level 171 mg/dL (74-106) H 136 mg/dL (74-106) H Calcium Level 8.4 mg/dL (8.6-10.2) L 8.3 mg/dL (8.6-10.2) L Total Bilirubin 0.7 mg/dL (0.0-1.2) 0.6 mg/dL (0.0-1.2) Aspartate Amino Transf (AST/SGOT) 10 U/L (5-40) 11 U/L (5-40) Alanine Aminotransferase (ALT/SGPT) 5 U/L (3-41) 5 U/L (3-41) Alkaline Phosphatase 123 U/L (40-129) 135 U/L (40-129) H Total Protein 5.3 g/dL (6.6-8.7) L 5.2 g/dL (6.6-8.7) L Albumin 2.6 g/dL (3.5-5.2) L 2.3 g/dL (3.5-5.2) L Globulin 2.7 g/dL 2.9 g/dL Albumin/Globulin Ratio 0.9 (1.0-2.7) L 0.7 (1.0-2.7) L Phosphorus Level 4.1 mg/dL (2.5-4.8) Magnesium Level 2.0 mg/dL (1.7-2.5) Random Vancomycin Level 16.3 ug/mL Arterial Blood pH 7.436 (7.350-7.450) Arterial Blood Partial Pressure CO2 48.5 mmHg (35.0-45.0) H Arterial Blood Partial Pressure O2 87.6 mmHg (75.0-100.0) Arterial Blood HCO3 31.9 mmol/L (22.0-26.0) H Arterial Blood Oxygen Saturation 95.4 % (92.0-98.0) Arterial Blood Base Excess 6.9 Flex Test Positive FORD FANG May 02, 2017 11:07
--- NOTE | 2017-05-02 12:54 | GI Progress Note ---
Assessment/Plan Problems: (1) Hemorrhagic shock SNOMED: 497825 (2) Diabetes mellitus ICD Codes: E11.9 - Type 2 diabetes mellitus without complications SNOMED: 91731819 (3) Gastrointestinal hemorrhage ICD Codes: K92.2 - Gastrointestinal hemorrhage, unspecified SNOMED: 71679834 (4) Sepsis ICD Codes: A41.9 - Sepsis, unspecified organism SNOMED: 78435576 (5) Acute respiratory failure ICD Codes: J96.00 - Acute respiratory failure, unspecified whether with hypoxia or hypercapnia SNOMED: 54720650 Status: stable, progressing Status Narrative Discussed with Dr. Back. Assessment/Plan SUMMARY OF FINDINGS: Billroth II anastomosis with a large ulceration at the anastomotic area without any adherent clot or visible vessel. RECOMMENDATIONS: 1. Follow biopsy results. >> negative for H. Pylori 2. Start TFs per dietary 3. Continue on Protonix. 4. Monitor hemoglobin and hematocrit and transfuse to keep hemoglobin above 7. We will follow. monitor H&H, transfuse prn PPI BID s/p VATS fu surgical recs Subjective Gastrointestinal/Abdominal: Reports: no symptoms Subjective limited Objective Last 24 Hour Vital Signs Date Time Temp Pulse Resp B/P Pulse Ox O2 Delivery O2 Flow Rate FiO2 05/02/17 12:00 98.1 80 18 118/61 100 Nasal Cannula 2.0 05/02/17 12:00 82 05/02/17 11:00 76 18 107/61 100 Nasal Cannula 2.0 05/02/17 10:00 80 17 110/62 100 Nasal Cannula 2.0 05/02/17 09:00 74 17 109/58 100 Nasal Cannula 2.0 05/02/17 08:00 76 05/02/17 08:00 97.3 76 18 107/57 100 Nasal Cannula 2.0 05/02/17 07:26 Nasal Cannula 2.0 28 05/02/17 07:25 100 Nasal Cannula 2.0 28 05/02/17 07:00 78 18 103/57 100 Nasal Cannula 2.0 05/02/17 06:00 75 16 98/53 100 Nasal Cannula 2.0 05/02/17 05:00 76 14 97/52 100 Nasal Cannula 2.0 05/02/17 04:00 97.9 75 17 106/57 100 Nasal Cannula 2.0 05/02/17 04:00 75 05/02/17 04:00 106/57 05/02/17 03:00 72 14 102/53 100 Nasal Cannula 2.0 05/02/17 03:00 102/53 05/02/17 02:00 72 16 99/51 100 Nasal Cannula 2.0 05/02/17 02:00 99/51 05/02/17 01:17 100 Nasal Cannula 1.0 24 05/02/17 01:17 Nasal Cannula 1.0 24 05/02/17 01:00 74 16 96/50 100 Nasal Cannula 2.0 05/02/17 01:00 96/50 05/02/17 00:00 71 05/02/17 00:00 98.0 73 17 92/56 100 Nasal Cannula 2.0 05/02/17 00:00 92/56 05/01/17 23:15 105/53 05/01/17 23:00 78 16 105/53 100 Nasal Cannula 2.0 05/01/17 23:00 105/53 05/01/17 22:25 Nasal Cannula 05/01/17 22:00 72 18 96/50 100 Simple Mask 35 05/01/17 22:00 96/50 05/01/17 21:00 95/50 05/01/17 21:00 77 14 95/50 100 Simple Mask 35 05/01/17 20:00 97.8 70 16 92/50 100 Simple Mask 35 05/01/17 20:00 70 05/01/17 20:00 92/50 05/01/17 19:20 100 Simple Mask 3.0 32 05/01/17 19:20 Simple Mask 3.0 32 05/01/17 19:00 78 20 105/47 100 Mechanical Ventilator 100 05/01/17 18:58 Mechanical Ventilator 100 05/01/17 18:00 78 20 98/47 100 Mechanical Ventilator 100 05/01/17 17:32 72 33 35 05/01/17 17:00 65 20 150/61 100 Mechanical Ventilator 100 05/01/17 16:00 40 05/01/17 16:00 70 05/01/17 16:00 98.0 66 20 149/67 100 Mechanical Ventilator 100 05/01/17 15:35 100 05/01/17 15:33 65 18 40 05/01/17 15:24 69 18 40 05/01/17 15:00 65 20 165/78 100 Mechanical Ventilator 100 05/01/17 14:00 63 20 118/58 100 Mechanical Ventilator 100 05/01/17 13:28 98.5 62 20 119/59 100 Mechanical Ventilator 100 05/01/17 13:00 65 20 114/56 100 Mechanical Ventilator 100 Intake and Output 05/01/17 05/02/17 19:00 07:00 Intake Total 915.00 ml 743.75 ml Output Total 3610 ml Balance 915.00 ml -2866.25 ml Free Water 240 ml 60 ml IV Total 190.00 ml 143.75 ml Tube Feeding 485 ml 540 ml Output Urine Total 50 ml Chest Tube Drainage Total 560 ml Hemodialysis UF 3000 ml # Bowel Movements 1 1 Laboratory Tests Test 05/01/17 18:20 05/02/17 04:00 05/02/17 09:05 White Blood Count 9.1 K/UL (4.8-10.8) 6.7 K/UL (4.8-10.8) Red Blood Count 2.84 M/UL (4.70-6.10) L 2.81 M/UL (4.70-6.10) L Hemoglobin 8.7 G/DL (14.2-18.0) L 8.1 G/DL (14.2-18.0) L Hematocrit 24.8 % (42.0-52.0) L 24.9 % (42.0-52.0) L Mean Corpuscular Volume 87 FL (80-99) 89 FL (80-99) Mean Corpuscular Hemoglobin 30.7 PG (27.0-31.0) 28.8 PG (27.0-31.0) Mean Corpuscular Hemoglobin Concent 35.2 G/DL (32.0-36.0) 32.5 G/DL (32.0-36.0) Red Cell Distribution Width 15.4 % (11.6-14.8) H 15.8 % (11.6-14.8) H Platelet Count 144 K/UL (150-450) L 122 K/UL (150-450) L Mean Platelet Volume 5.0 FL (6.5-10.1) L 5.1 FL (6.5-10.1) L Neutrophils (%) (Auto) 66.2 % (45.0-75.0) 61.3 % (45.0-75.0) Lymphocytes (%) (Auto) 18.6 % (20.0-45.0) L 19.8 % (20.0-45.0) L Monocytes (%) (Auto) 6.9 % (1.0-10.0) 8.4 % (1.0-10.0) Eosinophils (%) (Auto) 7.7 % (0.0-3.0) H 10.1 % (0.0-3.0) H Basophils (%) (Auto) 0.6 % (0.0-2.0) 0.4 % (0.0-2.0) Sodium Level 135 mEQ/L (135-145) 143 mEQ/L (135-145) Potassium Level 3.7 mEQ/L (3.4-4.9) 3.4 mEQ/L (3.4-4.9) Chloride Level 94 mEQ/L (98-107) L 100 mEQ/L (98-107) Carbon Dioxide Level 28 mEQ/L (20-30) 32 mEQ/L (20-30) H Anion Gap 13 (5-15) 11 (5-15) Blood Urea Nitrogen 50 mg/dL (7-23) H 32 mg/dL (7-23) H Creatinine 5.6 mg/dL (0.7-1.2) H 3.9 mg/dL (0.7-1.2) H Estimat Glomerular Filtration Rate 10.1 mL/min (>60) 15.4 mL/min (>60) Glucose Level 171 mg/dL (74-106) H 136 mg/dL (74-106) H Calcium Level 8.4 mg/dL (8.6-10.2) L 8.3 mg/dL (8.6-10.2) L Total Bilirubin 0.7 mg/dL (0.0-1.2) 0.6 mg/dL (0.0-1.2) Aspartate Amino Transf (AST/SGOT) 10 U/L (5-40) 11 U/L (5-40) Alanine Aminotransferase (ALT/SGPT) 5 U/L (3-41) 5 U/L (3-41) Alkaline Phosphatase 123 U/L (40-129) 135 U/L (40-129) H Total Protein 5.3 g/dL (6.6-8.7) L 5.2 g/dL (6.6-8.7) L Albumin 2.6 g/dL (3.5-5.2) L 2.3 g/dL (3.5-5.2) L Globulin 2.7 g/dL 2.9 g/dL Albumin/Globulin Ratio 0.9 (1.0-2.7) L 0.7 (1.0-2.7) L Phosphorus Level 4.1 mg/dL (2.5-4.8) Magnesium Level 2.0 mg/dL (1.7-2.5) Random Vancomycin Level 16.3 ug/mL Arterial Blood pH 7.436 (7.350-7.450) Arterial Blood Partial Pressure CO2 48.5 mmHg (35.0-45.0) H Arterial Blood Partial Pressure O2 87.6 mmHg (75.0-100.0) Arterial Blood HCO3 31.9 mmol/L (22.0-26.0) H Arterial Blood Oxygen Saturation 95.4 % (92.0-98.0) Arterial Blood Base Excess 6.9 Flex Test Positive Height (Feet): 5 Height (Inches): 8.00 Weight (Pounds): 208 General Appearance: no apparent distress, alert Cardiovascular: normal rate Respiratory/Chest: other - 2LNC Objective rectal bleeding Joellen Parker N.P. May 02, 2017 12:54
--- NOTE | 2017-05-02 13:34 | Diagnostic Imaging Report ---
Indication: Abdominal distention Technique: Supine view of the abdomen Comparison: 04/29/2017 Findings: Calcifications are seen in the right upper quadrant, left upper quadrant, lower epigastric region, and in the left pelvis. A sizable area of calcification is seen in the left pelvis, measuring 6 in meters in diameter. A calcification measuring 2 cm projects to the right of the lumbar spine at the L3 level. There is an inferior vena cava filter in place. There is a penile prosthesis. There is evidence of diffuse edema of the subcutaneous fat. The bowel gas pattern is unremarkable. Extensive vascular calcifications are demonstrated. Previously demonstrated nasogastric tube is no longer evident. There is evidence of interim surgery at the right lateral lung base, with the chest tube and extra-axial pneumothorax present. Impression: No definite acute process. No gaseous distention of large or small bowel tube removal Postsurgical changes of the right chest as described Left pelvic calcifications are noted with surgical clips. Appearance nonspecific, suspect dystrophic calcifications within an old transplant kidney Nonspecific right abdominal calcification, possibly related to the urinary tract Other postsurgical changes, as described Inferior vena cava filter again noted
[2017-05-02] MEDS ORDERED: Tubing Blood Filter IV ONE (14:05)
[2017-05-02] MEDS ORDERED: D5NS 1000ml IV ONE (14:05)
[2017-05-02] MEDS ORDERED: NS 275ml ONE (14:05)
--- NOTE | 2017-05-02 14:10 | Nephrology Progress Note ---
Assessment/Plan Problem List: (1) ESRF (end stage renal failure) Assessment: HD tomorrow (2) Aspiration pneumonia (3) Sepsis (4) Respiratory failure (5) Diabetes mellitus (6) Gout Plan HD tomorrow follow lbs Discussed with RN Subjective Subjective Pt was seen in ICU Extubated Objective Objective Last 24 Hour Vital Signs Date Time Temp Pulse Resp B/P Pulse Ox O2 Delivery O2 Flow Rate FiO2 05/02/17 13:00 74 20 111/62 100 Nasal Cannula 2.0 05/02/17 12:00 98.1 80 18 118/61 100 Nasal Cannula 2.0 05/02/17 12:00 82 05/02/17 11:00 76 18 107/61 100 Nasal Cannula 2.0 05/02/17 10:00 80 17 110/62 100 Nasal Cannula 2.0 05/02/17 09:00 74 17 109/58 100 Nasal Cannula 2.0 05/02/17 08:00 76 05/02/17 08:00 97.3 76 18 107/57 100 Nasal Cannula 2.0 05/02/17 07:26 Nasal Cannula 2.0 28 05/02/17 07:25 100 Nasal Cannula 2.0 28 05/02/17 07:00 78 18 103/57 100 Nasal Cannula 2.0 05/02/17 06:00 75 16 98/53 100 Nasal Cannula 2.0 05/02/17 05:00 76 14 97/52 100 Nasal Cannula 2.0 05/02/17 04:00 97.9 75 17 106/57 100 Nasal Cannula 2.0 05/02/17 04:00 75 05/02/17 04:00 106/57 05/02/17 03:00 72 14 102/53 100 Nasal Cannula 2.0 05/02/17 03:00 102/53 05/02/17 02:00 72 16 99/51 100 Nasal Cannula 2.0 05/02/17 02:00 99/51 05/02/17 01:17 100 Nasal Cannula 1.0 24 05/02/17 01:17 Nasal Cannula 1.0 24 05/02/17 01:00 74 16 96/50 100 Nasal Cannula 2.0 05/02/17 01:00 96/50 05/02/17 00:00 71 05/02/17 00:00 98.0 73 17 92/56 100 Nasal Cannula 2.0 05/02/17 00:00 92/56 05/01/17 23:15 105/53 05/01/17 23:00 78 16 105/53 100 Nasal Cannula 2.0 05/01/17 23:00 105/53 05/01/17 22:25 Nasal Cannula 05/01/17 22:00 72 18 96/50 100 Simple Mask 35 05/01/17 22:00 96/50 05/01/17 21:00 95/50 05/01/17 21:00 77 14 95/50 100 Simple Mask 35 05/01/17 20:00 97.8 70 16 92/50 100 Simple Mask 35 05/01/17 20:00 70 05/01/17 20:00 92/50 05/01/17 19:20 100 Simple Mask 3.0 32 05/01/17 19:20 Simple Mask 3.0 32 05/01/17 19:00 78 20 105/47 100 Mechanical Ventilator 100 05/01/17 18:58 Mechanical Ventilator 100 05/01/17 18:00 78 20 98/47 100 Mechanical Ventilator 100 05/01/17 17:32 72 33 35 05/01/17 17:00 65 20 150/61 100 Mechanical Ventilator 100 05/01/17 16:00 40 05/01/17 16:00 70 05/01/17 16:00 98.0 66 20 149/67 100 Mechanical Ventilator 100 05/01/17 15:35 100 05/01/17 15:33 65 18 40 05/01/17 15:24 69 18 40 05/01/17 15:00 65 20 165/78 100 Mechanical Ventilator 100 Intake and Output 05/01/17 05/02/17 19:00 07:00 Intake Total 915.00 ml 743.75 ml Output Total 3610 ml Balance 915.00 ml -2866.25 ml Free Water 240 ml 60 ml IV Total 190.00 ml 143.75 ml Tube Feeding 485 ml 540 ml Output Urine Total 50 ml Chest Tube Drainage Total 560 ml Hemodialysis UF 3000 ml # Bowel Movements 1 1 Laboratory Tests 05/01/17 18:20: White Blood Count 9.1, Red Blood Count 2.84L, Hemoglobin 8.7L, Hematocrit 24.8L , Mean Corpuscular Volume 87, Mean Corpuscular Hemoglobin 30.7, Mean Corpuscular Hemoglobin Concent 35.2, Red Cell Distribution Width 15.4H, Platelet Count 144L, Mean Platelet Volume 5.0L, Neutrophils (%) (Auto) 66.2, Lymphocytes (%) (Auto) 18.6L, Monocytes (%) (Auto) 6.9, Eosinophils (%) (Auto) 7.7H, Basophils (%) (Auto) 0.6, Sodium Level 135, Potassium Level 3.7, Chloride Level 94L, Carbon Dioxide Level 28, Anion Gap 13, Blood Urea Nitrogen 50H, Creatinine 5.6H, Estimat Glomerular Filtration Rate 10.1, Glucose Level 171H, Calcium Level 8.4L, Total Bilirubin 0.7, Aspartate Amino Transf (AST/SGOT) 10, Alanine Aminotransferase (ALT/SGPT) 5, Alkaline Phosphatase 123, Total Protein 5.3L, Albumin 2.6L, Globulin 2.7, Albumin/Globulin Ratio 0.9L 05/02/17 04:00: White Blood Count 6.7, Red Blood Count 2.81L, Hemoglobin 8.1L, Hematocrit 24.9L , Mean Corpuscular Volume 89, Mean Corpuscular Hemoglobin 28.8, Mean Corpuscular Hemoglobin Concent 32.5, Red Cell Distribution Width 15.8H, Platelet Count 122L, Mean Platelet Volume 5.1L, Neutrophils (%) (Auto) 61.3, Lymphocytes (%) (Auto) 19.8L, Monocytes (%) (Auto) 8.4, Eosinophils (%) (Auto) 10.1H, Basophils (%) (Auto) 0.4, Sodium Level 143, Potassium Level 3.4, Chloride Level 100, Carbon Dioxide Level 32H, Anion Gap 11, Blood Urea Nitrogen 32H, Creatinine 3.9H, Estimat Glomerular Filtration Rate 15.4, Glucose Level 136H, Calcium Level 8.3L, Total Bilirubin 0.6, Aspartate Amino Transf (AST/SGOT ) 11, Alanine Aminotransferase (ALT/SGPT) 5, Alkaline Phosphatase 135H, Total Protein 5.2L, Albumin 2.3L, Globulin 2.9, Albumin/Globulin Ratio 0.7L, Phosphorus Level 4.1, Magnesium Level 2.0, Random Vancomycin Level 16.3 05/02/17 09:05: Arterial Blood pH 7.436, Arterial Blood Partial Pressure CO2 48.5H, Arterial Blood Partial Pressure O2 87.6, Arterial Blood HCO3 31.9H, Arterial Blood Oxygen Saturation 95.4, Arterial Blood Base Excess 6.9, Flex Test Positive Height (Feet): 5 Height (Inches): 8.00 Weight (Pounds): 208 Cardiovascular: normal rate Respiratory/Chest: rhonchi - bilaterally Extremities: moderate edema HANG HODGE May 02, 2017 14:10
[2017-05-02] MEDS ORDERED: Vancomycin 1gm/D5W 275ml IVPB ONE ×2 (15:30)
[2017-05-02] MEDS: Dyna-Hex 2% Top Sol 8oz TOPIC SCH (21:00)
[2017-05-02] MEDS ORDERED: Epogen (for ESRD on dialysis) SUBQ SCH (21:00)
[2017-05-02] MEDS ORDERED: Nitroglycerin Subl 0.4mg tab (Bottle Of 25) SL PRN (23:15)
[2017-05-02] MEDS ORDERED: Morphine Sulfate 2mg/ml Inj IVP PRN (23:38)
[2017-05-02] MEDS ORDERED: Miralax 17gm pkt ORAL PRN (23:39)
[2017-05-03] MEDS ORDERED: Simethicone 80mg tab GT PRN
[2017-05-03 04:00] VITALS: BP 109/61
[2017-05-03] MEDS: Piperacillin/Tazobactam 2.25 GM in D5W 55 ML IVPB SCH ×2 (05:30→14:49)
[2017-05-03] MEDS ORDERED: Heparin Sod 1000 units/ml 10ml IV PRN ×2 (06:00)
[2017-05-03 06:01] LABS: BASOPHILS % (AUTO) 0.5 % (0.0-2.0); EOSINOPHILS % (AUTO) 9.6 % (0.0-3.0); LYMPHOCYTES % (AUTO) 15.9 % (20.0-45.0); MEAN CORPUSCULAR HEMOGLOBIN 29.1 PG (27.0-31.0); MEAN CORPUSCULAR HGB CONC 32.5 G/DL (32.0-36.0); MEAN CORPUSCULAR VOLUME 89 FL (80-99); MEAN PLATELET VOLUME 5.3 FL (6.5-10.1); MONOCYTES % (AUTO) 7.4 % (1.0-10.0); NEUTROPHILS % (AUTO) 66.5 % (45.0-75.0); PLATELET COUNT 129 K/UL (150-450); RED BLOOD COUNT 2.97 M/UL (4.70-6.10); RED CELL DISTRIBUTION WIDTH 15.5 % (11.6-14.8); WHITE BLOOD COUNT 7.1 K/UL (4.8-10.8)
[2017-05-03 06:18] LABS: HEMOLYSIS 13; IRON 62 ug/dL (59-158); TOTAL IRON BINDING CAPACITY 105 ug/dL (250-400)
[2017-05-03 06:20] LABS: ALBUMIN/GLOBULIN RATIO 0.7 (1.0-2.7); CALCIUM 8.6 mg/dL (8.6-10.2); CREATININE 4.9 mg/dL (0.7-1.2); GLOMERULAR FILTRATION RATE 11.8 mL/min (>60); TOTAL PROTEIN 5.3 g/dL (6.6-8.7)
[2017-05-03 08:15] VITALS: BP 116/64
[2017-05-03] MEDS ORDERED: Vitamin A&D Oint 2oz Tube TOPIC SCH (09:00)
[2017-05-03] MEDS ORDERED: Pantoprazole Inj IVP SCH (09:00)
--- NOTE | 2017-05-03 10:53 | Diagnostic Imaging Report ---
Indications: DYSPNEA Technique: Portable AP chest Findings: Comparison: 05/02/17 Right lung volume remains decreased compared left with interstitial infiltrate throughout its upper lobe, consolidation and volume loss lower lobe, gas filled cavity in or adjacent to base with overlying chest tube, apical pleural thickening versus effusion, all unchanged. Increased interstitial markings throughout left lung, small left pleural effusion unchanged. Cardiomediastinal silhouette stable. Nasogastric tube, central venous catheter removed. No new abnormality identified. IMPRESSION: Mobile nasogastric tube, central venous catheter Stable right basal loculated hydropneumothorax with chest tube in place Stable right lung base atelectasis Stable bilateral interstitial infiltrates, pleural effusion, may be congestive
[2017-05-03 11:37] VITALS: BP 116/62
--- NOTE | 2017-05-03 11:49 | GI Progress Note ---
Assessment/Plan Problems: (1) Hemorrhagic shock SNOMED: 898971 (2) Diabetes mellitus ICD Codes: E11.9 - Type 2 diabetes mellitus without complications SNOMED: 31409056 (3) Gastrointestinal hemorrhage ICD Codes: K92.2 - Gastrointestinal hemorrhage, unspecified SNOMED: 14191077 (4) Sepsis ICD Codes: A41.9 - Sepsis, unspecified organism SNOMED: 83540660 (5) Acute respiratory failure ICD Codes: J96.00 - Acute respiratory failure, unspecified whether with hypoxia or hypercapnia SNOMED: 63828145 Status: progressing Status Narrative Discussed with Dr. Back. Assessment/Plan SUMMARY OF FINDINGS: Billroth II anastomosis with a large ulceration at the anastomotic area without any adherent clot or visible vessel. RECOMMENDATIONS: video swallow today monitor H&H, transfuse prn PPI BID s/p VATS fu surgical recs Subjective Subjective hungry Objective Last 24 Hour Vital Signs Date Time Temp Pulse Resp B/P Pulse Ox O2 Delivery O2 Flow Rate FiO2 05/03/17 11:39 97 Nasal Cannula 2.0 05/03/17 11:37 96.0 16 116/62 85 Room Air 05/03/17 08:15 97.4 72 16 116/64 100 Nasal Cannula 2.0 05/03/17 08:00 70 05/03/17 04:00 69 05/03/17 04:00 97.7 69 14 109/61 100 Nasal Cannula 2.0 05/03/17 00:00 65 05/02/17 23:52 97.4 67 16 100/59 100 Nasal Cannula 2.0 05/02/17 22:00 70 15 98/54 100 Nasal Cannula 2.0 05/02/17 21:00 72 15 102/57 100 Nasal Cannula 2.0 05/02/17 20:00 97.9 72 19 108/60 100 Nasal Cannula 2.0 05/02/17 20:00 73 05/02/17 19:13 Nasal Cannula 2.0 28 05/02/17 19:13 100 Nasal Cannula 2.0 28 05/02/17 19:00 72 21 108/61 100 Nasal Cannula 2.0 05/02/17 18:00 80 21 103/55 100 Nasal Cannula 2.0 05/02/17 17:00 80 19 118/68 100 Nasal Cannula 2.0 05/02/17 16:00 83 05/02/17 16:00 98.0 83 19 121/68 100 Nasal Cannula 2.0 05/02/17 15:00 75 19 112/68 100 Nasal Cannula 2.0 05/02/17 14:55 98.0 05/02/17 14:00 75 20 126/62 100 Nasal Cannula 2.0 05/02/17 13:00 74 20 111/62 100 Nasal Cannula 2.0 05/02/17 12:00 98.1 80 18 118/61 100 Nasal Cannula 2.0 05/02/17 12:00 82 Intake and Output 05/02/17 05/03/17 19:00 07:00 Intake Total 305 ml 110 ml Output Total 150 ml Balance 155 ml 110 ml IV Total 55 ml 110 ml Blood Product 250 ml Output Urine Total 150 ml # Bowel Movements 3 2 Laboratory Tests Test 05/03/17 04:50 White Blood Count 7.1 K/UL (4.8-10.8) Red Blood Count 2.97 M/UL (4.70-6.10) L Hemoglobin 8.6 G/DL (14.2-18.0) L Hematocrit 26.6 % (42.0-52.0) L Mean Corpuscular Volume 89 FL (80-99) Mean Corpuscular Hemoglobin 29.1 PG (27.0-31.0) Mean Corpuscular Hemoglobin Concent 32.5 G/DL (32.0-36.0) Red Cell Distribution Width 15.5 % (11.6-14.8) H Platelet Count 129 K/UL (150-450) L Mean Platelet Volume 5.3 FL (6.5-10.1) L Neutrophils (%) (Auto) 66.5 % (45.0-75.0) Lymphocytes (%) (Auto) 15.9 % (20.0-45.0) L Monocytes (%) (Auto) 7.4 % (1.0-10.0) Eosinophils (%) (Auto) 9.6 % (0.0-3.0) H Basophils (%) (Auto) 0.5 % (0.0-2.0) Sodium Level 139 mEQ/L (135-145) Potassium Level 4.0 mEQ/L (3.4-4.9) Chloride Level 98 mEQ/L (98-107) Carbon Dioxide Level 29 mEQ/L (20-30) Anion Gap 12 (5-15) Blood Urea Nitrogen 39 mg/dL (7-23) H Creatinine 4.9 mg/dL (0.7-1.2) H Estimat Glomerular Filtration Rate 11.8 mL/min (>60) Glucose Level 88 mg/dL (74-106) Calcium Level 8.6 mg/dL (8.6-10.2) Phosphorus Level 5.4 mg/dL (2.5-4.8) H Iron Level 62 ug/dL (59-158) Total Iron Binding Capacity 105 ug/dL (250-400) L Percent Iron Saturation 59 % (15-50) H Unsaturated Iron Binding 43 ug/dL (112-346) L Total Bilirubin 0.6 mg/dL (0.0-1.2) Aspartate Amino Transf (AST/SGOT) 11 U/L (5-40) Alanine Aminotransferase (ALT/SGPT) 5 U/L (3-41) Alkaline Phosphatase 108 U/L (40-129) Pro-B-Type Natriuretic Peptide 05367 pg/mL (0-125) H Total Protein 5.3 g/dL (6.6-8.7) L Albumin 2.3 g/dL (3.5-5.2) L Globulin 3.0 g/dL Albumin/Globulin Ratio 0.7 (1.0-2.7) L Height (Feet): 5 Height (Inches): 8.00 Weight (Pounds): 207 General Appearance: no apparent distress, alert Cardiovascular: normal rate Respiratory/Chest: normal breath sounds, no respiratory distress Abdominal Exam: soft Objective rectal bleeding Joellen Parker N.Drew May 03, 2017 11:49
--- NOTE | 2017-05-03 12:22 | Infectious Diseases Prog Note ---
Assessment/Plan Assessment/Plan ASSESSMENT: 72 y/o male with: // Possible aspiration PNA - SCx S.marcescens // Loculated right pleural effusion - SP VATS, partial pleurectomy 04/30 - Cx NGTD // Afebrile without leukocytosis // UGIB 2/2 PUD - Hgb stable // SP VDRF // ESRD / HD // TCP // Right SCV stent // Chronic BLE DVT // DM2 - HbA1c <5% // VRE colonized // NKDA // Full Code PLAN: - continue IV vancomycin, zosyn d# - f/u cultures - monitor CBC, temperatures - monitor BMP - monitor CXR Subjective Allergies: Coded Allergies: No Known Allergies (Verified , 02/08/07) Subjective remains afebrile cultures NGTD Objective Vital Signs Last 24 Hour Vital Signs Date Time Temp Pulse Resp B/P Pulse Ox O2 Delivery O2 Flow Rate FiO2 05/03/17 11:39 97 Nasal Cannula 2.0 05/03/17 11:37 96.0 16 116/62 85 Room Air 05/03/17 08:15 97.4 72 16 116/64 100 Nasal Cannula 2.0 05/03/17 08:00 70 05/03/17 04:00 69 05/03/17 04:00 97.7 69 14 109/61 100 Nasal Cannula 2.0 05/03/17 00:00 65 05/02/17 23:52 97.4 67 16 100/59 100 Nasal Cannula 2.0 05/02/17 22:00 70 15 98/54 100 Nasal Cannula 2.0 05/02/17 21:00 72 15 102/57 100 Nasal Cannula 2.0 05/02/17 20:00 97.9 72 19 108/60 100 Nasal Cannula 2.0 05/02/17 20:00 73 05/02/17 19:13 Nasal Cannula 2.0 28 05/02/17 19:13 100 Nasal Cannula 2.0 28 05/02/17 19:00 72 21 108/61 100 Nasal Cannula 2.0 05/02/17 18:00 80 21 103/55 100 Nasal Cannula 2.0 05/02/17 17:00 80 19 118/68 100 Nasal Cannula 2.0 05/02/17 16:00 83 05/02/17 16:00 98.0 83 19 121/68 100 Nasal Cannula 2.0 05/02/17 15:00 75 19 112/68 100 Nasal Cannula 2.0 05/02/17 14:55 98.0 05/02/17 14:00 75 20 126/62 100 Nasal Cannula 2.0 05/02/17 13:00 74 20 111/62 100 Nasal Cannula 2.0 Height (Feet): 5 Height (Inches): 8.00 Weight (Pounds): 207 General Appearance: no acute distress Respiratory/Chest: decreased breath sounds Cardiovascular: normal rate, regular rhythm Abdomen: normal bowel sounds, soft, non tender, non distended Laboratory Tests Test 05/03/17 04:50 White Blood Count 7.1 K/UL (4.8-10.8) Red Blood Count 2.97 M/UL (4.70-6.10) L Hemoglobin 8.6 G/DL (14.2-18.0) L Hematocrit 26.6 % (42.0-52.0) L Mean Corpuscular Volume 89 FL (80-99) Mean Corpuscular Hemoglobin 29.1 PG (27.0-31.0) Mean Corpuscular Hemoglobin Concent 32.5 G/DL (32.0-36.0) Red Cell Distribution Width 15.5 % (11.6-14.8) H Platelet Count 129 K/UL (150-450) L Mean Platelet Volume 5.3 FL (6.5-10.1) L Neutrophils (%) (Auto) 66.5 % (45.0-75.0) Lymphocytes (%) (Auto) 15.9 % (20.0-45.0) L Monocytes (%) (Auto) 7.4 % (1.0-10.0) Eosinophils (%) (Auto) 9.6 % (0.0-3.0) H Basophils (%) (Auto) 0.5 % (0.0-2.0) Sodium Level 139 mEQ/L (135-145) Potassium Level 4.0 mEQ/L (3.4-4.9) Chloride Level 98 mEQ/L (98-107) Carbon Dioxide Level 29 mEQ/L (20-30) Anion Gap 12 (5-15) Blood Urea Nitrogen 39 mg/dL (7-23) H Creatinine 4.9 mg/dL (0.7-1.2) H Estimat Glomerular Filtration Rate 11.8 mL/min (>60) Glucose Level 88 mg/dL (74-106) Calcium Level 8.6 mg/dL (8.6-10.2) Phosphorus Level 5.4 mg/dL (2.5-4.8) H Iron Level 62 ug/dL (59-158) Total Iron Binding Capacity 105 ug/dL (250-400) L Percent Iron Saturation 59 % (15-50) H Unsaturated Iron Binding 43 ug/dL (112-346) L Total Bilirubin 0.6 mg/dL (0.0-1.2) Aspartate Amino Transf (AST/SGOT) 11 U/L (5-40) Alanine Aminotransferase (ALT/SGPT) 5 U/L (3-41) Alkaline Phosphatase 108 U/L (40-129) Pro-B-Type Natriuretic Peptide 84885 pg/mL (0-125) H Total Protein 5.3 g/dL (6.6-8.7) L Albumin 2.3 g/dL (3.5-5.2) L Globulin 3.0 g/dL Albumin/Globulin Ratio 0.7 (1.0-2.7) L Current Medications Medications (Trade) Dose Ordered Sig/[place] Route PRN Reason Start Time Stop Time Status Last Admin Dose Admin Acetaminophen (Tylenol) 650 mg Q4H PRN ORAL fever 05/02/17 23:32 06/01/17 23:31 Chlorhexidine Gluconate (Basilia-Hex 2%) 1 applic QHS TOPIC 05/03/17 21:00 06/02/17 20:59 Clotrimazole (Lotrimin) 1 applic EVERY 12 HOURS TOPIC 05/03/17 09:00 06/02/17 08:59 05/03/17 10:18 Dextrose (Dextrose 50%) STAT PRN IV Hypoglycemia 05/02/17 23:34 06/01/17 23:33 Diphenhydramine HCl (Benadryl) 25 mg Q6H PRN ORAL Itching/Pruritis 05/03/17 03:15 06/02/17 03:14 Epoetin Naveed (Procrit (for ESRD on dialysis)) 10,000 units SUN-SUN-SUN SUBQ 05/04/17 21:00 06/03/17 20:59 Heparin Sodium (Porcine) (Heparin Sod 1000 units/ml 10ml) 500 unit ONCE PRN IV for HD 05/03/17 06:00 05/08/17 05:59 Morphine Sulfate (Morphine Sulfate) 2 mg Q4H PRN IVP pain scale 4-6 05/02/17 23:38 05/09/17 23:37 Nitroglycerin (Ntg) 0.4 mg Q5M X 3 DOSES PRN SL Prn Chest Pain 05/02/17 23:15 06/01/17 23:14 Ondansetron HCl (Zofran) 4 mg Q6H PRN IVP Nausea & Vomiting 05/02/17 23:38 06/01/17 23:37 Pantoprazole (Protonix) 40 mg EVERY 12 HOURS IVP 05/03/17 09:00 06/02/17 08:59 05/03/17 10:17 Piperacillin Sod/ Tazobactam Sod/ Dextrose (Zosyn/D5W) 55 ml @ 110 mls/hr Q8HR IVPB 05/03/17 06:00 05/10/17 05:59 05/03/17 05:30 Polyethylene Glycol (Miralax) 17 gm HSPRN PRN ORAL Constipation 05/02/17 23:39 06/01/17 23:38 Simethicone (Mylicon) 80 mg EVERY 6 HOURS PRN GT bloated, gas,abdominal discomt 05/03/17 00:00 06/02/17 00:00 Sodium Chloride 1,000 ml @ 500 mls/hr Q2H PRN IVLG sbp<90 during hd 05/03/17 06:00 06/02/17 05:59 Vancomycin HCl (Vanco rx to dose) 1 ea DAILY PRN MISC Per rx protocol 05/03/17 09:00 06/02/17 08:59 Vitamin A/Vitamin D (A & D Oint) 1 applic EVERY 12 HOURS TOPIC 05/03/17 09:00 06/02/17 08:59 05/03/17 10:18 HODAN ROTHMAN May 03, 2017 12:22
--- NOTE | 2017-05-03 12:46 | Pulmonology Progress Note ---
Assessment/Plan Problems: (1) Hemorrhagic shock (2) Acute respiratory failure (3) Aspiration pneumonia (4) ESRF (end stage renal failure) (5) Gout (6) Diabetes mellitus (7) Gastrointestinal hemorrhage (8) COPD (chronic obstructive pulmonary disease) Assessment/Plan improving swallow study noted has the chest drainage afebriel, without wbc dc to [facility] for pt/ot Subjective ROS Limited/Unobtainable: No Constitutional: Reports: no symptoms HEENT: Repors: no symptoms Respiratory: Reports: no symptoms Allergies: Coded Allergies: No Known Allergies (Verified , 02/08/07) Objective Last 24 Hour Vital Signs Date Time Temp Pulse Resp B/P Pulse Ox O2 Delivery O2 Flow Rate FiO2 05/03/17 11:39 97 Nasal Cannula 2.0 05/03/17 11:37 96.0 16 116/62 85 Room Air 05/03/17 08:15 97.4 72 16 116/64 100 Nasal Cannula 2.0 05/03/17 08:00 70 05/03/17 04:00 69 05/03/17 04:00 97.7 69 14 109/61 100 Nasal Cannula 2.0 05/03/17 00:00 65 05/02/17 23:52 97.4 67 16 100/59 100 Nasal Cannula 2.0 05/02/17 22:00 70 15 98/54 100 Nasal Cannula 2.0 05/02/17 21:00 72 15 102/57 100 Nasal Cannula 2.0 05/02/17 20:00 97.9 72 19 108/60 100 Nasal Cannula 2.0 05/02/17 20:00 73 05/02/17 19:13 Nasal Cannula 2.0 28 05/02/17 19:13 100 Nasal Cannula 2.0 28 05/02/17 19:00 72 21 108/61 100 Nasal Cannula 2.0 05/02/17 18:00 80 21 103/55 100 Nasal Cannula 2.0 05/02/17 17:00 80 19 118/68 100 Nasal Cannula 2.0 05/02/17 16:00 83 05/02/17 16:00 98.0 83 19 121/68 100 Nasal Cannula 2.0 05/02/17 15:00 75 19 112/68 100 Nasal Cannula 2.0 05/02/17 14:55 98.0 05/02/17 14:00 75 20 126/62 100 Nasal Cannula 2.0 05/02/17 13:00 74 20 111/62 100 Nasal Cannula 2.0 Intake and Output 05/02/17 05/03/17 19:00 07:00 Intake Total 305 ml 110 ml Output Total 150 ml Balance 155 ml 110 ml IV Total 55 ml 110 ml Blood Product 250 ml Output Urine Total 150 ml # Bowel Movements 3 2 General Appearance: WD/WN HEENT: normocephalic, atraumatic Respiratory/Chest: chest wall non-tender, lungs clear Cardiovascular: normal peripheral pulses, normal rate Abdomen: normal bowel sounds, soft, non tender Extremities: no cyanosis, no clubbing Skin: no rash Neurologic/Psychiatric: pace analyst II-XII grossly normal Lymphatic: no neck adenopathy, no groin adenopathy Laboratory Tests 05/03/17 04:50: White Blood Count 7.1, Red Blood Count 2.97L, Hemoglobin 8.6L, Hematocrit 26.6L , Mean Corpuscular Volume 89, Mean Corpuscular Hemoglobin 29.1, Mean Corpuscular Hemoglobin Concent 32.5, Red Cell Distribution Width 15.5H, Platelet Count 129L, Mean Platelet Volume 5.3L, Neutrophils (%) (Auto) 66.5, Lymphocytes (%) (Auto) 15.9L, Monocytes (%) (Auto) 7.4, Eosinophils (%) (Auto) 9.6H, Basophils (%) (Auto) 0.5, Sodium Level 139, Potassium Level 4.0, Chloride Level 98, Carbon Dioxide Level 29, Anion Gap 12, Blood Urea Nitrogen 39H, Creatinine 4.9H, Estimat Glomerular Filtration Rate 11.8, Glucose Level 88, Calcium Level 8.6, Phosphorus Level 5.4H, Iron Level 62, Total Iron Binding Capacity 105L, Percent Iron Saturation 59H, Unsaturated Iron Binding 43L, Total Bilirubin 0.6, Aspartate Amino Transf (AST/SGOT) 11, Alanine Aminotransferase ( ALT/SGPT) 5, Alkaline Phosphatase 108, Pro-B-Type Natriuretic Peptide 72152G, Total Protein 5.3L, Albumin 2.3L, Globulin 3.0, Albumin/Globulin Ratio 0.7L Current Medications Medications (Trade) Dose Ordered Sig/[place] Route PRN Reason Start Time Stop Time Status Last Admin Dose Admin Acetaminophen (Tylenol) 650 mg Q4H PRN ORAL fever 05/02/17 23:32 06/01/17 23:31 Chlorhexidine Gluconate (Basilia-Hex 2%) 1 applic QHS TOPIC 05/03/17 21:00 06/02/17 20:59 Clotrimazole (Lotrimin) 1 applic EVERY 12 HOURS TOPIC 05/03/17 09:00 06/02/17 08:59 05/03/17 10:18 Dextrose (Dextrose 50%) STAT PRN IV Hypoglycemia 05/02/17 23:34 06/01/17 23:33 Diphenhydramine HCl (Benadryl) 25 mg Q6H PRN ORAL Itching/Pruritis 05/03/17 03:15 06/02/17 03:14 Epoetin Naveed (Procrit (for ESRD on dialysis)) 10,000 units SUN-SUN-SUN SUBQ 05/04/17 21:00 06/03/17 20:59 Heparin Sodium (Porcine) (Heparin Sod 1000 units/ml 10ml) 500 unit ONCE PRN IV for HD 05/03/17 06:00 05/08/17 05:59 Morphine Sulfate (Morphine Sulfate) 2 mg Q4H PRN IVP pain scale 4-6 05/02/17 23:38 05/09/17 23:37 Nitroglycerin (Ntg) 0.4 mg Q5M X 3 DOSES PRN SL Prn Chest Pain 05/02/17 23:15 06/01/17 23:14 Ondansetron HCl (Zofran) 4 mg Q6H PRN IVP Nausea & Vomiting 05/02/17 23:38 06/01/17 23:37 Pantoprazole (Protonix) 40 mg EVERY 12 HOURS IVP 05/03/17 09:00 06/02/17 08:59 05/03/17 10:17 Piperacillin Sod/ Tazobactam Sod/ Dextrose (Zosyn/D5W) 55 ml @ 110 mls/hr Q8HR IVPB 05/03/17 06:00 05/10/17 05:59 05/03/17 05:30 Polyethylene Glycol (Miralax) 17 gm HSPRN PRN ORAL Constipation 05/02/17 23:39 06/01/17 23:38 Simethicone (Mylicon) 80 mg EVERY 6 HOURS PRN GT bloated, gas,abdominal discomt 05/03/17 00:00 06/02/17 00:00 Sodium Chloride 1,000 ml @ 500 mls/hr Q2H PRN IVLG sbp<90 during hd 05/03/17 06:00 06/02/17 05:59 Vancomycin HCl (Vanco rx to dose) 1 ea DAILY PRN MISC Per rx protocol 05/03/17 09:00 06/02/17 08:59 Vitamin A/Vitamin D (A & D Oint) 1 applic EVERY 12 HOURS TOPIC 05/03/17 09:00 06/02/17 08:59 05/03/17 10:18 FORD FANG May 03, 2017 12:46
--- NOTE | 2017-05-03 15:14 | Nephrology Progress Note ---
Assessment/Plan Problem List: (1) ESRF (end stage renal failure) Assessment: HD tomorrow (2) Aspiration pneumonia (3) Sepsis (4) Respiratory failure (5) Diabetes mellitus (6) Gout Plan HDas tolerated follow labs Discussed with HD RN Subjective Subjective Pt was seen on dialysis Objective Objective Last 24 Hour Vital Signs Date Time Temp Pulse Resp B/P Pulse Ox O2 Delivery O2 Flow Rate FiO2 05/03/17 12:45 75 05/03/17 11:39 97 Nasal Cannula 2.0 05/03/17 11:37 96.0 16 116/62 85 Room Air 05/03/17 08:15 97.4 72 16 116/64 100 Nasal Cannula 2.0 05/03/17 08:00 70 05/03/17 04:00 69 05/03/17 04:00 97.7 69 14 109/61 100 Nasal Cannula 2.0 05/03/17 00:00 65 05/02/17 23:52 97.4 67 16 100/59 100 Nasal Cannula 2.0 05/02/17 22:00 70 15 98/54 100 Nasal Cannula 2.0 05/02/17 21:00 72 15 102/57 100 Nasal Cannula 2.0 05/02/17 20:00 97.9 72 19 108/60 100 Nasal Cannula 2.0 05/02/17 20:00 73 05/02/17 19:13 Nasal Cannula 2.0 28 05/02/17 19:13 100 Nasal Cannula 2.0 28 05/02/17 19:00 72 21 108/61 100 Nasal Cannula 2.0 05/02/17 18:00 80 21 103/55 100 Nasal Cannula 2.0 05/02/17 17:00 80 19 118/68 100 Nasal Cannula 2.0 05/02/17 16:00 83 05/02/17 16:00 98.0 83 19 121/68 100 Nasal Cannula 2.0 Intake and Output 05/02/17 05/03/17 19:00 07:00 Intake Total 305 ml 110 ml Output Total 150 ml Balance 155 ml 110 ml IV Total 55 ml 110 ml Blood Product 250 ml Output Urine Total 150 ml # Bowel Movements 3 2 Laboratory Tests 05/03/17 04:50: White Blood Count 7.1, Red Blood Count 2.97L, Hemoglobin 8.6L, Hematocrit 26.6L , Mean Corpuscular Volume 89, Mean Corpuscular Hemoglobin 29.1, Mean Corpuscular Hemoglobin Concent 32.5, Red Cell Distribution Width 15.5H, Platelet Count 129L, Mean Platelet Volume 5.3L, Neutrophils (%) (Auto) 66.5, Lymphocytes (%) (Auto) 15.9L, Monocytes (%) (Auto) 7.4, Eosinophils (%) (Auto) 9.6H, Basophils (%) (Auto) 0.5, Sodium Level 139, Potassium Level 4.0, Chloride Level 98, Carbon Dioxide Level 29, Anion Gap 12, Blood Urea Nitrogen 39H, Creatinine 4.9H, Estimat Glomerular Filtration Rate 11.8, Glucose Level 88, Calcium Level 8.6, Phosphorus Level 5.4H, Iron Level 62, Total Iron Binding Capacity 105L, Percent Iron Saturation 59H, Unsaturated Iron Binding 43L, Total Bilirubin 0.6, Aspartate Amino Transf (AST/SGOT) 11, Alanine Aminotransferase ( ALT/SGPT) 5, Alkaline Phosphatase 108, Pro-B-Type Natriuretic Peptide 08823L, Total Protein 5.3L, Albumin 2.3L, Globulin 3.0, Albumin/Globulin Ratio 0.7L Height (Feet): 5 Height (Inches): 8.00 Weight (Pounds): 207 Cardiovascular: normal rate Respiratory/Chest: rhonchi - bilaterally Extremities: moderate edema HANG HODGE May 03, 2017 15:14
[2017-05-03 16:01] VITALS: BP 117/59
[2017-05-03] MEDS ORDERED: Tubing Blood Filter IV ONE (17:49)
[2017-05-03] MEDS ORDERED: Tubing IV Secondary IV ONE (17:49)
[2017-05-03] MEDS ORDERED: NS 275ml ONE (17:49)
[2017-05-03] MEDS ORDERED: Dyna-Hex 2% Top Sol 8oz TOPIC SCH (21:00)
--- NOTE | 2017-05-04 19:30 | Discharge Summary ---
Discharge Summary Hospital Course Date of Admission Apr 23, 2017 at 15:17 Date of Discharge May 03, 2017 at 17:50 Admitting Diagnosis upper gi bleed, end stage renal disease LUCY Siddiqui is a 72 year old male who was admitted on Apr 23, 2017 at 15:17 for Upper Gastro Intestinal Bleed End Stage Renal Dise Hospital Course [id number] Discharge Discharge Disposition Patient was discharged to SNF/Subacute Facility(03) Discharge Diagnoses: Delores Leon NP May 04, 2017 19:30
[2017-05-04] MEDS ORDERED: Epogen (for ESRD on dialysis) SUBQ SCH (21:00)
--- NOTE | 2017-05-07 17:28 | Diagnostic Imaging Report ---
Indications: DYSPHAGIA Technique: Patient ingested multiple substances under the supervision of speech pathology. Video fluoroscopic recording performed. Total fluoroscopy time 22 seconds. Total dose area product 0.67388 mGycm2 Comparison: none Findings: There is frequent penetration of thin liquid barium penetration of nectar thick liquid barium was also observed. No jossie aspiration. No significant pooling. Uneventful swallowing of honey thick liquid barium and geometry tutor solid. Impression: Positive for penetration of thin and nectar thick liquid barium Please refer to speech oncology report for more detailed analysis
--- NOTE | 2017-05-09 19:29 | Diagnostic Imaging Report ---
APPROVED REPORT CPT Code: 40357 Present Symptoms Comments: Right arm swelling and pain Hx of Right arm AVF Hx of Right IJV catheter 2D Evaluation RIGHT UPPER EXTREMITY: Venous imaging reveals acute thrombus in the subclavian vein. The remaining segments are within normal limits. There is no evidence of thrombus within the jugular, stented axillary and brachial veins. The cephalic and basilic veins are patent. Imaging also reveals patency of the arterio-venous fistula, the brachial artery to the cephalic vein, at the upper arm to the fossa level. LEFT UPPER EXTREMITY: Imaging reveals patency of the internal jugular, subclavian, axillary and brachial veins. The cephalic vein is thrombosed. The basilic vein was not well visualized. RN was notified of abnormal results at 1400 hours.
--- NOTE | 2017-05-11 17:45 | Discharge Summary 2 SIG ---
DATE OF ADMISSION: 04/23/2017 DATE OF DISCHARGE: 05/03/2017 CONSULTANTS: 1. Cruzito Back M.D. 2. Liang Jasso M.D. 3. [place] Burroughs M.D. 4. Remigio Bragg M.D. BRIEF HOSPITAL COURSE: The patient is a 72-year-old male with end-stage renal failure, diabetes mellitus, gout BPH and COPD, presented to ED after hematemesis and epigastric pain. The patient was vomiting blood while at his dialysis unit. He was brought in by EMS after he was noted to be hypotensive. On evaluation at ED, laboratories showed hemoglobin of 5.8 and hematocrit was 19. He was started on Sandostatin drip and was consented for blood. He was orally intubated and was admitted to ICU. GI was consulted. He was given blood transfusion and underwent EGD on 04/24/2017 with findings of a gastric ulcer. Chest x-ray showed a dense bibasilar opacification possible aspiration pneumonia and with loculated pleural effusion possible empyema. He was started on IV vancomycin and Zosyn. Sputum culture showed growth of Serratia. He required multiple blood transfusions and received 9 units of packed RBC during inpatient stay. He was eventually started on tube feedings. Inpatient hemodialysis was done. He had a non-tunneled central venous catheter inserted on 04/26/2017. The patient underwent bronchoscopy with right video-assisted thoracoscopic surgery by Dr. Burroughs with Pleurx placement. Pleural fluid culture was negative with negative AFB and did not isolate any growth. He was eventually extubated on 05/01/2017. The patient was eventually discharged to SNF. The patient had a chest drainage. FINAL DIAGNOSES: 1. Acute respiratory failure requiring intubation status post extubation. 2. Aspiration pneumonia. 3. Acute gastrointestinal bleed secondary to large gastric ulceration. 4. Loculated right pleural effusion status post video-assisted thoracoscopic surgery with partial pleurectomy and insertion of Pleurx. 5. End-stage renal failure. 6. Sepsis. 7. Gout. 8. Diabetes mellitus. 9. Chronic obstructive pulmonary disease. 10. Hemorrhagic shock secondary to gastrointestinal bleed with acute anemia requiring blood transfusion. Pedro Augustine M.D. I have been assigned to dictate discharge summary on this account and I was not involved in the patient's management. Delores Leon N.P. DR: NAHUN JOB#: [id number] CC: RUSTY
== END 2017-05-03 17:50 | DRG 163 ==
LOC: EDBD 13:50 → EDUNIT# 13:50 → EMR 15:04 → ICU 15:17 → EDBEDREQ 15:20 → 2W 05-02 23:07
PROC: 5A1955Z Respiratory Ventilation, Greater than 96 Consecutive Hours (ICD-10-PCS; principal; 2017-04-23)
PROC: 30233N1 Transfusion of Nonautologous Red Blood Cells into Peripheral Vein, Percutaneous Approach (ICD-10-PCS; principal; 2017-04-23)
PROC: 0BH17EZ Insertion of Endotracheal Airway into Trachea, Via Natural or Artificial Opening (ICD-10-PCS; principal; 2017-04-23)
PROC: 0DB68ZX Excision of Stomach, Via Natural or Artificial Opening Endoscopic, Diagnostic (ICD-10-PCS; 2017-04-24)
PROC: 02HV33Z Insertion of Infusion Device into Superior Vena Cava, Percutaneous Approach (ICD-10-PCS; 2017-04-26)
PROC: 5A1D60Z (ICD-10-PCS; 2017-04-29)
PROC: 0BDN4ZZ Extraction of Right Pleura, Percutaneous Endoscopic Approach (ICD-10-PCS; 2017-04-30)
PROC: 0W9940Z Drainage of Right Pleural Cavity with Drainage Device, Percutaneous Endoscopic Approach (ICD-10-PCS; 2017-04-30)
PROC: 0BBN4ZZ Excision of Right Pleura, Percutaneous Endoscopic Approach (ICD-10-PCS; 2017-04-30)
PROC: 0BNK4ZZ Release Right Lung, Percutaneous Endoscopic Approach (ICD-10-PCS; 2017-04-30)
DX: J90 Pleural effusion, not elsewhere classified (principal); J86.9 Pyothorax without fistula; J96.00 Acute respiratory failure, unspecified whether with hypoxia or hypercapnia; R57.1 Hypovolemic shock; J69.0 Pneumonitis due to inhalation of food and vomit; E11.9 Type 2 diabetes mellitus without complications; D64.9 Anemia, unspecified; K28.0 Acute gastrojejunal ulcer with hemorrhage; N18.6 End stage renal disease; I12.0 Hypertensive chronic kidney disease with stage 5 chronic kidney disease or end stage renal disease; J94.8 Other specified pleural conditions; J44.9 Chronic obstructive pulmonary disease, unspecified; Z99.2 Dependence on renal dialysis; N40.0 Benign prostatic hyperplasia without lower urinary tract symptoms; M10.9 Gout, unspecified; I25.10 Atherosclerotic heart disease of native coronary artery without angina pectoris; Z86.718 Personal history of other venous thrombosis and embolism
CPT/HCPCS: 31500; 36415; 36569; 36600; 71010; 71250; 74000; 74230; 76604; 80048; 80053; 80061; 80202; 82150; 82550; 82607; 82746; 82803; 82977; 83036; 83540; 83550; 83605; 83690; 83735; 83880; 84100; 84443; 84484; 84550; 85007; 85025; 85610; 85730; 86140; 86850; 86900; 86901; 86920; 87040; 87070; 87075; 87081; 87116; 87181; 87205; 93005; 93970; 94002; 94003; 94150; 94664; 94760; J2405